=== PATIENT | male | born 1955 | race Caucasian/White ===

== ENCOUNTER 2022-03-07 17:36 | Outpatient (REF) | payer MEDICARE, MEDICAID, SELFPAY ==
[2022-03-08 09:43] LABS: Abs Immature Grans 0.02 10^3/uL (0.0-0.06); Absolute Basophil Count 0.06 10^3/uL (0.0-0.2); Absolute Eosinophil Count 0.16 10^3/uL (0.0-0.7); Absolute Lymphocyte Count 3.41 10^3/uL (1.2-3.4); Absolute Monocyte Count 0.62 10^3/uL (0.1-0.8); Absolute Neutrophil Count 3.21 10^3/uL (1.2-6.7); Basophils % 0.8; Eosinophils % 2.1; HCT 43.5 % (40.0-50.0); HGB 13.6 g/dL (13.5-17.5); Immature Grans % 0.3; Lymphocytes % 45.6; MCH 28.5 pg (27.0-33.0); MCHC 31.3 % (32.0-36.0); MCV 91 fL (80-95); MPV 10.1 fL (8.0-11.0); Monocytes % 8.3; Neutrophils % 42.9; Platelet Count 304 10^3/uL (130-400); RBC 4.77 10^6/uL (4.36-5.78); RDW-SD 47.5 fL; WBC 7.48 10^3/uL (4.4-10.8)
== END 2022-03-07 17:37 | disposition home or self-care (01) ==
LOC: NCHCN 17:36
PROVIDERS: Visit Provider Nurse Practitioner Family
DX: Z51.81 Encounter for therapeutic drug level monitoring (principal)
CPT/HCPCS: 85025

== ENCOUNTER 2022-04-05 18:15 | Outpatient (REF) | payer MEDICARE, MEDICAID, SELFPAY ==
[2022-04-05 11:48] LABS: Abs Immature Grans 0.03 10^3/uL (0.0-0.06); Absolute Basophil Count 0.05 10^3/uL (0.0-0.2); Absolute Eosinophil Count 0.15 10^3/uL (0.0-0.7); Absolute Lymphocyte Count 3.16 10^3/uL (1.2-3.4); Absolute Monocyte Count 0.83 10^3/uL (0.1-0.8); Absolute Neutrophil Count 4.41 10^3/uL (1.2-6.7); Basophils % 0.6; Eosinophils % 1.7; HCT 41.6 % (40.0-50.0); HGB 13.1 g/dL (13.5-17.5); Immature Grans % 0.3; Lymphocytes % 36.6; MCH 28.7 pg (27.0-33.0); MCHC 31.5 % (32.0-36.0); MCV 91 fL (80-95); MPV 9.8 fL (8.0-11.0); Monocytes % 9.6; Neutrophils % 51.2; Platelet Count 249 10^3/uL (130-400); RBC 4.56 10^6/uL (4.36-5.78); RDW-SD 47.4 fL; WBC 8.63 10^3/uL (4.4-10.8)
== END 2022-04-05 18:16 | disposition home or self-care (01) ==
LOC: NCHCN 18:15
PROVIDERS: PCP Nurse Practitioner Family; Visit Provider Nurse Practitioner Family
DX: Z51.81 Encounter for therapeutic drug level monitoring (principal)
CPT/HCPCS: 85025

== ENCOUNTER → 2022-04-14 14:05 | Outpatient (BNVA) | payer MEDICARE, MEDICAID, SELFPAY | PROVIDERS: PCP Nurse Practitioner Family; Referring Provider Nurse Practitioner Family; Visit Provider Nurse Practitioner Adult Health | DX: R41.89 Other symptoms and signs involving cognitive functions and awareness (principal) | CPT/HCPCS: 99204 ==

== ENCOUNTER 2022-04-28 15:29 | Outpatient (REF) | payer MEDICARE, MEDICAID, SELFPAY ==
[2022-04-28 15:53] LABS: Abs Immature Grans 0.02 10^3/uL (0.0-0.06); Absolute Basophil Count 0.05 10^3/uL (0.0-0.2); Absolute Eosinophil Count 0.23 10^3/uL (0.0-0.7); Absolute Lymphocyte Count 2.86 10^3/uL (1.2-3.4); Absolute Monocyte Count 0.71 10^3/uL (0.1-0.8); Absolute Neutrophil Count 3.87 10^3/uL (1.2-6.7); Basophils % 0.6; HCT 42.7 % (40.0-50.0); HGB 13.4 g/dL (13.5-17.5); Immature Grans % 0.3; MCH 28.5 pg (27.0-33.0); MCHC 31.4 % (32.0-36.0); MCV 91 fL (80-95); MPV 9.9 fL (8.0-11.0); Monocytes % 9.2; Neutrophils % 49.9; Platelet Count 293 10^3/uL (130-400); RBC 4.71 10^6/uL (4.36-5.78); RDW 14.4 % (11.8-14.1); RDW-SD 47.9 fL; WBC 7.74 10^3/uL (4.4-10.8)
[2022-04-28 17:58] LABS: Calculated LDL 127 mg/dL (<100); Cholesterol 235 mg/dL (<200); Ferritin 79 ng/mL (26-388); HDL Cholesterol 58 mg/dL (40-60); Triglyceride 253 mg/dL (<150)
[2022-04-28 18:09] LABS: Iron 66 ug/dL (65-175); Total Iron Binding Capacity 298 ug/dL (250-450); Transferrin Sat 22 % (20-55)
[2022-04-28 18:54] LABS: Hemoglobin A1C 5.7 % (<5.7)
[2022-04-29 08:27] LABS: Vitamin B12 410 pg/mL (193-986)
[2022-04-29 20:26] LABS: PSA, Diagnostic 1.5 ng/mL (<=4.5)
== END 2022-04-28 15:30 | disposition home or self-care (01) ==
LOC: NCHCN 15:29
PROVIDERS: PCP Nurse Practitioner Family; Visit Provider Nurse Practitioner Family
DX: D72.829 Elevated white blood cell count, unspecified (principal); E78.5 Hyperlipidemia, unspecified; R73.03 Prediabetes; D64.9 Anemia, unspecified; R41.82 Altered mental status, unspecified; R97.20 Elevated prostate specific antigen [PSA]; Z79.899 Other long term (current) drug therapy; R41.9 Unspecified symptoms and signs involving cognitive functions and awareness
CPT/HCPCS: 80061; 82607; 82728; 83036; 83540; 83550; 84153; 84443; 85025

== ENCOUNTER → 2022-05-23 09:39 | Outpatient (BNVA) | payer MEDICARE, MEDICAID, SELFPAY | PROVIDERS: PCP Nurse Practitioner Family; Referring Provider Nurse Practitioner Family; Visit Provider Nurse Practitioner Adult Health | DX: F17.210 Nicotine dependence, cigarettes, uncomplicated (principal); G30.9 Alzheimer's disease, unspecified; F02.80 Dementia in other diseases classified elsewhere, unspecified severity, without behavioral disturbance, psychotic disturbance, mood disturbance, and anxiety | CPT/HCPCS: 99213; 99214 ==

== ENCOUNTER 2022-05-25 13:47 | Outpatient (REF) | payer MEDICARE, MEDICAID, SELFPAY ==
[2022-05-25 10:38] LABS: Abs Immature Grans 0.02 10^3/uL (0.0-0.06); Absolute Basophil Count 0.06 10^3/uL (0.0-0.2); Absolute Eosinophil Count 0.15 10^3/uL (0.0-0.7); Absolute Lymphocyte Count 2.66 10^3/uL (1.2-3.4); Absolute Monocyte Count 0.63 10^3/uL (0.1-0.8); Absolute Neutrophil Count 3.75 10^3/uL (1.2-6.7); Basophils % 0.8; Eosinophils % 2.1; HCT 43.4 % (40.0-50.0); HGB 13.8 g/dL (13.5-17.5); Immature Grans % 0.3; Lymphocytes % 36.6; MCH 28.7 pg (27.0-33.0); MCHC 31.8 % (32.0-36.0); MCV 90 fL (80-95); MPV 9.8 fL (8.0-11.0); Monocytes % 8.7; Neutrophils % 51.5; Platelet Count 258 10^3/uL (130-400); RBC 4.81 10^6/uL (4.36-5.78); RDW 14.4 % (11.8-14.1); RDW-SD 47.8 fL; WBC 7.27 10^3/uL (4.4-10.8)
[2022-05-25 10:59] LABS: Iron 75 ug/dL (65-175); Total Iron Binding Capacity 293 ug/dL (250-450); Transferrin Sat 26 % (20-55)
[2022-05-25 11:05] LABS: Hemoglobin A1C 5.5 % (<5.7)
[2022-05-25 11:23] LABS: Calculated LDL 53 mg/dL (<100); Cholesterol 137 mg/dL (<200); Ferritin 98 ng/mL (26-388); HDL Cholesterol 62 mg/dL (40-60); TSH (W/Ref FT4) 0.62 uIU/mL (0.36-3.74); Triglyceride 112 mg/dL (<150); Vitamin B12 818 pg/mL (193-986)
[2022-05-25 17:44] LABS: PSA, Screening 1.3 ng/mL (<=4.5)
== END 2022-05-25 13:48 | disposition home or self-care (01) ==
LOC: NCHCN 13:47
PROVIDERS: PCP Nurse Practitioner Family; Visit Provider Nurse Practitioner Family
DX: Z79.899 Other long term (current) drug therapy (principal); D64.9 Anemia, unspecified; R97.20 Elevated prostate specific antigen [PSA]; Z51.81 Encounter for therapeutic drug level monitoring; E78.5 Hyperlipidemia, unspecified; R73.03 Prediabetes
CPT/HCPCS: 80061; 84153; 82607; 82728; 83036; 83540; 83550; 84443; 85025

== ENCOUNTER 2022-06-02 13:40 | Outpatient (REF) | payer MEDICARE, MEDICAID, SELFPAY ==
[2022-06-02 10:17] LABS: Abs Immature Grans 0.03 10^3/uL (0.0-0.06); Absolute Basophil Count 0.06 10^3/uL (0.0-0.2); Absolute Eosinophil Count 0.15 10^3/uL (0.0-0.7); Absolute Lymphocyte Count 1.93 10^3/uL (1.2-3.4); Absolute Monocyte Count 0.59 10^3/uL (0.1-0.8); Absolute Neutrophil Count 3.66 10^3/uL (1.2-6.7); Basophils % 0.9; Eosinophils % 2.3; HCT 44.3 % (40.0-50.0); Immature Grans % 0.5; Lymphocytes % 30.1; MCHC 31.6 % (32.0-36.0); MCV 92 fL (80-95); MPV 10.2 fL (8.0-11.0); Monocytes % 9.2; Platelet Count 258 10^3/uL (130-400); RBC 4.83 10^6/uL (4.36-5.78); RDW 14.6 % (11.8-14.1); RDW-SD 49.1 fL; WBC 6.42 10^3/uL (4.4-10.8)
[2022-06-02 10:44] LABS: Hemoglobin A1C 5.7 % (<5.7)
[2022-06-02 11:07] LABS: Vitamin D 25 Total 13.4 ng/mL (30-100)
[2022-06-02 11:09] LABS: ALT 68 U/L (16-63); AST 31 U/L (15-37); Albumin 4.1 g/dL (3.4-5.0); Alkaline Phosphatase 94 U/L (46-116); Anion Gap 7.9 mmol/L (3-11); BUN 15 mg/dL (7-18); Bilirubin, Total 0.3 mg/dL (0.2-1.0); CO2 28.1 mmol/L (21.0-32.0); CREATININE 0.9 mg/dL (0.70-1.30); Calcium 9.3 mg/dL (8.5-10.1); Calculated LDL 120 mg/dL (<100); Chloride 103 mmol/L (98-107); Cholesterol 200 mg/dL (<200); Estimated GFR 94.78 (mL/min/1.73m2); Folate 16.9 ng/mL (8.6-20.0); Glucose 98 mg/dL (74-106); HDL Cholesterol 62 mg/dL (40-60); Potassium 4.7 mmol/L (3.5-5.1); Sodium 139 mmol/L (136-145); TSH 0.58 uIU/mL (0.36-3.74); Total Protein 7.1 g/dL (6.4-8.2); Triglyceride 94 mg/dL (<150); Vitamin B12 660 pg/mL (193-986)
[2022-06-02 11:42] LABS: FREE T4 0.77 ng/dL (0.76-1.46)
[2022-06-06 09:43] LABS: Insulin 8.6 uIU/mL (<29.0)
== END 2022-06-02 13:41 | disposition home or self-care (01) ==
LOC: LBN 13:40
PROVIDERS: PCP Nurse Practitioner Family; Visit Provider Psychiatry & Neurology Psychiatry
DX: D64.9 Anemia, unspecified (principal); E78.5 Hyperlipidemia, unspecified; R73.03 Prediabetes; Z79.899 Other long term (current) drug therapy
CPT/HCPCS: 80053; 80061; 82306; 83090; 82607; 82746; 83036; 83525; 83735; 84439; 84443; 85025

== ENCOUNTER 2022-06-27 11:58 | Outpatient (REF) | payer MEDICARE, MEDICAID, SELFPAY ==
[2022-06-27 11:54] LABS: ALT 53 U/L (16-63); AST 31 U/L (15-37); Albumin 4.1 g/dL (3.4-5.0); Alkaline Phosphatase 94 U/L (46-116); Anion Gap 7.1 mmol/L (3-11); BUN 17 mg/dL (7-18); Bilirubin, Total 0.4 mg/dL (0.2-1.0); CO2 28.9 mmol/L (21.0-32.0); CREATININE 1.2 mg/dL (0.70-1.30); Calcium 8.9 mg/dL (8.5-10.1); Calculated LDL 53 mg/dL (<100); Chloride 103 mmol/L (98-107); Cholesterol 135 mg/dL (<200); Estimated GFR 67.11 (mL/min/1.73m2); Glucose 164 mg/dL (74-106); HDL Cholesterol 60 mg/dL (40-60); Potassium 4.5 mmol/L (3.5-5.1); Sodium 139 mmol/L (136-145); Triglyceride 111 mg/dL (<150)
[2022-06-27 11:56] LABS: Abs Immature Grans 0.04 10^3/uL (0.0-0.06); Absolute Basophil Count 0.03 10^3/uL (0.0-0.2); Absolute Eosinophil Count 0.03 10^3/uL (0.0-0.7); Absolute Lymphocyte Count 1.68 10^3/uL (1.2-3.4); Absolute Monocyte Count 0.52 10^3/uL (0.1-0.8); Absolute Neutrophil Count 6.07 10^3/uL (1.2-6.7); Basophils % 0.4; Eosinophils % 0.4; HCT 46.2 % (40.0-50.0); HGB 14.3 g/dL (13.5-17.5); Immature Grans % 0.5; Lymphocytes % 20.1; MCH 28.5 pg (27.0-33.0); MCV 92 fL (80-95); MPV 9.9 fL (8.0-11.0); Monocytes % 6.2; Neutrophils % 72.4; Platelet Count 269 10^3/uL (130-400); RBC 5.01 10^6/uL (4.36-5.78); RDW 14.3 % (11.8-14.1); RDW-SD 48.9 fL; WBC 8.37 10^3/uL (4.4-10.8)
== END 2022-06-27 11:59 | disposition home or self-care (01) ==
LOC: NCHCN 11:58
PROVIDERS: PCP Nurse Practitioner Family; Visit Provider Nurse Practitioner Family
DX: D64.9 Anemia, unspecified (principal); E78.5 Hyperlipidemia, unspecified
CPT/HCPCS: 80053; 80061; 85025

== ENCOUNTER 2022-07-01 18:59 | Outpatient (REF) | payer MEDICARE, MEDICAID, SELFPAY ==
[2022-07-01 17:23] LABS: Bacteria Negative HPF (Negative); C & S Indicated? No; Casts Negative LPF (Negative); Crystals Negative HPF (Negative); Epithelial Cells Few HPF (Negative); Mucus Negative (Negative); Other Cells Negative (Negative); RBC 0-2 HPF (0-2); WBC 0-2 HPF (0-5)
== END 2022-07-01 19:00 | disposition home or self-care (01) ==
LOC: LBN 18:59
PROVIDERS: PCP Nurse Practitioner Family; Visit Provider Physician Assistant Medical
DX: R82.998 Other abnormal findings in urine (principal); R39.89 Other symptoms and signs involving the genitourinary system
CPT/HCPCS: 81015; 87086

== ENCOUNTER 2022-08-03 16:31 | Outpatient (REF) | payer MEDICARE, MEDICAID, SELFPAY ==
[2022-08-03 17:05] LABS: Abs Immature Grans 0.04 10^3/uL (0.0-0.06); Absolute Basophil Count 0.07 10^3/uL (0.0-0.2); Absolute Eosinophil Count 0.22 10^3/uL (0.0-0.7); Absolute Lymphocyte Count 3.19 10^3/uL (1.2-3.4); Absolute Monocyte Count 0.53 10^3/uL (0.1-0.8); Absolute Neutrophil Count 4.18 10^3/uL (1.2-6.7); Basophils % 0.9; Eosinophils % 2.7; HCT 40.1 % (40.0-50.0); HGB 12.8 g/dL (13.5-17.5); Immature Grans % 0.5; Lymphocytes % 38.8; MCH 29.3 pg (27.0-33.0); MCHC 31.9 % (32.0-36.0); MCV 92 fL (80-95); MPV 10.3 fL (8.0-11.0); Monocytes % 6.4; Neutrophils % 50.7; Platelet Count 248 10^3/uL (130-400); RBC 4.37 10^6/uL (4.36-5.78); RDW 13.7 % (11.8-14.1); RDW-SD 46.3 fL; WBC 8.23 10^3/uL (4.4-10.8)
== END 2022-08-03 16:32 | disposition home or self-care (01) ==
LOC: NCHCN 16:31
PROVIDERS: PCP Nurse Practitioner Family; Visit Provider Nurse Practitioner Family
DX: D64.9 Anemia, unspecified (principal)
CPT/HCPCS: 85025

== ENCOUNTER 2022-09-06 19:01 | Outpatient (REF) | payer MEDICARE, MEDICAID, SELFPAY ==
[2022-09-06 14:29] LABS: Abs Immature Grans 0.04 10^3/uL (0.0-0.06); Absolute Basophil Count 0.06 10^3/uL (0.0-0.2); Absolute Lymphocyte Count 2.79 10^3/uL (1.2-3.4); Basophils % 0.7; Eosinophils % 3.6; HCT 40.3 % (40.0-50.0); HGB 12.8 g/dL (13.5-17.5); Immature Grans % 0.5; Lymphocytes % 33.7; MCH 29.8 pg (27.0-33.0); MCHC 31.8 % (32.0-36.0); MCV 94 fL (80-95); MPV 10.2 fL (8.0-11.0); Monocytes % 9.7; Neutrophils % 51.8; Platelet Count 238 10^3/uL (130-400); RDW 14.3 % (11.8-14.1); RDW-SD 48.8 fL; WBC 8.29 10^3/uL (4.4-10.8)
== END 2022-09-06 19:02 | disposition home or self-care (01) ==
LOC: NCHCN 19:01
PROVIDERS: PCP Nurse Practitioner Family; Visit Provider Nurse Practitioner Family
DX: D64.9 Anemia, unspecified (principal)
CPT/HCPCS: 85025

== ENCOUNTER 2022-09-25 13:28 | Outpatient (REF) | payer MEDICARE, MEDICAID, SELFPAY ==
[2022-09-25 15:00] LABS: Creatine Kinase 247 U/L (39-308)
== END 2022-09-25 13:29 | disposition home or self-care (01) ==
LOC: NCHCN 13:28
PROVIDERS: PCP Nurse Practitioner Family; Visit Provider Nurse Practitioner Family
DX: M79.604 Pain in right leg (principal); M79.605 Pain in left leg
CPT/HCPCS: 82550

== ENCOUNTER 2022-09-30 19:11 | Outpatient (REF) | payer MEDICARE, MEDICAID, SELFPAY ==
[2022-09-30 19:12] LABS: Abs Immature Grans 0.04 10^3/uL (0.0-0.06); Absolute Basophil Count 0.07 10^3/uL (0.0-0.2); Absolute Eosinophil Count 0.31 10^3/uL (0.0-0.7); Absolute Monocyte Count 0.64 10^3/uL (0.1-0.8); Absolute Neutrophil Count 3.59 10^3/uL (1.2-6.7); Basophils % 0.8; Eosinophils % 3.7; HCT 41.6 % (40.0-50.0); HGB 13.5 g/dL (13.5-17.5); Immature Grans % 0.5; Lymphocytes % 44.3; MCH 29.7 pg (27.0-33.0); MCHC 32.5 % (32.0-36.0); MCV 91 fL (80-95); Monocytes % 7.7; Platelet Count 255 10^3/uL (130-400); RBC 4.55 10^6/uL (4.36-5.78); RDW 13.8 % (11.8-14.1); RDW-SD 47.1 fL; WBC 8.35 10^3/uL (4.4-10.8)
== END 2022-09-30 19:12 | disposition home or self-care (01) ==
LOC: NCHCN 19:11
PROVIDERS: PCP Nurse Practitioner Family; Visit Provider Nurse Practitioner Family
DX: D64.9 Anemia, unspecified (principal)
CPT/HCPCS: 85025

== ENCOUNTER 2022-11-11 11:06 | Outpatient (REF) | payer MEDICARE, MEDICAID, SELFPAY ==
[2022-11-11 10:52] LABS: Abs Immature Grans 0.05 10^3/uL (0.0-0.06); Absolute Basophil Count 0.06 10^3/uL (0.0-0.2); Absolute Eosinophil Count 0.22 10^3/uL (0.0-0.7); Absolute Lymphocyte Count 2.48 10^3/uL (1.2-3.4); Absolute Monocyte Count 0.63 10^3/uL (0.1-0.8); Absolute Neutrophil Count 6.07 10^3/uL (1.2-6.7); Basophils % 0.6; Eosinophils % 2.3; HGB 13.7 g/dL (13.5-17.5); Immature Grans % 0.5; Lymphocytes % 26.1; MCH 29.7 pg (27.0-33.0); MCHC 31.9 % (32.0-36.0); MCV 93 fL (80-95); Monocytes % 6.6; Neutrophils % 63.9; Platelet Count 257 10^3/uL (130-400); RBC 4.62 10^6/uL (4.36-5.78); RDW 13.6 % (11.8-14.1); RDW-SD 46.2 fL; WBC 9.51 10^3/uL (4.4-10.8)
== END 2022-11-11 11:07 | disposition home or self-care (01) ==
LOC: NCHCN 11:06
PROVIDERS: PCP Nurse Practitioner Family; Visit Provider Nurse Practitioner Family
DX: D64.9 Anemia, unspecified (principal)
CPT/HCPCS: 85025

== ENCOUNTER → 2022-11-16 10:25 | Outpatient (BNVA) | payer MEDICARE, MEDICAID, SELFPAY | PROVIDERS: PCP Nurse Practitioner Family; Referring Provider Nurse Practitioner Family; Visit Provider Nurse Practitioner Adult Health | DX: G30.9 Alzheimer's disease, unspecified (principal); F02.80 Dementia in other diseases classified elsewhere, unspecified severity, without behavioral disturbance, psychotic disturbance, mood disturbance, and anxiety; R41.89 Other symptoms and signs involving cognitive functions and awareness | CPT/HCPCS: 99213 ==

== ENCOUNTER 2022-12-12 18:56 | Outpatient (REF) | payer MEDICARE, MEDICAID, SELFPAY ==
[2022-12-12 15:56] LABS: Abs Immature Grans 0.03 10^3/uL (0.0-0.06); Absolute Basophil Count 0.05 10^3/uL (0.0-0.2); Absolute Eosinophil Count 0.16 10^3/uL (0.0-0.7); Absolute Lymphocyte Count 2.29 10^3/uL (1.2-3.4); Absolute Monocyte Count 0.75 10^3/uL (0.1-0.8); Absolute Neutrophil Count 4.39 10^3/uL (1.2-6.7); Basophils % 0.7; Eosinophils % 2.1; HCT 42.3 % (40.0-50.0); HGB 13.3 g/dL (13.5-17.5); Immature Grans % 0.4; Lymphocytes % 29.9; MCH 29.4 pg (27.0-33.0); MCHC 31.4 % (32.0-36.0); MCV 93 fL (80-95); MPV 10.1 fL (8.0-11.0); Monocytes % 9.8; Neutrophils % 57.1; Platelet Count 272 10^3/uL (130-400); RBC 4.53 10^6/uL (4.36-5.78); RDW 13.4 % (11.8-14.1); RDW-SD 46.1 fL; WBC 7.67 10^3/uL (4.4-10.8)
[2022-12-12 19:47] LABS: Hemoglobin A1C 5.7 % (<5.7)
== END 2022-12-12 18:57 | disposition home or self-care (01) ==
LOC: NCHCN 18:56
PROVIDERS: PCP Nurse Practitioner Family; Visit Provider Nurse Practitioner Family
DX: D64.9 Anemia, unspecified (principal); R73.03 Prediabetes
CPT/HCPCS: 83036; 85025

== ENCOUNTER → 2022-12-16 01:10 | Outpatient (CLI) | payer MEDICARE, MEDICAID, SELFPAY ==
--- NOTE | 2022-12-16 | DI.CTLCSR_ITS ---
Exam(s) CT CHEST LUNG CANCER SCREEN EXAM: CT CHEST LUNG CANCER SCREEN CLINICAL HISTORY: CIGARETTE SMOKER, F17.210, PULMONARY NODULE, EMPHYSEMA, COPD TECHNIQUE: Imaging Protocol: Axial computed tomography images with coronal and sagittal reformatted images were created and reviewed. Low dose screening protocol. COMPARISON: CT CT CHEST SCREENING LUNG CANCER from 09/20/2021 FINDINGS: Tracheobronchial tree: No bronchiectasis or mucus plugging.. Mediastinum and Marilu: No dominant adenopathy or fluid collection. Pulmonary parenchyma: No mass or infiltrate. Mild emphysematous changes. Lung Nodules: Coarse calcification left lower lobe. Tiny nodule right upper lobe. Pleura: No effusion. No pneumothorax. Heart: The heart is mildly dilated. Moderate coronary artery calcifications are seen. Aorta: Thoracic aorta non-dilated. Upper abdomen: Unremarkable. Bones: Unremarkable for age. Soft Tissues: Tiny hiatal hernia. Fatty containing posteromedial left diaphragmatic hernia. IMPRESSION: No suspicious pulmonary nodules. Lung RADS Cat 2 - Benign Appearance / Behavior: Nodules with a very low likelihood of becoming a clin ically active cancer due to size or lack of growth Lung-RADS 1.0 CATEGORIES: Category 0 - Prior chest CT exam(s) being located for comparison. Category 1 - Annual screening in 12 months. No nodules or definitely benign nodules. Category 2 - Annual screening in 12 months. Benign appearance. Nodules with low likelihood of becomin g active cancer. Category 3 - 6-month follow-up. Probably benign. Short-term follow-up suggested. Nodules with low lik elihood of becoming active cancer. Category 4A - 3-month follow-up and CT/PET if >8 mm in size. Suspicious finding. Findings which requi re additional testing. Category 4B - Findings which require additional testing and tissue sampling. Category 4X - Category 3 or 4 nodules with additional features or imaging findings that increases the suspicion of malignancy. Modifier S- Potentially clinically significant findings (non lung cancer) RADIATION DOSE DELIVERED: 75.74mGy.cm Total DLP DATA REPOSITORY: All CT scans at this facility are submitted to the National Radiology Data Registry (NRDR) Dose Index Registry (DIR) with the [employer] (A[employer]). RADIATION OPTIMIZATION: All CT scans at this facility use at least one of these dose optimization te chniques: automated exposure control; mA and/or kV adjustment per patient size (includes targeted exa ms where dose is matched to clinical indication); or iterative reconstruction.
== END ==
PROVIDERS: PCP Nurse Practitioner Family; Visit Provider Nurse Practitioner Family
DX: F17.210 Nicotine dependence, cigarettes, uncomplicated (principal); Z12.2 Encounter for screening for malignant neoplasm of respiratory organs; J44.9 Chronic obstructive pulmonary disease, unspecified
CPT/HCPCS: 71271

== ENCOUNTER → 2022-12-28 00:56 | Outpatient (CLI) | payer MEDICARE, MEDICAID, SELFPAY ==
--- NOTE | 2022-12-28 | DI.US_ITS ---
Exam(s) US AAA SCREENING EXAM: US AAA SCREENING CLINICAL HISTORY: FORMER SMOKER, CARDIOVASCULAR SCREENING, Z13.6 COMPARISON: No exams were available for comparison FINDINGS: There is no evidence of abdominal aortic aneurysm. Maximum diameter of the abdominal aorta is 2 cm. SPECT of the common iliac arteries, the right common iliac artery exhibits normal luminal diameter. Left common iliac artery exhibits 1 measurement of 1.9 cm which is a high reading but may be related to the angle of insonation. IMPRESSION: No evidence of abdominal aortic aneurysm. One of the measurements of the left iliac artery is slightly prominent. There is a possibly that thi s is artifactual and related to the angle of ultrasound interrogation of this vessel. Recommend foll ow-up CT scan. This would not require IV contrast for just determining the diameter of the vessel. DATA REPOSITORY:
== END ==
PROVIDERS: PCP Nurse Practitioner Family; Visit Provider Nurse Practitioner Family
DX: Z13.6 Encounter for screening for cardiovascular disorders (principal)
CPT/HCPCS: 76706; 99213

== ENCOUNTER 2023-01-19 10:12 | Outpatient (CLI) | payer MEDICARE, MEDICAID, SELFPAY ==
--- NOTE | 2023-01-19 10:00 | DI.RAD_ITS ---
Exam(s) XR KNEE RT 4V AP,LAT,EDILMA,PAT EXAM: XR KNEE RT 4V AP,LAT,EDILMA,PAT CLINICAL HISTORY: knee pain. TECHNIQUE: 2D digital imaging was performed. COMPARISON: None FINDINGS: Four views. There is a small joint effusion. No joint space narrowing evident on these weight-bearing views, including no narrowing of the patello femoral compartment. On the medial aspect of the knee there is a 3 x 2 mm calcific density in the soft tissues immediately adjacent to the tibial epiphysis-metaphysis junction, probably related to the medial collateral liga ment. There does appear to be some swelling in the MCL higher up adjacent to the outer aspect of the medial femoral condyle. There is no typical Jorge Alberto-Stieda osseous fragment. This bony density also does not represent a Segond-type fracture fragment. There are no significant osseous lesions. IMPRESSION: Title finding as above. If clinically indicated follow-up MRI can be performed. There is also a sma ll joint effusion noted. DATA REPOSITORY: RADIATION DOSE DELIVERED:
--- NOTE | 2023-01-19 10:00 | DI.RAD_ITS ---
Exam(s) XR KNEE LT 4V AP,LAT,EDILMA,PAT EXAM: XR KNEE LT 4V AP,LAT,EDILMA,PAT CLINICAL HISTORY: knee pain. TECHNIQUE: 2D digital imaging was performed. COMPARISON: No exams were available for comparison FINDINGS: Four views No evidence of fracture. Small amount of increased joint fluid. Bone density normal. No osseous le sions. No degenerative changes. Mild vascular calcification is noted in the popliteal artery. IMPRESSION: No acute osseous findings in the knee. DATA REPOSITORY: RADIATION DOSE DELIVERED:
== END 2023-01-19 10:13 | disposition home or self-care (01) ==
LOC: DIORS 10:12
PROVIDERS: PCP Nurse Practitioner Family; Visit Provider Physician Assistant
DX: M25.561 Pain in right knee (principal); M25.562 Pain in left knee
CPT/HCPCS: 20610; 99213; 73564; J1040

== ENCOUNTER 2023-01-19 11:22 | Outpatient (CLI) | payer MEDICARE, MEDICAID, SELFPAY | END 2023-01-19 11:23 | disposition home or self-care (01) | LOC: LBO 11:22 | PROVIDERS: PCP Nurse Practitioner Family; Visit Provider Counselor Addiction (Substance Use Disorder) | DX: Z79.899 Other long term (current) drug therapy (principal) | CPT/HCPCS: 20610; 36415; 99213; 85025; J1040 ==

== ENCOUNTER 2023-01-29 14:57 | Outpatient (REF) | payer MEDICARE, MEDICAID, SELFPAY ==
[2023-01-29 15:33] LABS: Abs Immature Grans 0.08 10^3/uL (0.0-0.06); Absolute Basophil Count 0.05 10^3/uL (0.0-0.2); Absolute Eosinophil Count 0.17 10^3/uL (0.0-0.7); Absolute Monocyte Count 1.05 10^3/uL (0.1-0.8); Absolute Neutrophil Count 5.13 10^3/uL (1.2-6.7); Basophils % 0.5; Eosinophils % 1.8; HCT 41.5 % (40.0-50.0); HGB 13.1 g/dL (13.5-17.5); Immature Grans % 0.8; Lymphocytes % 31.6; MCH 29.2 pg (27.0-33.0); MCHC 31.6 % (32.0-36.0); MCV 92 fL (80-95); MPV 10.1 fL (8.0-11.0); Monocytes % 11.1; Neutrophils % 54.2; Platelet Count 251 10^3/uL (130-400); RBC 4.49 10^6/uL (4.36-5.78); RDW 13.9 % (11.8-14.1); RDW-SD 47.4 fL; WBC 9.48 10^3/uL (4.4-10.8)
== END 2023-01-29 14:58 | disposition home or self-care (01) ==
LOC: NCHCN 14:57
PROVIDERS: PCP Nurse Practitioner Family; Visit Provider Nurse Practitioner Family
DX: D64.9 Anemia, unspecified (principal); Z51.81 Encounter for therapeutic drug level monitoring
CPT/HCPCS: 85025

== ENCOUNTER 2023-02-20 10:27 | Outpatient (REF) | payer MEDICARE, MEDICAID, SELFPAY ==
[2023-02-26 15:34] LABS: Abs Immature Grans 0.04 10^3/uL (0.0-0.06); Absolute Basophil Count 0.04 10^3/uL (0.0-0.2); Absolute Eosinophil Count 0.12 10^3/uL (0.0-0.7); Absolute Lymphocyte Count 2.85 10^3/uL (1.2-3.4); Absolute Monocyte Count 0.81 10^3/uL (0.1-0.8); Absolute Neutrophil Count 4.26 10^3/uL (1.2-6.7); Basophils % 0.5; Eosinophils % 1.5; HGB 12.2 g/dL (13.5-17.5); Immature Grans % 0.5; Lymphocytes % 35.1; MCHC 31.3 % (32.0-36.0); MCV 93 fL (80-95); Neutrophils % 52.4; Platelet Count 285 10^3/uL (130-400); RDW 13.9 % (11.8-14.1); WBC 8.12 10^3/uL (4.4-10.8)
== END 2023-02-20 10:28 ==
LOC: NCHCN 10:27
PROVIDERS: PCP Nurse Practitioner Family; Visit Provider Nurse Practitioner Family
DX: D64.9 Anemia, unspecified (principal)
CPT/HCPCS: 85025

== ENCOUNTER 2023-03-25 15:32 | Outpatient (REF) | payer MEDICARE, MEDICAID, SELFPAY ==
[2023-03-25 15:58] LABS: Abs Immature Grans 0.03 10^3/uL (0.0-0.06); Absolute Basophil Count 0.05 10^3/uL (0.0-0.2); Absolute Eosinophil Count 0.18 10^3/uL (0.0-0.7); Absolute Lymphocyte Count 2.48 10^3/uL (1.2-3.4); Absolute Monocyte Count 0.74 10^3/uL (0.1-0.8); Absolute Neutrophil Count 3.83 10^3/uL (1.2-6.7); Basophils % 0.7; Eosinophils % 2.5; HCT 40.9 % (40.0-50.0); HGB 12.6 g/dL (13.5-17.5); Immature Grans % 0.4; Lymphocytes % 33.9; MCH 28.6 pg (27.0-33.0); MCHC 30.8 % (32.0-36.0); MCV 93 fL (80-95); MPV 9.9 fL (8.0-11.0); Monocytes % 10.1; Neutrophils % 52.4; Platelet Count 267 10^3/uL (130-400); RDW 13.5 % (11.8-14.1); RDW-SD 45.9 fL; WBC 7.31 10^3/uL (4.4-10.8)
== END 2023-03-25 15:33 | disposition home or self-care (01) ==
LOC: NCHCN 15:32
PROVIDERS: PCP Nurse Practitioner Family; Visit Provider Nurse Practitioner Family
DX: D64.9 Anemia, unspecified (principal)
CPT/HCPCS: 85025

== ENCOUNTER 2023-05-03 18:21 | Outpatient (REF) | payer MEDICARE, MEDICAID, SELFPAY ==
[2023-05-03 13:33] LABS: HCT 41.4 % (40.0-50.0); MCHC 31.4 % (32.0-36.0); MCV 92 fL (80-95); MPV 10.7 fL (8.0-11.0); Platelet Count 245 10^3/uL (130-400); RBC 4.48 10^6/uL (4.36-5.78); RDW 13.2 % (11.8-14.1); RDW-SD 45.2 fL; WBC 9.16 10^3/uL (4.4-10.8)
[2023-05-03 16:24] LABS: Abs Immature Grans 0.03 10^3/uL (0.0-0.06); Absolute Basophil Count 0.06 10^3/uL (0.0-0.2); Absolute Eosinophil Count 0.07 10^3/uL (0.0-0.7); Absolute Lymphocyte Count 3.02 10^3/uL (1.2-3.4); Absolute Monocyte Count 0.67 10^3/uL (0.1-0.8); Absolute Neutrophil Count 5.21 10^3/uL (1.2-6.7); Basophils % 0.7; Eosinophils % 0.8; Immature Grans % 0.3; Lymphocytes % 33.3; Monocytes % 7.4; Neutrophils % 57.5
== END 2023-05-03 18:22 | disposition home or self-care (01) ==
LOC: LBN 18:21
PROVIDERS: PCP Nurse Practitioner Family; Visit Provider Registered Nurse
DX: Z51.81 Encounter for therapeutic drug level monitoring (principal)
CPT/HCPCS: 85027; 85025

== ENCOUNTER 2023-05-21 15:59 | Outpatient (REF) | payer MEDICARE, MEDICAID, SELFPAY ==
[2023-05-22 09:31] LABS: Abs Immature Grans 0.03 10^3/uL (0.0-0.06); Absolute Basophil Count 0.05 10^3/uL (0.0-0.2); Absolute Eosinophil Count 0.05 10^3/uL (0.0-0.7); Absolute Lymphocyte Count 2.86 10^3/uL (1.2-3.4); Absolute Monocyte Count 0.57 10^3/uL (0.1-0.8); Absolute Neutrophil Count 3.85 10^3/uL (1.2-6.7); Basophils % 0.7; Eosinophils % 0.7; HCT 41.8 % (40.0-50.0); HGB 13.2 g/dL (13.5-17.5); Immature Grans % 0.4; Lymphocytes % 38.6; MCHC 31.6 % (32.0-36.0); MCV 92 fL (80-95); MPV 10.4 fL (8.0-11.0); Monocytes % 7.7; Neutrophils % 51.9; Platelet Count 253 10^3/uL (130-400); RBC 4.55 10^6/uL (4.36-5.78); RDW 13.6 % (11.8-14.1); RDW-SD 45.8 fL; WBC 7.41 10^3/uL (4.4-10.8)
== END 2023-05-21 16:00 | disposition home or self-care (01) ==
LOC: LBN 15:59
PROVIDERS: Counselor Addiction (Substance Use Disorder); PCP Nurse Practitioner Family; Visit Provider Registered Nurse
DX: F20.9 Schizophrenia, unspecified (principal); Z79.899 Other long term (current) drug therapy
CPT/HCPCS: 85025

== ENCOUNTER 2023-06-11 23:36 | Emergency (ER) | payer MEDICARE, MEDICAID, SELFPAY ==
--- NOTE | 2023-06-11 23:30 | RT.EKG_ITS ---
APPROVED REPORT Exam: Resting ECG Reason for Exam: falls Patient Location: E HR:95 bpm ECG Measurements Heart Rate 95 AXIS DC 156 P 31 QRSd 98 QRS -1 QT 357 T 52 QTc 449 Conclusion Sinus rhythm...normal P axis, V-rate 60- 99 Physician: no stemi
[2023-06-11 23:36] VITALS: BP 121/78; PULSE 95; RESP 18; TEMP 36.4
[2023-06-11 23:39] VITALS: O2SAT 91
[2023-06-11 23:43] VITALS: O2SAT 92
[2023-06-11 23:46] VITALS: BP 130/83; PULSE 94; O2SAT 90
--- NOTE | 2023-06-11 23:46 | W.ED.GENAD ---
Discharge Plan Disposition Patient Disposition: Home Condition: Good Discharge Details Chief Complaint: Fall/Non TraumaCriteria Clinical Impression: Falls Primary Care Provider: Milka Shelley ED Provider: Jeremie Doshi Home Meds and New Rx's Prescriptions: No Action albuterol sulfate [ProAir HFA] 90 mcg/actuation HFA aerosol inhaler 2 puff inhalation Q6H PRN donepezil 10 mg tablet 10 mg PO QHS Qty: 90 3RF omega 9-ssk-fid-fish oil [Fish Oil] 60-90-500 mg capsule 1 cap PO DAILY simvastatin 20 mg tablet 20 mg PO DAILY docusate sodium 100 mg capsule 100 mg PO BID clonazepam 0.5 mg tablet 0.5 mg PO TID clozapine 50 mg tablet 50 mg PO QHS Rx Instructions: Take with 400mg for total dose of 450mg QHS tamsulosin 0.4 mg capsule 0.8 mg PO QHS Incruse Ellipta 62.5 mcg/actuation blister with device 1 inh inhalation DAILY nicotine [Nicoderm CQ] 21 mg/24 hr patch 24 hour 1 patch transdermal Q24H acetaminophen [Tylenol] 325 mg tablet 650 mg PO Q6H PRN duloxetine 30 mg capsule,delayed release(DR/EC) 30 mg PO DAILY duloxetine 60 mg capsule,delayed release(DR/EC) 60 mg PO DAILY magnesium 250 mg tablet 250 mg PO DAILY tizanidine 2 mg tablet 2 mg PO BID PRN trazodone 50 mg tablet 50 mg PO QHS PRN mecobalamin (vitamin B12) 1,000 mcg tablet,chewable 1,000 mcg PO DAILY Qty: 90 3RF clozapine 200 mg tablet 400 mg PO QHS memantine 10 mg tablet 10 mg PO BID Qty: 180 3RF Discharge Instructions Additional Instructions: At this time your laboratory workup has returned reassuring. No evidence of urinary tract infection. No signs of electrolyte abnormality. Your heart markers and EKG are normal. Your thyroid function is normal. The CT scan of your head shows no evidence of bleed or stroke. There is evidence of a small incidental aneurysm that is 3 mm. However there is no current clinical evidence to suggest bleed and no imaging evidence to suggest rupture. If you notice any worsening of your symptoms, or any new symptoms such as vomiting, diarrhea, fever, chills, shortness of breath, chest pain, numbness, weakness, or fainting , please return immediately to the emergency department for reevaluation. Please follow up with your primary care provider as soon as possible for reassessment and reevaluation. As always, it was a pleasure participating in your medical care today. Referrals: Milka Shelley [Primary Care Provider] - [facility] General Date/Time Provider Initiated Documentation: 06/11/23 23:42. HPI Narrative: This is a 68-year-old male with a past medical history of schizophrenia, high cholesterol, COPD, LUTS symptoms, Alzheimer's, and a questionable history of seizures, but he is not on any antiepileptic medications, he resides at [facility]. He presents today for evaluation of multiple falls. Per EMS report and [place] and staff report, over the last 3 to 4 hours he has had 3 falls, most recent time that he fell he had some shaking motion, but the patient restates that he recalls the entire event. He does admit to having some pain in his left knee. He denies pain anywhere else. No head neck or chest pain. No pain in his right lower extremity. Pain is isolated to his left knee area. He does have some chronic lower extremity pain though. Patient denies any other complaints at this time. [place] staff state that the patient was noted to be drooling more than normal and did have some change in speech. Unknown when his last known well was. It is suspected that the symptoms have been going on for least greater than 4 hours. No other complaints at this time. No other modifying factors. Related Data Home Medications Medication Instructions Recorded Confirmed acetaminophen 325 mg tablet 650 mg PO Q6H PRN 03/23/22 01/19/23 (Tylenol) duloxetine 30 mg capsule,delayed 30 mg PO DAILY 03/23/22 01/19/23 release duloxetine 60 mg capsule,delayed 60 mg PO DAILY 03/23/22 01/19/23 release magnesium 250 mg tablet 250 mg PO DAILY 03/23/22 01/19/23 nicotine 21 mg/24 hr daily 1 patch transdermal Q24H 03/23/22 01/19/23 transdermal patch (Nicoderm CQ) tamsulosin 0.4 mg capsule 0.8 mg PO QHS 03/23/22 01/19/23 tizanidine 2 mg tablet 2 mg PO BID PRN 03/23/22 01/19/23 trazodone 50 mg tablet 50 mg PO QHS PRN 03/23/22 01/19/23 umeclidinium 62.5 mcg/actuation 1 inh inhalation DAILY 03/23/22 01/19/23 blister powder for inhalation (Incruse Ellipta) albuterol sulfate 90 mcg/actuation 2 puff inhalation Q6H PRN 04/14/22 01/19/23 aerosol inhaler (ProAir HFA) mecobalamin (vitamin B12) 1,000 1,000 mcg PO DAILY #90 tabs 09/29/22 01/19/23 mcg chewable tablet donepezil 10 mg tablet 10 mg PO QHS #90 tabs 11/16/22 01/19/23 clonazepam 0.5 mg tablet 0.5 mg PO TID 01/19/23 01/19/23 clozapine 200 mg tablet 400 mg PO QHS 01/19/23 01/19/23 clozapine 50 mg tablet 50 mg PO QHS 01/19/23 01/19/23 docusate sodium 100 mg capsule 100 mg PO BID 01/19/23 01/19/23 omega 6-mgs-iye-fish oil 60 mg-90 1 cap PO DAILY 01/19/23 01/19/23 mg-500 mg capsule (Fish Oil) simvastatin 20 mg tablet 20 mg PO DAILY 01/19/23 01/19/23 memantine 10 mg tablet 10 mg PO BID #180 tabs 04/12/23 Previous Rx's Medication Instructions Recorded mecobalamin (vitamin B12) 1,000 1,000 mcg PO DAILY #90 tabs 09/29/22 mcg chewable tablet donepezil 10 mg tablet 10 mg PO QHS #90 tabs 11/16/22 memantine 10 mg tablet 10 mg PO BID #180 tabs 04/12/23 Allergies Allergy/AdvReac Type Severity Reaction Status Date / Time No Known Allergies Allergy Verified 01/19/23 09:37 General Stated Complaint: Fall/Non TraumaCriteria WILLIAMS: 3 Review of Systems All systems reviewed & are unremarkable except as noted in HPI and below Exam Narrative Exam Narrative: 1.Const: Well-nourished, Well-developed, appearing stated age 2.Eyes: PERRL, no conjunctival injection, and symmetrical lids. 3.ENT: Atraumatic external nose and ears. Moist MM. Neck: Symmetric, trachea midline, No thyromegaly. Patient does have slight slurred speech. He is able to communicate well though. There is no evidence of raccoon eyes, feliz sign, CSF rhinorrhea, mastoid tenderness, cranial crepitus, hemotympanum, exophthalmos, or hyphema. Patient demonstrates intact dentition with no signs of tooth avulsion or fracture, no signs of jaw deformity, no evidence of a LeFort's fracture, with an intact palate, nose and orbital region. There is no evidence of a nasal septal hematoma. No proptosis. Jaw closes symmetrically. Airway is clear. 4.CVS: +S1/S2, No murmurs or gallops. Peripheral pulses 2+ and equal in all extremities. Brisk capillary refill in all extremities. 5.RESP: Unlabored respiratory effort. Clear to auscultation bilaterally. No wheezes rales or rhonchi 6.GI: Soft, Nontender/Nondistended, No hepatosplenomegaly. No guarding or rebound. 7.MSK: Normocephalic/Atraumatic, Extremities w/o deformity. No cyanosis or clubbing, Normal movement of all extremities. Minimal tenderness over the left knee. 8.Skin: Warm, Dry. No rashes or lesions. 9.Neuro: personnel associate II-XII grossly intact. Sensation grossly intact, all 6 cardinal planes of vision are fully intact. No evidence of rotatory or vertical nystagmus. The patient demonstrated a normal qpradk-evjg-chioks, good dexterity. There was slight atypical rapid alternating movements. He had a hard time flipping his hands at high rates of speed, but he was able to do it slowly without significant difficulty.. Sensation was intact bilaterally as well as muscle strength bilaterally for all extremities. Patient was able to verbalize butter cup with no slurring, or miss pronunciation. 10.Psych: (AAO) x3. Appropriate mood and affect Course Vital Signs Vital signs: Vital Signs Temperature 36.4 C L 06/11/23 23:36 Pulse 95 H 06/11/23 23:36 Respiratory Rate 18 06/11/23 23:36 Blood Pressure 121/78 06/11/23 23:36 Temperature 36.4 C L 06/11/23 23:36 Temperature Source Tympanic 06/11/23 23:36 Pulse 95 H 06/11/23 23:36 Respiratory Rate 18 06/11/23 23:36 Respiratory Effort Normal, Non-Labored 06/11/23 23:42 Blood Pressure 121/78 06/11/23 23:36 Blood Pressure Position Supine 06/11/23 23:36 Oxygen Delivery Method Room Air 06/11/23 23:36 Oxygen Flow Rate 0 06/11/23 23:36 Pain Level 8 06/11/23 23:42 Medical Decision Making This is a 68-year-old male with a past medical history of schizophrenia, high cholesterol, COPD, LUTS symptoms, Alzheimer's, and a questionable history of seizures, but he is not on any antiepileptic medications, he resides at [facility]. He presents today for evaluation of multiple falls. Per EMS report and [place] and staff report, over the last 3 to 4 hours he has had 3 falls, most recent time that he fell he had some shaking motion, but the patient restates that he recalls the entire event. He does admit to having some pain in his left knee. He denies pain anywhere else. No head neck or chest pain. No pain in his right lower extremity. Pain is isolated to his left knee area. He does have some chronic lower extremity pain though. Patient denies any other complaints at this time. [place] staff state that the patient was noted to be drooling more than normal and did have some change in speech. Unknown when his last known well was. It is suspected that the symptoms have been going on for least greater than 4 hours. But less than 6 hours. No other complaints at this time. No other modifying factors. Physical exam demonstrates slight slurring of his speech, no significant facial unilateral asymmetry though. No cervical thoracic or lumbar spine tenderness. Minimal tenderness over the left patella, no tenderness over the hip femur or tib-fib otherwise. Normal strength of the upper and lower extremities. NIH stroke scale was only 1 secondary to his mild dysarthria. He does have minimal discoordination of the upper extremities, but is able to perform tlrtyl-tfer-rbzmkc well, as well as alternating movements although he is not able to do rapid alternating movements well. Differential includes dehydration, stroke, electrolyte abnormality, bleed, or other acute etiology. Will evaluate for these, monitor closely and reassess. 3:29 AM Patient continues to feel well, he continues to deny any headache or nuchal rigidity. Laboratory workup demonstrates no electrolyte abnormalities. Hemoglobin stable. Renal function stable. VBG shows no hypercarbia. Troponin normal. Thyroid function normal. Urinalysis shows no infection. CT scan shows evidence of a 3 cm saccular aneurysm, but no evidence of bleed or hemorrhage. Symptoms appear clinically inconsistent with bleed or hemorrhage as he has no headache, no nuchal rigidity, or other abnormalities. Patient feels well. No evidence of stroke on CT scan. Discussed the case with Arvind in nurse transportation inspector [place], she states that the is currently sleeping. We reviewed the case. Patient stable for discharge. No indications for lumbar puncture as symptoms appear clinically inconsistent with acute hemorrhage, additionally CT imaging was within the 6-hour window from the initial onset. At this time patient otherwise looks clinically well. Patient will be discharged back to [facility]. Unclear as to what was causing the patient's initial falls, however there is no evidence of acute significant life-threatening etiology noted at this time. I have extensively reviewed the treatment plan and discharge instructions with the patient. I have addressed all patient concerns at this time. The patient was made aware of what symptoms to monitor for that would warrant a return to the emergency department. Discussed the plan with the patient, they demonstrate verbal understanding and agreement with our assessment and plan at this time. The documentation in this chart was dictated using [employer] dictation software. Please excuse any dictation errors. FINDINGS: Bones/joints: Normal. Soft tissues: Normal. IMPRESSION: No acute findings. Thank you for allowing us to participate in the care of your patient. Dictated and Authenticated by: Eric Quigley MD 06/12/2023 2:47 AM Eastern Time ([place] & [place]) FINDINGS: ANTERIOR CIRCULATION: Right internal carotid artery: Intracranial segment is patent with no significant stenosis. No aneurysm. Right middle cerebral artery: No occlusion or significant stenosis. No aneurysm. Right anterior cerebral artery: No occlusion or significant stenosis. No aneurysm. Left internal carotid artery: Intracranial segment is patent with no significant stenosis. No aneurysm. Left middle cerebral artery: No occlusion or significant stenosis. A 3 mm saccular aneurysm is seen at junction of the M1 and M2 segments of the left MCA, best seen on image 506, series 23. Left anterior cerebral artery: No occlusion or significant stenosis. No aneurysm. POSTERIOR CIRCULATION: Right vertebral artery: No occlusion or significant stenosis. No aneurysm. Left vertebral artery: No occlusion or significant stenosis. No aneurysm. Basilar artery: No occlusion or significant stenosis. No aneurysm. Right posterior cerebral artery: No occlusion or significant stenosis. No aneurysm. Left posterior cerebral artery: No occlusion or significant stenosis. No aneurysm. Brain: Images of the brain are motion degraded along the skull base, on the initial images. Repeat imaging of the skull base was performed, without motion degradation. Mild volume loss within the brain parenchyma. Scattered areas of low attenuation are seen within the subcortical and periventricular white matter. No loss of short-white differentiation to suggest an acute cortical infarct. No intracranial hemorrhage. No extra-axial fluid collection. No midline shift. Cerebral ventricles: No hydrocephalus. Orbital cavities: The intraorbital contents are normal appearance. Mastoid air cells: Probable mild fluid within the right mastoid air cells. The left mastoid air cells are well aerated. Paranasal sinuses: The paranasal sinuses are well aerated. Bones/joints: No evidence for acute skull fracture. Soft tissues: Unremarkable. IMPRESSION: 1. No large vessel stenosis or occlusion within intracranial arteries. 2. 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 3. No evidence for acute intracranial process. FINDINGS: Right common carotid artery: No stenosis. No dissection or occlusion. Right internal carotid artery: No stenosis of the extracranial segment. No dissection or occlusion. Right external carotid artery: No occlusion or stenosis of the origin. Left common carotid artery: No stenosis. No dissection or occlusion. Left internal carotid artery: No stenosis of the extracranial segment. No dissection or occlusion. Left external carotid artery: No occlusion or stenosis of the origin. Right vertebral artery: No stenosis. No dissection or occlusion. Left vertebral artery: No stenosis. No dissection or occlusion. Aorta: The great vessels of the level aortic arch opacify normally with contrast without stenosis or occlusion. Soft tissues: Normal. No significant soft tissue swelling. Bones/joints: No acute fracture. Lungs: The imaged lung apices are well aerated. Esophagus: The proximal imaged esophagus is slightly dilated and fluid-filled with an air-fluid level. This can be seen with esophageal dysmotility. IMPRESSION: No stenosis or occlusion within the extracranial arteries. REFERENCES: NASCET CRITERIA. The degree of stenosis in the cervical segment of the internal carotid artery is based on NASCET criteria. Normal is no stenosis. Mild is less than 50% stenosis. Moderate is 50- 69% stenosis. Severe is 70% to 99% stenosis. Total occlusion is no detectable patent lumen. Thank you for allowing us to participate in the care of your patient. Dictated and Authenticated by: Hafsa Villa MD 06/12/2023 1:19 AM Eastern Time ([place] & [place]) Quality:SDOH Health Related Social Needs: No Data to Display PFSH All Active Problems (Updated 06/12/23 @ 03:52 by Jeremie Doshi DO) Falls (Acute) Bilateral primary osteoarthritis of knee (Acute) Cognitive impairment (Acute) Alzheimer's dementia without behavioral disturbance (Acute) Left foot pain (Acute) Medical History Acute metabolic encephalopathy Alcohol abuse, in remission Altered mental status Anemia Atherosclerosis Auditory hallucinations Cognitive changes COPD (chronic obstructive pulmonary disease) Dermatophytosis of nail Elevated PSA Emphysema lung History of prediabetes History of suicidal ideation Hyperlipidemia Hyperplasia of prostate with lower urinary tract symptoms (LUTS) Low back pain Neutrophilia Pain, foot, left, chronic Paranoid schizophrenia Patellofemoral joint pain Pulmonary nodule Tobacco abuse Urinary incontinence Surgical History Hx of knee surgery Family History Mother Brain cancer Father Heart disease Hypertension Obesity Osteoarthritis Social History Smoking/Tobacco Use Status: Former Tobacco Use Smoking risk assessment performed?: Yes Housing: assisted living facility Do you feel safe at home: Yes Do you feel safe in your relationship?: Yes
[2023-06-11 23:50] VITALS: PULSE 95; RESP 16; O2SAT 90
[2023-06-12] VITALS (17 sets, daily range): BP systolic 131–177; BP diastolic 77–81; PULSE 87–101; RESP 13–22; O2SAT 88–95
--- NOTE | 2023-06-12 | DI.CT_ITS ---
Exam(s) CT BRAIN NECK CTA EXAM: CT BRAIN NECK CTA CLINICAL HISTORY: falls, hit head, seizure? Stroke?. TECHNIQUE: Imaging Protocol: Axial CT angiography was performed with multi-slice acquisition and mu lti-planar and/or 3D reconstructions. CONTRAST MATERIAL: Intravenous: Omnipaque 350 Contrast volume:85 mL COMPARISON: No exams were available for comparison FINDINGS: CTA Neck W: Aortic arch anatomy: The aortic arch anatomy is conventional and there is no significant stenosis at the origin of the great vessels off of the aortic arch. No intimal flap evident. Anterior circulation: Both common carotid arteries ascend with normal luminal diameters. At the level the carotid bulbs and proximal internal carotid arteries there is minimal plaque without hemodynamically significant stenosis evident. Both internal carotid arteries are patent and non tortuous in the upper neck and are also demonstrate d to be patent with in the skull base-carotid canals. Posterior circulation: Both vertebral arteries originate in conventional fashion off of the subclavian arteries and there is no obvious stenosis at the origin of the vertebral arteries. Both vertebral arteries exhibit normal luminal diameters within the foramen transversarium. No evidence of intraluminal thrombus and no evidence of vertebral artery dissection Both vertebral arteries contribute to the formation of the basilar artery at the skull base. CTA Brain W: Anterior circulation: Both internal carotid arteries are patent in the skull base-carotid canals as well as within the cave rnous sinuses. The supraclinoid aspects of the ICAs are patent. Both A1 segments are patent as are the anterior cer ebral arteries and there is no evidence of aneurysm at the level of the anterior communicating artery . Both middle cerebral arteries are patent with no significant stenosis nor intraluminal thrombus. How ever, on the left side there is a small saccular aneurysm at the junction of the M1 and M2 segments o f the left middle cerebral artery, projecting inferiorly at this level Posterior circulation: The basilar artery ascends normal luminal diameter.. Distally it gives off patent bilateral superior cerebellar arteries. Above this level the basilar artery terminates as patent bilateral posterior cerebral arteries. There is no evidence of aneurysm at the tip of the basilar artery. CT BRAIN: There is no evidence of intracranial hemorrhage, mass effect, or shift of midline structures. There are no extra-axial fluid collections. Ventricles are not enlarged or shifted. There are no ring enh ancing lesions in the brain and no abnormal meningeal enhancement. IMPRESSION: 1. Patent carotid arteries in the neck. No hemodynamically significant stenosis. 2. Patent vertebral arteries. 3. Patent intracranial arteries. For, there is a 3 mm saccular annular some projecting inferiorly of f the junction of the M1 and M2 segments of the left middle cerebral artery. No evidence of intracra nial hemorrhage. No other aneurysms evident. 4. No ring enhancing lesions in the brain. RADIATION DOSE DELIVERED: 2,658.83mGy.cm Total DLP DATA REPOSITORY: All CT scans at this facility are submitted to the National Radiology Data Registry (NRDR) Dose Index Registry (DIR) with the [employer] (ACR). RADIATION OPTIMIZATION: All CT scans at this facility use at least one of these dose optimization te chniques: automated exposure control; mA and/or kV adjustment per patient size (includes targeted exa ms where dose is matched to clinical indication); or iterative reconstruction.
[2023-06-12 00:03] LABS: BE (Venous) 5 mmol/L (-2-3); HCO3 (Venous) 30 mmol/L (23-28); O2 Sat (Venous) 58 %; TCO2 (Venous) 27 mmol/L (24-29); pCO2 (Venous) 47 mmHg (41-51); pH (Venous) 7.41 (7.31-7.41); pO2 (Venous) 30 mmHg
[2023-06-12 00:06] LABS: Abs Immature Grans 0.03 10^3/uL (0.0-0.06); Absolute Basophil Count 0.02 10^3/uL (0.0-0.2); Absolute Lymphocyte Count 0.75 10^3/uL (1.2-3.4); Absolute Monocyte Count 0.77 10^3/uL (0.1-0.8); Absolute Neutrophil Count 4.17 10^3/uL (1.2-6.7); Basophils % 0.3; HCT 38.2 % (40.0-50.0); HGB 12.2 g/dL (13.5-17.5); Immature Grans % 0.5; Lymphocytes % 13.1; MCH 28.8 pg (27.0-33.0); MCHC 31.9 % (32.0-36.0); MCV 90 fL (80-95); MPV 9.7 fL (8.0-11.0); Monocytes % 13.4; Neutrophils % 72.7; Platelet Count 198 10^3/uL (130-400); RBC 4.24 10^6/uL (4.36-5.78); RDW 13.9 % (11.8-14.1); RDW-SD 45.7 fL; WBC 5.74 10^3/uL (4.4-10.8)
[2023-06-12 00:17] LABS: PTT Activated 31.4 sec (23.6-32.8); Prothrombin Time 10.5 sec (9.1-11.1)
[2023-06-12 00:24] LABS: ALT 45 U/L (16-63); AST 30 U/L (15-37); Albumin 3.7 g/dL (3.4-5.0); Alkaline Phosphatase 95 U/L (46-116); Anion Gap 10.2 mmol/L (3-11); BUN 14 mg/dL (7-18); Bilirubin, Total 0.4 mg/dL (0.2-1.0); CO2 27.8 mmol/L (21.0-32.0); CREATININE 1.2 mg/dL (0.70-1.30); Calcium 9.1 mg/dL (8.5-10.1); Chloride 99 mmol/L (98-107); Glucose 119 mg/dL (74-106); Sodium 137 mmol/L (136-145); Total Protein 7.2 g/dL (6.4-8.2); Troponin I < 50 ng/L (< or =60)
[2023-06-12] MEDS: Normal Saline - Diluent 50 ML VIAL IJ (00:28)
[2023-06-12] MEDS: Omnipaque 350 MG/ML 100 ML BTL IJ (00:30)
--- NOTE | 2023-06-12 00:30 | DI.RAD_ITS ---
Exam(s) XR KNEE LT 3V AP,LAT,EDILMA EXAM: XR KNEE LT 3V AP,LAT,EDILMA CLINICAL HISTORY: fall, left knee pain. TECHNIQUE: 2D digital imaging was performed. COMPARISON: CR XR KNEE RT 4V AP,LAT,EDILMA,PAT from 01/19/2023 FINDINGS: 3 views No evidence of acute fracture nor joint space narrowing. No prominent joint effusion. Bone density normal. No osseous lesions. IMPRESSION: No acute osseous findings in the left knee. DATA REPOSITORY: RADIATION DOSE DELIVERED:
[2023-06-12] MEDS: Normal Saline Flush 10 ML SYR IVP (00:31)
[2023-06-12 00:32] LABS: TSH (W/Ref FT4) 1.63 uIU/mL (0.36-3.74)
--- NOTE | 2023-06-12 01:20 | DI.VRAD_ITS ---
PROCEDURE INFORMATION: Exam: CTA Head With Contrast, Arteriography Exam date and time: 06/12/2023 12:32 AM Age: 68 years old Clinical indication: Stroke-like symptoms; Other: Falls, hit head, seizure? Stroke? TECHNIQUE: Imaging protocol: Computed tomographic angiography of the head with contrast. Exam focused on the arteries. 3D rendering (Not supervised by radiologist): MIP and/or 3D reconstructed images were created by the technologist. Radiation optimization: All CT scans at this facility use at least one of these dose optimization techniques: automated exposure control; mA and/or kV adjustment per patient size (includes targeted exams where dose is matched to clinical indication); or iterative reconstruction. Contrast material: OMNIPAQUE 350; Contrast volume: 85 ml; Contrast route: INTRAVENOUS (IV); COMPARISON: No relevant prior studies available. FINDINGS: ANTERIOR CIRCULATION: Right internal carotid artery: Intracranial segment is patent with no significant stenosis. No aneurysm. Right middle cerebral artery: No occlusion or significant stenosis. No aneurysm. Right anterior cerebral artery: No occlusion or significant stenosis. No aneurysm. Left internal carotid artery: Intracranial segment is patent with no significant stenosis. No aneurysm. Left middle cerebral artery: No occlusion or significant stenosis. A 3 mm saccular aneurysm is seen at junction of the M1 and M2 segments of the left MCA, best seen on image 506, series 23. Left anterior cerebral artery: No occlusion or significant stenosis. No aneurysm. POSTERIOR CIRCULATION: Right vertebral artery: No occlusion or significant stenosis. No aneurysm. Left vertebral artery: No occlusion or significant stenosis. No aneurysm. Basilar artery: No occlusion or significant stenosis. No aneurysm. Right posterior cerebral artery: No occlusion or significant stenosis. No aneurysm. Left posterior cerebral artery: No occlusion or significant stenosis. No aneurysm. Brain: Images of the brain are motion degraded along the skull base, on the initial images. Repeat imaging of the skull base was performed, without motion degradation. Mild volume loss within the brain parenchyma. Scattered areas of low attenuation are seen within the subcortical and periventricular white matter. No loss of short-white differentiation to suggest an acute cortical infarct. No intracranial hemorrhage. No extra-axial fluid collection. No midline shift. Cerebral ventricles: No hydrocephalus. Orbital cavities: The intraorbital contents are normal appearance. Mastoid air cells: Probable mild fluid within the right mastoid air cells. The left mastoid air cells are well aerated. Paranasal sinuses: The paranasal sinuses are well aerated. Bones/joints: No evidence for acute skull fracture. Soft tissues: Unremarkable. IMPRESSION: 1. No large vessel stenosis or occlusion within intracranial arteries. 2. 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 3. No evidence for acute intracranial process. PROCEDURE INFORMATION: Exam: CTA Neck With Contrast Exam date and time: 06/12/2023 12:32 AM Age: 68 years old Clinical indication: Stroke-like symptoms; Other: Falls, hit head, seizure? Stroke? TECHNIQUE: Imaging protocol: Computed tomographic angiography of the neck with contrast. Exam focused on the cervical segments of the vasculature. 3D rendering (Not supervised by radiologist): MIP and/or 3D reconstructed images were created by the technologist. Radiation optimization: All CT scans at this facility use at least one of these dose optimization techniques: automated exposure control; mA and/or kV adjustment per patient size (includes targeted exams where dose is matched to clinical indication); or iterative reconstruction. Contrast material: OMNIPAQUE 350; Contrast volume: 85 ml; Contrast route: INTRAVENOUS (IV); COMPARISON: CT CHEST LUNG CANCER SCREEN 12/16/2022 1:45 PM FINDINGS: Right common carotid artery: No stenosis. No dissection or occlusion. Right internal carotid artery: No stenosis of the extracranial segment. No dissection or occlusion. Right external carotid artery: No occlusion or stenosis of the origin. Left common carotid artery: No stenosis. No dissection or occlusion. Left internal carotid artery: No stenosis of the extracranial segment. No dissection or occlusion. Left external carotid artery: No occlusion or stenosis of the origin. Right vertebral artery: No stenosis. No dissection or occlusion. Left vertebral artery: No stenosis. No dissection or occlusion. Aorta: The great vessels of the level aortic arch opacify normally with contrast without stenosis or occlusion. Soft tissues: Normal. No significant soft tissue swelling. Bones/joints: No acute fracture. Lungs: The imaged lung apices are well aerated. Esophagus: The proximal imaged esophagus is slightly dilated and fluid-filled with an air-fluid level. This can be seen with esophageal dysmotility. IMPRESSION: No stenosis or occlusion within the extracranial arteries. REFERENCES: NASCET CRITERIA. The degree of stenosis in the cervical segment of the internal carotid artery is based on NASCET criteria. Normal is no stenosis. Mild is less than 50% stenosis. Moderate is 50-69% stenosis. Severe is 70% to 99% stenosis. Total occlusion is no detectable patent lumen. Dictated and Authenticated by: Hafsa Villa MD. Ordering:NELL Chao MD
[2023-06-12 01:32] LABS: Bilirubin Negative (Negative); Blood Negative (Negative); Clarity Clear (Clear); Glucose Negative (Negative); Ketones Negative (Negative); Leukocyte Esterase Negative (Negative); Nitrite Negative (Negative); Urobilinogen 0.2 mg/dL (Up to 0.2); pH 6.5 (5-8)
--- NOTE | 2023-06-12 02:47 | DI.VRAD_ITS ---
PROCEDURE INFORMATION: Exam: XR Left Knee Exam date and time: 06/12/2023 1:51 AM Age: 68 years old Clinical indication: Pain; Left; Prior surgery; Surgery date: 6+ months; Surgery type: PT states had knee cap fixed; Additional info: Falls, knee pain TECHNIQUE: Imaging protocol: Radiologic exam of the left knee. Views: 3 views. COMPARISON: CR XR KNEE LT 4V AP,LAT,EDILMA,PAT 01/19/2023 10:20 AM FINDINGS: Bones/joints: Normal. Soft tissues: Normal. IMPRESSION: No acute findings. Dictated and Authenticated by: Eric Quigley MD. Ordering:NELL Chao MD
--- NOTE | 2023-06-12 03:55 | NUR.NOTE ---
provider called report to facility, ambulance here now to picking supervisor pt
== END 2023-06-12 04:07 | disposition home or self-care (01) ==
PROVIDERS: Emergency Provider Student in an Organized Health Care Education/Training Program; PCP Nurse Practitioner Family
DX: M25.562 Pain in left knee (principal); J44.9 Chronic obstructive pulmonary disease, unspecified; E78.5 Hyperlipidemia, unspecified; G30.9 Alzheimer's disease, unspecified; Z91.81 History of falling; Z79.899 Other long term (current) drug therapy
CPT/HCPCS: 70496; 70498; 73562; 80053; 82805; 93005; 99285; 81003; 84443; 84484; 85025; 85610; 85730; 93010; 99284; J3490

== ENCOUNTER 2023-06-28 14:57 | Outpatient (REF) | payer MEDICARE, MEDICAID, SELFPAY ==
[2023-06-28 16:30] LABS: Abs Immature Grans 0.04 10^3/uL (0.0-0.06); Absolute Basophil Count 0.05 10^3/uL (0.0-0.2); Absolute Eosinophil Count 0.01 10^3/uL (0.0-0.7); Absolute Lymphocyte Count 3.11 10^3/uL (1.2-3.4); Absolute Monocyte Count 0.91 10^3/uL (0.1-0.8); Absolute Neutrophil Count 5.84 10^3/uL (1.2-6.7); Basophils % 0.5; Eosinophils % 0.1; Immature Grans % 0.4; Lymphocytes % 31.2; MCHC 31.7 % (32.0-36.0); MCV 92 fL (80-95); MPV 10.7 fL (8.0-11.0); Monocytes % 9.1; Neutrophils % 58.7; Platelet Count 324 10^3/uL (130-400); RBC 4.48 10^6/uL (4.36-5.78); RDW 13.5 % (11.8-14.1); RDW-SD 45.7 fL; WBC 9.96 10^3/uL (4.4-10.8)
== END 2023-06-28 14:58 | disposition home or self-care (01) ==
LOC: LBN 14:57
PROVIDERS: PCP Nurse Practitioner Family; Visit Provider Registered Nurse
DX: F20.9 Schizophrenia, unspecified (principal); Z79.899 Other long term (current) drug therapy
CPT/HCPCS: 85025

== ENCOUNTER 2023-07-06 16:33 | Outpatient (REF) | payer MEDICARE, MEDICAID, SELFPAY ==
[2023-07-07 18:09] LABS: PSA, Diagnostic 1.6 ng/mL (<=4.5)
== END 2023-07-06 16:34 | disposition home or self-care (01) ==
LOC: NCHCN 16:33
PROVIDERS: PCP Nurse Practitioner Family; Visit Provider Nurse Practitioner Family
DX: R97.20 Elevated prostate specific antigen [PSA] (principal)
CPT/HCPCS: 84153

== ENCOUNTER → 2023-07-20 10:41 | Outpatient (BNVA) | payer MEDICARE, MEDICAID, SELFPAY | PROVIDERS: PCP Nurse Practitioner Family; Referring Provider Nurse Practitioner Family; Visit Provider Nurse Practitioner Adult Health | DX: G30.9 Alzheimer's disease, unspecified (principal); F02.80 Dementia in other diseases classified elsewhere, unspecified severity, without behavioral disturbance, psychotic disturbance, mood disturbance, and anxiety | CPT/HCPCS: 99213 ==

== ENCOUNTER 2023-07-20 16:10 | Outpatient (REF) | payer MEDICARE, MEDICAID, SELFPAY ==
[2023-07-20 15:43] LABS: HCT 41.1 % (40.0-50.0); MCH 29.2 pg (27.0-33.0); MCHC 31.6 % (32.0-36.0); MCV 92 fL (80-95); MPV 9.8 fL (8.0-11.0); Platelet Count 275 10^3/uL (130-400); RBC 4.45 10^6/uL (4.36-5.78); RDW 14.1 % (11.8-14.1); RDW-SD 48.1 fL; WBC 9.29 10^3/uL (4.4-10.8)
[2023-07-20 16:31] LABS: Abs Immature Grans 0.04 10^3/uL (0.0-0.06); Absolute Basophil Count 0.05 10^3/uL (0.0-0.2); Absolute Eosinophil Count 0.01 10^3/uL (0.0-0.7); Absolute Lymphocyte Count 3.44 10^3/uL (1.2-3.4); Absolute Monocyte Count 0.69 10^3/uL (0.1-0.8); Absolute Neutrophil Count 5.02 10^3/uL (1.2-6.7); Basophils % 0.5; Eosinophils % 0.1; Immature Grans % 0.4; Lymphocytes % 37.2; Monocytes % 7.5; Neutrophils % 54.3
== END 2023-07-20 16:11 | disposition home or self-care (01) ==
LOC: LBN 16:10
PROVIDERS: PCP Nurse Practitioner Family; Visit Provider Registered Nurse
DX: F20.9 Schizophrenia, unspecified (principal); Z79.899 Other long term (current) drug therapy
CPT/HCPCS: 85027; 85007

== ENCOUNTER 2023-08-25 13:31 | Outpatient (CLI) | payer MEDICARE, MEDICAID, SELFPAY ==
[2023-08-25 13:29] LABS: Abs Immature Grans 0.03 10^3/uL (0.0-0.06); Absolute Basophil Count 0.04 10^3/uL (0.0-0.2); Absolute Eosinophil Count 0.01 10^3/uL (0.0-0.7); Absolute Lymphocyte Count 3.34 10^3/uL (1.2-3.4); Absolute Monocyte Count 0.62 10^3/uL (0.1-0.8); Absolute Neutrophil Count 3.77 10^3/uL (1.2-6.7); Basophils % 0.5 %; Eosinophils % 0.1 %; HCT 43.3 % (40.0-50.0); HGB 13.6 g/dL (13.5-17.5); Immature Grans % 0.4 %; Lymphocytes % 42.8 %; MCH 28.9 pg (27.0-33.0); MCHC 31.4 % (32.0-36.0); MCV 92 fL (80-95); MPV 9.5 fL (8.0-11.0); Monocytes % 7.9 %; Neutrophils % 48.3 %; Platelet Count 260 10^3/uL (130-400); RBC 4.71 10^6/uL (4.36-5.78); RDW 13.9 % (11.8-14.1); RDW-SD 47.8 fL; WBC 7.81 10^3/uL (4.4-10.8)
== END 2023-08-25 13:32 | disposition home or self-care (01) ==
LOC: LBO 13:32
PROVIDERS: PCP Nurse Practitioner Family; Visit Provider Counselor Addiction (Substance Use Disorder)
DX: F20.9 Schizophrenia, unspecified (principal); Z79.899 Other long term (current) drug therapy
CPT/HCPCS: 36415; 85025

== ENCOUNTER 2023-09-06 09:01 | Outpatient (REF) | payer MEDICARE, MEDICAID, SELFPAY ==
[2023-09-06 10:17] LABS: Abs Immature Grans 0.03 10^3/uL (0.0-0.06); Absolute Basophil Count 0.05 10^3/uL (0.0-0.2); Absolute Monocyte Count 0.53 10^3/uL (0.1-0.8); Absolute Neutrophil Count 5.78 10^3/uL (1.2-6.7); Basophils % 0.6 %; HGB 13.2 g/dL (13.5-17.5); Immature Grans % 0.4 %; Lymphocytes % 23.8 %; MCH 29.1 pg (27.0-33.0); MCHC 31.4 % (32.0-36.0); MCV 93 fL (80-95); MPV 10.3 fL (8.0-11.0); Monocytes % 6.3 %; Neutrophils % 68.9 %; Platelet Count 233 10^3/uL (130-400); RBC 4.53 10^6/uL (4.36-5.78); RDW 14.1 % (11.8-14.1); RDW-SD 48.1 fL; WBC 8.39 10^3/uL (4.4-10.8)
== END 2023-09-06 09:02 | disposition home or self-care (01) ==
LOC: LBN 09:01
PROVIDERS: PCP Nurse Practitioner Family; Visit Provider Registered Nurse
DX: F20.9 Schizophrenia, unspecified (principal)
CPT/HCPCS: 80061; 80159; 85025

== ENCOUNTER 2023-09-24 10:45 | Outpatient (REF) | payer MEDICARE, MEDICAID, SELFPAY ==
[2023-09-24 12:01] LABS: Vitamin D 25 Total 18.3 ng/mL (30-100)
[2023-09-24 12:03] LABS: Vitamin B12 1110 pg/mL (193-986)
[2023-09-27 15:46] LABS: Clozapine 874 ng/mL (350-600); Clozapine+Norclozapine Total 1609 ng/mL; Norclozapine 735 ng/mL
== END 2023-09-24 10:46 | disposition home or self-care (01) ==
LOC: LBN 10:45
PROVIDERS: PCP Nurse Practitioner Family; Visit Provider Registered Nurse
DX: F33.1 Major depressive disorder, recurrent, moderate (principal); F20.3 Undifferentiated schizophrenia; Z79.899 Other long term (current) drug therapy; Z51.81 Encounter for therapeutic drug level monitoring
CPT/HCPCS: 82306; 80159; 82607; 84425

== ENCOUNTER → 2023-10-26 00:12 | Outpatient (CLI) | payer MEDICARE, MEDICAID, SELFPAY ==
--- NOTE | 2023-10-26 | DI.CT_ITS ---
Exam(s) CT BRAIN CTA EXAM: CT BRAIN CTA CLINICAL HISTORY: MIDDLE CEREBRAL ARTERY ANEURYSM, I67.1. TECHNIQUE: Imaging Protocol: Axial CT angiography was performed with multi-slice acquisition and mu lti-planar and/or 3D reconstructions. CONTRAST MATERIAL: Intravenous: Omnipaque 350 Contrast volume:structured data mL Intravenous: Omnipaque 350 Contrast volume:85 mL COMPARISON: CT CT BRAIN NECK CTA from 06/12/2023 FINDINGS: Noncontrast images are limited due to motion inferiorly. Ventricles and Extra axial spaces: Normal in size and morphology for the patient's age. Hemorrhage: None. Cerebral parenchyma: Mild white matter changes of small vessel disease. Midline shift: None. Brainstem/Cerebellum: Normal. Calvarium: Normal. Visualized Paranasal sinuses/Mastoids: Clear. Soft Tissues: Unremarkable. Enhancement: No abnormal enhancing lesions. CTA Brain W: Internal Carotid Arteries: Petrous: Normal. Cavernous: Normal. Cerebral: Normal. Middle Cerebral Arteries: Right: No aneurysm, occlusion or significant stenosis. Left: Stable 3 millimeter aneurysm at the branch point between the M2 and M3 segments. No occlusion or significant stenosis. Anterior Cerebral Arteries: Right: No aneurysm, occlusion or significant stenosis. Left: No aneurysm, occlusion or significant stenosis. Posterior cerebral Arteries: Right: No aneurysm, occlusion or significant stenosis. Left: No aneurysm, occlusion or significant stenosis. Vertebral Arteries: Right: No aneurysm, occlusion or significant stenosis. Left: No aneurysm, occlusion or significant stenosis. Basilar Artery: No aneurysm, occlusion or significant stenosis. IMPRESSION: 1. Stable 3 millimeter aneurysm projecting inferiorly at the branch point between the M2 and segments of the left middle cerebral artery. 2. Unremarkable CT Head. RADIATION DOSE DELIVERED: Total DLP Total DLP DATA REPOSITORY: All CT scans at this facility are submitted to the National Radiology Data Registry (NRDR) Dose Index Registry (DIR) with the [employer] (ACR). RADIATION OPTIMIZATION: All CT scans at this facility use at least one of these dose optimization te chniques: automated exposure control; mA and/or kV adjustment per patient size (includes targeted exa ms where dose is matched to clinical indication); or iterative reconstruction.
[2023-10-26 12:07] LABS: Estimated GFR 83.01 (mL/min/1.73m2)
[2023-10-26] MEDS: Normal Saline - Diluent 50 ML VIAL IJ (12:31)
[2023-10-26] MEDS: Omnipaque 350 MG/ML 100 ML BTL 85 ML IJ (12:32)
== END ==
PROVIDERS: PCP Nurse Practitioner Family; Visit Provider Neurological Surgery
DX: I67.1 Cerebral aneurysm, nonruptured (principal)
CPT/HCPCS: 36415; 70496; 82565; 84425; J3490

== ENCOUNTER 2023-10-26 13:39 | Outpatient (CLI) | payer MEDICARE, MEDICAID, SELFPAY ==
[2023-10-31 10:47] LABS: Thiamine (Vitamin B1), WB 158 nmol/L (70-180)
== END 2023-10-26 13:40 | disposition home or self-care (01) ==
LOC: LBO 13:46
PROVIDERS: PCP Nurse Practitioner Family; Visit Provider Registered Nurse
DX: Z51.81 Encounter for therapeutic drug level monitoring (principal)
CPT/HCPCS: 36415; 84425

== ENCOUNTER 2023-11-01 10:25 | Outpatient (CLI) | payer MEDICARE, MEDICAID, SELFPAY ==
[2023-11-01 10:57] LABS: Abs Immature Grans 0.05 10^3/uL (0.0-0.06); Absolute Basophil Count 0.03 10^3/uL (0.0-0.2); Absolute Eosinophil Count 0.01 10^3/uL (0.0-0.7); Absolute Lymphocyte Count 2.54 10^3/uL (1.2-3.4); Absolute Monocyte Count 0.71 10^3/uL (0.1-0.8); Absolute Neutrophil Count 5.71 10^3/uL (1.2-6.7); Basophils % 0.3 %; Eosinophils % 0.1 %; HCT 42.2 % (40.0-50.0); HGB 13.3 g/dL (13.5-17.5); Immature Grans % 0.6 %; Lymphocytes % 28.1 %; MCH 28.6 pg (27.0-33.0); MCHC 31.5 % (32.0-36.0); MCV 91 fL (80-95); MPV 10.2 fL (8.0-11.0); Monocytes % 7.8 %; Neutrophils % 63.1 %; Platelet Count 268 10^3/uL (130-400); RBC 4.65 10^6/uL (4.36-5.78); RDW 14.1 % (11.8-14.1); WBC 9.05 10^3/uL (4.4-10.8)
== END 2023-11-01 10:26 | disposition home or self-care (01) ==
LOC: LBO 10:25
PROVIDERS: PCP Nurse Practitioner Family; Visit Provider Registered Nurse
DX: Z51.81 Encounter for therapeutic drug level monitoring (principal); F20.3 Undifferentiated schizophrenia; F33.1 Major depressive disorder, recurrent, moderate
CPT/HCPCS: 36415; 85025

== ENCOUNTER 2023-11-09 13:04 | Outpatient (REF) | payer MEDICARE, MEDICAID, SELFPAY ==
[2023-11-09 13:52] LABS: Abs Immature Grans 0.06 10^3/uL (0.0-0.06); Absolute Basophil Count 0.05 10^3/uL (0.0-0.2); Absolute Eosinophil Count 0.02 10^3/uL (0.0-0.7); Absolute Lymphocyte Count 3.65 10^3/uL (1.2-3.4); Absolute Monocyte Count 0.91 10^3/uL (0.1-0.8); Absolute Neutrophil Count 5.87 10^3/uL (1.2-6.7); Basophils % 0.5 %; Eosinophils % 0.2 %; HGB 13.5 g/dL (13.5-17.5); Immature Grans % 0.6 %; Lymphocytes % 34.6 %; MCH 29.5 pg (27.0-33.0); MCHC 31.4 % (32.0-36.0); MCV 94 fL (80-95); MPV 10.3 fL (8.0-11.0); Monocytes % 8.6 %; Neutrophils % 55.5 %; Platelet Count 236 10^3/uL (130-400); RBC 4.58 10^6/uL (4.36-5.78); RDW 14.1 % (11.8-14.1); RDW-SD 48.5 fL; WBC 10.56 10^3/uL (4.4-10.8)
== END 2023-11-09 13:05 | disposition home or self-care (01) ==
LOC: LBN 13:04
PROVIDERS: PCP Nurse Practitioner Family; Visit Provider Registered Nurse
DX: F20.3 Undifferentiated schizophrenia (principal); F33.1 Major depressive disorder, recurrent, moderate; Z51.81 Encounter for therapeutic drug level monitoring; Z79.899 Other long term (current) drug therapy
CPT/HCPCS: 85025

== ENCOUNTER 2023-11-18 15:58 | Outpatient (REF) | payer MEDICARE, MEDICAID, SELFPAY ==
[2023-11-18 16:06] LABS: Abs Immature Grans 0.02 10^3/uL (0.0-0.06); Absolute Basophil Count 0.04 10^3/uL (0.0-0.2); Absolute Eosinophil Count 0.01 10^3/uL (0.0-0.7); Absolute Lymphocyte Count 2.59 10^3/uL (1.2-3.4); Absolute Monocyte Count 0.64 10^3/uL (0.1-0.8); Absolute Neutrophil Count 4.15 10^3/uL (1.2-6.7); Basophils % 0.5 %; Eosinophils % 0.1 %; HCT 41.2 % (40.0-50.0); HGB 13.4 g/dL (13.5-17.5); Immature Grans % 0.3 %; Lymphocytes % 34.8 %; MCH 29.6 pg (27.0-33.0); MCHC 32.5 % (32.0-36.0); MCV 91 fL (80-95); MPV 10.1 fL (8.0-11.0); Monocytes % 8.6 %; Neutrophils % 55.7 %; Platelet Count 234 10^3/uL (130-400); RBC 4.52 10^6/uL (4.36-5.78); RDW 14.1 % (11.8-14.1); RDW-SD 46.9 fL; WBC 7.45 10^3/uL (4.4-10.8)
[2023-11-27 18:45] LABS: Hemoglobin A1C 5.9 % (<5.7)
== END 2023-11-18 15:59 | disposition home or self-care (01) ==
LOC: LBN 15:58
PROVIDERS: PCP Nurse Practitioner Family; Visit Provider Registered Nurse
DX: F33.1 Major depressive disorder, recurrent, moderate (principal); F20.3 Undifferentiated schizophrenia; Z51.81 Encounter for therapeutic drug level monitoring; Z79.899 Other long term (current) drug therapy; R73.03 Prediabetes
CPT/HCPCS: 83036; 85025

== ENCOUNTER 2023-11-28 20:21 | Outpatient (REF) | payer MEDICARE, MEDICAID, SELFPAY ==
[2023-11-28 17:01] LABS: Abs Immature Grans 0.03 10^3/uL (0.0-0.06); Absolute Basophil Count 0.05 10^3/uL (0.0-0.2); Absolute Eosinophil Count 0.03 10^3/uL (0.0-0.7); Absolute Monocyte Count 0.66 10^3/uL (0.1-0.8); Absolute Neutrophil Count 3.81 10^3/uL (1.2-6.7); Basophils % 0.6 %; Eosinophils % 0.4 %; HCT 43.7 % (40.0-50.0); HGB 13.7 g/dL (13.5-17.5); Immature Grans % 0.4 %; Lymphocytes % 41.1 %; MCHC 31.4 % (32.0-36.0); MCV 92 fL (80-95); MPV 10.5 fL (8.0-11.0); Monocytes % 8.5 %; Platelet Count 266 10^3/uL (130-400); RBC 4.73 10^6/uL (4.36-5.78); RDW-SD 47.7 fL; WBC 7.78 10^3/uL (4.4-10.8)
== END 2023-11-28 20:22 | disposition home or self-care (01) ==
LOC: LBN 20:21
PROVIDERS: PCP Nurse Practitioner Family; Visit Provider Registered Nurse
DX: F20.3 Undifferentiated schizophrenia (principal); F33.1 Major depressive disorder, recurrent, moderate; Z79.899 Other long term (current) drug therapy; Z51.81 Encounter for therapeutic drug level monitoring
CPT/HCPCS: 85025

== ENCOUNTER 2023-12-13 15:56 | Outpatient (REF) | payer MEDICARE, MEDICAID, SELFPAY ==
[2023-12-13 16:13] LABS: Abs Immature Grans 0.03 10^3/uL (0.0-0.06); Absolute Basophil Count 0.03 10^3/uL (0.0-0.2); Absolute Eosinophil Count 0.01 10^3/uL (0.0-0.7); Absolute Lymphocyte Count 2.34 10^3/uL (1.2-3.4); Absolute Monocyte Count 0.65 10^3/uL (0.1-0.8); Absolute Neutrophil Count 7.16 10^3/uL (1.2-6.7); Basophils % 0.3 %; Eosinophils % 0.1 %; HCT 41.8 % (40.0-50.0); HGB 13.5 g/dL (13.5-17.5); Immature Grans % 0.3 %; Lymphocytes % 22.9 %; MCH 29.6 pg (27.0-33.0); MCHC 32.3 % (32.0-36.0); MCV 92 fL (80-95); MPV 10.7 fL (8.0-11.0); Monocytes % 6.4 %; Platelet Count 227 10^3/uL (130-400); RBC 4.56 10^6/uL (4.36-5.78); RDW 13.9 % (11.8-14.1); RDW-SD 47.1 fL; WBC 10.22 10^3/uL (4.4-10.8)
== END 2023-12-13 15:57 | disposition home or self-care (01) ==
LOC: LBN 15:56
PROVIDERS: PCP Nurse Practitioner Family; Visit Provider Registered Nurse
DX: Z51.81 Encounter for therapeutic drug level monitoring (principal)
CPT/HCPCS: 85025

== ENCOUNTER 2023-12-19 01:20 | Outpatient (CLI) | payer MEDICARE, MEDICAID, SELFPAY ==
--- NOTE | 2023-12-19 | DI.CTLCSR_ITS ---
Exam(s) CT CHEST LUNG CANCER SCREEN EXAM: CT CHEST LUNG CANCER SCREEN CLINICAL HISTORY: EX SMOKER, Z87.891 TECHNIQUE: Imaging Protocol: Axial computed tomography images with coronal and sagittal reformatted images were created and reviewed COMPARISON: CT CT CHEST LUNG CANCER SCREEN from 12/16/2022 FINDINGS: Tracheobronchial tree: Patent where visualized. No bronchiectasis. Pulmonary parenchyma: No consolidation or dominant measurable mass. There is again seen a calcified g ranuloma in the left lower lobe. Lung Nodules: No noncalcified pulmonary nodules are present. Mediastinum and Marilu: No dominant adenopathy or fluid collection. The esophagus is unremarkable. Thyroid gland: Unremarkable. Lymph nodes: Unremarkable. Pleura: No effusion or pneumothorax. Heart: The heart is not dilated. Coronary artery calcifications are present. No pericardial effusion . Aorta: Thoracic aorta non-dilated.Atherosclerotic calcification is present. Upper abdomen: Unremarkable. Soft Tissues: Unremarkable. Bones: Within normal limits. IMPRESSION: No noncalcified pulmonary nodules are present. Lung RADS Cat 1 - Negative: No nodules and definitely benign nodules Lung-RADS 1.0 CATEGORIES: Category 0 - Prior chest CT exam(s) being located for comparison. Category 1 - Annual screening in 12 months. No nodules or definitely benign nodules. Category 2 - Annual screening in 12 months. Benign appearance. Nodules with low likelihood of becomin g active cancer. Category 3 - 6-month follow-up. Probably benign. Short-term follow-up suggested. Nodules with low lik elihood of becoming active cancer. Category 4A - 3-month follow-up and CT/PET if >8 mm in size. Suspicious finding. Findings which requi re additional testing. Category 4B - Findings which require additional testing and tissue sampling. Suspicious finding. Category 4X - Category 3 or 4 nodules with additional features or imaging findings that increases the suspicion of malignancy. Modifier S- Potentially clinically significant finding. (Non lung cancer) RADIATION DOSE DELIVERED: 34.46mGy.cm Total DLP 34.46mGy.cmTotal DLP DATA REPOSITORY: All CT scans at this facility are submitted to the National Radiology Data Registry (NRDR) Dose Index Registry (DIR) with the [employer] (ACR). RADIATION OPTIMIZATION: All CT scans at this facility use at least one of these dose optimization te chniques: automated exposure control; mA and/or kV adjustment per patient size (includes targeted exa ms where dose is matched to clinical indication); or iterative reconstruction.
== END 2023-12-19 01:40 ==
LOC: DI 01:20
PROVIDERS: PCP Nurse Practitioner Family; Visit Provider Nurse Practitioner Family
DX: Z87.891 Personal history of nicotine dependence (principal); Z12.2 Encounter for screening for malignant neoplasm of respiratory organs
CPT/HCPCS: 71271

== ENCOUNTER 2023-12-20 15:35 | Outpatient (REF) | payer MEDICARE, MEDICAID, SELFPAY ==
[2023-12-20 16:13] LABS: Abs Immature Grans 0.03 10^3/uL (0.0-0.06); Absolute Basophil Count 0.06 10^3/uL (0.0-0.2); Absolute Eosinophil Count 0.03 10^3/uL (0.0-0.7); Absolute Lymphocyte Count 3.05 10^3/uL (1.2-3.4); Absolute Monocyte Count 0.76 10^3/uL (0.1-0.8); Absolute Neutrophil Count 4.85 10^3/uL (1.2-6.7); Basophils % 0.7 %; Eosinophils % 0.3 %; HCT 43.5 % (40.0-50.0); Immature Grans % 0.3 %; Lymphocytes % 34.7 %; MCH 29.2 pg (27.0-33.0); MCHC 32.2 % (32.0-36.0); MCV 91 fL (80-95); MPV 9.9 fL (8.0-11.0); Monocytes % 8.7 %; Neutrophils % 55.3 %; Platelet Count 248 10^3/uL (130-400); RDW 13.6 % (11.8-14.1); RDW-SD 46.4 fL; WBC 8.78 10^3/uL (4.4-10.8)
== END 2023-12-20 15:36 | disposition home or self-care (01) ==
LOC: LBN 15:35
PROVIDERS: PCP Nurse Practitioner Family; Visit Provider Registered Nurse
DX: Z51.81 Encounter for therapeutic drug level monitoring (principal)
CPT/HCPCS: 85025

== ENCOUNTER 2023-12-26 18:39 | Outpatient (REF) | payer MEDICARE, MEDICAID, SELFPAY ==
[2023-12-26 17:23] LABS: Abs Immature Grans 0.04 10^3/uL (0.0-0.06); Absolute Basophil Count 0.04 10^3/uL (0.0-0.2); Absolute Eosinophil Count 0.02 10^3/uL (0.0-0.7); Absolute Monocyte Count 0.66 10^3/uL (0.1-0.8); Absolute Neutrophil Count 5.62 10^3/uL (1.2-6.7); Basophils % 0.4 %; Eosinophils % 0.2 %; HCT 43.7 % (40.0-50.0); HGB 14.1 g/dL (13.5-17.5); Immature Grans % 0.4 %; Lymphocytes % 29.7 %; MCH 29.7 pg (27.0-33.0); MCHC 32.3 % (32.0-36.0); MCV 92 fL (80-95); MPV 10.5 fL (8.0-11.0); Monocytes % 7.3 %; Platelet Count 270 10^3/uL (130-400); RBC 4.75 10^6/uL (4.36-5.78); RDW 13.5 % (11.8-14.1); RDW-SD 46.2 fL; WBC 9.08 10^3/uL (4.4-10.8)
== END 2023-12-26 18:40 | disposition home or self-care (01) ==
LOC: LBN 18:39
PROVIDERS: PCP Nurse Practitioner Family; Visit Provider Registered Nurse
DX: Z51.81 Encounter for therapeutic drug level monitoring (principal); F20.3 Undifferentiated schizophrenia; F33.1 Major depressive disorder, recurrent, moderate
CPT/HCPCS: 85025

== ENCOUNTER 2024-01-03 18:08 | Outpatient (REF) | payer MEDICARE, MEDICAID, SELFPAY ==
[2024-01-03 19:32] LABS: Abs Immature Grans 0.06 10^3/uL (0.0-0.06); Absolute Basophil Count 0.05 10^3/uL (0.0-0.2); Absolute Eosinophil Count 0.01 10^3/uL (0.0-0.7); Absolute Lymphocyte Count 2.75 10^3/uL (1.2-3.4); Absolute Monocyte Count 0.87 10^3/uL (0.1-0.8); Absolute Neutrophil Count 7.92 10^3/uL (1.2-6.7); Basophils % 0.4 %; Eosinophils % 0.1 %; HCT 43.7 % (40.0-50.0); HGB 13.6 g/dL (13.5-17.5); Immature Grans % 0.5 %; Lymphocytes % 23.6 %; MCH 29.3 pg (27.0-33.0); MCHC 31.1 % (32.0-36.0); MCV 94 fL (80-95); MPV 10.5 fL (8.0-11.0); Monocytes % 7.5 %; Neutrophils % 67.9 %; Platelet Count 250 10^3/uL (130-400); RBC 4.64 10^6/uL (4.36-5.78); RDW 13.7 % (11.8-14.1); RDW-SD 47.8 fL; WBC 11.66 10^3/uL (4.4-10.8)
== END 2024-01-03 18:09 | disposition home or self-care (01) ==
LOC: LBN 18:08
PROVIDERS: PCP Nurse Practitioner Family; Visit Provider Registered Nurse
DX: Z51.81 Encounter for therapeutic drug level monitoring (principal); F20.3 Undifferentiated schizophrenia; F33.1 Major depressive disorder, recurrent, moderate
CPT/HCPCS: 85025

== ENCOUNTER 2024-01-07 09:00 | Outpatient (REF) | payer MEDICARE, MEDICAID, SELFPAY ==
[2024-01-08 10:33] LABS: Bilirubin Negative (Negative); Blood Negative (Negative); Clarity Clear (Clear); Glucose Negative (Negative); Ketones Negative (Negative); Leukocyte Esterase Negative (Negative); Nitrite Negative (Negative); Specific Gravity 1.015 (1.005-1.025); Urobilinogen 0.2 mg/dL (Up to 0.2)
== END 2024-01-07 09:01 | disposition home or self-care (01) ==
LOC: NCHCN 09:00
PROVIDERS: PCP Nurse Practitioner Family; Visit Provider Nurse Practitioner Family
DX: R32 Unspecified urinary incontinence (principal)
CPT/HCPCS: 81003

== ENCOUNTER 2024-01-10 11:30 | Outpatient (REF) | payer MEDICARE, MEDICAID, SELFPAY ==
[2024-01-10 11:50] LABS: Abs Immature Grans 0.05 10^3/uL (0.0-0.06); Absolute Basophil Count 0.04 10^3/uL (0.0-0.2); Absolute Eosinophil Count 0.01 10^3/uL (0.0-0.7); Absolute Lymphocyte Count 2.86 10^3/uL (1.2-3.4); Absolute Monocyte Count 0.91 10^3/uL (0.1-0.8); Absolute Neutrophil Count 6.35 10^3/uL (1.2-6.7); Basophils % 0.4 %; Eosinophils % 0.1 %; HCT 42.9 % (40.0-50.0); HGB 13.4 g/dL (13.5-17.5); Immature Grans % 0.5 %; MCH 29.1 pg (27.0-33.0); MCHC 31.2 % (32.0-36.0); MCV 93 fL (80-95); MPV 9.9 fL (8.0-11.0); Monocytes % 8.9 %; Neutrophils % 62.1 %; Platelet Count 251 10^3/uL (130-400); RDW 13.5 % (11.8-14.1); WBC 10.22 10^3/uL (4.4-10.8)
== END 2024-01-10 11:31 | disposition home or self-care (01) ==
LOC: LBN 11:30
PROVIDERS: PCP Nurse Practitioner Family; Visit Provider Registered Nurse
DX: F20.3 Undifferentiated schizophrenia (principal); F33.1 Major depressive disorder, recurrent, moderate; Z51.81 Encounter for therapeutic drug level monitoring
CPT/HCPCS: 85025

== ENCOUNTER 2024-01-17 17:24 | Outpatient (REF) | payer MEDICARE, MEDICAID, SELFPAY ==
[2024-01-17 13:52] LABS: Abs Immature Grans 0.03 10^3/uL (0.0-0.06); Absolute Basophil Count 0.04 10^3/uL (0.0-0.2); Absolute Eosinophil Count 0.15 10^3/uL (0.0-0.7); Absolute Lymphocyte Count 2.45 10^3/uL (1.2-3.4); Absolute Monocyte Count 0.69 10^3/uL (0.1-0.8); Absolute Neutrophil Count 5.17 10^3/uL (1.2-6.7); Basophils % 0.5 %; Eosinophils % 1.8 %; HCT 42.3 % (40.0-50.0); HGB 13.5 g/dL (13.5-17.5); Immature Grans % 0.4 %; Lymphocytes % 28.7 %; MCH 29.5 pg (27.0-33.0); MCHC 31.9 % (32.0-36.0); MCV 92 fL (80-95); MPV 10.5 fL (8.0-11.0); Monocytes % 8.1 %; Neutrophils % 60.5 %; Platelet Count 227 10^3/uL (130-400); RBC 4.58 10^6/uL (4.36-5.78); RDW 13.7 % (11.8-14.1); RDW-SD 46.7 fL; WBC 8.53 10^3/uL (4.4-10.8)
== END 2024-01-17 17:25 | disposition home or self-care (01) ==
LOC: LBN 17:24
PROVIDERS: PCP Nurse Practitioner Family; Visit Provider Registered Nurse
DX: Z51.81 Encounter for therapeutic drug level monitoring (principal)
CPT/HCPCS: 85025

== ENCOUNTER 2024-01-24 15:20 | Outpatient (REF) | payer MEDICARE, MEDICAID, SELFPAY ==
[2024-01-24 14:17] LABS: Abs Immature Grans 0.04 10^3/uL (0.0-0.06); Absolute Basophil Count 0.04 10^3/uL (0.0-0.2); Absolute Lymphocyte Count 2.16 10^3/uL (1.2-3.4); Absolute Monocyte Count 0.62 10^3/uL (0.1-0.8); Absolute Neutrophil Count 5.72 10^3/uL (1.2-6.7); Basophils % 0.5 %; HCT 43.4 % (40.0-50.0); HGB 13.4 g/dL (13.5-17.5); Immature Grans % 0.5 %; Lymphocytes % 25.2 %; MCH 29.2 pg (27.0-33.0); MCHC 30.9 % (32.0-36.0); MCV 95 fL (80-95); MPV 10.2 fL (8.0-11.0); Monocytes % 7.2 %; Neutrophils % 66.6 %; Platelet Count 230 10^3/uL (130-400); RBC 4.59 10^6/uL (4.36-5.78); RDW 13.4 % (11.8-14.1); RDW-SD 46.5 fL; WBC 8.58 10^3/uL (4.4-10.8)
== END 2024-01-24 15:21 | disposition home or self-care (01) ==
LOC: LBN 15:20
PROVIDERS: PCP Nurse Practitioner Family; Visit Provider Registered Nurse
DX: Z51.81 Encounter for therapeutic drug level monitoring (principal)
CPT/HCPCS: 85025

== ENCOUNTER 2024-01-30 17:34 | Emergency (ER) | payer MEDICARE, MEDICAID, SELFPAY ==
[2024-01-30 16:58] VITALS: BP 165/109; PULSE 89; RESP 20; TEMP 36.8; O2SAT 92
[2024-01-30 17:42] LABS: Abs Immature Grans 0.05 10^3/uL (0.0-0.06); Absolute Basophil Count 0.06 10^3/uL (0.0-0.2); Absolute Eosinophil Count 0.04 10^3/uL (0.0-0.7); Absolute Lymphocyte Count 3.11 10^3/uL (1.2-3.4); Absolute Monocyte Count 0.68 10^3/uL (0.1-0.8); Absolute Neutrophil Count 3.92 10^3/uL (1.2-6.7); Basophils % 0.8 %; Eosinophils % 0.5 %; HCT 43.5 % (40.0-50.0); HGB 13.7 g/dL (13.5-17.5); Immature Grans % 0.6 %; Lymphocytes % 39.6 %; MCH 29.4 pg (27.0-33.0); MCHC 31.5 % (32.0-36.0); MCV 93 fL (80-95); MPV 9.6 fL (8.0-11.0); Monocytes % 8.7 %; Neutrophils % 49.8 %; Platelet Count 219 10^3/uL (130-400); RBC 4.66 10^6/uL (4.36-5.78); RDW 13.5 % (11.8-14.1); WBC 7.86 10^3/uL (4.4-10.8)
[2024-01-30 17:54] LABS: Magnesium 2.4 mg/dL (1.8-2.4)
[2024-01-30 18:06] LABS: ALT 35 U/L (16-63); AST 24 U/L (15-37); Albumin 3.6 g/dL (3.4-5.0); Alkaline Phosphatase 97 U/L (46-116); Anion Gap 8.8 mmol/L (3-11); BUN 10 mg/dL (7-18); Bilirubin, Total 0.27 mg/dL (0.2-1.0); CO2 29.2 mmol/L (21.0-32.0); Calcium 9.5 mg/dL (8.5-10.1); Chloride 107 mmol/L (98-107); Estimated GFR 83.01 (mL/min/1.73m2); Glucose 109 mg/dL (74-106); Potassium 4.2 mmol/L (3.5-5.1); Sodium 145 mmol/L (136-145); TSH (W/Ref FT4) 0.94 uIU/mL (0.36-3.74); Total Protein 7.3 g/dL (6.4-8.2)
[2024-01-30 18:25] LABS: Bilirubin Negative (Negative); Blood Negative (Negative); Clarity Clear (Clear); Glucose Negative (Negative); Ketones Negative (Negative); Leukocyte Esterase Trace (Negative); Nitrite Negative (Negative); Urobilinogen 0.2 mg/dL (Up to 0.2)
[2024-01-30 18:31] LABS: Bacteria Negative HPF (Negative); C & S Indicated? No; Crystals Negative HPF (Negative); Epithelial Cells Negative HPF (Negative); Mucus Negative (Negative); RBC Negative HPF (0-2); WBC 0-2 HPF (0-5)
[2024-01-30 18:43] LABS: *AMPHETAMINES SCREEN URINE Negative (Negative); *BARBITURATES SCREEN URINE Negative (Negative); *BENZODIAZEPINES SCREEN URINE Positive (Negative); Cannabinoids THC Negative (Negative); Cocaine Screen,Urine Negative (Negative); METHADONE URINE SCREEN Negative (Negative); OPIATES URINE SCREEN Negative (Negative); Tricyclic Antidepressants Negative (Negative)
--- NOTE | 2024-01-30 18:55 | W.ED.GENAD ---
Discharge Plan Disposition Patient Disposition: Home Condition: Stable Discharge Details Clinical Impression: Schizophrenia, Auditory hallucination Primary Care Provider: Milka Shelley ED Provider: Ashly Squires Home Meds and New Rx's Prescriptions: Continued omega 5-rbj-cvo-fish oil [Fish Oil] 60-90-500 mg capsule 1 cap PO DAILY simvastatin 20 mg tablet 20 mg PO DAILY docusate sodium 100 mg capsule 100 mg PO BID clonazepam 0.5 mg tablet 0.5 mg PO TID clozapine 50 mg tablet 50 mg PO QHS Rx Instructions: Take with 400mg for total dose of 450mg QHS tamsulosin 0.4 mg capsule 0.8 mg PO QHS Incruse Ellipta 62.5 mcg/actuation blister with device 1 inh inhalation DAILY acetaminophen [Tylenol] 325 mg tablet 650 mg PO Q6H PRN magnesium 250 mg tablet 250 mg PO DAILY trazodone 50 mg tablet 50 mg PO QHS PRN clozapine 200 mg tablet 400 mg PO QHS memantine 10 mg tablet 10 mg PO BID Qty: 180 3RF duloxetine 60 mg capsule,delayed release(DR/EC) 120 mg PO DAILY cyanocobalamin (vitamin B-12) 1,000 mcg tablet, sublingual See Rx Instructions .ROUTE .COMPLEX Qty: 30 11RF Dose Instruction: 1 TAB (1000mcg) ORALLY DAILY Rx Instructions: 1 TAB (1000mcg) ORALLY DAILY donepezil 10 mg tablet 10 mg PO QHS Qty: 90 3RF diazepam 10 mg tablet 10 mg PO DAILY Patient Comments: Bedtime diazepam 5 mg tablet 5 mg PO DAILY Patient Comments: AM Discharge Instructions Additional Instructions: Start taking the Zyprexa 10 mg as prescribed by your psychiatrist Your test today are reassuring, please return earlier for worsening complaints Referrals: Milka Shelley [Primary Care Provider] - 1 day HPI General Date/Time Provider Initiated Documentation: 01/30/24 18:55. HPI Narrative: This 68-year-old male with history of schizophrenia presents with of auditory and visual hallucinations. History of this for years, however with medication adjustments his symptoms have worsened. He was sent to the emergency department for evaluation secondary to being unable to contact his psychiatric nurse practitioner for management of his medications. Patient does not endorse any significant complaints at this time. Specifically denies any suicidal ideation. He states that [place] is trying to kill him . Patient has not had any recent trauma/injuries. Denies any urinary complaints, headache, dizziness, or any additional symptoms at this time. Related Data Home Medications ?Medication ?Instructions ?Recorded ?Confirmed acetaminophen 325 mg tablet 650 mg PO Q6H PRN 03/23/22 01/30/24 (Tylenol) magnesium 250 mg tablet 250 mg PO DAILY 03/23/22 01/30/24 tamsulosin 0.4 mg capsule 0.8 mg PO QHS 03/23/22 01/30/24 trazodone 50 mg tablet 50 mg PO QHS PRN 03/23/22 01/30/24 umeclidinium 62.5 mcg/actuation 1 inh inhalation DAILY 03/23/22 01/30/24 blister powder for inhalation (Incruse Ellipta) clonazepam 0.5 mg tablet 0.5 mg PO TID 01/19/23 01/30/24 clozapine 200 mg tablet 400 mg PO QHS 01/19/23 01/30/24 clozapine 50 mg tablet 50 mg PO QHS 01/19/23 01/30/24 docusate sodium 100 mg capsule 100 mg PO BID 01/19/23 01/30/24 omega 6-etu-zvt-fish oil 60 mg-90 1 cap PO DAILY 01/19/23 01/30/24 mg-500 mg capsule (Fish Oil) simvastatin 20 mg tablet 20 mg PO DAILY 01/19/23 01/30/24 memantine 10 mg tablet 10 mg PO BID #180 tabs 04/12/23 01/30/24 duloxetine 60 mg capsule,delayed 120 mg PO DAILY 07/20/23 01/30/24 release cyanocobalamin (vitamin B-12) See Rx Instructions .Route 08/16/23 01/30/24 1,000 mcg sublingual tablet .COMPLEX #30 tabs donepezil 10 mg tablet 10 mg PO QHS #90 tabs 10/03/23 01/30/24 diazepam 10 mg tablet 10 mg PO DAILY 01/30/24 01/30/24 diazepam 5 mg tablet 5 mg PO DAILY 01/30/24 01/30/24 Previous Rx's ?Medication ?Instructions ?Recorded memantine 10 mg tablet 10 mg PO BID #180 tabs 04/12/23 cyanocobalamin (vitamin B-12) See Rx Instructions .Route 08/16/23 1,000 mcg sublingual tablet .COMPLEX #30 tabs donepezil 10 mg tablet 10 mg PO QHS #90 tabs 10/03/23 Allergies Allergy/AdvReac Type Severity Reaction Status Date / Time No Known Allergies Allergy Verified 01/30/24 17:10 General Stated Complaint: PsychEval WILLIAMS: 2 Exam Narrative Exam Narrative: Alert and oriented 68-year-old male in no acute distress, pupils equal round reactive to light and accommodation, lungs clear to auscultation, cardiac rate rhythm regular, no abdominal tenderness, no pallor, alert and oriented x 3, cranial nerves II through XII intact, able to follow basic commands, ambulatory steady gait, experiencing auditory hallucinations, pleasant, calm, cooperative Course Vital Signs Vital signs: Vital Signs Temperature 36.8 C 01/30/24 16:58 Pulse 89 01/30/24 16:58 Respiratory Rate 20 01/30/24 16:58 Blood Pressure 165/109 H 01/30/24 16:58 Pulse Oximetry 92 01/30/24 16:58 Temperature 36.8 C 01/30/24 16:58 Temperature Source Oral 01/30/24 16:58 Pulse 89 01/30/24 16:58 Respiratory Rate 20 01/30/24 16:58 Respiratory Effort Normal 01/30/24 17:07 Blood Pressure 165/109 H 01/30/24 16:58 Blood Pressure Position Sitting 01/30/24 16:58 Pulse Oximetry 92 01/30/24 16:58 Oxygen Delivery Method Room Air 01/30/24 16:58 Oxygen Flow Rate 0 01/30/24 16:58 Pain Level 0 01/30/24 17:07 Lab/Test Results Lab/Test Results: Laboratory Tests Range/Units 01/30/24 01/30/24 17:32 18:12 WBC (4.4-10.8) 10^3/uL 7.86 RBC (4.36-5.78) 10^6/uL 4.66 Hgb (13.5-17.5) g/dL 13.7 Hct (40.0-50.0) % 43.5 MCV (80-95) fL 93 MCH (27.0-33.0) pg 29.4 MCHC (32.0-36.0) % 31.5 L RDW (11.8-14.1) % 13.5 Plt Count (130-400) 10^3/uL 219 MPV (8.0-11.0) fL 9.6 Immature Gran % % 0.6 Neutrophils % % 49.8 Lymphocytes % % 39.6 Monocytes % % 8.7 Eosinophils % % 0.5 Basophils % % 0.8 Nucleated RBC % (0.0-0.3) % 0.0 Absolute Neutrophils (1.2-6.7) 10^3/uL 3.92 Absolute Lymphocytes (1.2-3.4) 10^3/uL 3.11 Absolute Monocytes (0.1-0.8) 10^3/uL 0.68 Absolute Eosinophils (0.0-0.7) 10^3/uL 0.04 Absolute Basophils (0.0-0.2) 10^3/uL 0.06 Sodium (136-145) mmol/L 145 Potassium (3.5-5.1) mmol/L 4.2 Chloride (98-107) mmol/L 107 Carbon Dioxide (21.0-32.0) mmol/L 29.2 Anion Gap (3-11) mmol/L 8.8 BUN (7-18) mg/dL 10 Creatinine (0.70-1.30) mg/dL 1.0 Est GFR (CKD-EPI 2020) (mL/min/1.73m2) 83.01 Glucose (74-106) mg/dL 109 H Calcium (8.5-10.1) mg/dL 9.5 Magnesium (1.8-2.4) mg/dL 2.4 Total Bilirubin (0.2-1.0) mg/dL 0.27 AST (15-37) U/L 24 ALT (16-63) U/L 35 Alkaline Phosphatase (46-116) U/L 97 Total Protein (6.4-8.2) g/dL 7.3 Albumin (3.4-5.0) g/dL 3.6 TSH (0.36-3.74) uIU/mL 0.94 Urine Color (Yellow) Yellow Urine Clarity (Clear) Clear Urine pH (5-8) 7.0 Ur Specific [place] (1.005-1.025) 1.010 Urine Protein (Neg-Trace) mg/dL Negative Urine Ketones (Negative) mg/dL Negative Urine Blood (Negative) Negative Urine Nitrite (Negative) Negative Urine Bilirubin (Negative) Negative Urine Urobilinogen (Up to 0.2) mg/dL 0.2 Ur Leukocyte Esterase (Negative) Trace H Urine RBC (0-2) HPF Negative Urine WBC (0-5) HPF 0-2 Ur Epithelial Cells (Negative) HPF Negative Urine Crystals (Negative) HPF Negative Urine Bacteria (Negative) HPF Negative Urine Mucus (Negative) Negative Ur Culture Indicated? No Urine Glucose (Negative) mg/dL Negative Urine Opiates Screen (Negative) Negative Urine Methadone Screen (Negative) Negative Ur Barbiturates Screen (Negative) Negative Ur Tricyclics Screen (Negative) Negative Ur Amphetamines Screen (Negative) Negative U Benzodiazepines Scrn (Negative) Positive A Urine Cocaine Screen (Negative) Negative Ur THC Screen (Negative) Negative Medical Decision Making 68-year-old male with known history of schizophrenia and auditory and visual hallucinations, with exacerbation of symptoms that he is had for years with medication adjustment. We spoke with [facility] and they are requesting NK chest assessment. I spoke with patient's psychiatric nurse practitioner, Kellie carrillo and she states that she does not feel patient needs to be in the emergency department she states that she has had medication adjustment and this patient has had auditory and visual hallucinations from for years and that this is not new. She recommends starting Zyprexa 10 mg. She states that the clozapine level on this patient was quite high and so she is lowered his dose at this point and does not feel comfortable in increasing it. She will follow-up with him closely in the outpatient setting. I did perform medical screening exam and CBC, CMP, and the remainder of diagnostic labs do not show evidence of acute abnormality, benzodiazepine positive which patient is taking Valium. Discharged home in stable condition with stable vitals to [facility] where he currently lives. At baseline mentation experiencing auditory hallucinations. Zyprexa 10 mg was administered and patient has a prescription for home. Return precautions reviewed and patient expressed understanding. Quality:SDOH Health Related Social Needs: No Data to Display PFSH All Active Problems (Updated 01/30/24 @ 18:56 by FLORIDALMA Lawler) Auditory hallucination (Acute) Schizophrenia (Chronic) Bilateral primary osteoarthritis of knee (Acute) Cognitive impairment (Acute) Alzheimer's dementia without behavioral disturbance (Acute) Left foot pain (Acute) Medical History Dermatophytosis of nail Alcohol abuse, in remission Auditory hallucinations History of suicidal ideation Paranoid schizophrenia Altered mental status Cognitive changes Anemia Elevated PSA Urinary incontinence Hyperplasia of prostate with lower urinary tract symptoms (LUTS) Emphysema lung Pulmonary nodule Tobacco abuse COPD (chronic obstructive pulmonary disease) History of prediabetes Hyperlipidemia Low back pain Acute metabolic encephalopathy Neutrophilia Pain, foot, left, chronic Patellofemoral joint pain Atherosclerosis Surgical History Hx of knee surgery Family History Mother Brain cancer Father Heart disease Hypertension Obesity Osteoarthritis Social History Smoking/Tobacco Use Status: Former Tobacco Use Tobacco: How many years used: 38 Smoking risk assessment performed?: Yes Alcohol Intake: never Substance use type: does not use Housing: assisted living facility Do you feel safe at home: Yes Do you feel safe in your relationship?: Yes
[2024-01-30] MEDS: OLANZapine 10 MG TAB PO (19:00)
[2024-02-03 01:51] LABS: Clozapine 543 ng/mL (350-600); Clozapine+Norclozapine Total 1180 ng/mL; Norclozapine 637 ng/mL
== END 2024-01-30 19:30 | disposition home or self-care (01) ==
PROVIDERS: Emergency Provider Physician Assistant; PCP Nurse Practitioner Family
DX: F20.9 Schizophrenia, unspecified (principal); Z79.899 Other long term (current) drug therapy; G30.9 Alzheimer's disease, unspecified; F02.80 Dementia in other diseases classified elsewhere, unspecified severity, without behavioral disturbance, psychotic disturbance, mood disturbance, and anxiety
CPT/HCPCS: 80053; 80307; 99284; 80159; 81003; 81015; 83735; 84443; 85025

== ENCOUNTER 2024-02-06 19:53 | Outpatient (REF) | payer MEDICARE, MEDICAID, SELFPAY ==
[2024-02-06 15:44] LABS: Abs Immature Grans 0.02 10^3/uL (0.0-0.06); Absolute Basophil Count 0.04 10^3/uL (0.0-0.2); Absolute Eosinophil Count 0.03 10^3/uL (0.0-0.7); Absolute Lymphocyte Count 2.65 10^3/uL (1.2-3.4); Absolute Monocyte Count 0.49 10^3/uL (0.1-0.8); Absolute Neutrophil Count 4.03 10^3/uL (1.2-6.7); Basophils % 0.6 %; Eosinophils % 0.4 %; HCT 41.2 % (40.0-50.0); HGB 12.9 g/dL (13.5-17.5); Immature Grans % 0.3 %; Lymphocytes % 36.5 %; MCH 29.5 pg (27.0-33.0); MCHC 31.3 % (32.0-36.0); MCV 94 fL (80-95); MPV 10.3 fL (8.0-11.0); Monocytes % 6.7 %; Neutrophils % 55.5 %; Platelet Count 230 10^3/uL (130-400); RBC 4.37 10^6/uL (4.36-5.78); RDW 13.2 % (11.8-14.1); RDW-SD 45.5 fL; WBC 7.26 10^3/uL (4.4-10.8)
== END 2024-02-06 19:54 ==
LOC: LBN 19:53
PROVIDERS: Registered Nurse; PCP Nurse Practitioner Family
DX: F20.3 Undifferentiated schizophrenia (principal)
CPT/HCPCS: 85025

== ENCOUNTER 2024-02-11 15:52 | Inpatient (IN) | payer MEDICARE, MEDICAID, SELFPAY ==
[2024-02-11] VITALS (37 sets, daily range): BP systolic 81–156; BP diastolic 47–97; PULSE 88–110; RESP 13–23; TEMP 36.6–38.7; O2SAT 88–100
--- NOTE | 2024-02-11 16:00 | DI.RAD_ITS ---
Exam(s) XR PORTABLE CHEST AP EXAM: XR PORTABLE CHEST AP CLINICAL HISTORY: cough, r/o pneumonia. TECHNIQUE: 2D digital imaging was performed. COMPARISON: CT CT CHEST LUNG CANCER SCREEN from 12/19/2023 FINDINGS: Single AP portable view. Heart size is upper normal. The mediastinum is not widened. Left-sided retrocardiac density corresponds to a prominence of benign-appearing fat tissue at this le archana on CT scan 12/19/2023. There is calcified granuloma in the left lower lobe noted, also seen on p rior CT scan. No new infiltrates nor pleural effusions. No pulmonary edema. IMPRESSION: No acute pulmonary findings on this single AP portable view of the chest. DATA REPOSITORY: RADIATION DOSE DELIVERED:
--- NOTE | 2024-02-11 16:15 | RT.EKG_ITS ---
APPROVED REPORT Exam: Resting ECG Reason for Exam: weakness Patient Location: E HR:104 bpm ECG Measurements Heart Rate 104 AXIS AR 154 P 53 QRSd 86 QRS 29 QT 331 T 63 QTc 436 Conclusion Age and gender not entered, assume 52 yo male for purpose of ECG interpretation Sinus tachycardia...rate> 99 I have reviewed and interpreted ECG and agree with software generated interpretation.
[2024-02-11 16:36] LABS: Abs Immature Grans 0.02 10^3/uL (0.0-0.06); Absolute Basophil Count 0.03 10^3/uL (0.0-0.2); Absolute Eosinophil Count 0.01 10^3/uL (0.0-0.7); Absolute Lymphocyte Count 1.02 10^3/uL (1.2-3.4); Absolute Monocyte Count 0.82 10^3/uL (0.1-0.8); Absolute Neutrophil Count 3.48 10^3/uL (1.2-6.7); Basophils % 0.6 %; Eosinophils % 0.2 %; HGB 13.8 g/dL (13.5-17.5); Immature Grans % 0.4 %; MCH 29.5 pg (27.0-33.0); MCHC 31.4 % (32.0-36.0); MCV 94 fL (80-95); MPV 9.7 fL (8.0-11.0); Monocytes % 15.2 %; Neutrophils % 64.6 %; Platelet Count 177 10^3/uL (130-400); RBC 4.68 10^6/uL (4.36-5.78); RDW 13.7 % (11.8-14.1); RDW-SD 47.4 fL; WBC 5.38 10^3/uL (4.4-10.8)
[2024-02-11 16:50] LABS: BE (Venous) 4 mmol/L (-2-3); HCO3 (Venous) 30 mmol/L (23-28); O2 Sat (Venous) 34 %; TCO2 (Venous) 31 mmol/L (24-29); pCO2 (Venous) 56 mmHg (41-51); pH (Venous) 7.33 (7.31-7.41); pO2 (Venous) 23 mmHg
[2024-02-11] MEDS: Acetaminophen 500 MG TAB 1000 MG PO (17:02)
[2024-02-11 17:12] LABS: ALT 55 U/L (16-63); AST 42 U/L (15-37); Albumin 3.8 g/dL (3.4-5.0); Alkaline Phosphatase 107 U/L (46-116); Anion Gap 8.5 mmol/L (3-11); BUN 12 mg/dL (7-18); Bilirubin, Total 0.38 mg/dL (0.2-1.0); CO2 31.5 mmol/L (21.0-32.0); CREATININE 1.2 mg/dL (0.70-1.30); Calcium 9.2 mg/dL (8.5-10.1); Chloride 102 mmol/L (98-107); Glucose 100 mg/dL (74-106); Potassium 4.4 mmol/L (3.5-5.1); Sodium 142 mmol/L (136-145); Troponin I 5 ng/L (<or=76)
[2024-02-11 17:25] LABS: Procalcitonin 0.1 ng/mL
--- NOTE | 2024-02-11 17:39 | DI.VRAD_ITS ---
PROCEDURE INFORMATION: Exam: XR Chest Exam date and time: 02/11/2024 4:27 PM Age: 68 years old Clinical indication: Other: Cough, R/O pneumonia TECHNIQUE: Imaging protocol: Radiologic exam of the chest. Views: 1 view. COMPARISON: CT CHEST LUNG CANCER SCREEN 12/19/2023 9:29 AM FINDINGS: Lungs: There are some coarse increased markings at the left lung base. Pleural spaces: Unremarkable. No pleural effusion. No pneumothorax. Heart/Mediastinum: Unremarkable. No cardiomegaly. Bones/joints: Unremarkable. Soft tissues: There is a soft tissue attenuation focus at the left lung base medially which on CT has been shown to represent fat attenuation, probable Bochdalek's hernia. Allowing for technical differences this appears unchanged. IMPRESSION: Left lower lobe atelectasis versus early consolidation. Dictated and Authenticated by: Flor Paul MD. Ordering:NELL Chao MD
[2024-02-11 18:07] LABS: Troponin I 6 ng/L (<or=76)
--- NOTE | 2024-02-11 18:25 | W.ED.GENAD ---
Discharge Plan Disposition Patient Disposition: Admit to [facility] Condition: Good Discharge Details Chief Complaint: GenMedical Clinical Impression: Sepsis, Pneumonia Primary Care Provider: Milka Shelley ED Provider: Jeremie Doshi Home Meds and New Rx's Prescriptions: No Action omega 1-qrf-dig-fish oil [Fish Oil] 60-90-500 mg capsule 1 cap PO DAILY simvastatin 20 mg tablet 20 mg PO DAILY docusate sodium 100 mg capsule 100 mg PO BID clozapine 50 mg tablet 50 mg PO QHS Rx Instructions: Take with 400mg for total dose of 450mg QHS tamsulosin 0.4 mg capsule 0.8 mg PO QHS Incruse Ellipta 62.5 mcg/actuation blister with device 1 inh inhalation DAILY acetaminophen [Tylenol] 325 mg tablet 650 mg PO Q6H PRN magnesium 250 mg tablet 250 mg PO DAILY trazodone 50 mg tablet 50 mg PO QHS clozapine 200 mg tablet 400 mg PO QHS memantine 10 mg tablet 10 mg PO BID Qty: 180 3RF duloxetine 60 mg capsule,delayed release(DR/EC) 120 mg PO DAILY cyanocobalamin (vitamin B-12) 1,000 mcg tablet, sublingual See Rx Instructions .ROUTE .COMPLEX Qty: 30 11RF Dose Instruction: 1 TAB (1000mcg) ORALLY DAILY Rx Instructions: 1 TAB (1000mcg) ORALLY DAILY donepezil 10 mg tablet 10 mg PO QHS Qty: 90 3RF diazepam 10 mg tablet 10 mg PO DAILY Patient Comments: Bedtime diazepam 5 mg tablet 5 mg PO DAILY Patient Comments: AM polyethylene glycol 3350 [Miralax] 17 gram/dose powder 17 g PO QDAY cholecalciferol (vitamin D3) [Vitamin D3] 25 mcg (1,000 unit) capsule 2,000 unit PO DAILY tizanidine 2 mg tablet 2 mg PO BID albuterol 90 mcg/actuation aerosol 90 mcg inhalation Q6H PRN olanzapine 10 mg tablet 10 mg PO TID trazodone 50 mg tablet 50 mg PO QHS PRN HPI General Date/Time Provider Initiated Documentation: 02/11/24 16:00. HPI Narrative: 68-year-old male with a past medical history of schizophrenia, Alzheimer's dementia, chronic lower urinary tract symptoms, COPD, who resides at [facility] and presents today for weakness and a cough that starts 1 hour ago. He states that weakness has been present for the last day or so, and the cough just began about an hour ago. He did have incontinence of stool prior to coming in via EMS. He denies any chest pain or shortness of breath. He denies any headache. He denies any falls. EMS does report fever on their initial assessment. No other complaints at this time. Related Data Home Medications ?Medication ?Instructions ?Recorded ?Confirmed acetaminophen 325 mg tablet 650 mg PO Q6H PRN 03/23/22 02/11/24 (Tylenol) magnesium 250 mg tablet 250 mg PO DAILY 03/23/22 02/11/24 tamsulosin 0.4 mg capsule 0.8 mg PO QHS 03/23/22 02/11/24 trazodone 50 mg tablet 50 mg PO QHS 03/23/22 02/11/24 umeclidinium 62.5 mcg/actuation 1 inh inhalation DAILY 03/23/22 02/11/24 blister powder for inhalation (Incruse Ellipta) clozapine 200 mg tablet 400 mg PO QHS 01/19/23 02/11/24 clozapine 50 mg tablet 50 mg PO QHS 01/19/23 02/11/24 docusate sodium 100 mg capsule 100 mg PO BID 01/19/23 02/11/24 omega 7-fbo-rym-fish oil 60 mg-90 1 cap PO DAILY 01/19/23 02/11/24 mg-500 mg capsule (Fish Oil) simvastatin 20 mg tablet 20 mg PO DAILY 01/19/23 02/11/24 memantine 10 mg tablet 10 mg PO BID #180 tabs 04/12/23 02/11/24 duloxetine 60 mg capsule,delayed 120 mg PO DAILY 07/20/23 02/11/24 release cyanocobalamin (vitamin B-12) See Rx Instructions .Route 08/16/23 02/11/24 1,000 mcg sublingual tablet .COMPLEX #30 tabs donepezil 10 mg tablet 10 mg PO QHS #90 tabs 10/03/23 02/11/24 diazepam 10 mg tablet 10 mg PO DAILY 01/30/24 02/11/24 diazepam 5 mg tablet 5 mg PO DAILY 01/30/24 02/11/24 albuterol 90 mcg/actuation aerosol 90 mcg inhalation Q6H PRN 02/11/24 02/11/24 inhaler cholecalciferol (vitamin D3) 25 2,000 unit PO DAILY 02/11/24 02/11/24 mcg (1,000 unit) capsule (Vitamin D3) olanzapine 10 mg tablet 10 mg PO TID 02/11/24 02/11/24 polyethylene glycol 3350 17 17 g PO QDAY 02/11/24 02/11/24 gram/dose oral powder (Miralax) tizanidine 2 mg tablet 2 mg PO BID 02/11/24 02/11/24 trazodone 50 mg tablet 50 mg PO QHS PRN 02/11/24 02/11/24 Previous Rx's ?Medication ?Instructions ?Recorded memantine 10 mg tablet 10 mg PO BID #180 tabs 04/12/23 cyanocobalamin (vitamin B-12) See Rx Instructions .Route 08/16/23 1,000 mcg sublingual tablet .COMPLEX #30 tabs donepezil 10 mg tablet 10 mg PO QHS #90 tabs 10/03/23 Allergies Allergy/AdvReac Type Severity Reaction Status Date / Time No Known Allergies Allergy Verified 02/11/24 16:01 General Stated Complaint: GenMedical WILLIAMS: 3 Review of Systems All systems reviewed & are unremarkable except as noted in HPI and below Exam Narrative Exam Narrative: 1.Const: Well-nourished, Well-developed, appearing stated age 2.Eyes: PERRL, no conjunctival injection, and symmetrical lids. 3.ENT: Atraumatic external nose and ears. Moist MM. Neck: Symmetric, trachea midline, No thyromegaly. 4.CVS: +S1/S2, Peripheral pulses 2+ and equal in all extremities. Brisk capillary refill in all extremities. 5.RESP: Unlabored respiratory effort. Minimal crackles in the lower lung pleitez. No wheezes or rhonchi. 6.GI: Soft, Nontender/Nondistended, No hepatosplenomegaly. No guarding or rebound. 7.MSK: Normocephalic/Atraumatic, Extremities w/o deformity or ttp No cyanosis or clubbing, Normal movement of all extremities 8.Skin: Warm, Dry. No rashes or lesions. 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 Sensation grossly intact, no focal neurologic deficits. 10.Psych: (AAO) x3. Appropriate mood and affect Course Vital Signs Vital signs: Vital Signs Temperature 38.7 C H 02/11/24 15:53 Pulse 107 H 02/11/24 15:53 Respiratory Rate 20 02/11/24 15:53 Blood Pressure 129/81 02/11/24 15:53 Pulse Oximetry 90 L 02/11/24 15:53 Temperature 38.7 C H 02/11/24 16:38 Temperature Source Oral 02/11/24 15:53 Pulse 108 H 02/11/24 16:46 Pulse 108 H 02/11/24 16:50 Respiratory Rate 21 02/11/24 16:50 Respiratory Effort Short of Breath 02/11/24 16:37 Blood Pressure 140/86 02/11/24 16:46 Blood Pressure Mean 103 02/11/24 16:46 Blood Pressure Position Supine 02/11/24 16:38 Pulse Oximetry 91 L 02/11/24 16:50 Oxygen Delivery Method Room Air 02/11/24 15:53 Oxygen Flow Rate 0 02/11/24 15:53 Pain Level 0 02/11/24 16:38 Lab/Test Results Lab/Test Results: 02/11/24 17:44 Blood Blood Culture - Pending 02/11/24 16:22 Blood Blood Culture - Pending Laboratory Tests Range/Units 02/11/24 02/11/24 02/11/24 16:04 16:22 17:44 WBC (4.4-10.8) 10^3/uL 5.38 RBC (4.36-5.78) 10^6/uL 4.68 Hgb (13.5-17.5) g/dL 13.8 Hct (40.0-50.0) % 44.0 MCV (80-95) fL 94 MCH (27.0-33.0) pg 29.5 MCHC (32.0-36.0) % 31.4 L RDW (11.8-14.1) % 13.7 Plt Count (130-400) 10^3/uL 177 MPV (8.0-11.0) fL 9.7 Immature Gran % % 0.4 Neutrophils % % 64.6 Lymphocytes % % 19.0 Monocytes % % 15.2 Eosinophils % % 0.2 Basophils % % 0.6 Nucleated RBC % (0.0-0.3) % 0.0 Absolute Neutrophils (1.2-6.7) 10^3/uL 3.48 Absolute Lymphocytes (1.2-3.4) 10^3/uL 1.02 L Absolute Monocytes (0.1-0.8) 10^3/uL 0.82 H Absolute Eosinophils (0.0-0.7) 10^3/uL 0.01 Absolute Basophils (0.0-0.2) 10^3/uL 0.03 VBG pH (7.31-7.41) 7.33 VBG pCO2 (41-51) mmHg 56 H VBG pO2 mmHg 23 VBG HCO3 (23-28) mmol/L 30 H VBG Total CO2 (24-29) mmol/L 31 H VBG O2 Saturation % 34 VBG Base Excess (-2-3) mmol/L 4 H VBG Lactate (0.9-1.7) mmol/L 1.50 Sodium (136-145) mmol/L 142 Potassium (3.5-5.1) mmol/L 4.4 Chloride (98-107) mmol/L 102 Carbon Dioxide (21.0-32.0) mmol/L 31.5 Anion Gap (3-11) mmol/L 8.5 BUN (7-18) mg/dL 12 Creatinine (0.70-1.30) mg/dL 1.2 Est GFR (CKD-EPI 2020) (mL/min/1.73m2) 66.70 Glucose (74-106) mg/dL 100 Calcium (8.5-10.1) mg/dL 9.2 Total Bilirubin (0.2-1.0) mg/dL 0.38 AST (15-37) U/L 42 H ALT (16-63) U/L 55 Alkaline Phosphatase (46-116) U/L 107 Troponin I (<or=76) ng/L 5 6 Total Protein (6.4-8.2) g/dL 8.0 Albumin (3.4-5.0) g/dL 3.8 Procalcitonin ng/mL 0.1 COVID-19 Source Cancelled SARS-CoV-2 (PCR) Cancelled Influenza Type A (PCR) Cancelled Influenza Type B (PCR) Cancelled RSV (PCR) Cancelled Medical Decision Making 68-year-old male with a past medical history of schizophrenia, Alzheimer's dementia, chronic lower urinary tract symptoms, COPD, who resides at [facility] and presents today for weakness and a cough that starts 1 hour ago. He states that weakness has been present for the last day or so, and the cough just began about an hour ago. He did have incontinence of stool prior to coming in via EMS. He denies any chest pain or shortness of breath. He denies any headache. He denies any falls. EMS does report fever on their initial assessment. No other complaints at this time. Exam demonstrates a well-appearing male who is febrile and tachycardic. Concern for sepsis. Patient is not hypotensive and does not meet criteria in for IV fluids at this time secondary to fluid lockdown. No nuchal rigidity to suggest meningitis. No hypotension to represent shock. We will evaluate for these etiologies, monitor closely and reassess. 6:34 PM No white count, minimal elevation in his procalcitonin. Oxygenation borderline at 90 to 91%. X-ray shows evidence of mild pneumonia. We will give 2 g of ceftriaxone and 500 mg of azithromycin. Will contact the hospitalist for admission. Discussed the case with Dr. No, he agrees with the assessment and plan. I have extensively reviewed the treatment plan with the patient. I have addressed all patient concerns at this time. I have also discussed the plan with the admitting physician and they agree with the current assessment and plan and have agreed to assume responsibility for the patient. All parties demonstrate verbal understanding and agreement with our assessment and plan at this time. The documentation in this chart was dictated using [employer] dictation software. Please excuse any dictation errors. FINDINGS: Lungs: There are some coarse increased markings at the left lung base. Pleural spaces: Unremarkable. No pleural effusion. No pneumothorax. Heart/Mediastinum: Unremarkable. No cardiomegaly. Bones/joints: Unremarkable. Soft tissues: There is a soft tissue attenuation focus at the left lung base medially which on CT has been shown to represent fat attenuation, probable Bochdalek's hernia. Allowing for technical differences this appears unchanged. IMPRESSION: Left lower lobe atelectasis versus early consolidation. Thank you for allowing us to participate in the care of your patient. Dictated and Authenticated by: Flor Paul MD 02/11/2024 5:39 PM Eastern Time ([place] & [place]) Quality:SDOH Health Related Social Needs: No Data to Display PFSH All Active Problems (Updated 02/11/24 @ 18:39 by Jeremie Doshi DO) Pneumonia (Acute) Sepsis (Acute) Auditory hallucination (Acute) Schizophrenia (Chronic) Bilateral primary osteoarthritis of knee (Acute) Cognitive impairment (Acute) Alzheimer's dementia without behavioral disturbance (Acute) Left foot pain (Acute) Medical History Dermatophytosis of nail Alcohol abuse, in remission Auditory hallucinations History of suicidal ideation Paranoid schizophrenia Altered mental status Cognitive changes Anemia Elevated PSA Urinary incontinence Hyperplasia of prostate with lower urinary tract symptoms (LUTS) Emphysema lung Pulmonary nodule Tobacco abuse COPD (chronic obstructive pulmonary disease) History of prediabetes Hyperlipidemia Low back pain Acute metabolic encephalopathy Neutrophilia Pain, foot, left, chronic Patellofemoral joint pain Atherosclerosis Surgical History Hx of knee surgery Family History Mother Brain cancer Father Heart disease Hypertension Obesity Osteoarthritis Social History Smoking/Tobacco Use Status: Former Tobacco Use Tobacco: How many years used: 38 Smoking risk assessment performed?: Yes Alcohol Intake: never Substance use type: does not use Housing: assisted living facility Do you feel safe at home: Yes Do you feel safe in your relationship?: Yes
[2024-02-11] MEDS: AZITHROMYCIN 500 MG in DEXTROSE 5%-WATER 250 ML 250 MG IVPB (18:35)
[2024-02-11] MEDS: cefTRIAXone 2 GM/50 ML BAG IVPB (18:35)
--- NOTE | 2024-02-11 18:47 | HPE_ITS ---
Date of service: 02/11/24 Time of Service: 18:47 Assessment and Plan Assessment and plan (1) COVID: Status: Acute Assessment and plan: COVID. With normal white count, with lymphopenia, and negative procal, I am inclined to consider the CXR findings as NOT representing a bacterial pneumonia (if any at all). As above he has had doses of both Rocephin and Zithro but I will not continue -- for now. We can obtain a sputum in meantime. But will focus on COVID treatment and given modest hypoxia and respiratory [id number] -- ? also element COPD -- will treat with both Remdesivir and Dexamethasone. Will also add scheduled inhalers. Per [place] patient Full Code. History of Present Illness History of Present Illness Chief Complaint: cough, weakness Narrative: 68 male with h/o schizophrenia, dementia, COPD. resident of [facility] -- here with several days of cough, productive of yellow sputum, and generalized weakness. Denies CP, SOB, fever, chills. Here in ER findings of note for temp 38.7, white count 5.3 with relative lymphopenia; pH 7.33 with pCO2 56, and ; procal 0.1; and CXR showing LLL atelectasis vs consolidation. Patient give Rocephin and Zithro, I was asked to evaluate for admission. Viral swab returns positive for COVID.. Review of Systems Narrative: per [facility] All Active Problems (Updated 02/11/24 @ 19:02 by Jeremie Doshi DO) COVID-19 (Acute) COVID (Acute) Pneumonia (Acute) Sepsis (Acute) Auditory hallucination (Acute) Schizophrenia (Chronic) Bilateral primary osteoarthritis of knee (Acute) Cognitive impairment (Acute) Alzheimer's dementia without behavioral disturbance (Acute) Left foot pain (Acute) Medical History Dermatophytosis of nail Alcohol abuse, in remission Auditory hallucinations History of suicidal ideation Paranoid schizophrenia Altered mental status Cognitive changes Anemia Elevated PSA Urinary incontinence Hyperplasia of prostate with lower urinary tract symptoms (LUTS) Emphysema lung Pulmonary nodule Tobacco abuse COPD (chronic obstructive pulmonary disease) History of prediabetes Hyperlipidemia Low back pain Acute metabolic encephalopathy Neutrophilia Pain, foot, left, chronic Patellofemoral joint pain Atherosclerosis Surgical History Hx of knee surgery Family History Mother Brain cancer Father Heart disease Hypertension Obesity Osteoarthritis Social History Smoking/Tobacco Use Status: Former Tobacco Use Tobacco: How many years used: 38 Smoking risk assessment performed?: Yes Alcohol Intake: never Substance use type: does not use Housing: assisted living facility Do you feel safe at home: Yes Do you feel safe in your relationship?: Yes Meds Allergies and Home Medications Allergies Allergy/AdvReac Type Severity Reaction Status Date / Time No Known Allergies Allergy Verified 02/11/24 16:01 Home Medications ?Medication ?Instructions ?Recorded ?Confirmed ?Type acetaminophen 325 mg tablet 650 mg PO Q6H PRN 03/23/22 02/11/24 History (Tylenol) magnesium 250 mg tablet 250 mg PO DAILY 03/23/22 02/11/24 History tamsulosin 0.4 mg capsule 0.8 mg PO QHS 03/23/22 02/11/24 History trazodone 50 mg tablet 50 mg PO QHS 03/23/22 02/11/24 History umeclidinium 62.5 mcg/actuation 1 inh inhalation DAILY 03/23/22 02/11/24 History blister powder for inhalation (Incruse Ellipta) clozapine 200 mg tablet 400 mg PO QHS 01/19/23 02/11/24 History clozapine 50 mg tablet 50 mg PO QHS 01/19/23 02/11/24 History docusate sodium 100 mg capsule 100 mg PO BID 01/19/23 02/11/24 History omega 1-amk-fij-fish oil 60 mg-90 1 cap PO DAILY 01/19/23 02/11/24 History mg-500 mg capsule (Fish Oil) simvastatin 20 mg tablet 20 mg PO DAILY 01/19/23 02/11/24 History memantine 10 mg tablet 10 mg PO BID #180 tabs 04/12/23 02/11/24 Rx duloxetine 60 mg capsule,delayed 120 mg PO DAILY 07/20/23 02/11/24 History release cyanocobalamin (vitamin B-12) See Rx Instructions .Route 08/16/23 02/11/24 Rx 1,000 mcg sublingual tablet .COMPLEX #30 tabs donepezil 10 mg tablet 10 mg PO QHS #90 tabs 10/03/23 02/11/24 Rx diazepam 10 mg tablet 10 mg PO DAILY 01/30/24 02/11/24 History diazepam 5 mg tablet 5 mg PO DAILY 01/30/24 02/11/24 History albuterol 90 mcg/actuation aerosol 90 mcg inhalation Q6H PRN 02/11/24 02/11/24 History inhaler cholecalciferol (vitamin D3) 25 2,000 unit PO DAILY 02/11/24 02/11/24 History mcg (1,000 unit) capsule (Vitamin D3) olanzapine 10 mg tablet 10 mg PO TID 02/11/24 02/11/24 History polyethylene glycol 3350 17 17 g PO QDAY 02/11/24 02/11/24 History gram/dose oral powder (Miralax) tizanidine 2 mg tablet 2 mg PO BID 02/11/24 02/11/24 History trazodone 50 mg tablet 50 mg PO QHS PRN 02/11/24 02/11/24 History Exam Narrative Exam Narrative: 140/86, 108, 38.7, 21, 91% RA. HEENT atraumatic; neck supple; lungs diminished; heart RRR; abdomen soft and NT; extremities trace pedal edema; neuro Ox3, moves all 4s Results Labs 02/11/24 16:22 02/11/24 16:22 Labs: Laboratory Results - last 24 hr 02/11/24 02/11/24 02/11/24 16:04 16:22 17:44 WBC 5.38 RBC 4.68 Hgb 13.8 Hct 44.0 MCV 94 MCH 29.5 MCHC 31.4 L RDW 13.7 Plt Count 177 MPV 9.7 Immature Gran % 0.4 Neutrophils % 64.6 Lymphocytes % 19.0 Monocytes % 15.2 Eosinophils % 0.2 Basophils % 0.6 Nucleated RBC % 0.0 Absolute Neutrophils 3.48 Absolute Lymphocytes 1.02 L Absolute Monocytes 0.82 H Absolute Eosinophils 0.01 Absolute Basophils 0.03 VBG pH 7.33 VBG pCO2 56 H VBG pO2 23 VBG HCO3 30 H VBG Total CO2 31 H VBG O2 Saturation 34 VBG Base Excess 4 H VBG Lactate 1.50 Sodium 142 Potassium 4.4 Chloride 102 Carbon Dioxide 31.5 Anion Gap 8.5 BUN 12 Creatinine 1.2 Est GFR (CKD-EPI 2020) 66.70 Glucose 100 Calcium 9.2 Total Bilirubin 0.38 AST 42 H ALT 55 Alkaline Phosphatase 107 Troponin I 5 6 Total Protein 8.0 Albumin 3.8 Procalcitonin 0.1 COVID-19 Source Cancelled SARS-CoV-2 (PCR) Cancelled Influenza Type A (PCR) Cancelled Influenza Type B (PCR) Cancelled RSV (PCR) Cancelled Last Vital Signs Temp 38.7 C H 02/11/24 16:38 Pulse 108 H 02/11/24 16:46 Resp 21 02/11/24 16:50 BP 140/86 02/11/24 16:46 Pulse Ox 91 L 02/11/24 16:50 Time Spent Time spent with Patient: 40-54 minutes Time was spent: preparing to see the patient(eg.review tests), obtaining and/or reviewing separately otained hiistory, ordering medications,tests, procedures, referring, communicating with other health transitional care liaison and indepentently interpreting results
[2024-02-11 18:50] LABS: Influenza A PCR Negative (Negative); Influenza B PCR Negative (Negative); RSV PCR Negative (Negative)
[2024-02-11 18:53] LABS: COVID-19 PCR Positive (Negative); Source Nasopharynx
[2024-02-11 19:10] LABS: Bilirubin Negative (Negative); Blood Negative (Negative); Clarity Clear (Clear); Glucose Negative (Negative); Ketones Negative (Negative); Leukocyte Esterase Negative (Negative); Nitrite Negative (Negative); Specific Gravity 1.015 (1.005-1.025); Urobilinogen 0.2 mg/dL (Up to 0.2); pH 6.5 (5-8)
--- NOTE | 2024-02-11 20:29 | W.PC.ACHO ---
Registration Status: Primary Language: Preferred Language: ED Information & Data Chief Complaint GenMedical 02/11/24 18:31 Triage Note generalized weakness, cough 02/11/24 15:53 started x1 hours ago, x3 falls within past week & incon BM not usual, feels like viding less than normal but denies urinary symptoms Medical / Surgical History (Last Reviewed 02/11/24 @ 18:56 by Eric No MD) Dermatophytosis of nail Alcohol abuse, in remission Auditory hallucinations History of suicidal ideation Paranoid schizophrenia Altered mental status Cognitive changes Anemia Elevated PSA Urinary incontinence Hyperplasia of prostate with lower urinary tract symptoms (LUTS) Emphysema lung Pulmonary nodule Tobacco abuse COPD (chronic obstructive pulmonary disease) History of prediabetes Hyperlipidemia Low back pain Acute metabolic encephalopathy Neutrophilia Pain, foot, left, chronic Patellofemoral joint pain Atherosclerosis (Last Reviewed 02/11/24 @ 18:56 by Eric No MD) Hx of knee surgery Most Recent Vital Signs Temperature 38.7 C H 02/11/24 16:38 Temperature Source Oral 02/11/24 15:53 Pulse 96 H 02/11/24 19:00 Pulse 97 H 02/11/24 19:01 Respiratory Rate 15 02/11/24 19:01 Respiratory Effort Short of Breath 02/11/24 16:37 Blood Pressure 116/85 02/11/24 19:00 Blood Pressure Mean 94 02/11/24 19:00 Blood Pressure Position Supine 02/11/24 16:38 Pulse Oximetry 91 L 02/11/24 16:50 Oxygen Delivery Method Room Air 02/11/24 15:53 Oxygen Flow Rate 0 02/11/24 15:53 Pain Level 0 02/11/24 16:38 Allergies No Known Allergies Allergy (Verified 02/11/24 16:01) Precautions Isolation PUI 02/11/24 16:37 IV IV Catheter Type [Right Peripheral IV Antecubital] IV Catheter Gauge [Right 18 Antecubital] Diet Orders Category Date Time Status Regular/Normal [DIET] Nutrition 02/12/24 Breakfast Ordered Diagnostics 02/11/24 02/11/24 02/11/24 Range/Units 19:01 18:54 18:05 WBC (4.4-10.8) 10^3/uL RBC (4.36-5.78) 10^6/uL Hgb (13.5-17.5) g/dL Hct (40.0-50.0) % MCV (80-95) fL MCH (27.0-33.0) pg MCHC (32.0-36.0) % RDW (11.8-14.1) % Plt Count (130-400) 10^3/uL MPV (8.0-11.0) fL Immature Gran % % Neutrophils % % Lymphocytes % % Monocytes % % Eosinophils % % Basophils % % Nucleated RBC % (0.0-0.3) % Absolute Neutrophils (1.2-6.7) 10^3/uL Absolute Lymphocytes (1.2-3.4) 10^3/uL Absolute Monocytes (0.1-0.8) 10^3/uL Absolute Eosinophils (0.0-0.7) 10^3/uL Absolute Basophils (0.0-0.2) 10^3/uL VBG pH (7.31-7.41) VBG pCO2 (41-51) mmHg VBG pO2 mmHg VBG HCO3 (23-28) mmol/L VBG Total CO2 (24-29) mmol/L VBG O2 Saturation % VBG Base Excess (-2-3) mmol/L VBG Lactate (0.9-1.7) mmol/L Sodium (136-145) mmol/L Potassium (3.5-5.1) mmol/L Chloride (98-107) mmol/L Carbon Dioxide (21.0-32.0) mmol/L Anion Gap (3-11) mmol/L BUN (7-18) mg/dL Creatinine (0.70-1.30) mg/dL Est GFR (CKD-EPI 2020) (mL/min/1.73m2) Glucose (74-106) mg/dL Calcium (8.5-10.1) mg/dL Total Bilirubin (0.2-1.0) mg/dL AST (15-37) U/L ALT (16-63) U/L Alkaline Phosphatase (46-116) U/L Troponin I Cancelled (<or=76) ng/L Total Protein (6.4-8.2) g/dL Albumin (3.4-5.0) g/dL Procalcitonin ng/mL Urine Color Yellow (Yellow) Urine Clarity Clear (Clear) Urine pH 6.5 (5-8) Ur Specific [place] 1.015 (1.005-1.025) Urine Protein Negative (Neg-Trace) mg/dL Urine Ketones Negative (Negative) mg/dL Urine Blood Negative (Negative) Urine Nitrite Negative (Negative) Urine Bilirubin Negative (Negative) Urine Urobilinogen 0.2 (Up to 0.2) mg/dL Ur Leukocyte Esterase Negative (Negative) Urine Glucose Negative (Negative) mg/dL COVID-19 Source Nasopharynx SARS-CoV-2 (PCR) Positive A Influenza Type A (PCR) Negative Influenza Type B (PCR) Negative RSV (PCR) Negative 02/11/24 02/11/24 02/11/24 Range/Units 17:44 16:22 16:04 WBC 5.38 (4.4-10.8) 10^3/uL RBC 4.68 (4.36-5.78) 10^6/uL Hgb 13.8 (13.5-17.5) g/dL Hct 44.0 (40.0-50.0) % MCV 94 (80-95) fL MCH 29.5 (27.0-33.0) pg MCHC 31.4 L (32.0-36.0) % RDW 13.7 (11.8-14.1) % Plt Count 177 (130-400) 10^3/uL MPV 9.7 (8.0-11.0) fL Immature Gran % 0.4 % Neutrophils % 64.6 % Lymphocytes % 19.0 % Monocytes % 15.2 % Eosinophils % 0.2 % Basophils % 0.6 % Nucleated RBC % 0.0 (0.0-0.3) % Absolute Neutrophils 3.48 (1.2-6.7) 10^3/uL Absolute Lymphocytes 1.02 L (1.2-3.4) 10^3/uL Absolute Monocytes 0.82 H (0.1-0.8) 10^3/uL Absolute Eosinophils 0.01 (0.0-0.7) 10^3/uL Absolute Basophils 0.03 (0.0-0.2) 10^3/uL VBG pH 7.33 (7.31-7.41) VBG pCO2 56 H (41-51) mmHg VBG pO2 23 mmHg VBG HCO3 30 H (23-28) mmol/L VBG Total CO2 31 H (24-29) mmol/L VBG O2 Saturation 34 % VBG Base Excess 4 H (-2-3) mmol/L VBG Lactate 1.50 (0.9-1.7) mmol/L Sodium 142 (136-145) mmol/L Potassium 4.4 (3.5-5.1) mmol/L Chloride 102 (98-107) mmol/L Carbon Dioxide 31.5 (21.0-32.0) mmol/L Anion Gap 8.5 (3-11) mmol/L BUN 12 (7-18) mg/dL Creatinine 1.2 (0.70-1.30) mg/dL Est GFR (CKD-EPI 2020) 66.70 (mL/min/1.73m2) Glucose 100 (74-106) mg/dL Calcium 9.2 (8.5-10.1) mg/dL Total Bilirubin 0.38 (0.2-1.0) mg/dL AST 42 H (15-37) U/L ALT 55 (16-63) U/L Alkaline Phosphatase 107 (46-116) U/L Troponin I 6 5 (<or=76) ng/L Total Protein 8.0 (6.4-8.2) g/dL Albumin 3.8 (3.4-5.0) g/dL Procalcitonin 0.1 ng/mL Urine Color (Yellow) Urine Clarity (Clear) Urine pH (5-8) Ur Specific [place] (1.005-1.025) Urine Protein (Neg-Trace) mg/dL Urine Ketones (Negative) mg/dL Urine Blood (Negative) Urine Nitrite (Negative) Urine Bilirubin (Negative) Urine Urobilinogen (Up to 0.2) mg/dL Ur Leukocyte Esterase (Negative) Urine Glucose (Negative) mg/dL COVID-19 Source Cancelled SARS-CoV-2 (PCR) Cancelled Influenza Type A (PCR) Cancelled Influenza Type B (PCR) Cancelled RSV (PCR) Cancelled 02/11/24 18:54 Urine Culture - Pending Urine - Cath Straight 02/11/24 17:44 Blood Culture - Pending Blood 02/11/24 16:22 Blood Culture - Pending Blood Intake and Output - 24 Hour Total 02/11/24 15:47 thru 02/11/24 19:52 Intake Total 300 Balance 300 Weight 98.838 kg Intake: IV 300 Falls Risk Assessment History of Falls Previous History 02/11/24 16:27 Contributing Factors Impairments,Incontinence, 02/11/24 16:27 Medications Ambulatory Aids Independent 02/11/24 16:27 Tubes/Lines With any additional score 02/11/24 16:27 Gait Evaluation W/any additional score 02/11/24 16:27 Cognition Cognitive impairment 02/11/24 16:27 Fall Total Score 79 02/11/24 16:27 Level of Risk Maximum Risk 02/11/24 16:27 Problems (Last Reviewed 02/11/24 @ 18:56 by Eric No MD) COVID (Acute) Pneumonia (Acute) Sepsis (Acute) v v v v v v v v v Sending and/or Receiving Nurses: Please use comment section below to note any information pertinent to the patient hand-off not included above. Information / Comments: Report received from: coughing and generalized weakness, difficultu breathing, SOB. Febrile in the ER, tylenol given. Juan Fountain
[2024-02-11] MEDS: Memantine 5 MG TAB 10 MG PO (23:03)
[2024-02-11] MEDS: Docusate Sodium 100 MG CAP PO (23:03)
[2024-02-11] MEDS: Dexamethasone 4 MG TAB 6 MG PO (23:03)
[2024-02-11] MEDS: traZODone 50 MG TAB PO (23:04)
[2024-02-11] MEDS: OLANZapine 10 MG TAB PO (23:04)
[2024-02-11] MEDS: Tamsulosin 0.4 MG CAPCR 0.8 MG PO (23:04)
[2024-02-11] MEDS: Albuterol HFA 8 GM 60 PUFF INH IH (23:05)
[2024-02-11] MEDS: Donepezil 5 MG TAB 10 MG PO (23:06)
[2024-02-11] MEDS: Cyanocobalamin 500 MCG TAB 1000 MCG PO (23:07)
[2024-02-12] VITALS (7 sets, daily range): BP systolic 107–112; BP diastolic 70–74; PULSE 90–94; RESP 20; TEMP 36.8–37.8; O2SAT 84–93
--- NOTE | 2024-02-12 | DI.RAD_ITS ---
Exam(s) XR PORTABLE CHEST AP EXAM: XR PORTABLE CHEST AP CLINICAL HISTORY: COVID, declining O2 sat TECHNIQUE: 2D digital imaging was performed. COMPARISON: CT CT CHEST LUNG CANCER SCREEN from 12/19/2023 CR,XR XR PORTABLE CHEST AP from 02/11/2024 FINDINGS: Exam somewhat limited by under penetration at the left lung base. LUNGS: No infiltrates visible.. No pleural abnormality seen. HEART: Normal size. AORTA: Normal diameter. BONES: Unremarkable for age. Soft tissues: Unremarkable. IMPRESSION: No acute findings. DATA REPOSITORY: RADIATION DOSE DELIVERED:
[2024-02-12] MEDS: Albuterol HFA 8 GM 60 PUFF INH IH ×4 (06:54→20:17)
[2024-02-12 07:25] LABS: pCO2 (Venous) 49 mmHg (41-51); pH (Venous) 7.38 (7.31-7.41); pO2 (Venous) 66 mmHg
[2024-02-12 07:26] LABS: BE (Venous) 3 mmol/L (-2-3); HCO3 (Venous) 29 mmol/L (23-28); O2 Sat (Venous) 92 %; TCO2 (Venous) 30 mmol/L (24-29)
[2024-02-12] MEDS: Docusate Sodium 100 MG CAP PO ×2 (08:32→21:49)
[2024-02-12] MEDS: Dexamethasone 4 MG TAB 6 MG PO (08:32)
[2024-02-12] MEDS: Cyanocobalamin 500 MCG TAB 1000 MCG PO (08:32)
[2024-02-12] MEDS: OLANZapine 10 MG TAB PO ×3 (08:33→21:49)
[2024-02-12] MEDS: Magnesium Oxide 400 MG TAB 200 MG PO (08:33)
[2024-02-12] MEDS: Memantine 5 MG TAB 10 MG PO ×2 (08:33→21:50)
[2024-02-12] MEDS: DULoxetine 30 MG CAP 120 MG PO (08:33)
[2024-02-12] MEDS: diazePAM 5 MG TAB PO (08:33)
[2024-02-12] MEDS: Polyethylene Glycol 3350 17 GM PACKET PO (08:51)
[2024-02-12] MEDS: VANCOMYCIN/WATER (PEG) 2 GM/400 ML BAG IVPB (08:52)
[2024-02-12] MEDS: Umeclidinium 7 CAP INHALER 1 CAP IH (08:56)
--- NOTE | 2024-02-12 09:43 | INITIAL_ITS ---
Date of service: 02/12/24 Time of Service: 09:43 Care Management Initial Assmt Initial Assessment Reason for Hospitalization: Covid Functional Status/Living Situation Patient Presentation: Gopal is currently on precautions for covid, therefore CM did not meet with him in person. Per RN, he is doing well, and feels better today. He has been in contact with his and is looking forward to returning to [facility], likely tomorrow. CM will continue to follow. Town of Residence: [facility] Resides with: Other (Lives at the [facility]- level 3 home) Caregiver/Guardian: Lives at , where he receives support with meals and medication management. Natural Supports: , Zaki Choi Employment Status: Unemployed Instrumental Activities of Daily Living (ADLs): Requires support (support from [facility] staff) Medications Medication Management: Issues/Barriers Advance Directives Advance Directives: Do you have an Advance Directive: Y 12/12/22 12:20 AD On File at [facility]: Y 12/12/22 12:20 Date Asked 02/06/24 02/06/24 15:02 AD Date Reviewed 02/11/24 02/11/24 15:56 COLST On File at [facility] COLST Date Scanned Code Status Resuscitation Status Full Code Insurance Coverage/Financial Issues Insurance: [facility]. [facility]. Care Team Visit Care Team Role Provider Type Milka Shelley Primary Care Provider ADV PRACTICE REGISTERED NURSE Jeremie Doshi DO Emergency Provider [facility] STAFF PHYSICIAN Eric No MD Admit Provider [facility] STAFF PHYSICIAN Attending Provider Discharge Potential Discharge Needs: Other (coordinated return to ) Anticipated Barriers to Discharge: None Identified Patient/Family Education Needs: Review discharge instructions, discuss Ask Me Three Transportation: Private vehicle Plan: Anticipate Gopal will return to the [facility], where he resides with his . He will transport via private vehicle by facility staff vs [facility]. He will follow up with his PCP and discharge plan of care. CM will continue to follow. PFSH All Active Problems (Updated 02/12/24 @ 11:24 by Jace Medina MD) Gram-positive bacteremia (Acute) COVID-19 (Acute) COVID (Acute) Pneumonia (Acute) Sepsis (Acute) Auditory hallucination (Acute) Schizophrenia (Chronic) Bilateral primary osteoarthritis of knee (Acute) Cognitive impairment (Acute) Alzheimer's dementia without behavioral disturbance (Acute) Left foot pain (Acute) Medical History Dermatophytosis of nail Alcohol abuse, in remission Auditory hallucinations History of suicidal ideation Paranoid schizophrenia Altered mental status Cognitive changes Anemia Elevated PSA Urinary incontinence Hyperplasia of prostate with lower urinary tract symptoms (LUTS) Emphysema lung Pulmonary nodule Tobacco abuse COPD (chronic obstructive pulmonary disease) History of prediabetes Hyperlipidemia Low back pain Acute metabolic encephalopathy Neutrophilia Pain, foot, left, chronic Patellofemoral joint pain Atherosclerosis Surgical History Hx of knee surgery Family History Mother Brain cancer Father Heart disease Hypertension Obesity Osteoarthritis Social History Smoking/Tobacco Use Status: Former Tobacco Use Tobacco: How many years used: 38 Smoking risk assessment performed?: Yes Alcohol Intake: never Substance use type: does not use Housing: assisted living facility Do you feel safe at home: Yes Do you feel safe in your relationship?: Yes SDOH(Care Management) Screening Will the Patient Participate in the Screening?: Yes Do you worry about having a steady place to live?: no In the past 12 months, have you had to go without electric, gas, oil or water in your home?: no Have you or anyone in your house had to go without enough food to eat?: no Has lack of transportation kept you from medical appointments or from doing things needed for daily living?: no Has anyone in your support network made you feel unsafe for any reason?: no
--- NOTE | 2024-02-12 11:20 | NUR.NOTE ---
Accessed Pt chart to locate Pt. He was admitted into Med/Surg. His was looking for him as she did not get a call.
--- NOTE | 2024-02-12 11:22 | PGE_ITS ---
Date of Service Date of service: 02/12/24 Time of Service: 11:22 Assessment and Plan Assessment and plan (1) COVID: Status: Acute Assessment and plan: -COVID-positive in emergency department -Only briefly required oxygen on the morning of 02/12/2024, though this may have been an incorrect read on pulse ox -Was started on dexamethasone and remdesivir, will continue at this time despite lack of oxygen requirement (2) Gram-positive bacteremia: Status: Acute Assessment and plan: - Only suspected at this time, it is 1 culture bottle was positive for gram- positive cocci in clusters -Repeat blood cultures were ordered immediately and prior to the initiation of vancomycin -If repeat blood cultures remain negative at 24 hours, will discontinue and confirmed suspicion that this was likely false positive (3) Schizophrenia: Status: Chronic Assessment and plan: - Continue home medication regimen of clozapine, diazepam, duloxetine, olanzapine, trazodone for schizophrenia, cognitive impairment and Alzheimer's as noted below (4) Cognitive impairment: Status: Acute (5) Alzheimer's dementia without behavioral disturbance: Status: Acute Subjective Subjective Interval history since last seen: Patient is somewhat pleasantly confused and states he has no complaints or concerns at this time. Exam Narrative Exam Narrative: Chronically ill-appearing gentleman lying in bed in no acute distress, awake, alert, oriented to person and weakly to place, heart regular rhythm, lungs clear to auscultation bilaterally, abdomen soft, nontender, nondistended. Objective Last Vital Signs Temp 100.0 F H 02/12/24 05:48 Pulse 94 H 02/12/24 05:48 Resp 20 02/12/24 05:48 BP 107/74 02/12/24 05:48 Pulse Ox 93 02/12/24 08:57 Laboratory Results - last 24 hr 02/11/24 02/11/24 02/11/24 16:04 16:22 17:44 WBC 5.38 RBC 4.68 Hgb 13.8 Hct 44.0 MCV 94 MCH 29.5 MCHC 31.4 L RDW 13.7 Plt Count 177 MPV 9.7 Immature Gran % 0.4 Neutrophils % 64.6 Lymphocytes % 19.0 Monocytes % 15.2 Eosinophils % 0.2 Basophils % 0.6 Nucleated RBC % 0.0 Absolute Neutrophils 3.48 Absolute Lymphocytes 1.02 L Absolute Monocytes 0.82 H Absolute Eosinophils 0.01 Absolute Basophils 0.03 VBG pH 7.33 VBG pCO2 56 H VBG pO2 23 VBG HCO3 30 H VBG Total CO2 31 H VBG O2 Saturation 34 VBG Base Excess 4 H VBG Lactate 1.50 Sodium 142 Potassium 4.4 Chloride 102 Carbon Dioxide 31.5 Anion Gap 8.5 BUN 12 Creatinine 1.2 Est GFR (CKD-EPI 2020) 66.70 Glucose 100 Calcium 9.2 Total Bilirubin 0.38 AST 42 H ALT 55 Alkaline Phosphatase 107 Troponin I 5 6 Total Protein 8.0 Albumin 3.8 Procalcitonin 0.1 Urine Color Urine Clarity Urine pH Ur Specific [place] Urine Protein Urine Ketones Urine Blood Urine Nitrite Urine Bilirubin Urine Urobilinogen Ur Leukocyte Esterase Urine Glucose COVID-19 Source Cancelled SARS-CoV-2 (PCR) Cancelled Influenza Type A (PCR) Cancelled Influenza Type B (PCR) Cancelled RSV (PCR) Cancelled 02/11/24 02/11/24 02/11/24 18:05 18:54 19:01 WBC RBC Hgb Hct MCV MCH MCHC RDW Plt Count MPV Immature Gran % Neutrophils % Lymphocytes % Monocytes % Eosinophils % Basophils % Nucleated RBC % Absolute Neutrophils Absolute Lymphocytes Absolute Monocytes Absolute Eosinophils Absolute Basophils VBG pH VBG pCO2 VBG pO2 VBG HCO3 VBG Total CO2 VBG O2 Saturation VBG Base Excess VBG Lactate Sodium Potassium Chloride Carbon Dioxide Anion Gap BUN Creatinine Est GFR (CKD-EPI 2020) Glucose Calcium Total Bilirubin AST ALT Alkaline Phosphatase Troponin I Cancelled Total Protein Albumin Procalcitonin Urine Color Yellow Urine Clarity Clear Urine pH 6.5 Ur Specific [place] 1.015 Urine Protein Negative Urine Ketones Negative Urine Blood Negative Urine Nitrite Negative Urine Bilirubin Negative Urine Urobilinogen 0.2 Ur Leukocyte Esterase Negative Urine Glucose Negative COVID-19 Source Nasopharynx SARS-CoV-2 (PCR) Positive A Influenza Type A (PCR) Negative Influenza Type B (PCR) Negative RSV (PCR) Negative 02/12/24 07:10 WBC RBC Hgb Hct MCV MCH MCHC RDW Plt Count MPV Immature Gran % Neutrophils % Lymphocytes % Monocytes % Eosinophils % Basophils % Nucleated RBC % Absolute Neutrophils Absolute Lymphocytes Absolute Monocytes Absolute Eosinophils Absolute Basophils VBG pH 7.38 VBG pCO2 49 VBG pO2 66 VBG HCO3 29 H VBG Total CO2 30 H VBG O2 Saturation 92 VBG Base Excess 3 VBG Lactate Sodium Potassium Chloride Carbon Dioxide Anion Gap BUN Creatinine Est GFR (CKD-EPI 2020) Glucose Calcium Total Bilirubin AST ALT Alkaline Phosphatase Troponin I Total Protein Albumin Procalcitonin Urine Color Urine Clarity Urine pH Ur Specific [place] Urine Protein Urine Ketones Urine Blood Urine Nitrite Urine Bilirubin Urine Urobilinogen Ur Leukocyte Esterase Urine Glucose COVID-19 Source SARS-CoV-2 (PCR) Influenza Type A (PCR) Influenza Type B (PCR) RSV (PCR) Time Spent with Patient Time Spent with Patient: >50 minutes Time was spent: preparing to see the patient(eg.review tests), obtaining and/or reviewing separately otained hiistory, ordering medications,tests, procedures, referring, communicating with other health care transitions nurse, indepentently interpreting results, counseling the patient and care coordination
--- NOTE | 2024-02-12 12:27 | TELEFU_ITS ---
Date of service: 02/12/24 Time of Service: 12:28 Nutrition Note NOTE: 68yo male who resides at the [facility] admitted with COVID, bacteremia. Hx of dementia. Odered for regular diet - nursing reports 100% of breakfast taken today. A1c 5.9% November 2023 - not on any diabetes meds at home. Juan wnl. magnesium was fine on january 29. No reported concerns with moving bowels, nausea/vomiting. Will monitor labs, weight, po intake, and any changes in general nutrition status. Pt assessed at lower nutrition risk at this time. Time Spent in Nutritional Counseling and Treatment: 0
[2024-02-12] MEDS: Normal Saline Flush 10 ML SYR (13:56)
[2024-02-12] MEDS: Enoxaparin 40 MG/0.4 ML SYR SC (18:06)
[2024-02-12 21:13] LABS: CREATININE 1.1 mg/dL (0.70-1.30); Estimated GFR 74.04 (mL/min/1.73m2); Vancomycin, Random 9.8 ug/mL
[2024-02-12] MEDS: Tamsulosin 0.4 MG CAPCR 0.8 MG PO (21:49)
[2024-02-12] MEDS: Donepezil 5 MG TAB 10 MG PO (21:49)
[2024-02-12] MEDS: diazePAM 5 MG TAB 10 MG PO (21:50)
[2024-02-12] MEDS: traZODone 50 MG TAB PO (21:50)
[2024-02-12] MEDS: Simvastatin 20 MG TAB PO (21:51)
[2024-02-12] MEDS: VANCOMYCIN/WATER (PEG) 750 MG/150 ML BAG 150 MG IVPB (23:50)
[2024-02-13] VITALS (9 sets, daily range): BP systolic 97–118; BP diastolic 68–86; PULSE 80–95; RESP 16–20; TEMP 36.6–37.2; O2SAT 89–97
--- NOTE | 2024-02-13 06:49 | RESPIRATORY ---
20:15 Patient on 1 l/m nc sat.87%. 20:50 Patient desated to 87%. Did not change O2. 21:00 sats dropped to 73% at this time nursing increased o2 to 4l/m. 23:55 decreased liter flow back to 1 l/m. Patient sats 90%>.
--- NOTE | 2024-02-13 07:26 | PHACLINREV_ITS ---
Pharmacy Admission Review Admission Clinical Review Admission Pharmacy Review: Gram-positive bacteremia (Acute) COVID (Acute) Pneumonia (Acute) Sepsis (Acute) Cognitive impairment (Acute) Alzheimer's dementia without behavioral disturbance (Acute) No Known Allergies Allergy (Verified 02/11/24 16:01) Resuscitation Status Full Code Height 5 ft 7 in Weight 98.838 kg Pharmacy Admission Review Renal Dosing Renal Dosing: BUN 12 mg/dL (7-18) 02/11/24 16:22 Creatinine 1.1 mg/dL (0.70-1.30) 02/12/24 20:27 Medications needing adjustments: Reviewed (CrCl 74 mL/min) List of meds needing interventions: Current medications are okay Anticoagulation Anticoagulation: Hgb 13.8 g/dL (13.5-17.5) 02/11/24 16:22 Hct 44.0 % (40.0-50.0) 02/11/24 16:22 Plt Count 177 10^3/uL (130-400) 02/11/24 16:22 Creatinine 1.1 mg/dL (0.70-1.30) 02/12/24 20:27 DVT Prophylaxis: Reviewed Medications: Enoxaparin (40mg daily) Relevant Labs Relevant Labs: Sodium 142 mmol/L (136-145) 02/11/24 16:22 Potassium 4.4 mmol/L (3.5-5.1) 02/11/24 16:22 Chloride 102 mmol/L (98-107) 02/11/24 16:22 Electrolytes, C-Reactive P, ESR: Reviewed (No new labs for today) Cardiac Review Cardiac Review: Troponin I Cancelled 02/11/24 19:01 BP, HR, EF%: Reviewed (BP and HR WNL) QTc Review QTc: Reviewed (436 from 02/11/24) IV to PO Switch IV Medications: Reviewed (remdesivir and vancomycin) Home Meds Home Med List reviewed: Reviewed Relevent Home Meds Not ordered & why?: Vitamin D3 and fish oil Current Meds Current Medication Order Review: Intervened Comments: Added IV admission order set Clozapine [employer] [id number] obtained 02/11 at 1156 Pharmacy Antibiotic Review Relevant Labs: WBC 5.38 10^3/uL (4.4-10.8) 02/11/24 16:22 Procalcitonin 0.1 ng/mL 02/11/24 16:22 Temperature 36.6 C Temperature 37.0 C Microbiology 02/12/24 09:15 Blood Culture - Preliminary Blood NO GROWTH 24 HOURS 02/12/24 09:05 Blood Culture - Preliminary Blood NO GROWTH 24 HOURS 02/11/24 16:22 Blood Culture - Preliminary Blood Gram Positive Cocci 02/11/24 18:54 Urine Culture - Final Urine - Cath Straight 02/11/24 17:44 Blood Culture - Preliminary Blood NO GROWTH 24 HOURS Pharmacy Antibiotic Activity: C/S review and Reviewed, no change Comments: Patient is on remdesivir (day 2) for COVID and vancomycin (day 2) for possible bacteremia. Vancomycin level 9.8 yesterday at 2026. Dose was changed to 1000mg q12h with predicted AUC of 522 and trough of 18.6. Level reordered for today at 1999. Most likely contaminate given repeat cultures have been negative per provider. Potential for discharge later today.
[2024-02-13] MEDS: Umeclidinium 7 CAP INHALER 1 CAP IH (08:32)
[2024-02-13] MEDS: Albuterol HFA 8 GM 60 PUFF INH IH ×4 (08:32→20:42)
[2024-02-13] MEDS: Normal Saline Flush 10 ML SYR IVP ×5 (09:19→21:22)
[2024-02-13] MEDS: DULoxetine 30 MG CAP 120 MG PO (09:20)
[2024-02-13] MEDS: Docusate Sodium 100 MG CAP PO ×2 (09:20→21:20)
[2024-02-13] MEDS: diazePAM 5 MG TAB PO (09:20)
[2024-02-13] MEDS: Magnesium Oxide 400 MG TAB 200 MG PO (09:21)
[2024-02-13] MEDS: Memantine 5 MG TAB 10 MG PO ×2 (09:21→21:20)
[2024-02-13] MEDS: Dexamethasone 4 MG TAB 6 MG PO (09:22)
[2024-02-13] MEDS: OLANZapine 10 MG TAB PO ×3 (09:22→21:21)
[2024-02-13] MEDS: Cyanocobalamin 500 MCG TAB 1000 MCG PO (09:23)
--- NOTE | 2024-02-13 09:44 | NUR.NOTE ---
Nursing Note: Update provided to Lidia -[phone]. expressed interest on when pt would be discharged. Informed her that we would probably not know for certain about a discharge until this afternoon.
[2024-02-13] MEDS: Polyethylene Glycol 3350 17 GM PACKET PO (10:14)
[2024-02-13] MEDS: VANCOMYCIN/WATER (PEG) 1 GM/200 ML BAG IVPB ×2 (10:16→23:11)
--- NOTE | 2024-02-13 12:21 | PGE_ITS ---
Date of Service Date of service: 02/13/24 Time of Service: 12:21 Assessment and Plan Assessment and plan (1) COVID-19: Start date: 02/11/24 Status: Acute Assessment and plan: Patient is having worsening hypoxemia with COVID-19 infection and will continue oxygen supplementation 24 hours [id number]. Continue dexamethasone and IV dosing 6 mg daily and remdesivir for complete course. Long-term patient will return to his [facility] facility. He is a full code. (2) Gram-positive bacteremia: Start date: 02/12/24 Status: Acute Assessment and plan: Repeat cultures were negative and most likely first blood culture was a contaminant. There is no indication for antibiotic therapy. (3) Schizophrenia: Status: Chronic Assessment and plan: Continue outpatient medical therapy and monitor for behavioral changes while hospitalized and ill. Qualifiers: Schizophrenia type: other Qualified Code(s): F20.89 - Other schizophrenia (4) Alzheimer's dementia without behavioral disturbance: Status: Chronic Assessment and plan: Continue outpatient medical therapy and management. Long-term patient will return to level 3 facility. Subjective Subjective Interval history since last seen: This is a 68-year-old male patient who resides at the [address] being hospitalized for acute COVID with hypoxemia. Today his hypoxemia was worsening with low oxygen levels during the night but also not during the day. He continues have some mild respiratory symptoms and does have chronic psychiatric disease and dementia with mentation improving with oxygen supplement during the day. He will continue on remdesivir for the full course with dexamethasone switched to IV and daily. He is not on antibiotic coverage at this time. He otherwise is medically stable. He is a full code. Exam Narrative Exam Narrative: General: Patient appears appropriate for age, moderately obese, alert and oriented at least to person and place. He speaks in a monotonous tone and slow voice. This conversation to wander with his history of schizophrenia. HEENT: Normocephalic, course and facial features, eyes with pupils equal and react to light symmetrically, extraocular movement intact and sclera anicteric. Oropharynx with dry mucosa. Neck: Supple without JVD. Heart: Regular rate and rhythm with no appreciable murmur or gallop. Lungs: Sparse inspiratory coarse crackles without focalizing, bronchovesicular breath sounds diffusely. Fair aeration. Abdomen: Obese contour, soft and nontender to palpation with no palpable hepatosplenomegaly. Bowel sounds positive all quadrants. Extremities: Without clubbing, cyanosis or grossly pitting edema with nonpitting edema both lower extremities and obesity. Fair capillary refill. Skin: Normal color, warm and dry. Neuro: Cranial nerves II through XII gross intact, no focalizing motor deficits or tremor. Psych: Flattened affect with depressed mood but no abnormal thought processes. Remote and recent memory not testable the patient have a minimal conversation. He does know that he lives at the [facility]. Objective Last Vital Signs Temp 36.6 C 02/13/24 08:03 Pulse 89 02/13/24 08:03 Resp 16 02/13/24 08:03 BP 118/86 02/13/24 08:03 Pulse Ox 90 L 02/13/24 12:04 Laboratory Results - last 24 hr 02/12/24 20:27 Creatinine 1.1 Est GFR (CKD-EPI 2020) 74.04 Random Vancomycin 9.8 Time Spent with Patient Time Spent with Patient: 25-34 minutes Time was spent: preparing to see the patient(eg.review tests), obtaining and/or reviewing separately otained hiistory, ordering medications,tests, procedures, indepentently interpreting results and care coordination
--- NOTE | 2024-02-13 16:23 | CMPROGNOTE_ITS ---
Date of service: 02/13/24 Time of Service: 16:24 Care Management Progress Note Progress Note Text Progress Note Text: Gopal is currently on Covid precautions therefore CM did not meet with him. CM spoke to his RN, who stated that he is doing well today, although he has a new O2 requirement today, currently on 1LO2. Per report, he has an order for a sleep study from 2022 that has not happened. CM will notify [facility] staff, as this with happen outpatient. Per report, he is being treated with remdesivir, and is not medically ready for discharge. CM will continue to follow. Discharge Potential Discharge Needs: PCP F/U Appt and Other (sleep study) Anticipated Barriers to Discharge: None Identified Patient/Family Education Needs: Review discharge instructions, discuss Ask Me Three Transportation: Private vehicle Plan: Anticipate Gopal will return to the [facility], where he resides with his . He will transport via private vehicle by facility staff vs [facility]. He will follow up with his PCP and discharge plan of care. CM will continue to follow. SDOH(Care Management) Screening Will the Patient Participate in the Screening?: Yes Do you worry about having a steady place to live?: no In the past 12 months, have you had to go without electric, gas, oil or water in your home?: no Have you or anyone in your house had to go without enough food to eat?: no Has lack of transportation kept you from medical appointments or from doing things needed for daily living?: no Has anyone in your support network made you feel unsafe for any reason?: no
[2024-02-13] MEDS: Enoxaparin 40 MG/0.4 ML SYR SC (18:23)
[2024-02-13] MEDS: Tamsulosin 0.4 MG CAPCR 0.8 MG PO (21:20)
[2024-02-13] MEDS: traZODone 50 MG TAB PO (21:20)
[2024-02-13] MEDS: Simvastatin 20 MG TAB PO (21:20)
[2024-02-13] MEDS: Donepezil 5 MG TAB 10 MG PO (21:20)
[2024-02-13] MEDS: diazePAM 5 MG TAB 10 MG PO (21:21)
[2024-02-13 21:55] LABS: Vancomycin, Random 9.8 ug/mL
[2024-02-14] VITALS (12 sets, daily range): BP systolic 98–142; BP diastolic 60–97; PULSE 80–103; RESP 18–20; TEMP 36.4–36.9; O2SAT 85–93
[2024-02-14] MEDS: diazePAM 5 MG TAB PO (08:14)
[2024-02-14] MEDS: OLANZapine 10 MG TAB PO ×3 (08:14→21:46)
[2024-02-14] MEDS: Docusate Sodium 100 MG CAP PO ×2 (08:15→21:47)
[2024-02-14] MEDS: Dexamethasone 4 MG TAB 10 MG PO (08:15)
[2024-02-14] MEDS: Magnesium Oxide 400 MG TAB 200 MG PO (08:15)
[2024-02-14] MEDS: Memantine 5 MG TAB 10 MG PO ×2 (08:15→21:47)
[2024-02-14] MEDS: DULoxetine 30 MG CAP 120 MG PO (08:16)
[2024-02-14] MEDS: Normal Saline Flush 10 ML SYR IVP ×4 (08:16→23:27)
[2024-02-14] MEDS: Polyethylene Glycol 3350 17 GM PACKET PO (08:16)
[2024-02-14] MEDS: Cyanocobalamin 500 MCG TAB 1000 MCG PO (08:16)
[2024-02-14] MEDS: Albuterol HFA 8 GM 60 PUFF INH IH ×4 (08:27→20:12)
[2024-02-14] MEDS: Umeclidinium 7 CAP INHALER 1 CAP IH (08:27)
--- NOTE | 2024-02-14 09:47 | NUR.NOTE ---
Nursing Note: O2 dropping to 86% on 2L NC, titrated o2 up to 3L NC to reach goal of 88%
--- NOTE | 2024-02-14 09:54 | PDOC.CMPRO ---
Care Management Progress Note Progress Note Text Progress Note Text: Gopal is currently on Covid precautions therefore CM did not meet with him. Per provider, he is being treated with remdesivir and further medical workup is required to rule out a secondary infection. Per report, he has an order for a sleep study from 2022 that has not happened. CM will notify [facility] staff, as this with happen outpatient. CM will continue to follow. Discharge Potential Discharge Needs: PCP F/U Appt and Other (Sleep study) Anticipated Barriers to Discharge: None Identified Patient/Family Education Needs: Review discharge instructions, discuss Ask Me Three Plan: Anticipate Gopal will return to the [facility], where he resides with his . He will transport via private vehicle by facility staff vs [facility]. He will follow up with his PCP and discharge plan of care. Out patient sleep study is recommended. CM will continue to follow. SDOH(Care Management) Screening Will the Patient Participate in the Screening?: Yes Do you worry about having a steady place to live?: no In the past 12 months, have you had to go without electric, gas, oil or water in your home?: no Have you or anyone in your house had to go without enough food to eat?: no Has lack of transportation kept you from medical appointments or from doing things needed for daily living?: no Has anyone in your support network made you feel unsafe for any reason?: no
[2024-02-14 10:13] LABS: HCT 38.6 % (40.0-50.0); HGB 12.1 g/dL (13.5-17.5); MCH 29.5 pg (27.0-33.0); MCHC 31.3 % (32.0-36.0); MCV 94 fL (80-95); MPV 9.9 fL (8.0-11.0); Platelet Count 205 10^3/uL (130-400); RDW-SD 48.9 fL
[2024-02-14 10:29] LABS: ALT 55 U/L (16-63); AST 45 U/L (15-37); Albumin 3.2 g/dL (3.4-5.0); Alkaline Phosphatase 82 U/L (46-116); Anion Gap 11.3 mmol/L (3-11); BUN 23 mg/dL (7-18); Bilirubin, Total 0.26 mg/dL (0.2-1.0); CO2 26.7 mmol/L (21.0-32.0); CREATININE 1.2 mg/dL (0.70-1.30); Calcium 8.9 mg/dL (8.5-10.1); Chloride 104 mmol/L (98-107); Glucose 220 mg/dL (74-106); Potassium 3.9 mmol/L (3.5-5.1); Sodium 142 mmol/L (136-145); Total Protein 7.2 g/dL (6.4-8.2)
[2024-02-14 11:11] LABS: MRSA PCR Negative (Negative)
--- NOTE | 2024-02-14 14:03 | PGE_ITS ---
Date of Service Date of service: 02/14/24 Time of Service: 14:03 Assessment and Plan Assessment and plan (1) COVID-19: Start date: 02/11/24 Status: Acute Assessment and plan: Patient is having worsening hypoxemia with COVID-19 infection and will continue oxygen supplementation 24 hours [id number]. Continue dexamethasone and IV dosing 10 mg daily and remdesivir for complete course. Long-term patient will return to his [facility] 3 facility on O2 supplement if needed especially at night. He is a full code. (2) Gram-positive bacteremia: Start date: 02/12/24 Status: Acute Assessment and plan: Repeat cultures were negative and most likely first blood culture was a contaminant. There is no indication for antibiotic therapy. (3) Schizophrenia: Status: Chronic Assessment and plan: Continue outpatient medical therapy and monitor for behavioral changes while hospitalized and ill. Qualifiers: Schizophrenia type: other Qualified Code(s): F20.89 - Other schizophrenia (4) Alzheimer's dementia without behavioral disturbance: Status: Chronic Assessment and plan: Continue outpatient medical therapy and management. Long-term patient will return to level 3 facility. Subjective Subjective Interval history since last seen: This is a 68-year-old male patient who resides at the [facility] 3 facility being hospitalized for acute COVID with hypoxemia. His hypoxemia was worsening with low oxygen levels during the night but also during the day but is stable. He continues have some mild respiratory symptoms and does have chronic psychiatric disease and dementia with mentation improving with oxygen supplement during the day. He will continue on remdesivir for the full course with dexamethasone to continue IV daily for up to 10 days or until discharge. He is not on antibiotic coverage at this time with follow-up chest x-ray still without acute infiltrates. He otherwise is medically stable. He is a full code. Exam Narrative Exam Narrative: General: Patient appears appropriate for age, moderately obese, alert and orient ed at least to person and place. He speaks in a monotonous tone and slow voice. He speaks in short sentences. HEENT: Normocephalic, course and facial features, eyes with pupils equal and reactive to light symmetrically, extraocular movement intact and sclera anicteric. Oropharynx with dry mucosa. Neck: Supple without JVD. Heart: Regular rate and rhythm with no appreciable murmur or gallop. Lungs: Sparse inspiratory coarse crackles without focalizing, bronchovesicular breath sounds diffusely. Fair aeration. Abdomen: Obese contour, soft and nontender to palpation with no palpable hepatosplenomegaly. Bowel sounds positive all quadrants. Extremities: Without clubbing, cyanosis or grossly pitting edema with nonpitting edema both lower extremities and obesity. Fair capillary refill. Skin: Normal color, warm and dry. Neuro: Cranial nerves II through XII gross intact, no focalizing motor deficits or tremor. Psych: Flattened affect with depressed mood but no abnormal thought processes. Remote and recent memory not testable the patient have a minimal conversation. He does know that he lives at the [facility]. Objective Last Vital Signs Temp 36.6 C 02/14/24 08:13 Pulse 90 02/14/24 08:13 Resp 20 02/14/24 08:13 BP 122/84 02/14/24 08:13 Pulse Ox 92 02/14/24 11:25 Laboratory Results - last 24 hr 02/13/24 02/14/24 02/14/24 20:24 09:44 10:00 WBC 11.70 H RBC 4.10 L Hgb 12.1 L Hct 38.6 L MCV 94 MCH 29.5 MCHC 31.3 L RDW 14.0 Plt Count 205 MPV 9.9 Sodium 142 Potassium 3.9 Chloride 104 Carbon Dioxide 26.7 Anion Gap 11.3 H BUN 23 H Creatinine 1.2 Est GFR (CKD-EPI 2020) 66.70 Glucose 220 H Calcium 8.9 Total Bilirubin 0.26 AST 45 H ALT 55 Alkaline Phosphatase 82 Total Protein 7.2 Albumin 3.2 L Random Vancomycin 9.8 MRSA (TEM-PCR) Negative 02/14/24 16:00 WBC RBC Hgb Hct MCV MCH MCHC RDW Plt Count MPV Sodium Potassium Chloride Carbon Dioxide Anion Gap BUN Creatinine Est GFR (CKD-EPI 2020) Glucose Calcium Total Bilirubin AST ALT Alkaline Phosphatase Total Protein Albumin Random Vancomycin Cancelled MRSA (TEM-PCR) Objective Narrative Objective Narrative: EXAM: XR PORTABLE CHEST AP Date of Exam: 02/14/24 CLINICAL HISTORY: Progressive hypoxemia TECHNIQUE: 2D digital imaging was performed. COMPARISON: CT CT CHEST LUNG CANCER SCREEN from 12/19/2023 CR,XR XR PORTABLE CHEST AP from 02/11/2024 CR XR PORTABLE CHEST AP from 02/12/2024 FINDINGS: Exam is limited by under penetration and poor pulmonary inflation. LUNGS: no gross infiltrates or pulmonary edema. No pleural abnormality seen. Hernia again noted at medial left lung base. HEART: Normal size. AORTA: Normal diameter. BONES: Unremarkable for age. Soft tissues: Unremarkable. IMPRESSION: Limited exam. No acute findings. Time Spent with Patient Time Spent with Patient: 25-34 minutes Time was spent: preparing to see the patient(eg.review tests), obtaining and/or reviewing separately otained hiistory, ordering medications,tests, procedures, indepentently interpreting results and care coordination
--- NOTE | 2024-02-14 14:29 | DI.RAD_ITS ---
Exam(s) XR PORTABLE CHEST AP EXAM: XR PORTABLE CHEST AP CLINICAL HISTORY: Progressive hypoxemia TECHNIQUE: 2D digital imaging was performed. COMPARISON: CT CT CHEST LUNG CANCER SCREEN from 12/19/2023 CR,XR XR PORTABLE CHEST AP from 02/11/2024 CR XR PORTABLE CHEST AP from 02/12/2024 FINDINGS: Exam is limited by under penetration and poor pulmonary inflation. LUNGS: no gross infiltrates or pulmonary edema. No pleural abnormality seen. Hernia again noted at medial left lung base. HEART: Normal size. AORTA: Normal diameter. BONES: Unremarkable for age. Soft tissues: Unremarkable. IMPRESSION: Limited exam. No acute findings. DATA REPOSITORY: RADIATION DOSE DELIVERED:
--- NOTE | 2024-02-14 14:30 | NUR.NOTE ---
Nursing Note: Spoke with Yissel from [facility] regarding update, she states the pt recently had sleep study done and pt runs low at night and refused any interventions for sleep apnea. JANETT RN
[2024-02-14] MEDS: Enoxaparin 40 MG/0.4 ML SYR SC (17:59)
[2024-02-14] MEDS: traZODone 50 MG TAB PO (21:46)
[2024-02-14] MEDS: Tamsulosin 0.4 MG CAPCR 0.8 MG PO (21:47)
[2024-02-14] MEDS: Donepezil 5 MG TAB 10 MG PO (21:47)
[2024-02-14] MEDS: Simvastatin 20 MG TAB PO (21:47)
[2024-02-14] MEDS: diazePAM 5 MG TAB 10 MG PO (21:47)
[2024-02-14] MEDS: Ondansetron 4 MG/2 ML VIAL IVP (22:35)
[2024-02-14] MEDS: Pantoprazole 40 MG VIAL IVP (23:27)
[2024-02-15] VITALS (8 sets, daily range): BP systolic 102–133; BP diastolic 69–88; PULSE 71–101; RESP 14–20; TEMP 36.5–36.8; O2SAT 86–93
[2024-02-15 07:15] LABS: ALT 56 U/L (16-63); AST 33 U/L (15-37); Alkaline Phosphatase 80 U/L (46-116); Anion Gap 10.1 mmol/L (3-11); BUN 23 mg/dL (7-18); Bilirubin, Total 0.31 mg/dL (0.2-1.0); CO2 28.9 mmol/L (21.0-32.0); CREATININE 0.9 mg/dL (0.70-1.30); Calcium 8.9 mg/dL (8.5-10.1); Chloride 105 mmol/L (98-107); Estimated GFR 94.19 (mL/min/1.73m2); Glucose 101 mg/dL (74-106); Potassium 3.9 mmol/L (3.5-5.1); Sodium 144 mmol/L (136-145); Total Protein 6.9 g/dL (6.4-8.2)
[2024-02-15] MEDS: Albuterol HFA 8 GM 60 PUFF INH IH ×4 (08:00→20:04)
[2024-02-15] MEDS: Umeclidinium 7 CAP INHALER 1 CAP IH (08:00)
[2024-02-15] MEDS: Normal Saline Flush 10 ML SYR IVP ×2 (09:12→21:53)
[2024-02-15] MEDS: Dexamethasone 4 MG TAB 10 MG PO (09:13)
[2024-02-15] MEDS: Polyethylene Glycol 3350 17 GM PACKET PO (09:13)
[2024-02-15] MEDS: diazePAM 5 MG TAB PO (09:13)
[2024-02-15] MEDS: Cyanocobalamin 500 MCG TAB 1000 MCG PO (09:14)
[2024-02-15] MEDS: Magnesium Oxide 400 MG TAB 200 MG PO (09:14)
[2024-02-15] MEDS: OLANZapine 10 MG TAB PO ×3 (09:16→21:52)
[2024-02-15] MEDS: Memantine 5 MG TAB 10 MG PO ×2 (09:16→21:53)
[2024-02-15] MEDS: Docusate Sodium 100 MG CAP PO ×2 (09:17→21:52)
[2024-02-15] MEDS: DULoxetine 30 MG CAP 120 MG PO (09:17)
--- NOTE | 2024-02-15 13:34 | CMPROGNOTE_ITS ---
Date of service: 02/15/24 Time of Service: 13:34 Care Management Progress Note Progress Note Text Progress Note Text: Gopal remains on precautions for Covid, therefore CM did not meet with him in person. He was evaluated by PT today, who only had to provide minimal assistance. He continues to require supplemental O2; he may require new orders for O2 upon discharge. CM will continue to follow. Discharge Potential Discharge Needs: PCP F/U Appt Anticipated Barriers to Discharge: None Identified Patient/Family Education Needs: Review discharge instructions, discuss Ask Me Three Transportation: Private vehicle Plan: Anticipate Gopal will return to the [facility], where he resides with his . He will transport via private vehicle by facility staff vs [facility]. He will follow up with his PCP and discharge plan of care. Out patient sleep study is recommended. CM will continue to follow. SDOH(Care Management) Screening Will the Patient Participate in the Screening?: Yes Do you worry about having a steady place to live?: no In the past 12 months, have you had to go without electric, gas, oil or water in your home?: no Have you or anyone in your house had to go without enough food to eat?: no Has lack of transportation kept you from medical appointments or from doing things needed for daily living?: no Has anyone in your support network made you feel unsafe for any reason?: no
--- NOTE | 2024-02-15 14:19 | IN_ITS ---
PT Notes Visit Reasons: COVID Vaccine Physical Therapy Inpatient Initial Evaluation Date: 02/15/2024 Referring Doctor: Eric Pedro MD PT Orders: PT CONSULT: D/C Non-PT Dependent Precautions: Fall. Standard. Activity as tolerated. Patient Profile/Admitting Diagnosis: Venu is a 68-year-old male who presented to the ED on 02/11/2024 due to geenralized weakness and cough. He transitioned to acute level of care for management of COVID-19 infection, gram-positive bacteremia, schizophrenia, Alzheimer's dementia without behavioral disturbance. PMHX: All Active Problems (Updated 02/11/24 @ 19:02 by Jeremie Doshi DO) COVID-19 (Acute) Pneumonia (Acute) Sepsis (Acute) Auditory hallucination (Acute) Schizophrenia (Chronic) Bilateral primary osteoarthritis of knee (Acute) Cognitive impairment (Acute) Alzheimer's dementia without behavioral disturbance (Acute) Left foot pain (Acute) Medical History Dermatophytosis of nail Alcohol abuse, in remission Auditory hallucinations History of suicidal ideation Paranoid schizophrenia Altered mental status Cognitive changes Anemia Elevated PSA Urinary incontinence Hyperplasia of prostate with lower urinary tract symptoms (LUTS) Emphysema lung Pulmonary nodule Tobacco abuse COPD (chronic obstructive pulmonary disease) History of prediabetes Hyperlipidemia Low back pain Acute metabolic encephalopathy Neutrophilia Pain, foot, left, chronic Patellofemoral joint pain Atherosclerosis Surgical History Hx of knee surgery Social History/Home Situation: Lives at [facility]. Patient verbalized that his Lidia lives with him at the [facility]. Said that he did not use anything to walk prior to hospital admission. Equipment Owned/DME: None Subjective: I walk better, patient retorts after ambulation activity for this session this afternoon. Denied headache, chest pain, and lightheadedness throughout session. Objective: General Observation: Oxygen supplementation via NC at 1 L/min. Mental Status: Alert and oriented as to person and purpose. Able to pay attention, focus, and respond appropriately. Pain: None reported Vital Signs: Oxygen saturation stayed within 86% through 92% on 1L/min via NC ROM: Right Upper Extremity: Shoulder Flexion lacks the last 50% of AROM. Shoulder abduction lacks the last 50% of AROM. Elbow flexion WFL. Wrist flexion WFL. Fu nctional opening and closing of hand WFL. Left Upper Extremity: Shoulder Flexion lacks the last 50% of AROM. Shoulder abduction lacks the last 50% of AROM. Elbow flexion WFL. Wrist flexion WFL. Functional opening and closing of hand WFL. Right Lower Extremity: Hip flexion lacks the last 50% of AROM. Hip abduction WFL. Knee flexion 10 degrees to 100 degrees. Ankle dorsiflexion to neutral only. Ankle plantarflexion WFL. Left Lower Extremity: Hip flexion lacks WFL. Hip abduction WFL. Knee flexion 10 degrees to 100 degrees. Ankle dorsiflexion to neutral only. Ankle plantarflexion WFL. Strength: Right Upper Extremity: Shoulder flexors 3-/5. Shoulder abductors 3-/5. Elbow flexors 4-/5. Elbow extensors 4-/5. Crochet Beader strong. Left Upper Extremity: Shoulder flexors 3-/5. Shoulder abductors 3-/5. Elbow flexors 4-/5. Elbow extensors 4-/5. Crochet Beader strong. Right Lower Extremity: Hip flexors 3-/5. Hip abductors 4-/5. Knee flexors 3-/5. Knee extensors 3-/5. Ankle dorsiflexors 3-/5. Ankle plantarflexors 4-/5. Left Lower Extremity: Hip flexors 4-/5. Hip abductors 4-/5. Knee flexors 3-/5. Knee extensors 3-/5. Ankle dorsiflexors 3-/5. Ankle plantarflexors 4-/5. Bed Mobility/Transfers: Minimal cueing provided for use of B hands as needed for support, movement sequence, AD management, and posture to reduce fall risk and minimize pain report Supine to sit stand by assist with HOB at 30 degrees Sit to stand minimal assist with trunk lean to R and posteriorly noted Stand to sit contact-guard assist, definite use of hands needed for support Bed to reclining chair minimal assist using FWW Reclining chair to bed minimal assist using FWW Gait: Facilitated safe and correct performance of in-room ambulation using front- wheeled walker with minimal assist provided to minimize risk for falls as patient tends to lose balance to the right and posteriorly exacerbated during directional changes. Steps asymmetrical. Leanne decreased. Step length and height decreased. Moderate verbal cueing provided for slowed directional change, weight distribution onto walker, and posture. Balance: Static Sitting: Normal Dynamic Sitting: Fair Static Standing: Fair Dynamic Standing: Poor Special Tests: Mobility Limitations Standardized Measure [facility] AM-PAC 6 clicks Basic Mobility Inpatient Short Form: Raw Score: 18 CMS Score: 47% deficit Informed Consent/Education: Patient was instructed in purpose of PT consult and plan of care. Agreeable to proceed with established PT POC to achieve personal goals. ASSESSMENT: Activity tolerance imprving with oxygen saturation ranging from 86% to 92% on 1 L/minute via NC while performance of ambulation tassk with PT. Gait instability limiting safety of mobility ADl performance at this time. Patient will benefit from PT services to regain prior level of function without an assistive device. Patient presents with clinical signs and symptoms consistent with current/admitting diagnoses that have resulted to mobility limitations, gait instability, generalized weakness, and overall ADL decline as demonstrated by the following impairment level findings: 1. Decreased strength to trunk and B UE/LE major muscle groups 2. Impaired sitting/standing balance 3. Impaired activity tolerance 4. Limitation of joint range of motion in B shoulders, R hip, and B ankles 5. Shortness of breath Impairments are contributing to the following functional limitations: 1. Decline in bed mobility skills 2. Decline in transfer skills 3. Difficulty with ambulation without assistive device and physical assistance 4. Increased completion time for mobility ADL performance 5. Increased risk for falls 6. Difficulty with managing steps alone safely Patient is assessed as a 70847 moderate complexity complexity based on the following: History: 68-year-old male with past medical history as indicated above Examination: Demonstrable impairment in strength, balance, and mobility level with underlying impairments and functional limitations as exhibited above as well as deficit score of 47% utilizing the [facility] Mobility Inpatient Short Form Presentation: Evolving Decision Makin moderate complexity Goals: Goals X1 week 1. Supine-Sit independent 2. Sit-Supine independent 3. Sit-Stand independent 4. Stand-Sit independent with FWW 5. Bed-Chair independent with FWW 6. Chair-Bed independent with FWW 7. Independent gait on level surface with use of FWW for at least 150 feet without report of pain nor dyspnea 8. Independent stair negotiation while holding onto B rails for at least 5 steps without report of pain nor dyspnea 9. Independent with home exercise program 10. Good static and dynamic standing balance/tolerance Plan of Care/Treatment Plan: 1-2x/day, 7 days/week x 1 week. Plan of care has been reviewed with the DIRECT SERVICE WORKER providing the service under Physical Therapy direction. Initiate Physical Therapy intervention for pain management as needed, strengthening, bed mobility, transfers, gait, stairs, balance training, and use of assistive device. DISCHARGE RECOMMENDATIONS: Home with no services [] [X] patient will benefit from home health PT services in order to progress mobility level using least restrictive assistive ambulatory device, assess home safety, identify additional equipment needs, and establish a functional maintenance program that will increase ability of patient to remain at home. Home with services. [] Home with outpatient PT [] [] SNF for continued rehabilitation [] [] Hearing And Speech Assistant Care [] [] SNF versus LTC based on ability to participate and progress [] TREATMENT CODE/TIME: 69746 x 20 minutes for 1 unit, 39083 x 26 minutes for 2 units (14: 19?15: 05). Thank you for the opportunity to participate in the care of this patient. Delia Gil PT, DPT, CLT [facility] [place], [place]
[2024-02-15 15:45] LABS: HCT 39.2 % (40.0-50.0); HGB 12.3 g/dL (13.5-17.5); MCH 29.4 pg (27.0-33.0); MCHC 31.4 % (32.0-36.0); MCV 94 fL (80-95); MPV 10.5 fL (8.0-11.0); Platelet Count 226 10^3/uL (130-400); RBC 4.18 10^6/uL (4.36-5.78); RDW 13.9 % (11.8-14.1); RDW-SD 47.8 fL; WBC 13.23 10^3/uL (4.4-10.8)
[2024-02-15 15:50] LABS: Absolute Neutrophil Count 8.73 10^3/uL (1.2-6.7); Bands % 2 %
[2024-02-15 15:51] LABS: Absolute Lymphocyte Count 3.57 10^3/uL (1.2-3.4); Absolute Monocyte Count 0.93 10^3/uL (0.1-0.8); Atypical Lymphocytes % 1 %
[2024-02-15 15:52] LABS: Diff Comment Manual Differential; RBC Morphology Normal
[2024-02-15] MEDS: Enoxaparin 40 MG/0.4 ML SYR SC (18:28)
[2024-02-15] MEDS: Pantoprazole 40 MG VIAL IVP (21:49)
[2024-02-15] MEDS: traZODone 50 MG TAB PO (21:52)
[2024-02-15] MEDS: diazePAM 5 MG TAB 10 MG PO (21:52)
[2024-02-15] MEDS: Donepezil 5 MG TAB 10 MG PO (21:52)
[2024-02-15] MEDS: Simvastatin 20 MG TAB PO (21:52)
[2024-02-15] MEDS: Tamsulosin 0.4 MG CAPCR 0.8 MG PO (21:53)
--- NOTE | 2024-02-15 23:55 | W.PM.PROGNOT ---
Date of Service Date of service: 02/15/24 Time of Service: 23:55 Assessment and Plan Assessment and plan (1) COVID-19: Start date: 02/11/24 Status: Acute Assessment and plan: Patient is having continued hypoxemia with COVID-19 infection and will continue oxygen supplementation 24 hours [id number]. Respiratory therapy is attempting to obtain overnight pulse oximeter testing to qualify for home O2. Calcium should not be adjusted at night for this test. Continue dexamethasone and IV dosing 10 mg daily and remdesivir for complete course. Long-term patient will return to his Level 3 facility on O2 supplement if needed especially at night. He is a full code. (2) Gram-positive bacteremia: Start date: 02/12/24 Status: Resolved Assessment and plan: Repeat cultures were negative and most likely first blood culture was a contaminant. There is no indication for antibiotic therapy. This problem has resolved. (3) Schizophrenia: Status: Chronic Assessment and plan: Continue outpatient medical therapy and monitor for behavioral changes while hospitalized and ill. Qualifiers: Schizophrenia type: other Qualified Code(s): F20.89 - Other schizophrenia (4) Alzheimer's dementia without behavioral disturbance: Status: Chronic Assessment and plan: Continue outpatient medical therapy and management. Long-term patient will return to level 3 facility. Subjective Subjective Interval history since last seen: This is a 68-year-old male patient who resides at the [facility] 3 facility being hospitalized for acute COVID with hypoxemia. He continues to require oxygen therapy 24 hours. He also continues have some mild respiratory symptoms and does have chronic psychiatric disease and dementia with mentation improving with oxygen supplement. He will continue on remdesivir for the full course with dexamethasone to continue IV daily for up to 10 days. He is not on antibiotic coverage at this time with follow-up chest x-ray stable. He otherwise is medically stable. He is a full code. Exam Narrative Exam Narrative: General: Patient appears appropriate for age, moderately obese, alert and oriented at least to person and place. He speaks in a monotonous tone and slow voice. He speaks in short sentences secondary to his psychiatric disease and because of respiratory distress. HEENT: Normocephalic, course and facial features, eyes with pupils equal and reactive to light symmetrically, extraocular movement intact and sclera anicteric. Oropharynx with moist mucosa. Neck: Supple without JVD. Heart: Regular rate and rhythm with no appreciable murmur or gallop. Lungs: Sparse inspiratory coarse crackles without focalizing, bronchovesicular breath sounds diffusely. Fair aeration. Abdomen: Obese contour, soft and nontender to palpation with no palpable hepatosplenomegaly. Bowel sounds positive all quadrants. Extremities: Without clubbing, cyanosis or grossly pitting edema with nonpitting edema both lower extremities and obesity. Fair capillary refill. Skin: Normal color, warm and dry. Neuro: Cranial nerves II through XII gross intact, no focalizing motor deficits or tremor. Psych: Flattened affect with depressed mood but no abnormal thought processes. Remote and recent memory not testable the patient have a minimal conversation. He does know that he lives at the [facility] and that he is in the hospital in [place], [place]. Objective Last Vital Signs Temp 36.7 C 02/15/24 20:36 Pulse 71 02/15/24 20:36 Resp 14 02/15/24 20:36 BP 133/69 02/15/24 20:36 Pulse Ox 86 L 02/15/24 20:36 Laboratory Results - last 24 hr 02/15/24 02/15/24 02/15/24 06:14 06:14 06:14 WBC Cancelled 13.23 H RBC Cancelled 4.18 L Hgb Cancelled Hct MCV MCH MCHC RDW Plt Count MPV Immature Gran % Neutrophils % Band Neutrophils % Lymphocytes % Atypical Lymphs % Monocytes % Eosinophils % Basophils % Nucleated RBC % Absolute Neutrophils Absolute Lymphocytes Absolute Monocytes Absolute Eosinophils Absolute Basophils RBC Morphology Sodium Potassium Chloride Carbon Dioxide Anion Gap BUN Creatinine Est GFR (CKD-EPI 2020) Glucose Calcium Total Bilirubin AST ALT Alkaline Phosphatase Total Protein Albumin 02/15/24 02/15/24 02/15/24 06:14 06:14 06:14 WBC RBC Hgb 12.3 L Hct Cancelled 39.2 L MCV Cancelled 94 MCH Cancelled MCHC RDW Plt Count MPV Immature Gran % Neutrophils % Band Neutrophils % Lymphocytes % Atypical Lymphs % Monocytes % Eosinophils % Basophils % Nucleated RBC % Absolute Neutrophils Absolute Lymphocytes Absolute Monocytes Absolute Eosinophils Absolute Basophils RBC Morphology Sodium Potassium Chloride Carbon Dioxide Anion Gap BUN Creatinine Est GFR (CKD-EPI 2020) Glucose Calcium Total Bilirubin AST ALT Alkaline Phosphatase Total Protein Albumin 02/15/24 02/15/24 02/15/24 06:14 06:14 06:14 WBC RBC Hgb Hct MCV MCH 29.4 MCHC Cancelled 31.4 L RDW Cancelled 13.9 Plt Count Cancelled MPV Immature Gran % Neutrophils % Band Neutrophils % Lymphocytes % Atypical Lymphs % Monocytes % Eosinophils % Basophils % Nucleated RBC % Absolute Neutrophils Absolute Lymphocytes Absolute Monocytes Absolute Eosinophils Absolute Basophils RBC Morphology Sodium Potassium Chloride Carbon Dioxide Anion Gap BUN Creatinine Est GFR (CKD-EPI 2020) Glucose Calcium Total Bilirubin AST ALT Alkaline Phosphatase Total Protein Albumin 02/15/24 02/15/24 06:14 06:14 WBC RBC Hgb Hct MCV MCH MCHC RDW Plt Count 226 MPV Cancelled 10.5 Immature Gran % See Differential Neutrophils % 64.0 Band Neutrophils % 2 Lymphocytes % 26.0 Atypical Lymphs % 1 Monocytes % 7.0 Eosinophils % 0.0 Basophils % 0.0 Nucleated RBC % 0.0 Absolute Neutrophils 8.73 H Absolute Lymphocytes 3.57 H Absolute Monocytes 0.93 H Absolute Eosinophils 0.00 Absolute Basophils 0.00 RBC Morphology Normal Sodium 144 Potassium 3.9 Chloride 105 Carbon Dioxide 28.9 Anion Gap 10.1 BUN 23 H Creatinine 0.9 Est GFR (CKD-EPI 2020) 94.19 Glucose 101 Calcium 8.9 Total Bilirubin 0.31 AST 33 ALT 56 Alkaline Phosphatase 80 Total Protein 6.9 Albumin 3.0 L Time Spent with Patient Time Spent with Patient: <25 minutes Time was spent: preparing to see the patient(eg.review tests), ordering medications,tests, procedures, indepentently interpreting results and care coordination
[2024-02-16] VITALS (9 sets, daily range): BP systolic 99–130; BP diastolic 53–86; PULSE 77–86; RESP 15–19; TEMP 35.6–36.9; O2SAT 88–98
[2024-02-16 07:31] LABS: HCT 37.4 % (40.0-50.0); MCH 29.5 pg (27.0-33.0); MCHC 32.1 % (32.0-36.0); MCV 92 fL (80-95); MPV 10.3 fL (8.0-11.0); Platelet Count 222 10^3/uL (130-400); RBC 4.07 10^6/uL (4.36-5.78); RDW 13.5 % (11.8-14.1); RDW-SD 45.9 fL; WBC 12.28 10^3/uL (4.4-10.8)
[2024-02-16 07:53] LABS: ALT 47 U/L (16-63); AST 25 U/L (15-37); Albumin 2.9 g/dL (3.4-5.0); Alkaline Phosphatase 79 U/L (46-116); Anion Gap 8.3 mmol/L (3-11); BUN 22 mg/dL (7-18); Bilirubin, Total 0.24 mg/dL (0.2-1.0); CO2 29.7 mmol/L (21.0-32.0); CREATININE 0.9 mg/dL (0.70-1.30); Calcium 9.1 mg/dL (8.5-10.1); Chloride 104 mmol/L (98-107); Estimated GFR 94.19 (mL/min/1.73m2); Glucose 116 mg/dL (74-106); Potassium 4.1 mmol/L (3.5-5.1); Sodium 142 mmol/L (136-145); Total Protein 6.6 g/dL (6.4-8.2)
[2024-02-16] MEDS: Umeclidinium 7 CAP INHALER 1 CAP IH (08:10)
[2024-02-16] MEDS: Albuterol HFA 8 GM 60 PUFF INH IH ×4 (08:10→20:26)
[2024-02-16] MEDS: DULoxetine 30 MG CAP 120 MG PO (08:52)
[2024-02-16] MEDS: OLANZapine 10 MG TAB PO ×3 (08:52→20:31)
[2024-02-16] MEDS: Cyanocobalamin 500 MCG TAB 1000 MCG PO (08:53)
[2024-02-16] MEDS: Docusate Sodium 100 MG CAP PO ×2 (08:53→20:27)
[2024-02-16] MEDS: diazePAM 5 MG TAB PO (08:53)
[2024-02-16] MEDS: Memantine 5 MG TAB 10 MG PO ×2 (08:54→20:31)
[2024-02-16] MEDS: Polyethylene Glycol 3350 17 GM PACKET PO (08:55)
[2024-02-16] MEDS: Dexamethasone 4 MG TAB 10 MG PO (08:56)
[2024-02-16] MEDS: Magnesium Oxide 400 MG TAB 200 MG PO (09:16)
[2024-02-16] MEDS: Normal Saline Flush 10 ML SYR IVP ×2 (09:16→13:41)
--- NOTE | 2024-02-16 15:25 | PT.INTREAT ---
PT Notes Visit Reasons: COVID Vaccine Physical Therapy Inpatient Treatment Note Date: 02/16/2024 Precautions: Fall. Standard. Activity as tolerated. Subjective: Feels much better today. milsd SOB after ambulation performance but no desaturation episode Objective: General Observation: Oxygen supplementation via NC at 1 L/min. Mental Status: Alert and oriented as to person and purpose. Able to pay attention, focus, and respond appropriately. Pain: None reported Vital Signs: Oxygen saturation stayed within 86% through 92% on 1L/min via NC Bed Mobility/Transfers: Minimal cueing provided for use of B hands as needed for support, movement sequence, AD management, and posture to reduce fall risk and minimize pain report Supine to sit stand by assist with HOB at 30 degrees Sit to stand contact guard assist with trunk lean to R and posteriorly noted Stand to sit contact-guard assist, definite use of hands needed for support Bed to reclining chair contact-guard assist using FWW Reclining chair to bed contact-guard assist using FWW Gait: Facilitated safe and correct performance of in-room ambulation covering about 100 feet (5 loops inside room) using front-wheeled walker with minimal assist provided to minimize risk for falls as patient tends to lose balance to the right and posteriorly exacerbated during directional changes. Steps asymmetrical. Leanne decreased. Step length and height decreased. Moderate verbal cueing provided for slowed directional change, weight distribution onto walker, and posture. Balance: Static Sitting: Normal Dynamic Sitting: Fair Static Standing: Fair Dynamic Standing: Poor THERA EX; Chair push ups x 10 with contact guard assist Bilateral heel raises x 10 ASSESSMENT: Activity tolerance improving with oxygen saturation ranging from 89% to 92% on 1 L/minute via NC while performance of ambulation task with PT. if given cueing to slow down during a directional change, patient is able to minimize posterolateral sway to the R. Patient will benefit from PT services to regain prior level of function without an assistive device. Plan of Care/Treatment Plan: 1-2x/day, 7 days/week x 1 week. Plan of care has been reviewed with the OFFICE TECHNOLOGIST providing the service under Physical Therapy direction. Initiate Physical Therapy intervention for pain management as needed, strengthening, bed mobility, transfers, gait, stairs, balance training, and use of assistive device. DISCHARGE RECOMMENDATIONS: [] Home with no services [] [X] patient will benefit from home health PT services in order to progress mobility level using least restrictive assistive ambulatory device, assess home safety, identify additional equipment needs, and establish a functional maintenance program that will increase ability of patient to remain at home. Home with services. [] Home with outpatient PT [] [] SNF for continued rehabilitation [] [] Instructional Assistant Care [] [] SNF versus LTC based on ability to participate and progress [] TREATMENT CODE/TIME: 01998 x 25 minutes for 2 units, 26665 x 13 minutes for 1 unit (15:25?14:19).
--- NOTE | 2024-02-16 17:37 | CMPROGNOTE_ITS ---
Date of service: 02/16/24 Time of Service: 17:37 Care Management Progress Note Progress Note Text Progress Note Text: Gopal remains on covid precautions, therefore CM did not meet with him in person. Per RN, he appears weak. PT's report states that he is contact guard assist during their treatment today. Per report, he will have an overnight oximetry evaluation tonight to help determine if he will require O2 at night upon discharge. CM will continue to follow. Discharge Potential Discharge Needs: PCP F/U Appt Anticipated Barriers to Discharge: None Identified Patient/Family Education Needs: Review discharge instructions, discuss Ask Me Three Transportation: Private vehicle Plan: Anticipate Gopal will return to the [facility], where he resides with his . He will transport via private vehicle by facility staff vs RCT. He will follow up with his PCP and discharge plan of care. Out patient sleep study is recommended. CM will continue to follow. SDOH(Care Management) Screening Will the Patient Participate in the Screening?: Yes Do you worry about having a steady place to live?: no In the past 12 months, have you had to go without electric, gas, oil or water in your home?: no Have you or anyone in your house had to go without enough food to eat?: no Has lack of transportation kept you from medical appointments or from doing things needed for daily living?: no Has anyone in your support network made you feel unsafe for any reason?: no
[2024-02-16] MEDS: Enoxaparin 40 MG/0.4 ML SYR SC (18:03)
--- NOTE | 2024-02-16 19:03 | W.PM.PROGNOT ---
Date of Service Date of service: 02/16/24 Time of Service: 19:03 Assessment and Plan Assessment and plan (1) COVID-19: Status: Acute Assessment and plan: COVID 19 acquired at a community home. He appears well compensated at this point. He still has an O2 requirement. Will check overnight oximetry on 2 L. He has an underlying component of obstructive sleep apnea from a prior sleep study but refuses CPAP. I suspect he does desaturate at night which is a function of his GRACIE. He will need to be off oxygen to return to the [facility]. He continues on dexamethasone. He is completed his remdesivir. (2) Gram-positive bacteremia: Status: Resolved Assessment and plan: This appears to have been a contaminant. He is off antibiotics. (3) Schizophrenia: Status: Chronic Assessment and plan: Long standing schizophrenia. He stable on present meds. Qualifiers: Schizophrenia type: other Qualified Code(s): F20.89 - Other schizophrenia (4) Alzheimer's dementia without behavioral disturbance: Status: Chronic Assessment and plan: He appears to have had chronic cognitive issues but without behavioral disturbance. Subjective Subjective Interval history since last seen: Patient admitted from the [facility] and with COVID. He feels he is getting better. He is unsure where he got exposed to COVID as he does not go out much. He had positive blood cultures that appear to be a contaminant. He is off vancomycin. He is eating and drinking fine. His overnight oximetry the other night was corrupted because of adjustments to his oxygen flow rate. Working to try that again tonight. He still appears to have an oxygen requirement. Exam Narrative Exam Narrative: On exam he is somewhat disheveled appearing but alert and interactive. He did not appear to have labored breathing. He had paroxysms of a mild cough with clear sputum production. His lung exam generally sounded clear and fairly dry on the right and left. Heart sounds were regular abdomen obese nontender in all 4 quadrants. Lower extremities no significant edema. Objective Last Vital Signs Temp 36.9 C 02/16/24 18:42 Pulse 85 02/16/24 18:42 Resp 15 02/16/24 15:56 BP 108/53 L 02/16/24 18:42 Pulse Ox 98 02/16/24 18:42 Laboratory Results - last 24 hr 02/16/24 06:25 WBC 12.28 H RBC 4.07 L Hgb 12.0 L Hct 37.4 L MCV 92 MCH 29.5 MCHC 32.1 RDW 13.5 Plt Count 222 MPV 10.3 Sodium 142 Potassium 4.1 Chloride 104 Carbon Dioxide 29.7 Anion Gap 8.3 BUN 22 H Creatinine 0.9 Est GFR (CKD-EPI 2020) 94.19 Glucose 116 H Calcium 9.1 Total Bilirubin 0.24 AST 25 ALT 47 Alkaline Phosphatase 79 Total Protein 6.6 Albumin 2.9 L Time Spent with Patient Time Spent with Patient: 35-49 minutes Time was spent: preparing to see the patient(eg.review tests), obtaining and/or reviewing separately otained hiistory, ordering medications,tests, procedures, referring, communicating with other health insurance healthcare representative, indepentently interpreting results, counseling the patient and care coordination
[2024-02-16] MEDS: Pantoprazole 40 MG VIAL IVP (20:26)
[2024-02-16] MEDS: traZODone 50 MG TAB PO (20:27)
[2024-02-16] MEDS: Simvastatin 20 MG TAB PO (20:27)
[2024-02-16] MEDS: Tamsulosin 0.4 MG CAPCR 0.8 MG PO (20:29)
[2024-02-16] MEDS: diazePAM 5 MG TAB 10 MG PO (20:32)
[2024-02-16] MEDS: Donepezil 5 MG TAB 10 MG PO (20:33)
--- NOTE | 2024-02-17 03:10 | NUR.NOTE ---
Nursing Note: Overnight oximetry placed on pt around 2039. Pt instructed to wear all night. Oximetry was found to be off when pt was preparing to ambulate to toilet around 0100, placed back on finger at that time.
[2024-02-17 07:17] LABS: HCT 39.3 % (40.0-50.0); HGB 12.7 g/dL (13.5-17.5); MCH 29.5 pg (27.0-33.0); MCHC 32.3 % (32.0-36.0); MCV 91 fL (80-95); MPV 9.7 fL (8.0-11.0); Platelet Count 251 10^3/uL (130-400); RDW 13.4 % (11.8-14.1); RDW-SD 44.5 fL; WBC 14.54 10^3/uL (4.4-10.8)
[2024-02-17 07:32] LABS: ALT 48 U/L (16-63); AST 22 U/L (15-37); Albumin 3.1 g/dL (3.4-5.0); Alkaline Phosphatase 84 U/L (46-116); Anion Gap 7.2 mmol/L (3-11); BUN 22 mg/dL (7-18); Bilirubin, Total 0.31 mg/dL (0.2-1.0); CO2 29.8 mmol/L (21.0-32.0); Chloride 105 mmol/L (98-107); Estimated GFR 83.01 (mL/min/1.73m2); Glucose 98 mg/dL (74-106); Potassium 4.3 mmol/L (3.5-5.1); Sodium 142 mmol/L (136-145); Total Protein 6.9 g/dL (6.4-8.2)
[2024-02-17 07:44] VITALS: BP 105/75; PULSE 84; RESP 18; TEMP 36.4; O2SAT 90
[2024-02-17] MEDS: Polyethylene Glycol 3350 17 GM PACKET PO (07:44)
[2024-02-17] MEDS: DULoxetine 30 MG CAP 120 MG PO (07:44)
[2024-02-17] MEDS: Docusate Sodium 100 MG CAP PO ×2 (07:45→20:24)
[2024-02-17] MEDS: diazePAM 5 MG TAB PO (07:45)
[2024-02-17] MEDS: Dexamethasone 4 MG TAB 10 MG PO (07:45)
[2024-02-17] MEDS: OLANZapine 10 MG TAB PO ×3 (07:45→20:23)
[2024-02-17] MEDS: Memantine 5 MG TAB 10 MG PO ×2 (07:45→20:23)
[2024-02-17] MEDS: Cyanocobalamin 500 MCG TAB 1000 MCG PO (07:45)
[2024-02-17] MEDS: Magnesium Oxide 400 MG TAB 200 MG PO (07:46)
[2024-02-17] MEDS: Normal Saline Flush 10 ML SYR IVP (07:46)
[2024-02-17] MEDS: Umeclidinium 7 CAP INHALER 1 CAP IH (11:00)
[2024-02-17] MEDS: Albuterol HFA 8 GM 60 PUFF INH IH ×4 (11:00→21:18)
--- NOTE | 2024-02-17 11:50 | PT.INTREAT ---
Date of service: 02/17/24 Time of Service: 10:10 PT Notes Visit Reasons: COVID Vaccine Inpatient Physical Therapy Treatment Note [facility] Date: 02/17/2024 Precautions: Fall. Standard. Activity as tolerated. Subjective: Stated his knees hurt today. Indicated this is a typical issue for him. Usually takes an over the counter med for pain. Knee pain was reported to be less post ambulation. Objective: General Observation: Oxygen supplementation via NC at 1 L/min. Mental Status: Alert and oriented as to person and purpose. Able to pay attention, focus, and respond appropriately. Pain: Bilateral knee pain which is not unusual for patient, per subjective report. Vital Signs: Oxygen saturation stayed within 89% through 92% on 1L/min via NC Bed Mobility/Transfers: Minimal cueing provided for use of B hands as needed for support, movement sequence, AD management, and posture to reduce fall risk and minimize pain report. Supine to sit: SBA with HOB at 20 degrees Sit to stand: CGA with trunk lean to R and posteriorly Stand to sit: CGA with cueing for hand placement Gait: Able to ambulation approximately 60 feet x2 using front-wheeled walker, with CGA provided to minimize risk for falls, as patient continues to lose balance to the right and posteriorly when making turns. Steps asymmetrical. Leanne decreased. Step length and height decreased. Did receive verbal cueing to proceed slowly with directional change, weight distribution onto walker, and posture. Patient did require clean up from myself and nurse due to bowel movement. He was required to stand for approximately 10 minutes while receiving assistance with this, which did require CGA due to balance with leaning forward several times. ASSESSMENT: Did well with bed mobility and ambulation. Did require CGA when having to manager clinical one spot for several minutes to be cleaned up from messy bowel movement. But, with assist of FWW was able to tolerated this well also.? PLAN: Continue to focus on functional mobility and strengthening for return to home. TREATMENT CODE/TIME: 43091 x2, 10:10 to 10:45 (35')
[2024-02-17 15:15] VITALS: BP 111/80; PULSE 84; RESP 16; TEMP 36.6; O2SAT 92
[2024-02-17 16:09] VITALS: O2SAT 90
[2024-02-17 16:32] VITALS: O2SAT 90
[2024-02-17 16:42] VITALS: PULSE 105; PULSE 107; PULSE 95; O2SAT 91; O2SAT 93
--- NOTE | 2024-02-17 17:13 | W.PM.PROGNOT ---
Date of Service Date of service: 02/17/24 Time of Service: 16:12 Assessment and Plan Assessment and plan (1) COVID-19: Status: Acute Assessment and plan: He still has an oxygen requirement at 2 L/min to maintain his sats. Respiratory therapy is going to walk him on room air in the room to see if he qualifies for home O2. The [place] and is willing to take in with an oxygen concentrator which were hoping to arrange for by tomorrow. He is day 6 of COVID treatment and is considerably less likely to be contagious. His exam is quite reassuring that he is going to recover. (2) Schizophrenia: Status: Chronic Assessment and plan: He is very subdued on present meds. He is not having hallucinations. He is not been agitated or causing any behavioral problems here. Qualifiers: Schizophrenia type: other Qualified Code(s): F20.89 - Other schizophrenia (3) Alzheimer's dementia without behavioral disturbance: Status: Chronic Assessment and plan: This has been stable. Subjective Subjective Interval history since last seen: He states he feels better. He still has a productive cough. He is using the Acapella and incentive spirometer. He would like to go home. The overnight oximetry showed that he is able to maintain his sats on 2 L with only 1 small episode of desat into the 88% range. Exam Narrative Exam Narrative: On exam he is very subdued. He responds to questions with one-word answers. His breathing is not labored. He did not cough during my evaluation. His posterior lung exam sounds completely clear on the right and left. Heart sounds are regular abdomen nontender. Objective Last Vital Signs Temp 36.6 C 02/17/24 15:15 Pulse 84 02/17/24 15:15 Resp 16 02/17/24 15:15 BP 111/80 02/17/24 15:15 Pulse Ox 90 L 02/17/24 16:32 Laboratory Results - last 24 hr 02/17/24 07:00 WBC 14.54 H RBC 4.30 L Hgb 12.7 L Hct 39.3 L MCV 91 MCH 29.5 MCHC 32.3 RDW 13.4 Plt Count 251 MPV 9.7 Sodium 142 Potassium 4.3 Chloride 105 Carbon Dioxide 29.8 Anion Gap 7.2 BUN 22 H Creatinine 1.0 Est GFR (CKD-EPI 2020) 83.01 Glucose 98 Calcium 9.0 Total Bilirubin 0.31 AST 22 ALT 48 Alkaline Phosphatase 84 Total Protein 6.9 Albumin 3.1 L Time Spent with Patient Time Spent with Patient: 25-34 minutes (Donning and doffing) Time was spent: preparing to see the patient(eg.review tests), obtaining and/or reviewing separately otained hiistory, ordering medications,tests, procedures, referring, communicating with other health manager managed care, indepentently interpreting results, counseling the patient and care coordination
[2024-02-17] MEDS: Enoxaparin 40 MG/0.4 ML SYR SC (17:16)
[2024-02-17] MEDS: diazePAM 5 MG TAB 10 MG PO (20:23)
[2024-02-17] MEDS: Tamsulosin 0.4 MG CAPCR 0.8 MG PO (20:23)
[2024-02-17] MEDS: traZODone 50 MG TAB PO (20:23)
[2024-02-17] MEDS: Simvastatin 20 MG TAB PO (20:24)
[2024-02-17] MEDS: Donepezil 5 MG TAB 10 MG PO (20:24)
[2024-02-18 03:38] VITALS: BP 115/79; PULSE 92; RESP 16; TEMP 36.8; O2SAT 95
[2024-02-18 06:41] LABS: Abs Immature Grans 0.62 10^3/uL (0.0-0.06); HCT 38.9 % (40.0-50.0); HGB 12.8 g/dL (13.5-17.5); MCH 29.6 pg (27.0-33.0); MCHC 32.9 % (32.0-36.0); MCV 90 fL (80-95); MPV 10.1 fL (8.0-11.0); Platelet Count 237 10^3/uL (130-400); RBC 4.32 10^6/uL (4.36-5.78); RDW 13.5 % (11.8-14.1); RDW-SD 44.3 fL; WBC 16.63 10^3/uL (4.4-10.8)
[2024-02-18 06:54] LABS: Anion Gap 9.5 mmol/L (3-11); BUN 26 mg/dL (7-18); CO2 28.5 mmol/L (21.0-32.0); Calcium 9.1 mg/dL (8.5-10.1); Chloride 104 mmol/L (98-107); Estimated GFR 83.01 (mL/min/1.73m2); Glucose 98 mg/dL (74-106); Potassium 4.1 mmol/L (3.5-5.1); Sodium 142 mmol/L (136-145)
[2024-02-18 06:58] LABS: Absolute Lymphocyte Count 6.98 10^3/uL (1.2-3.4); Absolute Neutrophil Count 8.48 10^3/uL (1.2-6.7); Atypical Lymphocytes % 2 %; Metamyelocytes % 1
[2024-02-18 06:59] LABS: Diff Comment Manual Differential; RBC Morphology Normal
[2024-02-18 07:33] VITALS: BP 113/73; PULSE 68; RESP 17; TEMP 36.5; O2SAT 93
[2024-02-18] MEDS: DULoxetine 30 MG CAP 120 MG PO (07:45)
[2024-02-18] MEDS: Polyethylene Glycol 3350 17 GM PACKET PO (07:45)
[2024-02-18] MEDS: Magnesium Oxide 400 MG TAB 200 MG PO (07:46)
[2024-02-18] MEDS: Docusate Sodium 100 MG CAP PO (07:46)
[2024-02-18] MEDS: OLANZapine 10 MG TAB PO (07:46)
[2024-02-18] MEDS: Memantine 5 MG TAB 10 MG PO (07:46)
[2024-02-18] MEDS: Cyanocobalamin 500 MCG TAB 1000 MCG PO (07:46)
[2024-02-18] MEDS: Dexamethasone 4 MG TAB 10 MG PO (07:46)
[2024-02-18] MEDS: diazePAM 5 MG TAB PO (07:46)
[2024-02-18] MEDS: Umeclidinium 7 CAP INHALER 1 CAP IH (08:48)
[2024-02-18] MEDS: Albuterol HFA 8 GM 60 PUFF INH IH ×2 (08:48→11:55)
[2024-02-18 08:50] VITALS: O2SAT 93
--- NOTE | 2024-02-18 09:59 | CMDISCH_ITS ---
Date of service: 02/18/24 Time of Service: 09:59 LACE Index Scoring Tool Questions: Length of Stay (in days): 7 - 13 Was the patient admitted via the E.D.?: Yes Comorbidities: Chronic Pulmonary Disease and Dementia E.D. Visits: 2 Answers: Total Score: 15 Risk of Readmission: High Risk Care Management Discharge Plan Reason for Hospitalization: Covid Discharge Plan: Venu will be discharged back to the [facility] today, with new orders for O2 while sleeping and while lying down. He will transport via [facility] private vehicle, as coordinated by CAROLYNN. [facility] was notified by CAROLYNN of his discharge and his O2 needs. He will f/u with the facility provider and continue per his plan of care. Patient/Family Education Needs: Review of discharge instructions, activity, limitations and f/u plan. Discuss Ask me 3. SDOH Health Related Social Needs: No Data to Display
--- NOTE | 2024-02-18 11:16 | PT.INTREAT ---
Date of service: 02/18/24 Time of Service: 09:10 PT Notes Visit Reasons: COVID Vaccine Inpatient Physical Therapy Treatment Note [facility] Date: 02/18/2024 Precautions: Fall. Standard. Activity as tolerated. Subjective: Willing to get out of bed and walk. No complaints of SOB or noticed caughing. Objective: General Observation: Oxygen supplementation via NC at 1 L/minute and on RA Mental Status: Alert and oriented as to person and purpose. Able to pay attention, focus, and respond appropriately. Pain: No complaints of pain offered today. Vital Signs: Oxygen saturation stayed within 89% through 92% on RA and 92% through 96% on 1L with ambulation Bed Mobility/Transfers: Minimal cueing provided for use of B hands as needed for support, movement sequence, AD management, and posture to reduce fall risk and minimize pain report. Supine to sit: SBA Sit to supine: SBA Sit to stand: CGA with trunk lean to R and posteriorly Stand to sit: CGA with cueing for hand placement Gait: Able to ambulation approximately 40 feet on RA and 80 feet on 1L O2 supplement and 40 feet on RA using front-wheeled walker and with CGA. Much better balance with cornering today. Did say he needed to sit post 6 small laps in room. Steps asymmetrical. Leanne decreased. Step length and height decreased. Worked on sit to stand x 4 between laps of ambulation. Performed 10 reps x 2 sets of chair push ups Performed 10 reps x 2 sets of standing heel raises with CGA ASSESSMENT: Did well with bed mobility and ambulation. ? PLAN: Continue to focus on functional mobility and strengthening for return to home. TREATMENT CODE/TIME: 86862 x2, 9:10 to 9:35 (25') ?
[2024-02-18 11:56] VITALS: O2SAT 90
[2024-02-18 12:05] VITALS: BP 100/75; PULSE 73; RESP 16; TEMP 36.5; O2SAT 94
--- NOTE | 2024-02-18 12:21 | DSE_ITS ---
Date of service: 02/18/24 Time of Service: 12:21 DS: Diagnosis Discharge Diagnosis (1) COVID-19: Status: Acute Asessment and Plan: COVID swab positive. He mainly had upper respiratory symptoms including nasal discharge and cough. His lungs never really seemed like a pneumonia. He does desaturate when he sleeps which may be an obstructive sleep apnea profile. He had an attempt at overnight oximetry twice. There were technical difficulties with keeping the sat probe on but it does appear he maintains adequate oxygenation. He actually oxygenates better when he is up moving around and does desat when he sleeps. Consider sleep study if needed. (2) Schizophrenia: Status: Chronic Asessment and Plan: He is very psychomotor depressed but when pushed he can perform ADLs such as feeding himself. The feeling was he would do better in a familiar environment. (3) Alzheimer's dementia without behavioral disturbance: Status: Chronic Asessment and Plan: Some evidence of cognitive delay but he did not present any behavioral problems during his stay. Discharge Plan Disposition Patient Disposition: Home Condition: Improving Discharge Details Reason For Visit: COVID Admit Date/Time: 02/11/24 19:06 Admit Provider: Eric No Attending Provider: Eric No Primary Care Provider: Milka Shelley Hospital Course Hospital Course: 68 male with h/o schizophrenia, dementia, COPD. resident of [facility] -- here with several days of cough, productive of yellow sputum, and generalized weakness. Denies CP, SOB, fever, chills. Here in ER findings of note for temp 38.7, white count 5.3 with relative lymphopenia; pH 7.33 with pCO2 56, and ; procal 0.1; and CXR showing LLL atelectasis vs consolidation. Patient give Rocephin and Zithro, COVID swab positive. He was somewhat slow to mobilize and clear secretions but by the time of discharge he is moving around independently. Deemed appropriate for return to the [facility]. Home Meds and New Rx's Prescriptions: Continued omega 9-vih-kem-fish oil [Fish Oil] 60-90-500 mg capsule 1 cap PO DAILY simvastatin 20 mg tablet 20 mg PO DAILY docusate sodium 100 mg capsule 100 mg PO BID clozapine 50 mg tablet 50 mg PO QHS Rx Instructions: Take with 400mg for total dose of 450mg QHS tamsulosin 0.4 mg capsule 0.8 mg PO QHS Incruse Ellipta 62.5 mcg/actuation blister with device 1 inh inhalation DAILY acetaminophen [Tylenol] 325 mg tablet 650 mg PO Q6H PRN magnesium 250 mg tablet 250 mg PO DAILY trazodone 50 mg tablet 50 mg PO QHS clozapine 200 mg tablet 400 mg PO QHS memantine 10 mg tablet 10 mg PO BID Qty: 180 3RF duloxetine 60 mg capsule,delayed release(DR/EC) 120 mg PO DAILY cyanocobalamin (vitamin B-12) 1,000 mcg tablet, sublingual See Rx Instructions .ROUTE .COMPLEX Qty: 30 11RF Dose Instruction: 1 TAB (1000mcg) ORALLY DAILY Rx Instructions: 1 TAB (1000mcg) ORALLY DAILY donepezil 10 mg tablet 10 mg PO QHS Qty: 90 3RF diazepam 10 mg tablet 10 mg PO HS Patient Comments: Bedtime diazepam 5 mg tablet 5 mg PO DAILY Patient Comments: AM polyethylene glycol 3350 [Miralax] 17 gram/dose powder 17 g PO QDAY cholecalciferol (vitamin D3) [Vitamin D3] 25 mcg (1,000 unit) capsule 2,000 unit PO DAILY tizanidine 2 mg tablet 2 mg PO BID albuterol 90 mcg/actuation aerosol 90 mcg inhalation Q6H PRN olanzapine 10 mg tablet 10 mg PO TID trazodone 50 mg tablet 50 mg PO QHS PRN Discharge Instructions Instructions: COVID-19 in adults - Discharge instructions Referrals: Milka Shelley [Primary Care Provider] - Activity:: Activity as Tolerated Equipment/Supplies:: No Equipment Needed Diet:: As Tolerated Discharge Orders Discharge Orders: Discharge Order (Routine); Ordered 02/18/24 Ordered By: Joe Soliz DS: Summary Time Spent with Patient providing and/or coordinating discharge services: Greater than 30 minutes Status at Discharge Functional status at discharge: independent ambulation Overall status at discharge: patient is back to baseline Mental Status: other (Cognitively delayed and psychomotor slowing) Speech and Movement: speech and movement normal Mood: other (Cognitively delayed and psychomotor slowing) Affect: indifferent Quality:SDOH Health Related Social Needs: No Data to Display Exam Narrative Exam Narrative: On exam he is unshaven and somewhat unkempt. He is very quiet and only answers one-word answers. He was able to independently swing his legs over the side of the bed and feed himself his tray. His lungs do show a few scattered rhonchi but otherwise good air movement. Heart is regular. Abdomen nontender. Lower extremities no edema. Neurologically there are no focal motor deficits. He does have the cognitive delay partially attributed to his schizophrenia meds. Psych Mental Status: other (Cognitively delayed and psychomotor slowing) Speech and Movement: speech and movement normal Mood: other (Cognitively delayed and psychomotor slowing) Affect: indifferent DS: Data Vitals/I&O Vitals and I&O: Vital Signs Temperature 36.5 C 02/18/24 12:05 Temperature Source Skin 02/18/24 12:05 Pulse 73 02/18/24 12:05 Pulse Rhythm Regular 02/11/24 23:16 Pulse 97 H 02/11/24 19:01 Respiratory Rate 16 02/18/24 12:05 Respiratory Effort Normal, Non-Labored 02/11/24 23:16 Respiratory Depth Normal 02/11/24 23:16 Respiratory Pattern Normal 02/11/24 23:16 Blood Pressure 100/75 02/18/24 12:05 Blood Pressure Mean 94 02/11/24 19:00 Blood Pressure Position Supine 02/11/24 16:38 Pulse Oximetry 94 02/18/24 12:05 Oxygen Delivery Method Room Air 02/18/24 12:05 Oxygen Flow Rate 0 02/18/24 12:05 Pain Level 0 02/18/24 12:05 Comment MAP = 71 02/16/24 05:28 Intake & Output 02/17/24 02/18/24 02/18/24 23:59 10:59 23:59 Intake Total 500 / 500 400 / 400 Output Total 1400 / 2300 1550 / 1550 Balance -900 / -1800 -1150 / -1150 Intake: Oral 500 / 500 400 / 400 Output: Urine 1400 / 2300 1550 / 1550 Other: Urine Color Yellow Yellow Urine Appearance Cloudy Clear Urine Odor Normal Normal Stool Size Large Moderate Stool Characteristics Formed Soft Brown Brown Data Completed and Pending Labs on day of discharge: Labs from last 24 hours 02/18/24 06:05 WBC 16.63 H RBC 4.32 L Hgb 12.8 L Hct 38.9 L MCV 90 MCH 29.6 MCHC 32.9 RDW 13.5 Plt Count 237 MPV 10.1 Immature Gran % See Differential Neutrophils % 51.0 Lymphocytes % 40.0 Atypical Lymphs % 2 Monocytes % 6.0 Eosinophils % 0.0 Basophils % 0.0 Metamyelocytes % 1 Nucleated RBC % 0.0 Absolute Neutrophils 8.48 H Absolute Lymphocytes 6.98 H Absolute Monocytes 1.00 H Absolute Eosinophils 0.00 Absolute Basophils 0.00 RBC Morphology Normal Sodium 142 Potassium 4.1 Chloride 104 Carbon Dioxide 28.5 Anion Gap 9.5 BUN 26 H Creatinine 1.0 Est GFR (CKD-EPI 2020) 83.01 Glucose 98 Calcium 9.1 PFSH All Active Problems (Updated 02/16/24 @ 19:05 by Joe Soliz MD) COVID-19 (Acute) Schizophrenia (Chronic) Alzheimer's dementia without behavioral disturbance (Chronic) Medical History (Updated 02/16/24 @ 19:05 by Joe Soliz MD) Left foot pain Cognitive impairment Bilateral primary osteoarthritis of knee Auditory hallucination Sepsis Pneumonia COVID Dermatophytosis of nail Alcohol abuse, in remission Auditory hallucinations History of suicidal ideation Paranoid schizophrenia Altered mental status Cognitive changes Anemia Elevated PSA Urinary incontinence Hyperplasia of prostate with lower urinary tract symptoms (LUTS) Emphysema lung Pulmonary nodule Tobacco abuse COPD (chronic obstructive pulmonary disease) History of prediabetes Hyperlipidemia Low back pain Acute metabolic encephalopathy Neutrophilia Pain, foot, left, chronic Patellofemoral joint pain Atherosclerosis Surgical History Hx of knee surgery Family History Mother Brain cancer Father Heart disease Hypertension Obesity Osteoarthritis Social History Smoking/Tobacco Use Status: Former Tobacco Use Tobacco: How many years used: 38 Smoking risk assessment performed?: Yes Alcohol Intake: never Substance use type: does not use Housing: assisted living facility Do you feel safe at home: Yes Do you feel safe in your relationship?: Yes Time Spent with Patient Time Spent with Patient: 45-69 minutes Time was spent: preparing to see the patient(eg.review tests), obtaining and/or reviewing separately otained hiistory, ordering medications,tests, procedures, referring, communicating with other health aged or disabled care worker, indepentently interpreting results and counseling the patient
== END 2024-02-18 13:42 | disposition home or self-care (01) | DRG 178 ==
LOC: ER 18:39 → MS 21:03
PROVIDERS: Family Medicine; Registered Nurse; Admitting Provider General Practice; Emergency Provider Student in an Organized Health Care Education/Training Program; PCP Nurse Practitioner Family; Visit Provider General Practice
DX: U07.1 COVID-19 (principal); E87.29 Other acidosis; F20.0 Paranoid schizophrenia; F02.80 Dementia in other diseases classified elsewhere, unspecified severity, without behavioral disturbance, psychotic disturbance, mood disturbance, and anxiety; G30.9 Alzheimer's disease, unspecified; G47.33 Obstructive sleep apnea (adult) (pediatric); R41.89 Other symptoms and signs involving cognitive functions and awareness; D72.810 Lymphocytopenia; R09.02 Hypoxemia; J44.9 Chronic obstructive pulmonary disease, unspecified; R53.1 Weakness; D64.9 Anemia, unspecified; F10.11 Alcohol abuse, in remission; R32 Unspecified urinary incontinence; N40.1 Benign prostatic hyperplasia with lower urinary tract symptoms; R91.1 Solitary pulmonary nodule; R73.03 Prediabetes; E78.5 Hyperlipidemia, unspecified; M54.50 Low back pain, unspecified; I70.90 Unspecified atherosclerosis; Z79.899 Other long term (current) drug therapy; Z87.891 Personal history of nicotine dependence
CPT/HCPCS: 00123; 36410; 36415; 80048; 80053; 82805; 84145; 85027; 87040; 87077; 87637; 87641; 93005; 94618; 94640; 96365; 96366; 96367; 97110; 97162; 97530; 99285; J1650; 71045; 80202; 81003; 82565; 83605; 84484; 85025; 87070; 87086; 87205; 93010; 94664; 94667; 94668; 94760; 94762; 99222; 99231; 99232; 99233; 99239; J0248; J0456; J0696; J2405; J2470; J3372; J3490; J8540

== ENCOUNTER 2024-02-28 16:50 | Outpatient (REF) | payer MEDICARE, MEDICAID, SELFPAY ==
[2024-02-28 16:32] LABS: Abs Immature Grans 0.06 10^3/uL (0.0-0.06); Absolute Basophil Count 0.04 10^3/uL (0.0-0.2); Absolute Eosinophil Count 0.03 10^3/uL (0.0-0.7); Absolute Lymphocyte Count 3.01 10^3/uL (1.2-3.4); Absolute Monocyte Count 0.78 10^3/uL (0.1-0.8); Absolute Neutrophil Count 5.54 10^3/uL (1.2-6.7); Basophils % 0.4 %; Eosinophils % 0.3 %; HCT 38.4 % (40.0-50.0); Immature Grans % 0.6 %; Lymphocytes % 31.8 %; MCH 29.7 pg (27.0-33.0); MCHC 31.3 % (32.0-36.0); MCV 95 fL (80-95); MPV 10.6 fL (8.0-11.0); Monocytes % 8.2 %; Neutrophils % 58.7 %; Platelet Count 258 10^3/uL (130-400); RBC 4.04 10^6/uL (4.36-5.78); RDW 13.6 % (11.8-14.1); WBC 9.46 10^3/uL (4.4-10.8)
== END 2024-02-28 16:51 | disposition home or self-care (01) ==
LOC: LBN 16:50
PROVIDERS: PCP Nurse Practitioner Family; Visit Provider Registered Nurse
DX: F20.3 Undifferentiated schizophrenia (principal); Z79.899 Other long term (current) drug therapy; Z51.81 Encounter for therapeutic drug level monitoring
CPT/HCPCS: 85025

== ENCOUNTER 2024-03-06 01:28 | Outpatient (CLI) | payer MEDICARE, MEDICAID, SELFPAY ==
--- NOTE | 2024-03-06 09:30 | DI.US_ITS ---
Exam(s) US AAA SCREENING EXAM: US AAA SCREENING CLINICAL HISTORY: former smoker, Z87.891; Screening for cardiovascular system disease, Z13.6 COMPARISON: US US AAA SCREENING from 12/28/2022 FINDINGS: There is no evidence of abdominal aortic aneurysm. Maximum diameter of the abdominal aorta is 2.6 cm , proximally. The aorta tapers distally in normal fashion. There is also no significant aneurysmal dilatation of the visualized common iliac arteries IMPRESSION: No evidence of abdominal aortic aneurysm. DATA REPOSITORY:
== END 2024-03-06 01:48 ==
LOC: DI 01:28
PROVIDERS: PCP Nurse Practitioner Family; Visit Provider Nurse Practitioner Family
DX: Z13.6 Encounter for screening for cardiovascular disorders (principal); Z87.891 Personal history of nicotine dependence
CPT/HCPCS: 76706

== ENCOUNTER 2024-03-06 10:07 | Outpatient (REF) | payer MEDICARE, MEDICAID, SELFPAY ==
[2024-03-06 10:18] LABS: Abs Immature Grans 0.03 10^3/uL (0.0-0.06); Absolute Basophil Count 0.04 10^3/uL (0.0-0.2); Absolute Eosinophil Count 0.01 10^3/uL (0.0-0.7); Absolute Lymphocyte Count 1.75 10^3/uL (1.2-3.4); Absolute Monocyte Count 0.66 10^3/uL (0.1-0.8); Absolute Neutrophil Count 7.16 10^3/uL (1.2-6.7); Basophils % 0.4 %; Eosinophils % 0.1 %; HCT 38.9 % (40.0-50.0); HGB 12.1 g/dL (13.5-17.5); Immature Grans % 0.3 %; Lymphocytes % 18.1 %; MCH 29.7 pg (27.0-33.0); MCHC 31.1 % (32.0-36.0); MCV 96 fL (80-95); MPV 9.9 fL (8.0-11.0); Monocytes % 6.8 %; Neutrophils % 74.3 %; Platelet Count 226 10^3/uL (130-400); RBC 4.07 10^6/uL (4.36-5.78); RDW 13.6 % (11.8-14.1); RDW-SD 48.2 fL; WBC 9.65 10^3/uL (4.4-10.8)
== END 2024-03-06 10:08 | disposition home or self-care (01) ==
LOC: LBN 10:07
PROVIDERS: PCP Nurse Practitioner Family; Visit Provider Registered Nurse
DX: Z51.81 Encounter for therapeutic drug level monitoring (principal)
CPT/HCPCS: 85025

== ENCOUNTER 2024-03-13 15:28 | Outpatient (REF) | payer MEDICARE, MEDICAID, SELFPAY ==
[2024-03-13 15:11] LABS: Abs Immature Grans 0.06 10^3/uL (0.0-0.06); Absolute Basophil Count 0.04 10^3/uL (0.0-0.2); Absolute Eosinophil Count 0.02 10^3/uL (0.0-0.7); Absolute Lymphocyte Count 2.17 10^3/uL (1.2-3.4); Absolute Monocyte Count 0.73 10^3/uL (0.1-0.8); Absolute Neutrophil Count 5.64 10^3/uL (1.2-6.7); Basophils % 0.5 %; Eosinophils % 0.2 %; HCT 40.3 % (40.0-50.0); HGB 12.6 g/dL (13.5-17.5); Immature Grans % 0.7 %; Lymphocytes % 25.1 %; MCH 29.5 pg (27.0-33.0); MCHC 31.3 % (32.0-36.0); MCV 94 fL (80-95); MPV 10.3 fL (8.0-11.0); Monocytes % 8.4 %; Neutrophils % 65.1 %; Platelet Count 310 10^3/uL (130-400); RBC 4.27 10^6/uL (4.36-5.78); RDW 13.5 % (11.8-14.1); RDW-SD 46.8 fL; WBC 8.66 10^3/uL (4.4-10.8)
== END 2024-03-13 15:29 | disposition home or self-care (01) ==
LOC: LBN 15:28
PROVIDERS: PCP Nurse Practitioner Family; Visit Provider Registered Nurse
DX: Z51.81 Encounter for therapeutic drug level monitoring (principal)
CPT/HCPCS: 85025

== ENCOUNTER 2024-03-20 10:28 | Outpatient (REF) | payer MEDICARE, MEDICAID, SELFPAY ==
[2024-03-20 12:07] LABS: Abs Immature Grans 0.05 10^3/uL (0.0-0.06); Absolute Basophil Count 0.03 10^3/uL (0.0-0.2); Absolute Monocyte Count 0.63 10^3/uL (0.1-0.8); Absolute Neutrophil Count 8.52 10^3/uL (1.2-6.7); Basophils % 0.3 %; HCT 40.1 % (40.0-50.0); HGB 12.4 g/dL (13.5-17.5); Immature Grans % 0.4 %; Lymphocytes % 17.1 %; MCH 29.3 pg (27.0-33.0); MCHC 30.9 % (32.0-36.0); MCV 95 fL (80-95); MPV 10.4 fL (8.0-11.0); Monocytes % 5.7 %; Neutrophils % 76.5 %; Platelet Count 251 10^3/uL (130-400); RBC 4.23 10^6/uL (4.36-5.78); RDW 13.5 % (11.8-14.1); RDW-SD 47.2 fL; WBC 11.14 10^3/uL (4.4-10.8)
== END 2024-03-20 10:29 | disposition home or self-care (01) ==
LOC: LBN 10:28
PROVIDERS: PCP Nurse Practitioner Family; Visit Provider Registered Nurse
DX: F20.3 Undifferentiated schizophrenia (principal); F33.1 Major depressive disorder, recurrent, moderate; Z51.81 Encounter for therapeutic drug level monitoring
CPT/HCPCS: 85025

== ENCOUNTER 2024-03-22 15:28 | Outpatient (REF) | payer MEDICARE, MEDICAID, SELFPAY ==
[2024-03-22 12:54] LABS: Bilirubin Negative (Negative); Blood Trace-intact (Negative); Clarity Clear (Clear); Glucose Negative (Negative); Ketones Negative (Negative); Leukocyte Esterase Negative (Negative); Nitrite Negative (Negative); Urobilinogen 0.2 mg/dL (Up to 0.2)
[2024-03-22 13:14] LABS: Bacteria Negative HPF (Negative); C & S Indicated? No; Casts Negative LPF (Negative); Crystals Negative HPF (Negative); Epithelial Cells Negative HPF (Negative); Mucus Negative (Negative); Other Cells Negative (Negative); RBC 0-2 HPF (0-2); WBC Negative HPF (0-5)
== END 2024-03-22 15:29 | disposition home or self-care (01) ==
LOC: LBN 15:28
PROVIDERS: PCP Nurse Practitioner Family
DX: F20.3 Undifferentiated schizophrenia (principal); F33.1 Major depressive disorder, recurrent, moderate
CPT/HCPCS: 87077; 81003; 81015; 87086; 87186

== ENCOUNTER 2024-03-27 19:42 | Outpatient (REF) | payer MEDICARE, MEDICAID, SELFPAY ==
[2024-03-27 18:15] LABS: Abs Immature Grans 0.04 10^3/uL (0.0-0.06); Absolute Basophil Count 0.05 10^3/uL (0.0-0.2); Absolute Lymphocyte Count 2.22 10^3/uL (1.2-3.4); Absolute Neutrophil Count 9.36 10^3/uL (1.2-6.7); Basophils % 0.4 %; Eosinophils % 0.6 %; HCT 41.9 % (40.0-50.0); HGB 12.9 g/dL (13.5-17.5); Immature Grans % 0.3 %; Lymphocytes % 17.6 %; MCH 29.4 pg (27.0-33.0); MCHC 30.8 % (32.0-36.0); MCV 95 fL (80-95); MPV 10.8 fL (8.0-11.0); Neutrophils % 74.1 %; Platelet Count 241 10^3/uL (130-400); RBC 4.39 10^6/uL (4.36-5.78); RDW 13.4 % (11.8-14.1); RDW-SD 47.3 fL; WBC 12.63 10^3/uL (4.4-10.8)
[2024-03-27 18:18] LABS: Absolute Eosinophil Count 0.08 10^3/uL (0.0-0.7); Absolute Monocyte Count 0.88 10^3/uL (0.1-0.8)
== END 2024-03-27 19:43 | disposition home or self-care (01) ==
LOC: LBN 19:42
PROVIDERS: PCP Nurse Practitioner Family; Visit Provider Registered Nurse
DX: Z51.81 Encounter for therapeutic drug level monitoring (principal); F20.3 Undifferentiated schizophrenia; F33.1 Major depressive disorder, recurrent, moderate
CPT/HCPCS: 85025

== ENCOUNTER 2024-03-28 10:15 | Outpatient (REF) | payer MEDICARE, MEDICAID, SELFPAY ==
[2024-03-28 11:18] LABS: Bilirubin Negative (Negative); Blood Negative (Negative); Clarity Clear (Clear); Glucose Negative (Negative); Ketones Negative (Negative); Leukocyte Esterase Negative (Negative); Nitrite Negative (Negative); Specific Gravity 1.015 (1.005-1.025); Urobilinogen 0.2 mg/dL (Up to 0.2)
== END 2024-03-28 10:16 | disposition home or self-care (01) ==
LOC: NCHCN 10:15
PROVIDERS: PCP Nurse Practitioner Family; Visit Provider Nurse Practitioner Family
DX: D72.829 Elevated white blood cell count, unspecified (principal)
CPT/HCPCS: 81003

== ENCOUNTER 2024-03-28 11:32 | Outpatient (CLI) | payer MEDICARE, MEDICAID, SELFPAY ==
--- NOTE | 2024-03-28 10:58 | DI.RAD_ITS ---
Exam(s) XR CHEST 2V PA LATERAL EXAM: XR CHEST 2V PA LATERAL CLINICAL HISTORY: LEULOCYTOSIS D72.829 TECHNIQUE: 2D digital imaging was performed. Two views. COMPARISON: CT CT CHEST LUNG CANCER SCREEN from 12/19/2023 CR,XR XR PORTABLE CHEST AP from 02/11/2024 CR XR PORTABLE CHEST AP from 02/12/2024 CR XR PORTABLE CHEST AP from 02/14/2024 FINDINGS: HEART: Normal size. Aorta: Not dilated. PULMONARY VASCULATURE: Normal. MEDIASTINUM: Prominent epicardial fat. LUNGS: Clear. PLEURAL SPACE: No pleural effusion or pneumothorax. Eventration of the left hemidiaphragm again not ed. BONE:Unremarkable for age. SOFT TISSUES: Unremarkable. IMPRESSION: No acute abnormality. DATA REPOSITORY: RADIATION DOSE DELIVERED:
== END 2024-03-28 11:52 ==
LOC: DI 11:34
PROVIDERS: PCP Nurse Practitioner Family; Visit Provider Nurse Practitioner Family
DX: D72.829 Elevated white blood cell count, unspecified (principal)
CPT/HCPCS: 71046

== ENCOUNTER 2024-04-03 10:42 | Outpatient (REF) | payer MEDICARE, MEDICAID, SELFPAY ==
[2024-04-03 11:44] LABS: Abs Immature Grans 0.04 10^3/uL (0.0-0.06); Absolute Basophil Count 0.04 10^3/uL (0.0-0.2); Absolute Eosinophil Count 0.12 10^3/uL (0.0-0.7); Absolute Lymphocyte Count 1.61 10^3/uL (1.2-3.4); Basophils % 0.4 %; Eosinophils % 1.1 %; HCT 42.2 % (40.0-50.0); Immature Grans % 0.4 %; Lymphocytes % 14.7 %; MCHC 30.8 % (32.0-36.0); MCV 94 fL (80-95); MPV 10.6 fL (8.0-11.0); Monocytes % 7.9 %; Neutrophils % 75.5 %; Platelet Count 215 10^3/uL (130-400); RBC 4.49 10^6/uL (4.36-5.78); RDW 13.3 % (11.8-14.1); RDW-SD 45.9 fL; WBC 10.95 10^3/uL (4.4-10.8)
[2024-04-03 11:54] LABS: Absolute Monocyte Count 0.87 10^3/uL (0.1-0.8); Absolute Neutrophil Count 8.27 10^3/uL (1.2-6.7)
[2024-04-03 11:55] LABS: Diff Comment Manual Differential
== END 2024-04-03 10:43 | disposition home or self-care (01) ==
LOC: LBN 10:42
PROVIDERS: PCP Nurse Practitioner Family; Visit Provider Registered Nurse
DX: Z51.81 Encounter for therapeutic drug level monitoring (principal); F20.3 Undifferentiated schizophrenia; F33.1 Major depressive disorder, recurrent, moderate
CPT/HCPCS: 85025

== ENCOUNTER 2024-04-11 17:51 | Outpatient (REF) | payer MEDICARE, MEDICAID, SELFPAY ==
[2024-04-11 17:09] LABS: Abs Immature Grans 0.04 10^3/uL (0.0-0.06); Absolute Basophil Count 0.04 10^3/uL (0.0-0.2); Absolute Eosinophil Count 0.02 10^3/uL (0.0-0.7); Absolute Monocyte Count 0.58 10^3/uL (0.1-0.8); Absolute Neutrophil Count 5.28 10^3/uL (1.2-6.7); Basophils % 0.5 %; Eosinophils % 0.2 %; HCT 40.6 % (40.0-50.0); HGB 12.8 g/dL (13.5-17.5); Immature Grans % 0.5 %; Lymphocytes % 31.2 %; MCH 29.2 pg (27.0-33.0); MCHC 31.5 % (32.0-36.0); MCV 93 fL (80-95); MPV 10.5 fL (8.0-11.0); Monocytes % 6.7 %; Neutrophils % 60.9 %; Platelet Count 261 10^3/uL (130-400); RBC 4.38 10^6/uL (4.36-5.78); RDW 13.3 % (11.8-14.1); RDW-SD 45.4 fL; WBC 8.66 10^3/uL (4.4-10.8)
[2024-04-15 13:33] LABS: Clozapine 590 ng/mL (350-600); Clozapine+Norclozapine Total 1164 ng/mL; Norclozapine 574 ng/mL
== END 2024-04-11 17:52 | disposition home or self-care (01) ==
LOC: LBN 17:51
PROVIDERS: PCP Nurse Practitioner Family; Visit Provider Registered Nurse
DX: Z51.81 Encounter for therapeutic drug level monitoring (principal)
CPT/HCPCS: 80159; 85025

== ENCOUNTER 2024-04-15 15:05 | Outpatient (REF) | payer MEDICARE, MEDICAID, SELFPAY ==
[2024-04-15 13:46] LABS: Abs Immature Grans 0.04 10^3/uL (0.0-0.06); Absolute Basophil Count 0.05 10^3/uL (0.0-0.2); Absolute Eosinophil Count 0.01 10^3/uL (0.0-0.7); Absolute Lymphocyte Count 2.34 10^3/uL (1.2-3.4); Absolute Monocyte Count 0.79 10^3/uL (0.1-0.8); Absolute Neutrophil Count 5.73 10^3/uL (1.2-6.7); Basophils % 0.6 %; Eosinophils % 0.1 %; HCT 41.7 % (40.0-50.0); HGB 12.7 g/dL (13.5-17.5); Immature Grans % 0.4 %; Lymphocytes % 26.1 %; MCH 28.9 pg (27.0-33.0); MCHC 30.5 % (32.0-36.0); MCV 95 fL (80-95); MPV 10.4 fL (8.0-11.0); Monocytes % 8.8 %; Platelet Count 248 10^3/uL (130-400); RDW 13.3 % (11.8-14.1); RDW-SD 46.5 fL; WBC 8.96 10^3/uL (4.4-10.8)
== END 2024-04-15 15:06 | disposition home or self-care (01) ==
LOC: LBN 15:05
PROVIDERS: PCP Nurse Practitioner Family; Visit Provider Registered Nurse
DX: Z51.81 Encounter for therapeutic drug level monitoring (principal); F20.3 Undifferentiated schizophrenia; F33.1 Major depressive disorder, recurrent, moderate
CPT/HCPCS: 85025

== ENCOUNTER 2024-04-24 18:20 | Outpatient (REF) | payer MEDICARE, MEDICAID, SELFPAY ==
[2024-04-24 15:50] LABS: Abs Immature Grans 0.04 10^3/uL (0.0-0.06); Absolute Basophil Count 0.05 10^3/uL (0.0-0.2); Absolute Eosinophil Count 0.01 10^3/uL (0.0-0.7); Absolute Lymphocyte Count 2.74 10^3/uL (1.2-3.4); Absolute Monocyte Count 0.67 10^3/uL (0.1-0.8); Absolute Neutrophil Count 4.96 10^3/uL (1.2-6.7); Basophils % 0.6 %; Eosinophils % 0.1 %; HCT 40.5 % (40.0-50.0); HGB 12.6 g/dL (13.5-17.5); Immature Grans % 0.5 %; Lymphocytes % 32.3 %; MCH 29.2 pg (27.0-33.0); MCHC 31.1 % (32.0-36.0); MCV 94 fL (80-95); MPV 10.3 fL (8.0-11.0); Monocytes % 7.9 %; Neutrophils % 58.6 %; Platelet Count 259 10^3/uL (130-400); RBC 4.32 10^6/uL (4.36-5.78); RDW 13.2 % (11.8-14.1); RDW-SD 45.3 fL; WBC 8.47 10^3/uL (4.4-10.8)
== END 2024-04-24 18:21 | disposition home or self-care (01) ==
LOC: LBN 18:20
PROVIDERS: PCP Nurse Practitioner Family; Visit Provider Registered Nurse
DX: F20.3 Undifferentiated schizophrenia (principal)
CPT/HCPCS: 85025

== ENCOUNTER 2024-05-01 11:07 | Outpatient (REF) | payer MEDICARE, MEDICAID, SELFPAY ==
[2024-05-01 12:08] LABS: Abs Immature Grans 0.05 10^3/uL (0.0-0.06); Absolute Basophil Count 0.03 10^3/uL (0.0-0.2); Absolute Lymphocyte Count 1.75 10^3/uL (1.2-3.4); Absolute Monocyte Count 0.67 10^3/uL (0.1-0.8); Absolute Neutrophil Count 5.21 10^3/uL (1.2-6.7); Basophils % 0.4 %; HCT 40.1 % (40.0-50.0); HGB 12.4 g/dL (13.5-17.5); Immature Grans % 0.6 %; Lymphocytes % 22.7 %; MCH 29.3 pg (27.0-33.0); MCHC 30.9 % (32.0-36.0); MCV 95 fL (80-95); MPV 10.2 fL (8.0-11.0); Monocytes % 8.7 %; Neutrophils % 67.6 %; Platelet Count 256 10^3/uL (130-400); RBC 4.23 10^6/uL (4.36-5.78); RDW 13.2 % (11.8-14.1); RDW-SD 45.6 fL; WBC 7.71 10^3/uL (4.4-10.8)
== END 2024-05-01 11:08 | disposition home or self-care (01) ==
LOC: LBN 11:07
PROVIDERS: PCP Nurse Practitioner Family; Visit Provider Registered Nurse
DX: Z51.81 Encounter for therapeutic drug level monitoring (principal); F20.3 Undifferentiated schizophrenia; F33.1 Major depressive disorder, recurrent, moderate
CPT/HCPCS: 85025

== ENCOUNTER 2024-05-08 13:09 | Outpatient (REF) | payer MEDICARE, MEDICAID, SELFPAY ==
[2024-05-08 11:59] LABS: Abs Immature Grans 0.05 10^3/uL (0.0-0.06); Absolute Basophil Count 0.04 10^3/uL (0.0-0.2); Absolute Eosinophil Count 0.01 10^3/uL (0.0-0.7); Absolute Lymphocyte Count 1.74 10^3/uL (1.2-3.4); Absolute Monocyte Count 0.67 10^3/uL (0.1-0.8); Absolute Neutrophil Count 5.48 10^3/uL (1.2-6.7); Basophils % 0.5 %; Eosinophils % 0.1 %; HCT 40.9 % (40.0-50.0); HGB 12.4 g/dL (13.5-17.5); Immature Grans % 0.6 %; Lymphocytes % 21.8 %; MCH 28.8 pg (27.0-33.0); MCHC 30.3 % (32.0-36.0); MCV 95 fL (80-95); MPV 10.1 fL (8.0-11.0); Monocytes % 8.4 %; Neutrophils % 68.6 %; Platelet Count 280 10^3/uL (130-400); RBC 4.31 10^6/uL (4.36-5.78); RDW 13.2 % (11.8-14.1); RDW-SD 46.5 fL; WBC 7.99 10^3/uL (4.4-10.8)
== END 2024-05-08 13:10 | disposition home or self-care (01) ==
LOC: LBN 13:09
PROVIDERS: PCP Nurse Practitioner Family; Visit Provider Registered Nurse
DX: Z51.81 Encounter for therapeutic drug level monitoring (principal); F20.3 Undifferentiated schizophrenia; F33.1 Major depressive disorder, recurrent, moderate
CPT/HCPCS: 85025

== ENCOUNTER 2024-05-31 15:54 | Outpatient (REF) | payer MEDICARE, MEDICAID, SELFPAY ==
[2024-05-31 16:17] LABS: Abs Immature Grans 0.02 10^3/uL (0.0-0.06); Absolute Basophil Count 0.02 10^3/uL (0.0-0.2); Absolute Eosinophil Count 0.01 10^3/uL (0.0-0.7); Absolute Lymphocyte Count 1.97 10^3/uL (1.2-3.4); Absolute Monocyte Count 0.99 10^3/uL (0.1-0.8); Basophils % 0.2 %; Eosinophils % 0.1 %; HCT 44.5 % (40.0-50.0); HGB 14.1 g/dL (13.5-17.5); Immature Grans % 0.2 %; Lymphocytes % 21.2 %; MCH 28.8 pg (27.0-33.0); MCHC 31.7 % (32.0-36.0); MCV 91 fL (80-95); MPV 10.3 fL (8.0-11.0); Monocytes % 10.6 %; Neutrophils % 67.7 %; Platelet Count 256 10^3/uL (130-400); RDW 13.1 % (11.8-14.1); RDW-SD 44.2 fL; WBC 9.31 10^3/uL (4.4-10.8)
== END 2024-05-31 15:55 | disposition home or self-care (01) ==
LOC: LBN 15:54
PROVIDERS: PCP Nurse Practitioner Family; Visit Provider Family Medicine Geriatric Medicine
DX: F20.0 Paranoid schizophrenia (principal)
CPT/HCPCS: 85025

== ENCOUNTER 2024-06-04 04:32 | Inpatient (IN) | payer MEDICARE, MEDICAID, SELFPAY ==
[2024-06-04] VITALS (57 sets, daily range): BP systolic 85–241; BP diastolic 47–195; PULSE 87–182; RESP 2–30; TEMP 36.7–37.6; O2SAT 85–97
--- NOTE | 2024-06-04 04:30 | RT.EKG_ITS ---
APPROVED REPORT Exam: Resting ECG Reason for Exam: short of breath Patient Location: E HR:130 bpm ECG Measurements Heart Rate 130 AXIS TN 145 P 22 QRSd 92 QRS -35 QT 309 T 51 QTc 456 Conclusion Sinus tachycardia...rate> 99 Left axis deviation...QRS axis (-30,-90) no ST segment or T wave abnormalities to suggest occlusive NM
--- NOTE | 2024-06-04 04:45 | DI.RAD_ITS ---
Exam(s) XR CHEST 2V PA LATERAL EXAM: XR CHEST 2V PA LATERAL CLINICAL HISTORY: SOB TECHNIQUE: 2D digital imaging was performed of the chest. Two images were obtained. PA and lateral views were obtained. COMPARISON: CR XR CHEST 2V PA LATERAL from 03/28/2024 FINDINGS: Lateral view is limited due to patient positioning. MEDIASTINUM: Normal. HEART: Normal. PULMONARY VASCULATURE: Normal. LUNGS: There is an infiltrate seen in the right perihilar region suspicious for pneumonia. The left lung appears clear. PLEURAL SPACE: No pleural effusion or pneumothorax. BONE:Within normal limits for the patient's age. OTHER FINDINGS:Normal. IMPRESSION: Right perihilar pneumonia. DATA REPOSITORY: RADIATION DOSE DELIVERED:
--- NOTE | 2024-06-04 04:48 | ED.GENADUL_ITS ---
Discharge Plan Disposition Patient Disposition: Admit to [facility] Condition: Serious Discharge Details Clinical Impression: Aspiration pneumonia, Alzheimer's dementia without behavioral disturbance, Schizophrenia, COPD exacerbation Primary Care Provider: Milka Shelley ED Provider: Hafsa Chan Home Meds and New Rx's Prescriptions: No Action omega 4-itv-nxf-fish oil [Fish Oil] 60-90-500 mg capsule 1 cap PO DAILY simvastatin 20 mg tablet 20 mg PO DAILY docusate sodium 100 mg capsule 100 mg PO BID clozapine 50 mg tablet 50 mg PO QHS Rx Instructions: Take with 400mg for total dose of 450mg QHS tamsulosin 0.4 mg capsule 0.8 mg PO QHS Incruse Ellipta 62.5 mcg/actuation blister with device 1 inh inhalation DAILY acetaminophen [Tylenol] 325 mg tablet 650 mg PO Q6H PRN magnesium 250 mg tablet 250 mg PO DAILY trazodone 50 mg tablet 50 mg PO QHS clozapine 200 mg tablet 400 mg PO QHS duloxetine 60 mg capsule,delayed release(DR/EC) 120 mg PO DAILY cyanocobalamin (vitamin B-12) 1,000 mcg tablet, sublingual See Rx Instructions .ROUTE .COMPLEX Qty: 30 11RF Dose Instruction: 1 TAB (1000mcg) ORALLY DAILY Rx Instructions: 1 TAB (1000mcg) ORALLY DAILY donepezil 10 mg tablet 10 mg PO QHS Qty: 90 3RF memantine 10 mg tablet 10 mg PO BID Qty: 180 11RF diazepam 10 mg tablet 10 mg PO HS Patient Comments: Bedtime diazepam 5 mg tablet 5 mg PO DAILY Patient Comments: AM polyethylene glycol 3350 [Miralax] 17 gram/dose powder 17 g PO QDAY cholecalciferol (vitamin D3) [Vitamin D3] 25 mcg (1,000 unit) capsule 2,000 unit PO DAILY tizanidine 2 mg tablet 2 mg PO BID albuterol 90 mcg/actuation aerosol 90 mcg inhalation Q6H PRN olanzapine 10 mg tablet 10 mg PO TID trazodone 50 mg tablet 50 mg PO QHS PRN HPI General Mode of arrival: EMS . Date/Time Provider Initiated Documentation: 06/04/24 04:48 . Limitations to Documentation: other (dementia) . Information obtained by: patient and EMS . HPI Narrative: 69yo M with hx alzheimer's, schizophrenia, COPD, presenting via EMS from nursing facility for various concerns. Per EMS, pt with nausea, vomiting, and diarhea for three days and coughing up pink sputum for an unknown period of time. For EMS pt on 2L NC at baseline, requiring 6L to from EMS to maintain sat > 90% (reportedly 86% on their arrival on 2L). Patient states he is here for sore legs. Denies shortness of breath or chest pain. Denies nausea, vomiting, abdominal pain. Unable to provide medical history. Related Data Home Medications ?Medication ?Instructions ?Recorded ?Confirmed acetaminophen 325 mg tablet 650 mg PO Q6H PRN 03/23/22 06/04/24 (Tylenol) magnesium 250 mg tablet 250 mg PO DAILY 03/23/22 06/04/24 tamsulosin 0.4 mg capsule 0.8 mg PO QHS 03/23/22 06/04/24 trazodone 50 mg tablet 50 mg PO QHS 03/23/22 06/04/24 umeclidinium 62.5 mcg/actuation 1 inh inhalation DAILY 03/23/22 06/04/24 blister powder for inhalation (Incruse Ellipta) clozapine 200 mg tablet 400 mg PO QHS 01/19/23 06/04/24 clozapine 50 mg tablet 50 mg PO QHS 01/19/23 06/04/24 docusate sodium 100 mg capsule 100 mg PO BID 01/19/23 06/04/24 omega 1-cac-ncg-fish oil 60 mg-90 1 cap PO DAILY 01/19/23 06/04/24 mg-500 mg capsule (Fish Oil) simvastatin 20 mg tablet 20 mg PO DAILY 01/19/23 06/04/24 duloxetine 60 mg capsule,delayed 120 mg PO DAILY 07/20/23 06/04/24 release cyanocobalamin (vitamin B-12) See Rx Instructions .Route 08/16/23 06/04/24 1,000 mcg sublingual tablet .COMPLEX #30 tabs donepezil 10 mg tablet 10 mg PO QHS #90 tabs 10/03/23 06/04/24 diazepam 10 mg tablet 10 mg PO HS 01/30/24 06/04/24 diazepam 5 mg tablet 5 mg PO DAILY 01/30/24 06/04/24 albuterol 90 mcg/actuation aerosol 90 mcg inhalation Q6H PRN 02/11/24 06/04/24 inhaler cholecalciferol (vitamin D3) 25 2,000 unit PO DAILY 02/11/24 06/04/24 mcg (1,000 unit) capsule (Vitamin D3) olanzapine 10 mg tablet 10 mg PO TID 02/11/24 06/04/24 polyethylene glycol 3350 17 17 g PO QDAY 02/11/24 06/04/24 gram/dose oral powder (Miralax) tizanidine 2 mg tablet 2 mg PO BID 02/11/24 06/04/24 trazodone 50 mg tablet 50 mg PO QHS PRN 02/11/24 06/04/24 memantine 10 mg tablet 10 mg PO BID #180 tabs 02/27/24 06/04/24 Previous Rx's ?Medication ?Instructions ?Recorded cyanocobalamin (vitamin B-12) See Rx Instructions .Route 08/16/23 1,000 mcg sublingual tablet .COMPLEX #30 tabs donepezil 10 mg tablet 10 mg PO QHS #90 tabs 10/03/23 memantine 10 mg tablet 10 mg PO BID #180 tabs 02/27/24 Allergies Allergy/AdvReac Type Severity Reaction Status Date / Time No Known Allergies Allergy Verified 06/04/24 04:48 General Stated Complaint: RespSymp WILLIAMS: 3 Review of Systems Narrative: see HPI Exam Narrative Exam Narrative: General: Alert, chronically ill appearing Head: Normocephalic, atraumatic Neck: Trachea midline, ?Neck supple. ENT: ?MMM.? Cardiac: ?Tachycardiac, regular Resp: Tachypneic. Diffuse rhonchi bilaterally. Abd: ?Soft, non-distended, nontender : ?No suprapubic tenderness. Extremities: ?No deformities.? No peripheral edema. Neurologic: Alert. ? Moves all extremities freely against gravity Course Vital Signs Vital signs: Vital Signs Temperature 37.6 C H 06/04/24 04:30 Pulse 133 H 06/04/24 04:30 Respiratory Rate 30 H 06/04/24 04:30 Blood Pressure 128/58 L 06/04/24 04:30 Pulse Oximetry 88 L 06/04/24 04:30 Temperature 37.6 C H 06/04/24 04:39 Temperature Source Temporal Artery Scan 06/04/24 04:39 Pulse 129 H 06/04/24 04:39 Respiratory Rate 30 H 06/04/24 04:30 Respiratory Effort Short of Breath 06/04/24 04:39 Respiratory Depth Shallow 06/04/24 04:39 Blood Pressure 128/58 L 06/04/24 04:30 Blood Pressure Position Supine 06/04/24 04:30 Pulse Oximetry 88 L 06/04/24 04:39 Oxygen Delivery Method Nasal Cannula 06/04/24 04:39 Oxygen Flow Rate 6 06/04/24 04:39 Pain Level 8 06/04/24 04:30 Medical Decision Making 69yo M with hx alzheimer's, schizophrenia, COPD, presenting via EMS from nursing facility for various concerns. Per EMS, pt with nausea, vomiting, and diarrhea for three days and coughing up pink sputum for an unknown period of time; EMS pt on 2L NC at baseline at satting 86% on their arrival, requiring 6L during transport to maintain sat > 90% . Pt unable to provide history; medical history from chart review. Tachycardiac on arrival to 130's and sat 88-90% on 6L NC. Diffuse rhonchi on exam; no retractions or stridor, tachypnea to mid to high 20's. No abdominal tenderness; would not get abdominal imaging. Will treat for possible COPD exacerbation wtih stacked duonebs and IV steroid while awaiting results of workup. IV ceftriaxone and azithromycin. Not overtly septic and HF/PE also on differential; will hold off on IVF for now. -EKG sinus tachycardia, appropriate intervals, no ST segment or T wave ab normalities to suggest occlusive [place]. -CXR independently reviewed; agree with radiology read below with concern for pneumonia. -Labs reviewed as below, CBC with no leukocytosis or anemia, CMP with mild hypoK (oral replacement ordered), Mg slightly low (oral replacement ordered), BNP not suggestive of heart failure, initial troponin 18 with repeat unchanged, VBG reassuring with no hypercapnea or acidosis, lactate borderline at 2.2. -Respiratory viral swab negative -CTA independently reviewed; no large saddle embolus on my view, radiology read with likely aspiration pneumonia. On reassessment pt appears less dyspneic, RR in 20's, rhonchi persist. O2 sat 92-93% on 5L NC. HR r~110's. Will give 1L IVFB. Discussed with [facility] hospitalist Dr. Carcamo; pt accepted to medicine service. Requested bridging orders be placed which was done. Medical Records Medical records reviewed: Yes I reviewed the patient's medical records. Imaging Data Radiologic Study: Imaging: X-Ray Radiologist's impression: IMPRESSION: 1. Bibasilar opacities suspicious for pneumonia. Follow-up as clinically warranted. 2. Increased interstitial markings, could be due in part to low lung volumes. Cannot exclude edema, infection Radiologic Study #2: Imaging: CT Scan Radiologist's impression: IMPRESSION: 1. No pulmonary embolus is appreciated. 2. Interstitial and airspace opacities in the right lung most consistent with pneumonia. Consider aspiration. Follow-up to resolution advised. 3. Additional findings as above. Lab Data Lab results reviewed: Yes I reviewed the patient's lab results. Labs: Laboratory Tests Range/Units 06/04/24 06/04/24 04:39 04:50 WBC (4.4-10.8) 10^3/uL 3.29 L RBC (4.36-5.78) 10^6/uL 4.69 Hgb (13.5-17.5) g/dL 13.5 Hct (40.0-50.0) % 42.5 MCV (80-95) fL 91 MCH (27.0-33.0) pg 28.8 MCHC (32.0-36.0) % 31.8 L RDW (11.8-14.1) % 12.8 Plt Count (130-400) 10^3/uL 222 MPV (8.0-11.0) fL 9.9 Immature Gran % % 0.6 Neutrophils % % 78.7 Lymphocytes % % 13.1 Monocytes % % 7.3 Eosinophils % % 0.0 Basophils % % 0.3 Nucleated RBC % (0.0-0.3) % 0.0 Absolute Neutrophils (1.2-6.7) 10^3/uL 2.59 Absolute Lymphocytes (1.2-3.4) 10^3/uL 0.43 L Absolute Monocytes (0.1-0.8) 10^3/uL 0.24 Absolute Eosinophils (0.0-0.7) 10^3/uL 0.00 Absolute Basophils (0.0-0.2) 10^3/uL 0.01 Sodium (136-145) mmol/L 142 Potassium (3.5-5.1) mmol/L 3.2 L Chloride (98-107) mmol/L 103 Carbon Dioxide (21.0-32.0) mmol/L 32.6 H Anion Gap (3-11) mmol/L 6.4 BUN (7-18) mg/dL 10 Creatinine (0.70-1.30) mg/dL 1.0 Est GFR (CKD-EPI 2020) (mL/min/1.73m2) 82.49 Glucose (74-106) mg/dL 118 H Calcium (8.5-10.1) mg/dL 9.3 Magnesium (1.8-2.4) mg/dL 1.5 L Total Bilirubin (0.2-1.0) mg/dL 0.36 AST (15-37) U/L 26 ALT (16-63) U/L 46 Alkaline Phosphatase (46-116) U/L 79 Troponin I (<or=76) ng/L 18 NT-Pro-B Natriuret Pep (<300) pg/mL 350 H Total Protein (6.4-8.2) g/dL 7.0 Albumin (3.4-5.0) g/dL 3.1 L COVID-19 Source Nasopharynx SARS-CoV-2 (PCR) (Negative) Negative Influenza Type A (PCR) (Negative) Negative Influenza Type B (PCR) (Negative) Negative RSV (PCR) (Negative) Negative Quality:SDOH Health Related Social Needs: No Data to Display PFSH All Active Problems (Updated 06/04/24 @ 07:37 by Hafsa Chan MD) COPD exacerbation (Acute) Aspiration pneumonia (Acute) Schizophrenia (Chronic) Alzheimer's dementia without behavioral disturbance (Chronic) Medical History (Updated 06/04/24 @ 07:37 by Hafsa Chan MD) Left foot pain Cognitive impairment Bilateral primary osteoarthritis of knee Sepsis Pneumonia COVID Dermatophytosis of nail Alcohol abuse, in remission Auditory hallucinations History of suicidal ideation Paranoid schizophrenia Altered mental status Cognitive changes Anemia Elevated PSA Urinary incontinence Hyperplasia of prostate with lower urinary tract symptoms (LUTS) Emphysema lung Pulmonary nodule Tobacco abuse COPD (chronic obstructive pulmonary disease) History of prediabetes Hyperlipidemia Low back pain Acute metabolic encephalopathy Neutrophilia Pain, foot, left, chronic Patellofemoral joint pain Atherosclerosis Surgical History Hx of knee surgery Family History Mother Brain cancer Father Heart disease Hypertension Obesity Osteoarthritis Social History Smoking/Tobacco Use Status: Former Tobacco Use Tobacco: How many years used: 38 Smoking risk assessment performed?: Yes Alcohol Intake: never Substance use type: does not use Housing: assisted living facility Do you feel safe at home: Yes Do you feel safe in your relationship?: Yes
[2024-06-04 05:00] LABS: Abs Immature Grans 0.02 10^3/uL (0.0-0.06); Absolute Basophil Count 0.01 10^3/uL (0.0-0.2); Absolute Lymphocyte Count 0.43 10^3/uL (1.2-3.4); Absolute Monocyte Count 0.24 10^3/uL (0.1-0.8); Absolute Neutrophil Count 2.59 10^3/uL (1.2-6.7); Basophils % 0.3 %; HCT 42.5 % (40.0-50.0); HGB 13.5 g/dL (13.5-17.5); Immature Grans % 0.6 %; Lymphocytes % 13.1 %; MCH 28.8 pg (27.0-33.0); MCHC 31.8 % (32.0-36.0); MCV 91 fL (80-95); MPV 9.9 fL (8.0-11.0); Monocytes % 7.3 %; Neutrophils % 78.7 %; Platelet Count 222 10^3/uL (130-400); RBC 4.69 10^6/uL (4.36-5.78); RDW 12.8 % (11.8-14.1); RDW-SD 42.3 fL; WBC 3.29 10^3/uL (4.4-10.8)
[2024-06-04] MEDS: Albuterol/Ipratropium 3 ML UPD VIAL UPD ×6 (05:16→16:42)
[2024-06-04] MEDS: methylPREDNISolone SUCC 125 MG VIAL IVP (05:16)
[2024-06-04 05:22] LABS: COVID-19 PCR Negative (Negative); Influenza A PCR Negative (Negative); Influenza B PCR Negative (Negative); RSV PCR Negative (Negative)
[2024-06-04 05:24] LABS: ALT 46 U/L (16-63); AST 26 U/L (15-37); Albumin 3.1 g/dL (3.4-5.0); Alkaline Phosphatase 79 U/L (46-116); Anion Gap 6.4 mmol/L (3-11); BUN 10 mg/dL (7-18); Bilirubin, Total 0.36 mg/dL (0.2-1.0); CO2 32.6 mmol/L (21.0-32.0); Calcium 9.3 mg/dL (8.5-10.1); Chloride 103 mmol/L (98-107); Estimated GFR 82.49 (mL/min/1.73m2); Glucose 118 mg/dL (74-106); Magnesium 1.5 mg/dL (1.8-2.4); NT-proBNP 350 pg/mL (<300); Potassium 3.2 mmol/L (3.5-5.1); Sodium 142 mmol/L (136-145); Troponin I 18 ng/L (<or=76)
[2024-06-04 05:25] LABS: Source Nasopharynx
[2024-06-04] MEDS: cefTRIAXone 1 GM/50 ML BAG IVPB (05:35)
[2024-06-04] MEDS: Potassium Chloride Liquid 20 MEQ PKT 40 MEQ PO (05:35)
[2024-06-04] MEDS: Magnesium Oxide 400 MG TAB 800 MG PO (05:35)
--- NOTE | 2024-06-04 06:20 | DI.VRAD_ITS ---
PROCEDURE INFORMATION: Exam: XR Chest Exam date and time: 06/04/2024 5:55 AM Age: 69 years old Clinical indication: Shortness of breath; SOB TECHNIQUE: Imaging protocol: Radiologic exam of the chest. Views: 2 views. COMPARISON: CR XR CHEST 2V PA LATERAL 03/28/2024 10:47 AM FINDINGS: Lungs: Low lung volumes. Increased interstitial markings in both lungs. Bibasilar pulmonary opacities. Pleural spaces: No large pleural effusion seen. Heart/Mediastinum: No cardiomegaly. Diaphragm: Elevated right hemidiaphragm. Bones/joints: No acute abnormality. IMPRESSION: 1. Bibasilar opacities suspicious for pneumonia. Follow-up as clinically warranted. 2. Increased interstitial markings, could be due in part to low lung volumes. Cannot exclude edema, infection. Dictated and Authenticated by: Joellen Ro MD. Orderin Dustin Pereyra MD
[2024-06-04] MEDS: AZITHROMYCIN 500 MG in Normal Saline 250 ML 250 MG IVPB (06:32)
[2024-06-04 06:44] LABS: Troponin I 18 ng/L (<or=76)
[2024-06-04] MEDS: Omnipaque 350 MG/ML 100 ML BTL 80 ML IJ (06:45)
[2024-06-04 06:46] LABS: BE (Venous) 5 mmol/L (-2-3); HCO3 (Venous) 30 mmol/L (23-28); O2 Sat (Venous) 70 %; TCO2 (Venous) 28 mmol/L (24-29); pCO2 (Venous) 51 mmHg (41-51); pH (Venous) 7.38 (7.31-7.41); pO2 (Venous) 36 mmHg
[2024-06-04] MEDS: Normal Saline - Diluent 50 ML VIAL IJ ×2 (06:46→07:01)
[2024-06-04 06:50] LABS: Lactate 2.2 mmol/L (<or=2.0)
--- NOTE | 2024-06-04 07:02 | DI.CT_ITS ---
Exam(s) CT CHEST PE CTA EXAM: CT CHEST PE CTA CLINICAL HISTORY: hypoxia tachycardia pink sputum. TECHNIQUE: Imaging Protocol: Axial CT angiography was performed with multi-slice acquisition and mu lti-planar and/or 3D reconstructions. Lung Computer Aided Detection (CAD) was utilized. CONTRAST MATERIAL: Intravenous: Omnipaque 350 contrast volume:80 mL COMPARISON: CT CT CHEST LUNG CANCER SCREEN from 12/19/2023 CR,XR XR CHEST 2V PA LATERAL from 06/04/2024 FINDINGS: The examination is limited due to patient motion artifact. Tracheobronchial tree: There is a small amount of fluid seen in the right and left mainstem bronchi. There is mild bronchial wall thickening in the right lower lobe. No bronchiectasis. Pulmonary parenchyma: There areas of infiltrate in the right upper, middle and lower lobes. Consolid ation is seen in the dependent portion of the right lung base. There is a calcified granuloma in the left lower lobe. Atelectatic changes are seen in the left lung base. Pulmonary Arteries: No large central pulmonary embolism is present. Mediastinum and Marilu: No significant adenopathy or fluid collection. There is a small hiatal hernia. Visualized thyroid gland: Unremarkable. Pleura: No effusion or pneumothorax. Heart: The heart is not dilated. Coronary artery calcification is present. No pericardial effusion. Aorta: Thoracic aorta non-dilated. No evidence of dissection. Atherosclerotic calcification is presen t. Upper abdomen: Unremarkable. Soft tissues: Unremarkable. Bones: Within normal limits for the patient's age. IMPRESSION: 1. No evidence of pulmonary embolism, thoracic aortic dissection or aneurysm. 2. Pneumonia involving the right upper, middle and lower lobes. 3. Fluid seen in the right and left mainstem bronchi with fluid seen in the esophagus raising the con cern for aspiration. RADIATION DOSE DELIVERED: 87.96mGy.cm Total DLP DATA REPOSITORY: All CT scans at this facility are submitted to the National Radiology Data Registry (NRDR) Dose Index Registry (DIR) with the [employer] (ACR). RADIATION OPTIMIZATION: All CT scans at this facility use at least one of these dose optimization te chniques: automated exposure control; mA and/or kV adjustment per patient size (includes targeted exa ms where dose is matched to clinical indication); or iterative reconstruction.
--- NOTE | 2024-06-04 07:17 | DI.VRAD_ITS ---
PROCEDURE INFORMATION: Exam: CTA Chest With Contrast Exam date and time: 06/04/2024 6:54 AM Age: 69 years old Clinical indication: Other: Hypoxia/tachy/pink sputum TECHNIQUE: Imaging protocol: Computed tomographic angiography of the chest with contrast. Exam focused on the arteries. 3D rendering (Not supervised by radiologist): MIP and/or 3D reconstructed images were created by the technologist. Radiation optimization: All CT scans at this facility use at least one of these dose optimization techniques: automated exposure control; mA and/or kV adjustment per patient size (includes targeted exams where dose is matched to clinical indication); or iterative reconstruction. Contrast material: OMNI 350; Contrast volume: 80 ml; Contrast route: INTRAVENOUS (IV); COMPARISON: CT CHEST LUNG CANCER SCREEN 12/19/2023 9:29 AM FINDINGS: Limitations: Mild motion artifact. Pulmonary arteries: No pulmonary embolus is appreciated. Aorta: Atherosclerotic changes in the aorta and its branches. Lungs: Extensive interstitial and airspace opacities in all lobes of the right lung. Secretions in the trachea and bilateral mainstem bronchi extending into the right lower lobe, suggesting aspiration. Left lower lobe granuloma. Pleural spaces: Trace right pleural effusion. Heart: No pericardial effusion. Coronary arteries: Coronary calcifications. Esophagus: Fluid in the esophagus. Correlate clinically for reflux. Patient may be at risk for aspiration. Lymph nodes: Nonspecific mediastinal lymph nodes. Diaphragm: Hiatal hernia. Fat containing left Bochdalek hernia. Liver: Hepatomegaly. Hepatic steatosis. Adrenal glands: Adrenal thickening. Left adrenal calcification. Bones/joints: No acute pertinent abnormality seen. Soft tissues: No acute pertinent abnormality seen. IMPRESSION: 1. No pulmonary embolus is appreciated. 2. Interstitial and airspace opacities in the right lung most consistent with pneumonia. Consider aspiration. Follow-up to resolution advised. 3. Additional findings as above. Dictated and Authenticated by: Joellen Ro MD. Orderin Dustin Pereyra MD
[2024-06-04] MEDS: Normal Saline 1,000 ML 1000 ML IV (08:13)
[2024-06-04 08:36] LABS: Troponin I 16 ng/L (<or=76)
--- NOTE | 2024-06-04 09:15 | PDOC.CMIN ---
Date of service: 06/04/24 Time of Service: 09:15 Care Management Initial Assmt Initial Assessment Reason for Hospitalization: pneumonia Functional Status/Living Situation Town of Residence: [facility] Resides with: Other (assisted living) Employment Status: Retired Medications Medication Management: No Issues/Barriers identified Physical Functioning/Mobility Assistive Device: walker Advance Directives Advance Directives: Do you have an Advance Directive: Y 12/12/22 12:20 AD On File at [facility]: Y 12/12/22 12:20 Date Asked 12/15/23 06/04/24 07:22 AD Date Reviewed 06/04/24 06/04/24 07:22 COLST On File at [facility] COLST Date Scanned Code Status Resuscitation Status Full Code Portal Pt does not currently have a portal and education provided: No Portal Education: Other (has dementia) Insurance Coverage/Financial Issues Insurance: Medicare Medicaid Care Team Visit Care Team Role Provider Type Milka Shelley Primary Care Provider ADV PRACTICE REGISTERED NURSE Maru Casper Other Providers WARP HANGER Adriana Vásquez Other Providers WARP HANGER Milka Mckenzie Other Providers WARP HANGER Lucila Weems RN Other Providers WARP HANGER Hafsa Chan MD Emergency Provider [facility] STAFF PHYSICIAN Richard Carcamo MD Admit Provider [facility] STAFF PHYSICIAN Attending Provider Discharge Potential Discharge Needs: PCP F/U Appt Anticipated Barriers to Discharge: None Identified Patient/Family Education Needs: Review discharge instructions, discuss Ask Me Three Transportation: Private vehicle Plan: Anticipate Venu will be transferred back to the [facility] when medically cleared. He will follow up with his community providers and plan of care and transport with family vs [facility]. CM will follow and continue to support discharge planning efforts. Social Determinants of Health Screening Will the Patient Participate in the Screening?: Unable to obtain PFSH All Active Problems (Updated 06/04/24 @ 07:37 by Hafsa Chan MD) COPD exacerbation (Acute) Aspiration pneumonia (Acute) Schizophrenia (Chronic) Alzheimer's dementia without behavioral disturbance (Chronic) Medical History (Updated 06/04/24 @ 07:37 by Hafsa Chan MD) Left foot pain Cognitive impairment Bilateral primary osteoarthritis of knee Sepsis Pneumonia COVID Dermatophytosis of nail Alcohol abuse, in remission Auditory hallucinations History of suicidal ideation Paranoid schizophrenia Altered mental status Cognitive changes Anemia Elevated PSA Urinary incontinence Hyperplasia of prostate with lower urinary tract symptoms (LUTS) Emphysema lung Pulmonary nodule Tobacco abuse COPD (chronic obstructive pulmonary disease) History of prediabetes Hyperlipidemia Low back pain Acute metabolic encephalopathy Neutrophilia Pain, foot, left, chronic Patellofemoral joint pain Atherosclerosis Surgical History Hx of knee surgery Family History Mother Brain cancer Father Heart disease Hypertension Obesity Osteoarthritis Social History Smoking/Tobacco Use Status: Former Tobacco Use Tobacco: How many years used: 38 Smoking risk assessment performed?: Yes Alcohol Intake: never Substance use type: does not use Housing: assisted living facility Do you feel safe at home: Yes Do you feel safe in your relationship?: Yes
[2024-06-04] MEDS: Enoxaparin 40 MG/0.4 ML SYR SC (10:04)
--- NOTE | 2024-06-04 12:32 | W.PC.ACHO ---
Registration Status: Primary Language: Preferred Language: ED Information & Data Chief Complaint RespSymp 06/04/24 04:48 Triage Note BIBA from [facility], pt c/o 06/04/24 04:30 SOB. Facility states n/v/d x3 days, pt states has been going on 2 weeks - coughing up pink phlegm, afebrile. Pt was 86% on 2L, with EMS bumped to 6L now at 91%. At [facility] standby assist, now very weak. Pt A&Ox4. Pt denies chest pain, states legs hurt . afebrile per EMS. Medical / Surgical History (Last Updated 02/16/24 @ 19:05 by Joe Soliz MD) Left foot pain Cognitive impairment Bilateral primary osteoarthritis of knee Sepsis Pneumonia COVID Dermatophytosis of nail Alcohol abuse, in remission Auditory hallucinations History of suicidal ideation Paranoid schizophrenia Altered mental status Cognitive changes Anemia Elevated PSA Urinary incontinence Hyperplasia of prostate with lower urinary tract symptoms (LUTS) Emphysema lung Pulmonary nodule Tobacco abuse COPD (chronic obstructive pulmonary disease) History of prediabetes Hyperlipidemia Low back pain Acute metabolic encephalopathy Neutrophilia Pain, foot, left, chronic Patellofemoral joint pain Atherosclerosis (Last Reviewed 02/11/24 @ 18:56 by Eric No MD) Hx of knee surgery Most Recent Vital Signs Temperature 37.6 C H 06/04/24 04:39 Temperature Source Temporal Artery Scan 06/04/24 04:39 Pulse 101 H 06/04/24 11:21 Pulse 100 H 06/04/24 11:21 Respiratory Rate 16 06/04/24 11:21 Respiratory Effort Short of Breath 06/04/24 04:39 Respiratory Depth Shallow 06/04/24 04:39 Blood Pressure 96/58 L 06/04/24 11:21 Blood Pressure Mean 71 06/04/24 11:21 Blood Pressure Position Supine 06/04/24 04:30 Pulse Oximetry 91 L 06/04/24 12:08 Oxygen Delivery Method OxyMask 06/04/24 12:08 Oxygen Flow Rate 3 06/04/24 12:08 Pain Level 8 06/04/24 04:30 Allergies No Known Allergies Allergy (Verified 06/04/24 04:48) Precautions Isolation PUI 06/04/24 04:39 Active Medications Generic Name Dose Route Start Last Admin Trade Name Freq PRN Reason Stop Dose Admin Albuterol/Ipratropium 3 ml 06/04/24 08:35 06/04/24 10:08 Albuterol/Ipratropium 3 Ml Upd Vial UPD 3 ml Q6H PRN PRN Administration Enoxaparin Sodium 40 mg 06/04/24 10:00 06/04/24 10:04 Enoxaparin 40 Mg/0.4 Ml Syr SC 40 mg Q24H MARIA ALEJANDRA Administration Iohexol 80 ml 06/04/24 06:45 06/04/24 06:45 Omnipaque 350 Mg/Ml 100 Ml Btl IJ 07/04/24 23:59 80 ml DIRECTED MARIA ALEJANDRA Administration Sodium Chloride 50 ml 06/04/24 07:00 06/04/24 07:01 Normal Saline - Diluent 50 Ml Vial IJ 50 ml .FOR DI USE MARIA ALEJANDRA Administration IV IV Catheter Type [Right Peripheral IV Antecubital] IV Catheter Type [Left Saline Lock Antecubital] IV Catheter Gauge [Right 18 Antecubital] IV Catheter Gauge [Left 18 Antecubital] Diet Orders Category Date Time Status Nothing Per Oral [DIET] Nutrition 06/04/24 Lunch Active Diagnostics 06/04/24 06/04/24 06/04/24 Range/Units 12:13 08:10 06:40 WBC (4.4-10.8) 10^3/uL RBC (4.36-5.78) 10^6/uL Hgb (13.5-17.5) g/dL Hct (40.0-50.0) % MCV (80-95) fL MCH (27.0-33.0) pg MCHC (32.0-36.0) % RDW (11.8-14.1) % Plt Count (130-400) 10^3/uL MPV (8.0-11.0) fL Immature Gran % % Neutrophils % % Lymphocytes % % Monocytes % % Eosinophils % % Basophils % % Nucleated RBC % (0.0-0.3) % Absolute Neutrophils (1.2-6.7) 10^3/uL Absolute Lymphocytes (1.2-3.4) 10^3/uL Absolute Monocytes (0.1-0.8) 10^3/uL Absolute Eosinophils (0.0-0.7) 10^3/uL Absolute Basophils (0.0-0.2) 10^3/uL VBG pH 7.38 (7.31-7.41) VBG pCO2 51 (41-51) mmHg VBG pO2 36 mmHg VBG HCO3 30 H (23-28) mmol/L VBG Total CO2 28 (24-29) mmol/L VBG O2 Saturation 70 % VBG Base Excess 5 H (-2-3) mmol/L VBG Lactate Pending 2.2 H* (<or=2.0) mmol/L Sodium (136-145) mmol/L Potassium (3.5-5.1) mmol/L Chloride (98-107) mmol/L Carbon Dioxide (21.0-32.0) mmol/L Anion Gap (3-11) mmol/L BUN (7-18) mg/dL Creatinine (0.70-1.30) mg/dL Est GFR (CKD-EPI 2020) (mL/min/1.73m2) Glucose (74-106) mg/dL Calcium (8.5-10.1) mg/dL Magnesium (1.8-2.4) mg/dL Total Bilirubin (0.2-1.0) mg/dL AST (15-37) U/L ALT (16-63) U/L Alkaline Phosphatase (46-116) U/L Troponin I 16 (<or=76) ng/L NT-Pro-B Natriuret Pep (<300) pg/mL Total Protein (6.4-8.2) g/dL Albumin (3.4-5.0) g/dL COVID-19 Source SARS-CoV-2 (PCR) (Negative) Influenza Type A (PCR) (Negative) Influenza Type B (PCR) (Negative) RSV (PCR) (Negative) 06/04/24 06/04/24 06/04/24 Range/Units 06:15 04:50 04:39 WBC 3.29 L (4.4-10.8) 10^3/uL RBC 4.69 (4.36-5.78) 10^6/uL Hgb 13.5 (13.5-17.5) g/dL Hct 42.5 (40.0-50.0) % MCV 91 (80-95) fL MCH 28.8 (27.0-33.0) pg MCHC 31.8 L (32.0-36.0) % RDW 12.8 (11.8-14.1) % Plt Count 222 (130-400) 10^3/uL MPV 9.9 (8.0-11.0) fL Immature Gran % 0.6 % Neutrophils % 78.7 % Lymphocytes % 13.1 % Monocytes % 7.3 % Eosinophils % 0.0 % Basophils % 0.3 % Nucleated RBC % 0.0 (0.0-0.3) % Absolute Neutrophils 2.59 (1.2-6.7) 10^3/uL Absolute Lymphocytes 0.43 L (1.2-3.4) 10^3/uL Absolute Monocytes 0.24 (0.1-0.8) 10^3/uL Absolute Eosinophils 0.00 (0.0-0.7) 10^3/uL Absolute Basophils 0.01 (0.0-0.2) 10^3/uL VBG pH (7.31-7.41) VBG pCO2 (41-51) mmHg VBG pO2 mmHg VBG HCO3 (23-28) mmol/L VBG Total CO2 (24-29) mmol/L VBG O2 Saturation % VBG Base Excess (-2-3) mmol/L VBG Lactate (<or=2.0) mmol/L Sodium 142 (136-145) mmol/L Potassium 3.2 L (3.5-5.1) mmol/L Chloride 103 (98-107) mmol/L Carbon Dioxide 32.6 H (21.0-32.0) mmol/L Anion Gap 6.4 (3-11) mmol/L BUN 10 (7-18) mg/dL Creatinine 1.0 (0.70-1.30) mg/dL Est GFR (CKD-EPI 2020) 82.49 (mL/min/1.73m2) Glucose 118 H (74-106) mg/dL Calcium 9.3 (8.5-10.1) mg/dL Magnesium 1.5 L (1.8-2.4) mg/dL Total Bilirubin 0.36 (0.2-1.0) mg/dL AST 26 (15-37) U/L ALT 46 (16-63) U/L Alkaline Phosphatase 79 (46-116) U/L Troponin I 18 18 (<or=76) ng/L NT-Pro-B Natriuret Pep 350 H (<300) pg/mL Total Protein 7.0 (6.4-8.2) g/dL Albumin 3.1 L (3.4-5.0) g/dL COVID-19 Source Nasopharynx SARS-CoV-2 (PCR) Negative (Negative) Influenza Type A (PCR) Negative (Negative) Influenza Type B (PCR) Negative (Negative) RSV (PCR) Negative (Negative) 06/04/24 05:10 Blood Culture - Pending Blood 06/04/24 04:50 Blood Culture - Pending Blood Intake and Output - 24 Hour Total 06/04/24 04:29 thru 06/04/24 10:05 Intake Total 1300 Balance 1300 Weight 99.9 kg Intake: IV 1300 Falls Risk Assessment History of Falls Previous History 06/04/24 04:39 Contributing Factors Confusion,Unstable, 06/04/24 04:39 Impairments,Incontinence, Medications Ambulatory Aids Uses ambulatory device 06/04/24 04:39 Tubes/Lines With any additional score 06/04/24 04:39 Gait Evaluation W/any additional score 06/04/24 04:39 Cognition No cognitive impairment 06/04/24 04:39 Fall Total Score 85 06/04/24 04:39 Level of Risk Maximum Risk 06/04/24 04:39 v v v v v v v v v Sending and/or Receiving Nurses: Please use comment section below to note any information pertinent to the patient hand-off not included above. Information / Comments: Comes from [facility] facility, Alert and oriented rings correctly, cough with pink sputum unknown length of time, SOB, arrived VIA ems requiring increased O2 via NC. Elev ated Lactate, PO K replaced in ER, bolus given in ER due to tachycardia and hypotention, 18G bilateral AC, fatigued, tired, loss of appeptite, febrile, lovenox was given, N/V/D x3 days. Report received from: Demi Lopez RN ER at [id number]
[2024-06-04 12:33] LABS: Lactate 2.3 mmol/L (<or=2.0)
[2024-06-04] MEDS: Normal Saline 500 ML IV (13:15)
--- NOTE | 2024-06-04 13:16 | HPE_ITS ---
Date of service: 06/04/24 Time of Service: 13:16 Assessment and Plan Assessment and plan (1) Sepsis without septic shock: Status: Acute Assessment and plan: meets criteria with elevated pulse and heart rate, source respiratory continue IV resuscitation and follow lactate, next level at 1800 continue ceftriaxone/azithromycin day 1 schedule duonebs, albuterol prn wean oxygen as able (2) Aspiration pneumonia: Status: Acute Assessment and plan: as above (3) COPD exacerbation: Status: Acute Assessment and plan: as above (4) Schizophrenia: Status: Chronic Assessment and plan: - Continue home medication regimen of clozapine, diazepam, duloxetine, olanzapine, trazodone for schizophrenia, cognitive impairment and Alzheimer's as noted below (5) Cognitive impairment: (6) Alzheimer's dementia without behavioral disturbance: Status: Chronic History of Present Illness Narrative: This is a 69-year-old male patient past medical history significant for schizophrenia, COPD, Alzheimer's who [facility] a [facility] who presented here to the emergency department with complaints of productive cough, hypoxia, nausea vomiting and diarrhea that has been going on for 3 days. He has oxygen dependent typically at 2 L nasal cannula now requiring 6 L to maintain sats at 90%. His workup in the emergency department is concerning for pneumonia thought to be aspiration. He was started on antibiotics accordingly. Lactate elevated at 2.2 did receive 1 L of normal saline with no improvement in his lactate so given additional bolus and maintenance fluid. He did have a CTA completed that showed no evidence of embolism. He is being admitted to hospitalist services for acute hypoxic respiratory failure, sepsis with source pneumonia no septic shock. Review of Systems All systems reviewed & are unremarkable except as noted in HPI and below PFSH All Active Problems (Updated 06/04/24 @ 13:18 by Lizbeth Randle NP) Sepsis without septic shock (Acute) COPD exacerbation (Acute) Aspiration pneumonia (Acute) Schizophrenia (Chronic) Alzheimer's dementia without behavioral disturbance (Chronic) Medical History (Updated 06/04/24 @ 13:18 by Lizbeth Randle NP) Left foot pain Cognitive impairment Bilateral primary osteoarthritis of knee Sepsis Pneumonia COVID Dermatophytosis of nail Alcohol abuse, in remission Auditory hallucinations History of suicidal ideation Paranoid schizophrenia Altered mental status Cognitive changes Anemia Elevated PSA Urinary incontinence Hyperplasia of prostate with lower urinary tract symptoms (LUTS) Emphysema lung Pulmonary nodule Tobacco abuse COPD (chronic obstructive pulmonary disease) History of prediabetes Hyperlipidemia Low back pain Acute metabolic encephalopathy Neutrophilia Pain, foot, left, chronic Patellofemoral joint pain Atherosclerosis Surgical History Hx of knee surgery Family History Mother Brain cancer Father Heart disease Hypertension Obesity Osteoarthritis Social History Smoking/Tobacco Use Status: Former Tobacco Use Tobacco: How many years used: 38 Smoking risk assessment performed?: Yes Alcohol Intake: never Substance use type: does not use Housing: assisted living facility Do you feel safe at home: Yes Do you feel safe in your relationship?: Yes Meds Allergies and Home Medications Allergies Allergy/AdvReac Type Severity Reaction Status Date / Time No Known Allergies Allergy Verified 06/04/24 04:48 Home Medications ?Medication ?Instructions ?Recorded ?Confirmed ?Type acetaminophen 325 mg tablet 650 mg PO Q6H PRN 03/23/22 06/04/24 History (Tylenol) magnesium 250 mg tablet 250 mg PO DAILY 03/23/22 06/04/24 History tamsulosin 0.4 mg capsule 0.8 mg PO QHS 03/23/22 06/04/24 History trazodone 50 mg tablet 50 mg PO QHS 03/23/22 06/04/24 History umeclidinium 62.5 mcg/actuation 1 inh inhalation DAILY 03/23/22 06/04/24 History blister powder for inhalation (Incruse Ellipta) clozapine 200 mg tablet 400 mg PO QHS 01/19/23 06/04/24 History clozapine 50 mg tablet 50 mg PO QHS 01/19/23 06/04/24 History docusate sodium 100 mg capsule 100 mg PO BID 01/19/23 06/04/24 History omega 5-cas-yju-fish oil 60 mg-90 1 cap PO DAILY 01/19/23 06/04/24 History mg-500 mg capsule (Fish Oil) simvastatin 20 mg tablet 20 mg PO DAILY 01/19/23 06/04/24 History duloxetine 60 mg capsule,delayed 120 mg PO DAILY 07/20/23 06/04/24 History release cyanocobalamin (vitamin B-12) See Rx Instructions .Route 08/16/23 06/04/24 Rx 1,000 mcg sublingual tablet .COMPLEX #30 tabs donepezil 10 mg tablet 10 mg PO QHS #90 tabs 10/03/23 06/04/24 Rx diazepam 10 mg tablet 10 mg PO HS 01/30/24 06/04/24 History diazepam 5 mg tablet 5 mg PO DAILY 01/30/24 06/04/24 History cholecalciferol (vitamin D3) 25 2,000 unit PO DAILY 02/11/24 06/04/24 History mcg (1,000 unit) capsule (Vitamin D3) olanzapine 10 mg tablet 10 mg PO TID 02/11/24 06/04/24 History polyethylene glycol 3350 17 17 g PO QDAY 02/11/24 06/04/24 History gram/dose oral powder (Miralax) tizanidine 2 mg tablet 2 mg PO BID 02/11/24 06/04/24 History trazodone 50 mg tablet 50 mg PO QHS PRN 02/11/24 06/04/24 History memantine 10 mg tablet 10 mg PO BID #180 tabs 02/27/24 06/04/24 Rx albuterol sulfate 90 mcg/actuation 1 inh inhalation Q6H PRN 06/04/24 06/04/24 History aerosol inhaler Exam Const General: cooperative, comfortable and no acute distress Orientation: alert, awake and oriented to person [facility] Head: normal to inspection, normocephalic and atraumatic Resp Effort & Inspection: normal respiratory effort Auscultation: diminished lung sounds and no wheezes Cardio Rate: regular rate Rhythm: regular rhythm GI Palpation: soft (round) and nontender Results Labs 06/04/24 04:50 06/04/24 04:50 Labs: Laboratory Results - last 24 hr 06/04/24 06/04/24 06/04/24 04:39 04:50 06:15 WBC 3.29 L RBC 4.69 Hgb 13.5 Hct 42.5 MCV 91 MCH 28.8 MCHC 31.8 L RDW 12.8 Plt Count 222 MPV 9.9 Immature Gran % 0.6 Neutrophils % 78.7 Lymphocytes % 13.1 Monocytes % 7.3 Eosinophils % 0.0 Basophils % 0.3 Nucleated RBC % 0.0 Absolute Neutrophils 2.59 Absolute Lymphocytes 0.43 L Absolute Monocytes 0.24 Absolute Eosinophils 0.00 Absolute Basophils 0.01 VBG pH VBG pCO2 VBG pO2 VBG HCO3 VBG Total CO2 VBG O2 Saturation VBG Base Excess VBG Lactate Sodium 142 Potassium 3.2 L Chloride 103 Carbon Dioxide 32.6 H Anion Gap 6.4 BUN 10 Creatinine 1.0 Est GFR (CKD-EPI 2020) 82.49 Glucose 118 H Calcium 9.3 Magnesium 1.5 L Total Bilirubin 0.36 AST 26 ALT 46 Alkaline Phosphatase 79 Troponin I 18 18 NT-Pro-B Natriuret Pep 350 H Total Protein 7.0 Albumin 3.1 L COVID-19 Source Nasopharynx SARS-CoV-2 (PCR) Negative Influenza Type A (PCR) Negative Influenza Type B (PCR) Negative RSV (PCR) Negative 06/04/24 06/04/24 06/04/24 06:40 08:10 12:13 WBC RBC Hgb Hct MCV MCH MCHC RDW Plt Count MPV Immature Gran % Neutrophils % Lymphocytes % Monocytes % Eosinophils % Basophils % Nucleated RBC % Absolute Neutrophils Absolute Lymphocytes Absolute Monocytes Absolute Eosinophils Absolute Basophils VBG pH 7.38 VBG pCO2 51 VBG pO2 36 VBG HCO3 30 H VBG Total CO2 28 VBG O2 Saturation 70 VBG Base Excess 5 H VBG Lactate 2.2 H* 2.3 H* Sodium Potassium Chloride Carbon Dioxide Anion Gap BUN Creatinine Est GFR (CKD-EPI 2020) Glucose Calcium Magnesium Total Bilirubin AST ALT Alkaline Phosphatase Troponin I 16 NT-Pro-B Natriuret Pep Total Protein Albumin COVID-19 Source SARS-CoV-2 (PCR) Influenza Type A (PCR) Influenza Type B (PCR) RSV (PCR) Last Vital Signs Temp 36.9 C 06/04/24 13:05 Pulse 95 H 06/04/24 13:05 Resp 20 06/04/24 13:05 BP 94/74 L 06/04/24 13:05 Pulse Ox 93 06/04/24 13:05 Time Spent Time spent with Patient: 55-74 minutes Time was spent: preparing to see the patient(eg.review tests), obtaining and/or reviewing separately otained hiistory, ordering medications,tests, procedures and indepentently interpreting results
[2024-06-04] MEDS: OLANZapine 10 MG TAB PO ×2 (14:57→21:03)
[2024-06-04] MEDS: Normal Saline 1,000 ML 125 ML IV (16:03)
--- NOTE | 2024-06-04 16:48 | RESPIRATORY ---
Pt uses 2L O2 at baseline, DME: [facility]
[2024-06-04 18:54] LABS: Lactate 2.5 mmol/L (<or=2.0)
[2024-06-04] MEDS: Tamsulosin 0.4 MG CAPCR 0.8 MG PO (21:02)
[2024-06-04] MEDS: Donepezil 5 MG TAB 10 MG PO (21:02)
[2024-06-04] MEDS: traZODone 50 MG TAB PO (21:02)
[2024-06-04] MEDS: diazePAM 5 MG TAB 10 MG PO (21:02)
[2024-06-04] MEDS: Memantine 5 MG TAB 10 MG PO (21:03)
[2024-06-04] MEDS: Docusate Sodium 100 MG CAP PO (21:03)
[2024-06-05] VITALS (14 sets, daily range): BP systolic 92–116; BP diastolic 50–66; PULSE 85–108; RESP 6–22; TEMP 36.6–37.1; O2SAT 89–98
[2024-06-05] MEDS: Normal Saline 1,000 ML 125 ML IV (00:08)
[2024-06-05] MEDS: Lactated Ringers 1,000 ML 1000 ML IV (01:37)
[2024-06-05 06:33] LABS: Lactate 0.7 mmol/L (<or=2.0)
[2024-06-05 06:35] LABS: Abs Immature Grans 0.22 10^3/uL (0.0-0.06); Absolute Basophil Count 0.08 10^3/uL (0.0-0.2); Absolute Eosinophil Count 0.47 10^3/uL (0.0-0.7); Absolute Monocyte Count 1.35 10^3/uL (0.1-0.8); Absolute Neutrophil Count 11.47 10^3/uL (1.2-6.7); Basophils % 0.5 %; Eosinophils % 3.1 %; HCT 31.9 % (40.0-50.0); HGB 10.3 g/dL (13.5-17.5); Immature Grans % 1.4 %; Lymphocytes % 10.7 %; MCHC 32.3 % (32.0-36.0); MCV 90 fL (80-95); Monocytes % 8.9 %; Neutrophils % 75.4 %; Platelet Count 236 10^3/uL (130-400); RBC 3.55 10^6/uL (4.36-5.78); RDW 13.2 % (11.8-14.1); RDW-SD 43.4 fL; WBC 15.21 10^3/uL (4.4-10.8)
[2024-06-05 06:43] LABS: Absolute Lymphocyte Count 1.63 10^3/uL (1.2-3.4)
[2024-06-05 07:16] LABS: ALT 33 U/L (16-63); AST 16 U/L (15-37); Albumin 2.3 g/dL (3.4-5.0); Alkaline Phosphatase 59 U/L (46-116); Anion Gap 5.5 mmol/L (3-11); BUN 13 mg/dL (7-18); Bilirubin, Total 0.23 mg/dL (0.2-1.0); CO2 31.5 mmol/L (21.0-32.0); CREATININE 0.7 mg/dL (0.70-1.30); Calcium 8.7 mg/dL (8.5-10.1); Chloride 107 mmol/L (98-107); Estimated GFR 100.99 (mL/min/1.73m2); Glucose 126 mg/dL (74-106); Potassium 3.7 mmol/L (3.5-5.1); Sodium 144 mmol/L (136-145); Total Protein 5.8 g/dL (6.4-8.2)
[2024-06-05 07:17] LABS: Magnesium 1.6 mg/dL (1.8-2.4)
[2024-06-05] MEDS: Umeclidinium 7 CAP INHALER 1 CAP IH (08:19)
[2024-06-05] MEDS: Albuterol/Ipratropium 3 ML UPD VIAL UPD ×4 (08:20→20:56)
[2024-06-05] MEDS: diazePAM 5 MG TAB PO (09:25)
[2024-06-05] MEDS: Docusate Sodium 100 MG CAP PO ×3 (09:25→21:25)
[2024-06-05] MEDS: Cholecalciferol (Vitamin D3) 1,000 UNIT TAB 2000 UNITS PO (09:25)
[2024-06-05] MEDS: DULoxetine 30 MG CAP 120 MG PO (09:26)
[2024-06-05] MEDS: Memantine 5 MG TAB 10 MG PO ×2 (09:26→21:26)
[2024-06-05] MEDS: OLANZapine 10 MG TAB PO ×3 (09:26→21:25)
[2024-06-05] MEDS: Simvastatin 20 MG TAB PO (09:26)
[2024-06-05] MEDS: Cyanocobalamin 500 MCG TAB 1000 MCG PO (09:26)
[2024-06-05] MEDS: predniSONE 20 MG TAB 40 MG PO (09:26)
[2024-06-05] MEDS: Magnesium Oxide 400 MG TAB 200 MG PO (09:26)
[2024-06-05] MEDS: cefTRIAXone 1 GM/50 ML BAG IVPB (09:29)
[2024-06-05] MEDS: Mylanta Suspension 30 ML CUP PO (09:30)
[2024-06-05] MEDS: Enoxaparin 40 MG/0.4 ML SYR SC (09:30)
[2024-06-05] MEDS: Polyethylene Glycol 3350 17 GM PACKET PO ×2 (09:30)
--- NOTE | 2024-06-05 09:36 | PDOC.CMIN ---
Date of service: 06/05/24 Time of Service: 09:37 Care Management Initial Assmt Initial Assessment Reason for Hospitalization: Pneumonia Functional Status/Living Situation Patient Presentation: Gopal was awake and lying in bed when CM met with him. He engages in conversation minimally and identified that he lives at the other one, when CM asked if he's still at the [facility] with his ? CM reached out to nursing at at it was confirmed that the couple moved to [facility] about 1 month ago. Town of Residence: [facility] Resides with: Spouse (Resides at [facility] with his ) Caregiver/Guardian: LTC at [facility] (formerly [facility]) Natural Supports: , Lidia Employment Status: Retired Instrumental Activities of Daily Living (ADLs): Requires support Medications Medication Management: No Issues/Barriers identified Physical Functioning/Mobility Assistive Device: Walker Advance Directives Advance Directives: Do you have an Advance Directive: Y 12/12/22 12:20 AD On File at [facility]: Y 12/12/22 12:20 Date Asked 12/15/23 06/04/24 07:22 AD Date Reviewed 06/04/24 06/04/24 07:22 COLST On File at [facility] COLST Date Scanned Code Status Resuscitation Status Full Code Portal Pt does not currently have a portal and education provided: No Insurance Coverage/Financial Issues Insurance: Medicaid [facility] Medicare Part A & B Financial Issues: None identified Care Team Visit Care Team Role Provider Type Radha Alva APRN MD [facility] STAFF PHYSICIAN Milka Shelley Primary Care Provider ADV PRACTICE REGISTERED NURSE Maru Casper Other Providers TAX ASSOCIATE Adriana Vásquez Other Providers TAX ASSOCIATE Milka Mckenzie Other Providers TAX ASSOCIATE Lucila Weems RN Other Providers TAX ASSOCIATE Hafsa Chan MD Emergency Provider [facility] STAFF PHYSICIAN Richard Carcamo MD Admit Provider [facility] STAFF PHYSICIAN Attending Provider Discharge Potential Discharge Needs: PCP F/U Appt and Other (Return to [facility]) Anticipated Barriers to Discharge: None Identified Patient/Family Education Needs: Review discharge instructions, discuss Ask Me Three Transportation: Facility Transport (Facility vs. [facility] W/C van) Plan: Gopal is a resident of [facility], and plans to return when he is medically ready for discharge. Transportation will be provided by the Facility vs. [facility] W/C van. He will follow up with his facility/community providers and discharge plan of care as directed. CM will continue to follow. Social Determinants of Health Screening Social Determinants of Health last assessed: 06/05/24 Will the Patient Participate in the Screening?: Yes Do you worry about having a steady place to live?: no Problems where you live: no known problems In the past 12 months, have you had to go without electric, gas, oil or water in your home?: no Have you or anyone in your house had to go without enough food to eat?: no Has lack of transportation kept you from medical appointments or from doing things needed for daily living?: no Has anyone in your life made you feel unsafe or unsupported?: no How hard is it for you to pay for the very basics like food, housing, medical care, and heating? Would you say it is:: Not hard at all Do you want help finding or keeping work or a job?: I do not need or want help If for any reason you need help with day-to-day activities such as bathing, preparing meals, shopping, managing finances, etc., do you get the help you need?: I need a lot more help How often do you feel lonely or isolated from those around you?: Never Do you speak a language other than Kiswahili at home?: No Does the patient want assistance with any of the above?: No Social Determinants of Health Comments(SDOH Details): Lives in LTC nursing facility at [facility]. Health Related Social Needs Health related social needs: problems with daily activities (Z73.9) PFSH All Active Problems (Updated 06/04/24 @ 13:18 by Lizbeth Randle NP) Sepsis without septic shock (Acute) COPD exacerbation (Acute) Aspiration pneumonia (Acute) Schizophrenia (Chronic) Alzheimer's dementia without behavioral disturbance (Chronic) Medical History (Updated 06/04/24 @ 13:18 by Lizbeth Randle NP) Left foot pain Cognitive impairment Bilateral primary osteoarthritis of knee Sepsis Pneumonia COVID Dermatophytosis of nail Alcohol abuse, in remission Auditory hallucinations History of suicidal ideation Paranoid schizophrenia Altered mental status Cognitive changes Anemia Elevated PSA Urinary incontinence Hyperplasia of prostate with lower urinary tract symptoms (LUTS) Emphysema lung Pulmonary nodule Tobacco abuse COPD (chronic obstructive pulmonary disease) History of prediabetes Hyperlipidemia Low back pain Acute metabolic encephalopathy Neutrophilia Pain, foot, left, chronic Patellofemoral joint pain Atherosclerosis Surgical History Hx of knee surgery Family History Mother Brain cancer Father Heart disease Hypertension Obesity Osteoarthritis Social History Smoking/Tobacco Use Status: Former Tobacco Use Tobacco: How many years used: 38 Smoking risk assessment performed?: Yes Alcohol Intake: never Substance use type: does not use Housing: assisted living facility Do you feel safe at home: Yes Do you feel safe in your relationship?: Yes
[2024-06-05] MEDS: AZITHROMYCIN 500 MG in Normal Saline 250 ML 250 MG IVPB (09:46)
--- NOTE | 2024-06-05 14:26 | IN_ITS ---
PT Notes Visit Reasons: Pneumonia Physical Therapy Inpatient Initial Evaluation Date: 06/05/2024 Referring Doctor: Radha Alva NP PT Orders: PT CONSULT: Eval for Assistive Device Precautions: Fall. Standard. Activity as tolerated. Patient Profile/Admitting Diagnosis: Venu is a 69-year-old male who presented to the ED on 06/04/2024 due to generalized weakness, nausea, vomitting, diarrhea and cough. He transitioned to acute level of care for management of septic shock, aspiration PNA, COPD exacerbation, schizophrenia, and Alzheimer's dementia without behavioral disturbance. PMHX: All Active Problems (Updated 06/04/24 @ 13:18 by Lizbeth Randle NP) Sepsis without septic shock (Acute) COPD exacerbation (Acute) Aspiration pneumonia (Acute) Schizophrenia (Chronic) Alzheimer's dementia without behavioral disturbance (Chronic) Medical History (Updated 06/04/24 @ 13:18 by Lizbeth Randle NP) Left foot pain Cognitive impairment Bilateral primary osteoarthritis of knee Sepsis Pneumonia COVID Dermatophytosis of nail Alcohol abuse, in remission Auditory hallucinations History of suicidal ideation Paranoid schizophrenia Altered mental status Cognitive changes Anemia Elevated PSA Urinary incontinence Hyperplasia of prostate with lower urinary tract symptoms (LUTS) Emphysema lung Pulmonary nodule Tobacco abuse COPD (chronic obstructive pulmonary disease) History of prediabetes Hyperlipidemia Low back pain Acute metabolic encephalopathy Neutrophilia Pain, foot, left, chronic Patellofemoral joint pain Atherosclerosis Surgical History Hx of knee surgery Social History/Home Situation: SNF resident for over a month now. Stays in same room with at SNF. Uses FWW for all mobility AD performance. Equipment Owned/DME: FWW Subjective: My legs are sore, patient complained when asked to stand up and walk for this session. Objective: General Observation: Oxygen supplementation via NC at 2 L/min. Mental Status: Alert and oriented as to person and purpose. Able to pay attention, focus, and respond appropriately. Pain: above Vital Signs: Closely monitored by nursing staff ROM: Right Upper Extremity: Shoulder Flexion lacks the last 50% of AROM. Shoulder a bduction lacks the last 50% of AROM. Elbow flexion WFL. Wrist flexion WFL. Functional opening and closing of hand WFL. Left Upper Extremity: Shoulder Flexion lacks the last 50% of AROM. Shoulder abduction lacks the last 50% of AROM. Elbow flexion WFL. Wrist flexion WFL. Functional opening and closing of hand WFL. Right Lower Extremity: Hip flexion lacks the last 50% of AROM. Hip abduction WFL. Knee flexion 10 degrees to 100 degrees. Ankle dorsiflexion to neutral only. Ankle plantarflexion WFL. Left Lower Extremity: Hip flexion lacks WFL. Hip abduction WFL. Knee flexion 10 degrees to 100 degrees. Ankle dorsiflexion to neutral only. Ankle plantarflexion WFL. Strength: Right Upper Extremity: Shoulder flexors 3-/5. Shoulder abductors 3-/5. Elbow flexors 4-/5. Elbow extensors 4-/5. Department Clerk strong. Left Upper Extremity: Shoulder flexors 3-/5. Shoulder abductors 3-/5. Elbow flexors 4-/5. Elbow extensors 4-/5. Department Clerk strong. Right Lower Extremity: Hip flexors 3-/5. Hip abductors 4-/5. Knee flexors 3-/5. Knee extensors 3-/5. Ankle dorsiflexors 3-/5. Ankle plantarflexors 4-/5. Left Lower Extremity: Hip flexors 4-/5. Hip abductors 4-/5. Knee flexors 3-/5. Knee extensors 3-/5. Ankle dorsiflexors 3-/5. Ankle plantarflexors 4-/5. Bed Mobility/Transfers: Minimal cueing provided for use of B hands as needed for support, movement sequence, AD management, and posture to reduce fall risk and minimize pain report Supine to sit stand by assist with HOB at 30 degrees Sit to stand stand by assist with trunk lean to R and posteriorly noted Stand to sit contact-guard assist, definite use of hands needed for support Bed to reclining chair minimal assist using FWW Reclining chair to bed minimal assist using FWW Gait: Facilitated safe and correct performance of level surface ambulation covering a distance of 30 feet + 30 feet + 60 feet using front-wheeled walker with minimal assist provided to minimize risk for falls as patient tends to lose balance to the right and posteriorly exacerbated during directional changes. Steps asymmetrical. Leanne decreased. Step length and height decreased. Moderate verbal cueing provided for slowed directional change, weight distribution onto w alker, and posture. Balance: Static Sitting: Normal Dynamic Sitting: Fair Static Standing: Fair Dynamic Standing: Fair Special Tests: Mobility Limitations Standardized Measure [employer] AM-PAC 6 clicks Basic Mobility Inpatient Short Form: Raw Score: 18 CMS Score: 47% deficit Informed Consent/Education: Patient was instructed in purpose of PT consult and plan of care. Agreeable to proceed with established PT POC to achieve personal goals. ASSESSMENT: Shortness of breath and soreness in B legs limited activity tolerance decreased with performance of ambulation task. Gait instability limiting safety of mobility ADL performance. Patient presents with clinical signs and symptoms consistent with current/admitting diagnoses that have resulted to mobility limitations, gait instability, generalized weakness, and overall ADL decline as demonstrated by the following impairment level findings: 1. Decreased strength to trunk and B UE/LE major muscle groups 2. Impaired sitting/standing balance 3. Impaired activity tolerance 4. Limitation of joint range of motion in B shoulders, R hip, and B ankles 5. Shortness of breath Impairments are contributing to the following functional limitations: 1. Decline in bed mobility skills 2. Decline in transfer skills 3. Difficulty with ambulation without assistive device and physical assistance 4. Increased completion time for mobility ADL performance 5. Increased risk for falls 6. Difficulty with managing steps alone safely Patient is assessed as a 72748 moderate complexity complexity based on the following: History: 68-year-old male with past medical history as indicated above Examination: Demonstrable impairment in strength, balance, and mobility level with underlying impairments and functional limitations as exhibited above as well as deficit score of 47% utilizing the [facility] Mobility Inpatient Short Form Presentation: Evolving Decision Makin moderate complexity Goals: Goals X1 week 1. Supine-Sit independent 2. Sit-Supine independent 3. Sit-Stand independent 4. Stand-Sit independent with FWW 5. Bed-Chair independent with FWW 6. Chair-Bed independent with FWW 7. Independent gait on level surface with use of FWW for at least 300 feet without report of pain nor dyspnea 8. Good static and dynamic standing balance/tolerance Plan of Care/Treatment Plan: 1-2x/day, 7 days/week x 1 week. Plan of care has been reviewed with the CONCRETE BATCH PLANT OPERATOR providing the service under Physical Therapy direction. Initiate Physical Therapy intervention for pain management as needed, strengthening, bed mobility, transfers, gait, stairs, balance training, and use of assistive device. DISCHARGE RECOMMENDATIONS: [] Home with no services [] [] HOme with services [] Home with outpatient PT [] [] SNF for continued rehabilitation [] [] [facility] [] [] SNF versus LTC based on ability to participate and progress [] [X] Return to SNF when medically cleared. Continue with rehab servies to progress mobility level as tolerated. TREATMENT CODE/TIME: 00103 x 20 minutes for 1 unit, 58182 x 12 minutes for 1 unit (14:26?14:58). Thank you for the opportunity to participate in the care of this patient. Delia Gil PT, DPT, CLT [facility] [place], [place]
--- NOTE | 2024-06-05 17:27 | PGE_ITS ---
Date of Service Date of service: 06/05/24 Time of Service: 17:27 Assessment and Plan Assessment and plan (1) Sepsis without septic shock: Status: Acute Assessment and plan: Sepsis criteria met on admission with tachycardia with heart rate above 90 and tachypnea with respiratory rate above 20 and probable: respiratory IV resuscitation completed and normal lactate this a.m. continue IV ceftriaxone/and now oral azithromycin day 1/5 Continue schedule duonebs, albuterol prn wean oxygen as as tolerated Continue incentive symmetry and Vibra Pep (2) Aspiration pneumonia: Status: Acute Assessment and plan: as above CT report:Fluid seen in the right and left mainstem bronchi with fluid seen in the esophagus raising the concern for aspiration. Speech consult (3) COPD exacerbation: Status: Acute Assessment and plan: as above Echocardiogram completed with LVEF at 57% with normal size and function of the LV on 06/05/2024 (4) Schizophrenia: Status: Chronic Assessment and plan: - On home medicine regimen with clozapine, diazepam, duloxetine, olanzapine, trazodone for schizophrenia, cognitive impairment and Alzheimer's as noted below (5) Cognitive impairment: Assessment and plan: As above (6) Alzheimer's dementia without behavioral disturbance: Status: Chronic Assessment and plan: Outpatient follow-up with PCP (7) Discharge planning issues: Status: Acute Assessment and plan: PT consult completed with recommendation to return to SNF when medically clear with continues rehabilitation services to progress mobility level as tolerated. Discussed with Dr. Medina Subjective Subjective Patient reports: no new complaints, feels better, tolerating liquids well, tole rating a regular diet, flatus, no bowel movement, shortness of breath and afebrile; denies diarrhea, nausea or vomiting Exam Narrative Exam Narrative: Older gentleman looking older than age, without acute distress, alert and intact x 2, moves all 4 extremities, non-focal, clear breath sounds bilaterally ronchi clearing somewhat with cough, heart sounds distant abdomen soft nontender nondistended Const General: cooperative, comfortable and no acute distress Orientation: alert, awake and oriented to person [facility] Head: normal to inspection, normocephalic and atraumatic Resp Effort & Inspection: normal respiratory effort Auscultation: diminished lung sounds and no wheezes Cardio Rate: regular rate Rhythm: regular rhythm GI Palpation: soft (round) and nontender Objective Last Vital Signs Temp 36.6 C 06/05/24 14:46 Pulse 94 H 06/05/24 15:20 Resp 18 06/05/24 15:20 BP 116/66 06/05/24 14:46 Pulse Ox 92 06/05/24 15:20 Laboratory Results - last 24 hr 06/04/24 06/05/24 18:38 06:20 WBC 15.21 H RBC 3.55 L Hgb 10.3 L D Hct 31.9 L MCV 90 MCH 29.0 MCHC 32.3 RDW 13.2 Plt Count 236 MPV 10.0 Immature Gran % 1.4 Neutrophils % 75.4 Lymphocytes % 10.7 Monocytes % 8.9 Eosinophils % 3.1 Basophils % 0.5 Nucleated RBC % 0.0 Absolute Neutrophils 11.47 H Absolute Lymphocytes 1.63 Absolute Monocytes 1.35 H Absolute Eosinophils 0.47 Absolute Basophils 0.08 VBG Lactate 2.5 H* 0.7 Sodium 144 Potassium 3.7 Chloride 107 Carbon Dioxide 31.5 Anion Gap 5.5 BUN 13 Creatinine 0.7 Est GFR (CKD-EPI 2020) 100.99 Glucose 126 H Calcium 8.7 Magnesium 1.6 L Total Bilirubin 0.23 AST 16 ALT 33 Alkaline Phosphatase 59 Total Protein 5.8 L Albumin 2.3 L Time Spent with Patient Time Spent with Patient: >50 minutes Time was spent: preparing to see the patient(eg.review tests), obtaining and/or reviewing separately otained hiistory, ordering medications,tests, procedures, referring, communicating with other health manager home healthcare, indepentently interpreting results, counseling the patient and care coordination
[2024-06-05] MEDS: Tamsulosin 0.4 MG CAPCR 0.8 MG PO (21:25)
[2024-06-05] MEDS: diazePAM 5 MG TAB 10 MG PO (21:26)
[2024-06-05] MEDS: Donepezil 5 MG TAB 10 MG PO (21:26)
[2024-06-05] MEDS: traZODone 50 MG TAB PO (21:26)
[2024-06-06] MEDS: Normal Saline 1,000 ML 125 ML IV (01:03)
[2024-06-06 05:21] VITALS: BP 125/81; PULSE 91; RESP 15; TEMP 36.9; O2SAT 92
[2024-06-06 07:24] VITALS: BP 113/58; PULSE 85; RESP 20; TEMP 36.8; O2SAT 91
[2024-06-06 07:59] VITALS: BP 121/81; PULSE 81; RESP 21; TEMP 36.1; O2SAT 92
[2024-06-06 08:41] VITALS: PULSE 83; RESP 9
[2024-06-06] MEDS: Albuterol/Ipratropium 3 ML UPD VIAL UPD (08:41)
[2024-06-06] MEDS: Umeclidinium 7 CAP INHALER 1 CAP IH (08:41)
--- NOTE | 2024-06-06 09:14 | CHAPLAIN ---
Gopal was sitting up in the chair when I visited. He gave one-word answers to questions, but asked for some vanilla ice cream that I was able to get for him. Gopal lives at [facility] with his , after moving there from [facility].
[2024-06-06] MEDS: Enoxaparin 40 MG/0.4 ML SYR SC (09:44)
[2024-06-06] MEDS: Polyethylene Glycol 3350 17 GM PACKET PO (09:44)
[2024-06-06] MEDS: Cyanocobalamin 500 MCG TAB 1000 MCG PO (09:45)
[2024-06-06] MEDS: Memantine 5 MG TAB 10 MG PO (09:45)
[2024-06-06] MEDS: Acetaminophen 325 MG TAB PO ×2 (09:46→14:03)
[2024-06-06] MEDS: Magnesium Oxide 400 MG TAB 200 MG PO (09:47)
[2024-06-06] MEDS: predniSONE 20 MG TAB 40 MG PO (09:48)
[2024-06-06] MEDS: DULoxetine 30 MG CAP 120 MG PO (09:48)
[2024-06-06] MEDS: Simvastatin 20 MG TAB PO (09:49)
[2024-06-06] MEDS: OLANZapine 10 MG TAB PO ×2 (09:49→14:04)
[2024-06-06] MEDS: Cholecalciferol (Vitamin D3) 1,000 UNIT TAB 2000 UNITS PO (09:49)
[2024-06-06] MEDS: Azithromycin 250 MG TAB 500 MG PO (09:49)
[2024-06-06] MEDS: Docusate Sodium 100 MG CAP PO (09:49)
[2024-06-06] MEDS: diazePAM 5 MG TAB PO (09:49)
[2024-06-06] MEDS: cefTRIAXone 1 GM/50 ML BAG IVPB (09:59)
--- NOTE | 2024-06-06 10:44 | PDOC.CMDIS ---
Date of service: 06/06/24 Time of Service: 10:44 LACE Index Scoring Tool Questions: Length of Stay (in days): 2 Was the patient admitted via the E.D.?: Yes Comorbidities: Chronic Pulmonary Disease and Dementia E.D. Visits: 3 Answers: Total Score: 13 Risk of Readmission: High Risk Care Management Discharge Plan Reason for Hospitalization: Pneumonia Discharge Plan: Discharge back to [facility] where he resides for LTC. Gopal will follow up with facility/community providers. Transportation is being provided by [facility] private vehicle. Patient/Family Education Needs: Review discharge instructions, limitations, medications and plan to follow up. Discuss ask me three. RN to RN is being done prior to discharge. Services Needed at Discharge: Intermediate Facility ([facility] (LTC resident), coordinated by ) and Transportation ([facility] private vehicle, coordinated by ) SDOH Health Related Social Needs: Health related social needs problems with daily activities (Z73.9)
[2024-06-06] MEDS: Magnesium Oxide 400 MG TAB PO (11:02)
[2024-06-06] MEDS: MAGNESIUM SULFATE 2 GM/50 ML BAG IV_INF (11:02)
[2024-06-06 11:48] LABS: Abs Immature Grans 0.28 10^3/uL (0.0-0.06); Absolute Lymphocyte Count 2.64 10^3/uL (1.2-3.4); Basophils % 0.3 %; Eosinophils % 0.1 %; HCT 32.9 % (40.0-50.0); HGB 10.2 g/dL (13.5-17.5); Immature Grans % 1.8 %; Lymphocytes % 16.7 %; MCH 28.8 pg (27.0-33.0); MCV 93 fL (80-95); MPV 9.8 fL (8.0-11.0); Monocytes % 6.8 %; Neutrophils % 74.3 %; Platelet Count 246 10^3/uL (130-400); RBC 3.54 10^6/uL (4.36-5.78); RDW 13.3 % (11.8-14.1); RDW-SD 45.7 fL; WBC 15.79 10^3/uL (4.4-10.8)
[2024-06-06 11:54] VITALS: BP 115/70; PULSE 83; RESP 18; TEMP 36.4; O2SAT 94
[2024-06-06 11:54] LABS: Absolute Basophil Count 0.05 10^3/uL (0.0-0.2); Absolute Eosinophil Count 0.02 10^3/uL (0.0-0.7); Absolute Monocyte Count 1.07 10^3/uL (0.1-0.8); Absolute Neutrophil Count 11.73 10^3/uL (1.2-6.7)
--- NOTE | 2024-06-06 12:19 | DSE_ITS ---
Date of service: 06/06/24 Time of Service: 12:19 DS: Diagnosis Discharge Diagnosis (1) Sepsis without septic shock: Status: Acute (2) Aspiration pneumonia: Status: Acute (3) COPD exacerbation: Status: Acute (4) Schizophrenia: Status: Chronic (5) Cognitive impairment: (6) Alzheimer's dementia without behavioral disturbance: Status: Chronic (7) Discharge planning issues: Status: Acute Discharge Plan Disposition [facility] Disposition[facility](SNF) Condition: Improving Discharge Details Reason For Visit: Pneumonia Admit Date/Time: 06/04/24 07:33 Admit Provider: Richard Carcamo Attending Provider: Richard Carcamo Primary Care Provider: Milka Shelley Hospital Course Hospital Course: This 69 years old male patient residing at the assisted facility with a past medical history significant for schizo, oxygen dependent COPD at 2 L nasal cannula, Alzheimer's presented to the ED on 06/04/2024 for evaluation of productive cough, hypoxia, nausea, vomiting, diarrhea starting 3 days prior to presentation. On arrival the patient required 6 L to maintain saturation at 90%. Workup in the ED was significant for the absence of leukocytosis, hypokalemia and hypomagnesemia chest CT showing right sided pneumonia without pulmonary emboli. The patient received IV methylprednisolone, azithromycin and ceftriaxone. Electrolyte replacement was also initiated in the ED. The patient was admitted to the medical surgical floor by the hospitalist team for evaluation and management of sepsis in the setting of right-sided pneumonia with hypoxic respiratory failure, hypokalemia and hypomagnesemia. During the stay the patient continued to receive antibiotic treatments and electrolyte replacement. IV steroids was transitioned to a burst of oral prednisone. Oxygen supplementation was no longer necessary above baseline. Physical therapy consult recommended discharge to SNF to continue with rehab services to progress mobility level as tolerated. A speech pathology consult was consult completed due to reported fluid in the esophagus and bronchi on CT under suspicion of aspiration pneumonia. Speech recommendations are for no further speech services outpatient and it seems that the patient might have aspirated on emesis occurring prior to presentation but as no chronic dysfunction. Chronic medical condition were treated as per home medicine regimen. Slight drop in H&H might be attributed to IV dilution recheck recommendations for follow-up CBC and electrolytes by primary care practitioner. The patient will be discharge back to the assisted facility. Discussed with Dr. Medina. Home Meds and New Rx's Prescriptions: New azithromycin 250 mg Tablet 500 mg PO DAILY Qty: 6 0RF cefpodoxime 200 mg tablet 200 mg PO BID Qty: 6 0RF Rx Instructions: must administer with a meal/food prednisone 20 mg tablet 40 mg PO DAILY Qty: 6 0RF Continued omega 5-[id number]-fish oil [Fish Oil] 60-90-500 mg capsule 1 cap PO DAILY simvastatin 20 mg tablet 20 mg PO DAILY docusate sodium 100 mg capsule 100 mg PO BID clozapine 50 mg tablet 50 mg PO QHS Rx Instructions: Take with 400mg for total dose of 450mg QHS tamsulosin 0.4 mg capsule 0.8 mg PO QHS Incruse Ellipta 62.5 mcg/actuation blister with device 1 inh inhalation DAILY acetaminophen [Tylenol] 325 mg tablet 650 mg PO Q6H PRN magnesium 250 mg tablet 250 mg PO DAILY trazodone 50 mg tablet 50 mg PO QHS clozapine 200 mg tablet 200 mg PO QHS duloxetine 60 mg capsule,delayed release(DR/EC) 120 mg PO DAILY cyanocobalamin (vitamin B-12) 1,000 mcg tablet, sublingual See Rx Instructions .ROUTE .COMPLEX Qty: 30 11RF Dose Instruction: 1 TAB (1000mcg) ORALLY DAILY Rx Instructions: 1 TAB (1000mcg) ORALLY DAILY donepezil 10 mg tablet 10 mg PO QHS Qty: 90 3RF memantine 10 mg tablet 10 mg PO BID Qty: 180 11RF diazepam 10 mg tablet 10 mg PO HS Patient Comments: Bedtime diazepam 5 mg tablet 5 mg PO DAILY Patient Comments: AM polyethylene glycol 3350 [Miralax] 17 gram/dose powder 17 g PO QDAY cholecalciferol (vitamin D3) [Vitamin D3] 25 mcg (1,000 unit) capsule 2,000 unit PO DAILY tizanidine 2 mg tablet 2 mg PO BID olanzapine 10 mg tablet 10 mg PO TID trazodone 50 mg tablet 50 mg PO QHS PRN albuterol sulfate 90 mcg/actuation HFA aerosol inhaler 1 inh INHALATION Q6H PRN Discharge Instructions Activity:: Activity as Tolerated Equipment/Supplies:: Walker Diet:: As Tolerated Discharge Orders Discharge Orders: Discharge Order (Routine); Ordered 06/06/24 Ordered By: Radha Alva DS: Summary Time Spent with Patient providing and/or coordinating discharge services: Greater than 30 minutes Status at Discharge Functional status at discharge: uses cane/walker Overall status at discharge: patient is progressing back to baseline Mental Status: mental status grossly normal Speech and Movement: speech and movement normal Mood: congruent mood Affect: normal affect Quality:SDOH Health Related Social Needs: Health related social needs problems with daily activi ties (Z73.9) Exam Narrative Exam Narrative: 69 years old gentleman looking older than stated age, without acute distress, alert and intact x 2, moves all 4 extremities, non-focal, scattered rhonchi clearing somewhat with weak cough, heart sounds are distant, abdomen soft nontender nondistended Psych Mental Status: mental status grossly normal Speech and Movement: speech and movement normal Mood: congruent mood Affect: normal affect DS: Data Vitals/I&O Vitals and I&O: Vital Signs Temperature 36.4 C L 06/06/24 11:54 Temperature Source Temporal Artery Scan 06/06/24 11:54 Pulse 83 06/06/24 11:54 Pulse Rhythm Regular 06/04/24 13:05 Pulse 100 H 06/04/24 11:21 Respiratory Rate 18 06/06/24 11:54 Respiratory Effort Normal 06/04/24 13:05 Respiratory Depth Normal 06/04/24 13:05 Respiratory Pattern Normal 06/04/24 13:05 Blood Pressure 115/70 06/06/24 11:54 Blood Pressure Mean 71 06/04/24 11:21 Blood Pressure Position Supine 06/04/24 04:30 Pulse Oximetry 94 06/06/24 11:54 Oxygen Delivery Method Nasal Cannula 06/06/24 11:54 Oxygen Flow Rate 2 06/06/24 11:54 Pain Level 7 06/06/24 11:54 Comment Pt on baseline 02. Pt resting comfortably in chair. 06/06/24 11:54 Intake & Output 06/05/24 06/06/24 06/06/24 23:59 11:59 23:59 Intake Total 300 / 3900.000 300 / 300 Output Total 475 / 1300 700 / 700 Balance -175 / 2600.000 -400 / -400 Weight 95.4 kg Intake: IV 300 / 300 Oral 300 / 900 0 / 0 Output: Urine 475 / 1300 700 / 700 Other: Urine Color Yellow Yellow Urine Appearance Clear Clear Comment Pt urinated on the toilet, unmeasured, at 2130 Stool Size Moderate Stool Characteristics Formed Data Completed and Pending Labs on day of discharge: Labs from last 24 hours 06/06/24 11:41 WBC 15.79 H RBC 3.54 L Hgb 10.2 L Hct 32.9 L MCV 93 MCH 28.8 MCHC 31.0 L RDW 13.3 Plt Count 246 MPV 9.8 Immature Gran % 1.8 Neutrophils % 74.3 Lymphocytes % 16.7 Monocytes % 6.8 Eosinophils % 0.1 Basophils % 0.3 Nucleated RBC % 0.0 Absolute Neutrophils 11.73 H Absolute Lymphocytes 2.64 Absolute Monocytes 1.07 H Absolute Eosinophils 0.02 Absolute Basophils 0.05 Preliminary micro results at discharge 06/04/24 05:10 Blood Culture - Preliminary Blood NO GROWTH 48 HOURS 06/04/24 04:50 Blood Culture - Preliminary Blood NO GROWTH 48 HOURS PFSH All Active Problems (Updated 06/05/24 @ 17:28 by Radha Alva APRN) Discharge planning issues (Acute) Sepsis without septic shock (Acute) COPD exacerbation (Acute) Aspiration pneumonia (Acute) Schizophrenia (Chronic) Alzheimer's dementia without behavioral disturbance (Chronic) Medical History (Updated 06/05/24 @ 17:28 by Radha Alva APRN) Left foot pain Cognitive impairment Bilateral primary osteoarthritis of knee Sepsis Pneumonia COVID Dermatophytosis of nail Alcohol abuse, in remission Auditory hallucinations History of suicidal ideation Paranoid schizophrenia Altered mental status Cognitive changes Anemia Elevated PSA Urinary incontinence Hyperplasia of prostate with lower urinary tract symptoms (LUTS) Emphysema lung Pulmonary nodule Tobacco abuse COPD (chronic obstructive pulmonary disease) History of prediabetes Hyperlipidemia Low back pain Acute metabolic encephalopathy Neutrophilia Pain, foot, left, chronic Patellofemoral joint pain Atherosclerosis Surgical History Hx of knee surgery Family History Mother Brain cancer Father Heart disease Hypertension Obesity Osteoarthritis Social History Smoking/Tobacco Use Status: Former Tobacco Use Tobacco: How many years used: 38 Smoking risk assessment performed?: Yes Alcohol Intake: never Substance use type: does not use Housing: assisted living facility Do you feel safe at home: Yes Do you feel safe in your relationship?: Yes Time Spent with Patient Time Spent with Patient: 70-84 minutes4 Time was spent: preparing to see the patient(eg.review tests), obtaining and/or reviewing separately otained hiistory, ordering medications,tests, procedures, referring, communicating with other health respiratory care practitioner, indepentently interpreting results, counseling the patient and care coordination
--- NOTE | 2024-06-06 12:32 | SP_ITS ---
Date of service: 06/06/24 Time of Service: 12:10 Subjective Clinical (Bedside) Swallow Evaluation Speech Language Pathology Referred by: Radha Alva Referral Type: Clinical Swallow Evaluation Reason for Referral/HPI: Gopal Stafford is a 69 yo male with PMH significant for schizophrenia, COPD on 2 LPM at baseline, and Alzheimer's who lives at LT at baseline, who was admitted on 06/04/24 with 3 days of nausea/vomiting, cough, and hypoxia. CXR revealed pneumonia in right upper/middle/lower lobe, as well as fluid in R&L mainstream bronchi with fluid in esophagus, suspicious for aspiration pneumonia. Per patient/review of chart, no prior pna history. INVESTIGATOR INTERNAL AFFAIRS IMPRESSIONS & RECOMMENDATIONS: Patient seen for non-instrumental swallow evaluation at end of noon meal. He was alert, oriented to self/general situation, sitting up in a chair tolerating 2LPM nasal cannula. No overt s/s prandial aspiration were appreciated with PO trials. In light of recent vomiting episodes (patient reports 2-3) suspect aspiration is likely due to aspiration of vomitus. FURTHER INVESTIGATOR INTERNAL AFFAIRS SERVICES: No further INVESTIGATOR INTERNAL AFFAIRS services indicated SUBJECTIVE: Patient received alert/awake, agreeable to evaluation Pain Reported? None Baseline Swallow Function: Patient denies swallowing difficulty prior to admission and eats a regular diet at baseline. No hx pneumonia. PO Trials Assessed: IDDSI 0 Thin Liquids - coffee via cup, water via straw IDDSI 7EC Easy to Chew Solid - Fig gates cookies Oral Mechanism Examination: Patient is edentulous Cranial Nerve Assessment: CN V ? Trigeminal Facial Sensation WNL Jaw Strength/ROM WNL ?WNL CN VII- Facial WNL labial ROM, strength, coordination. WNL lingual sensation WNL CN IX ? Glossopharyngeal WNL palatal elevation with phonation. No evidence of nasal emissions WNL CN X ? Vagus WNL Vocal quality and volume. Strong/sharp volitional cough WNL CX XII ? Hypoglossal WNL lingual ROM, strength, coordination WNL Oral Phase Findings: Prolonged/munching chew pattern (edentulous) - WFL Fast rate of intake noted Pharyngeal Phase Findings: WFL ? [place] Swallow Protocol Results: PASS ASSESSMENT: Further INVESTIGATOR INTERNAL AFFAIRS Services not indicated. Recommendation at Discharge: No INVESTIGATOR INTERNAL AFFAIRS services indicated Suggested Referrals: N/A Recommended Procedures: N/A Recommendations: ? SOLIDS: 7-Regular Solids LIQUIDS: 0-Thin Liquids MEDICATIONS: As tolerated Education Provided to: Nursing, Patient, Case Management Topics Addressed: INVESTIGATOR INTERNAL AFFAIRS findings/no further INVESTIGATOR INTERNAL AFFAIRS needs PLAN: Eval only INVESTIGATOR INTERNAL AFFAIRS CPT Code: 88213 Clinical Swallowing Evaluation TOTAL TIME: 15 Minutes [id number]
--- NOTE | 2024-06-06 12:36 | PTTR_ITS ---
PT Notes Visit Reasons: Pneumonia Physical Therapy Inpatient Treatment Note Date: 06/06/2024 Precautions: Fall. Standard. Activity as tolerated. Subjective: No report of legs being sore. Feels proud that he was able to walk more, covering the whole nurses' station loop. Objective: General Observation: Oxygen supplementation via NC at 2 L/min. IV through R UE. Mental Status: Alert and oriented as to person and purpose. Able to pay attention, focus, and respond appropriately. Pain: None reported Vital Signs: Closely monitored by nursing staff Bed Mobility/Transfers: Minimal cueing provided for use of B hands as needed for support, movement sequence, AD management, and posture to reduce fall risk and minimize pain report Supine to sit stand by assist with HOB at 30 degrees Sit to stand stand by assist with trunk lean to R and posteriorly noted Stand to sit contact-guard assist, definite use of hands needed for support Bed to reclining chair minimal assist using FWW Reclining chair to bed minimal assist using FWW Gait: Facilitated safe and correct performance of level surface ambulation covering a distance of 250 feet using front-wheeled walker with contact guard assist provided. 3 seated rests needed. Steps asymmetrical. Leanne increased. Step length and height decreased. Moderate verbal cueing provided for slowed directional change, weight distribution onto walker, and posture. Balance: Static Sitting: Normal Dynamic Sitting: Fair Static Standing: Fair Dynamic Standing: Fair ASSESSMENT: Much improved activity tolerance with quicker recovery from minimal shortness of breath compared to yesterday. No pain reported in B legs throughout session. DISCHARGE RECOMMENDATIONS: [] Home with no services [] [] HOme with services [] Home with outpatient PT [] [] SNF for continued rehabilitation [] [] Group Home Care [] [] SNF versus LTC based on ability to participate and progress [] [X] Return to SNF when medically cleared. Continue with rehab services to progress mobility level as tolerated. TREATMENT CODE/TIME: 77817 x 23 minutes for 2 unit (12:36?12:59).
== END 2024-06-06 14:06 | disposition skilled nursing facility (03) | DRG 871 ==
LOC: ER 07:23 → EDHOLD 08:26 → MS 12:51
PROVIDERS: Family Medicine; Nurse Practitioner Acute Care; Admitting Provider Hospitalist; Emergency Provider Student in an Organized Health Care Education/Training Program; PCP Nurse Practitioner Family; Responsible Provider Nurse Practitioner Acute Care; Visit Provider Hospitalist
DX: A41.9 Sepsis, unspecified organism (principal); J69.0 Pneumonitis due to inhalation of food and vomit; J44.1 Chronic obstructive pulmonary disease with (acute) exacerbation; F20.89 Other schizophrenia; G30.9 Alzheimer's disease, unspecified; F02.80 Dementia in other diseases classified elsewhere, unspecified severity, without behavioral disturbance, psychotic disturbance, mood disturbance, and anxiety; R11.2 Nausea with vomiting, unspecified; F10.11 Alcohol abuse, in remission; D64.9 Anemia, unspecified; N40.1 Benign prostatic hyperplasia with lower urinary tract symptoms; R32 Unspecified urinary incontinence; R73.03 Prediabetes; E78.5 Hyperlipidemia, unspecified; Z99.81 Dependence on supplemental oxygen; R41.89 Other symptoms and signs involving cognitive functions and awareness; E87.6 Hypokalemia; E83.42 Hypomagnesemia
CPT/HCPCS: 00123; 36415; 71275; 80053; 82805; 87040; 87637; 92610; 93005; 94640; 94761; 96361; 96365; 96372; 96375; 97162; 97530; 99285; J1650; 71046; 83605; 83735; 83880; 84484; 85025; 93010; 93306; 94664; 94667; 94668; 94760; 99223; 99233; 99239; J0456; J0696; J2919; J3475; J3490; J7512; J7620

== ENCOUNTER 2024-06-21 15:50 | Inpatient (IN) | payer MEDICARE, MEDICAID, SELFPAY ==
--- NOTE | 2024-06-21 15:45 | DI.CT_ITS ---
Exam(s) CT HEAD WO EXAM: CT HEAD WO CLINICAL HISTORY: Fall x 2 yesterday. TECHNIQUE: Imaging Protocol: Axial computed tomography images with coronal and sagittal reformatted images were created and reviewed COMPARISON: CT CT BRAIN CTA from 10/26/2023 FINDINGS: Ventricles and Extra axial spaces: Normal in size and morphology for the patient's age. Hemorrhage: None. Cerebral parenchyma: No evidence of acute infarct or mass. Minimal white matter changes likely refl ecting microvascular disease. Midline shift: None. Brainstem/Cerebellum: Normal. Calvarium: Normal. Visualized Paranasal sinuses:Clear. Mastoids: Clear. Soft Tissues: Unremarkable. ORBITS: Unremarkable. PITUITARY: Not enlarged. IMPRESSION: No acute intracranial process. RADIATION DOSE DELIVERED: Total DLP DATA REPOSITORY: All CT scans at this facility are submitted to the National Radiology Data Registry (NRDR) Dose Index Registry (DIR) with the [employer] (A[employer]). RADIATION OPTIMIZATION: All CT scans at this facility use at least one of these dose optimization te chniques: automated exposure control; mA and/or kV adjustment per patient size (includes targeted exa ms where dose is matched to clinical indication); or iterative reconstruction.
--- NOTE | 2024-06-21 15:45 | RT.EKG_ITS ---
APPROVED REPORT Exam: Resting ECG Reason for Exam: Multiple falls, dizziness Patient Location: E HR:112 bpm ECG Measurements Heart Rate 112 AXIS OK 154 P 18 QRSd 81 QRS -1 QT 319 T 41 QTc 436 Conclusion Sinus tachycardia...rate> 99 I have reviewed and interpreted ECG and agree with software generated interpretation.
--- NOTE | 2024-06-21 15:45 | DI.RAD_ITS ---
Exam(s) XR PELVIS AP XR FEMUR RT EXAM: XR PELVIS AP CLINICAL HISTORY: Fall, Right hip pain. TECHNIQUE: 2D digital imaging was performed. Single AP view. COMPARISON: CR XR KNEE RT 4V AP,LAT,EDILMA,PAT from 01/19/2023 CR XR FEMUR RT from 06/21/2024 FINDINGS: BONES: Subcapital fracture of the right femur. There is displacement superiorly of the femoral shaft . No additional fractures are seen in the pelvis or distal portions of the femur. No bony destructi ve lesion is seen. There is a spur from the anterior proximal tibia. JOINTS: No dislocation present. There are mild degenerative changes at the patellofemoral joint. SOFT TISSUE: Normal. IMPRESSION: Subcapital fracture of the right femur. DATA REPOSITORY: RADIATION DOSE DELIVERED:
[2024-06-21 15:55] VITALS: BP 122/80; PULSE 114; RESP 16; TEMP 35.8; O2SAT 90
--- NOTE | 2024-06-21 15:57 | ED.GENADUL_ITS ---
Discharge Plan Disposition Patient Disposition: Admit to [facility] Condition: Stable Discharge Details Clinical Impression: Closed fracture of right hip Admit Date/Time: 06/21/24 17:52 Admit Provider: Richard Carcamo Attending Provider: Richard Carcamo Primary Care Provider: Milka Shelley ED Provider: Darcy Benitez General Mode of arrival: EMS . Date/Time Provider Initiated Documentation: 06/21/24 15:55 . Limitations to Documentation: no limitations . Information obtained by: patient, EMS, RN notes reviewed and old records reviewed . HPI Narrative: 69-year-old male presents to the ER via EMS after 2 falls which were unwitnessed yesterday. His who lives with him and states that he may have hit his head. He denies any headache at this time he is complaining of right leg pain. He was able to stand and pivot with EMS. He is at baseline mentation. No obvious focal neurodeficits. He denies any nausea vomiting diarrhea or abdominal pain. He does have a past medical history of cognitive impairment, osteoarthritis of knees, pneumonia, history of alcohol abuse in remission, anemia here, metabolic encephalopathy. Schizophrenia and Alzheimer's dementia Related Data Home Medications ?Medication ?Instructions ?Recorded ?Confirmed acetaminophen 325 mg tablet 650 mg PO Q6H PRN 03/23/22 06/21/24 (Tylenol) magnesium 250 mg tablet 400 mg PO DAILY 03/23/22 06/21/24 tamsulosin 0.4 mg capsule 0.8 mg PO QHS 03/23/22 06/21/24 trazodone 50 mg tablet 50 mg PO QHS 03/23/22 06/21/24 umeclidinium 62.5 mcg/actuation 1 inh inhalation DAILY 03/23/22 06/21/24 blister powder for inhalation (Incruse Ellipta) clozapine 200 mg tablet 200 mg PO QHS 01/19/23 06/21/24 clozapine 50 mg tablet 50 mg PO QHS 01/19/23 06/21/24 docusate sodium 100 mg capsule 100 mg PO BID 01/19/23 06/21/24 omega 9-ieo-czh-fish oil 60 mg-90 1 cap PO DAILY 01/19/23 06/21/24 mg-500 mg capsule (Fish Oil) simvastatin 20 mg tablet 20 mg PO DAILY 01/19/23 06/21/24 duloxetine 60 mg capsule,delayed 120 mg PO DAILY 07/20/23 06/21/24 release cyanocobalamin (vitamin B-12) See Rx Instructions .Route 08/16/23 06/21/24 1,000 mcg sublingual tablet .COMPLEX #30 tabs donepezil 10 mg tablet 10 mg PO QHS #90 tabs 10/03/23 06/21/24 diazepam 10 mg tablet 10 mg PO HS 01/30/24 06/21/24 diazepam 5 mg tablet 5 mg PO DAILY 01/30/24 06/21/24 cholecalciferol (vitamin D3) 25 2,000 unit PO DAILY 02/11/24 06/21/24 mcg (1,000 unit) capsule (Vitamin D3) olanzapine 10 mg tablet 10 mg PO TID 02/11/24 06/21/24 polyethylene glycol 3350 17 17 g PO QDAY 02/11/24 06/21/24 gram/dose oral powder (Miralax) tizanidine 2 mg tablet 2 mg PO BID 02/11/24 06/21/24 trazodone 50 mg tablet 50 mg PO QHS PRN 02/11/24 06/21/24 memantine 10 mg tablet 10 mg PO BID #180 tabs 02/27/24 06/21/24 albuterol sulfate 90 mcg/actuation 1 inh inhalation Q6H PRN 06/04/24 06/04/24 aerosol inhaler azithromycin 250 mg tablet 500 mg (2 x 250 mg) PO DAILY #6 06/06/24 tabs cefpodoxime 200 mg tablet 200 mg PO BID #6 tabs 06/06/24 prednisone 20 mg tablet 40 mg (2 x 20 mg) PO DAILY #6 tabs 06/06/24 albuterol sulfate 90 mcg/actuation 2 inh inhalation Q6H PRN 06/21/24 06/21/24 aerosol inhaler (Ventolin HFA) meloxicam 7.5 mg tablet 7.5 mg PO DAILY 06/21/24 06/21/24 ondansetron 4 mg disintegrating 4 mg PO Q6H 06/21/24 06/21/24 tablet Previous Rx's ?Medication ?Instructions ?Recorded cyanocobalamin (vitamin B-12) See Rx Instructions .Route 08/16/23 1,000 mcg sublingual tablet .COMPLEX #30 tabs donepezil 10 mg tablet 10 mg PO QHS #90 tabs 10/03/23 memantine 10 mg tablet 10 mg PO BID #180 tabs 02/27/24 azithromycin 250 mg tablet 500 mg (2 x 250 mg) PO DAILY #6 06/06/24 tabs cefpodoxime 200 mg tablet 200 mg PO BID #6 tabs 06/06/24 prednisone 20 mg tablet 40 mg (2 x 20 mg) PO DAILY #6 tabs 06/06/24 Allergies Allergy/AdvReac Type Severity Reaction Status Date / Time No Known Allergies Allergy Verified 06/21/24 15:59 General Stated Complaint: Orthopedic WILLIAMS: 3 Review of Systems All systems reviewed & are unremarkable except as noted in HPI and below Constitutional Constitutional: Reports as per HPI and Reports frequent falls Musculoskeletal Musculoskeletal: Reports as per HPI and Reports arthralgias (Right hip) Neurologic Neurologic: Reports as per HPI (Hx Alzheimers dementia, schizophrenia) and Reports frequent falls Exam Narrative Exam Narrative: General: Well Developed, Awake and Alert, conversant. Skin: Warm and Dry HEENT: Head: No palpable deformities, Normocephalic Eyes: Pupils PERRLA, EOM's intact. No periorbital eccymosis or step off Ears: Canal patent. Tympanic membranes are clear . No feliz's sign, no hemptympanum. Nose/Face: Atraumatic. Facial bones nontender to palpation and stable with manipulation. Mouth/Throat: No intraoral trauma. Teeth and mandible are intact. Neck: No midline tenderness, no step off, no deformity to palpation of C-spine. Trachea midline. Chest: No surface trauma. Nontender without crepitus or deformity. Lungs clear to ausculatation bilaterally. Heart: RRR, no rubs, murmurs or gallop. Abdomen: No abrasions, ecchymosis, or surface trauma. Nondistended. Nontender to palpation no guarding, rebound, or rigidity. Pelvis: Nontender to palpation and stable to compression. Femoral pulses strong and equal Extremities: no surface trauma. Sensation intact. Peripheral pulses intact and equal. Neuro: Awake alert and at baseline, GCS 15, cranial nerves II through XII intact. Motor and sensory exam nonfocal. Reflexes are symmetric. Course Vital Signs Vital signs: Vital Signs Temperature 35.8 C L 06/21/24 15:55 Pulse 114 H 06/21/24 15:55 Respiratory Rate 16 06/21/24 15:55 Blood Pressure 122/80 06/21/24 15:55 Pulse Oximetry 90 L 06/21/24 15:55 Temperature 35.8 C L 06/21/24 15:55 Temperature Source Tympanic 06/21/24 15:55 Pulse 114 H 06/21/24 15:55 Respiratory Rate 16 06/21/24 15:55 Blood Pressure 122/80 06/21/24 15:55 Pulse Oximetry 90 L 06/21/24 15:55 Oxygen Delivery Method Room Air 06/21/24 15:55 Oxygen Flow Rate 0 06/21/24 15:55 Medical Decision Making 69-year-old male presents to the ER via EMS after 2 falls which were unwitnessed yesterday. His who lives with him and states that he may have hit his head. He denies any headache at this time he is complaining of right leg pain. He was able to stand and pivot with EMS. He is at baseline mentation. No obvious focal neurodeficits. He denies any nausea vomiting diarrhea or abdominal pain. He does have a past medical history of cognitive impairment, osteoarthritis of knees, pneumonia, history of alcohol abuse in remission, anemia here, metabolic encephalopathy. Schizophrenia and Alzheimer's dementia Workup ordered including labs, serial troponins, EKG, head CT and hip femur series. Distal CMS intact. Head CT shows no acute intracranial process no evidence for acute mass or infarct. Labs show white blood cell count of 10.85, hemoglobin 13 hematocrit 41 glucose 130 initial troponin within normal limits. Informed orthopedic surgeon on-call Dr. Caraballo regarding right hip fracture he is currently in the OR at this time. He does request me to contact hospitalist [id number]: Spoke with hospitalist Dr. Carcamo regarding patient case in details he agrees to evaluate patient for admission. Dr. Carcamo here at [facility] for eval. Patient to be admitted awaiting bed placement at this time. Patient transported up to the floor via stretcher by ED staff. This text was generated using P2P-Next dictation system, please disregard any oddities of phrase or misspellings. Medical Records Medical records reviewed: Yes I reviewed the patient's medical records. Imaging Data Radiologic Study: Imaging: X-Ray Radiologist's impression: EXAM: XR PELVIS AP CLINICAL HISTORY: Fall, Right hip pain. TECHNIQUE: 2D digital imaging was performed. Single AP view. COMPARISON: CR XR KNEE RT 4V AP,LAT,EDILMA,PAT from 01/19/2023 CR XR FEMUR RT from 06/21/2024 FINDINGS: BONES: Subcapital fracture of the right femur. There is displacement superiorly of the femoral shaft. No additional fractures are seen in the pelvis or distal portions of the femur. No bony destructive lesion is seen. There is a spur from the anterior proximal tibia. JOINTS: No dislocation present. There are mild degenerative changes at the patellofemoral joint. SOFT TISSUE: Normal. IMPRESSION: Subcapital fracture of the right femur. Lab Data Lab results reviewed: Yes I reviewed the patient's lab results. Labs: Laboratory Tests Range/Units 06/21/24 06/21/24 06/21/24 16:08 17:32 18:55 WBC (4.4-10.8) 10^3/uL 10.85 H RBC (4.36-5.78) 10^6/uL 4.65 Hgb (13.5-17.5) g/dL 13.1 L Hct (40.0-50.0) % 41.7 MCV (80-95) fL 90 MCH (27.0-33.0) pg 28.2 MCHC (32.0-36.0) % 31.4 L RDW (11.8-14.1) % 14.0 Plt Count (130-400) 10^3/uL 374 MPV (8.0-11.0) fL 9.9 Immature Gran % % 0.3 Neutrophils % % 71.0 Lymphocytes % % 17.5 Monocytes % % 10.9 Eosinophils % % 0.0 Basophils % % 0.3 Nucleated RBC % (0.0-0.3) % 0.0 Absolute Neutrophils (1.2-6.7) 10^3/uL 7.70 H Absolute Lymphocytes (1.2-3.4) 10^3/uL 1.90 Absolute Monocytes (0.1-0.8) 10^3/uL 1.18 H Absolute Eosinophils (0.0-0.7) 10^3/uL 0.00 Absolute Basophils (0.0-0.2) 10^3/uL 0.03 Sodium (136-145) mmol/L 141 Potassium (3.5-5.1) mmol/L 4.3 Chloride (98-107) mmol/L 104 Carbon Dioxide (21.0-32.0) mmol/L 27.6 Anion Gap (3-11) mmol/L 9.4 BUN (7-18) mg/dL 15 Creatinine (0.70-1.30) mg/dL 1.1 Est GFR (CKD-EPI 2020) (mL/min/1.73m2) 73.58 Glucose (74-106) mg/dL 130 H Calcium (8.5-10.1) mg/dL 9.7 Magnesium mg/dL 2.3 Total Bilirubin (0.2-1.0) mg/dL 0.4 AST (15-37) U/L 27 ALT (16-63) U/L 46 Alkaline Phosphatase (46-116) U/L 98 Troponin I (<or=76) ng/L 5 7 Cancelled Total Protein (6.4-8.2) g/dL 7.7 Albumin (3.4-5.0) g/dL 3.5 Quality:SDOH Health Related Social Needs: Health related social needs problems with daily activi ties (Z73.9) PFSH All Active Problems (Updated 06/21/24 @ 17:47 by Darcy Benitez NP) Closed fracture of right hip (Acute) Aspiration pneumonia (Acute) Schizophrenia (Chronic) Alzheimer's dementia without behavioral disturbance (Chronic) Medical History Left foot pain Cognitive impairment Bilateral primary osteoarthritis of knee Sepsis Pneumonia COVID Dermatophytosis of nail Alcohol abuse, in remission Auditory hallucinations History of suicidal ideation Paranoid schizophrenia Altered mental status Cognitive changes Anemia Elevated PSA Urinary incontinence Hyperplasia of prostate with lower urinary tract symptoms (LUTS) Emphysema lung Pulmonary nodule Tobacco abuse COPD (chronic obstructive pulmonary disease) History of prediabetes Hyperlipidemia Low back pain Acute metabolic encephalopathy Neutrophilia Pain, foot, left, chronic Patellofemoral joint pain Atherosclerosis Surgical History Hx of knee surgery Family History Mother Brain cancer Father Heart disease Hypertension Obesity Osteoarthritis Social History Smoking/Tobacco Use Status: Former Tobacco Use Tobacco: How many years used: 38 Smoking risk assessment performed?: Yes Alcohol Intake: never Substance use type: does not use Housing: assisted living facility Do you feel safe at home: Yes Do you feel safe in your relationship?: Yes
[2024-06-21 16:18] LABS: Abs Immature Grans 0.03 10^3/uL (0.0-0.06); Absolute Basophil Count 0.03 10^3/uL (0.0-0.2); Absolute Monocyte Count 1.18 10^3/uL (0.1-0.8); Basophils % 0.3 %; HCT 41.7 % (40.0-50.0); HGB 13.1 g/dL (13.5-17.5); Immature Grans % 0.3 %; Lymphocytes % 17.5 %; MCH 28.2 pg (27.0-33.0); MCHC 31.4 % (32.0-36.0); MCV 90 fL (80-95); MPV 9.9 fL (8.0-11.0); Monocytes % 10.9 %; Platelet Count 374 10^3/uL (130-400); RBC 4.65 10^6/uL (4.36-5.78); RDW-SD 44.9 fL; WBC 10.85 10^3/uL (4.4-10.8)
[2024-06-21 16:34] LABS: ALT 46 U/L (16-63); AST 27 U/L (15-37); Albumin 3.5 g/dL (3.4-5.0); Alkaline Phosphatase 98 U/L (46-116); Anion Gap 9.4 mmol/L (3-11); BUN 15 mg/dL (7-18); Bilirubin, Total 0.4 mg/dL (0.2-1.0); CO2 27.6 mmol/L (21.0-32.0); CREATININE 1.1 mg/dL (0.70-1.30); Calcium 9.7 mg/dL (8.5-10.1); Chloride 104 mmol/L (98-107); Estimated GFR 73.58 (mL/min/1.73m2); Glucose 130 mg/dL (74-106); Magnesium 2.3 mg/dL; Potassium 4.3 mmol/L (3.5-5.1); Sodium 141 mmol/L (136-145); Total Protein 7.7 g/dL (6.4-8.2); Troponin I 5 ng/L (<or=76)
--- NOTE | 2024-06-21 17:30 | DI.RAD_ITS ---
Exam(s) XR PORTABLE CHEST AP EXAM: XR PORTABLE CHEST AP CLINICAL HISTORY: Fall TECHNIQUE: 2D digital imaging was performed. COMPARISON: CR,XR XR CHEST 2V PA LATERAL from 06/04/2024 FINDINGS: LUNGS: Clear. No pleural abnormality seen. HEART: Normal size. AORTA: Normal diameter. BONES: Unremarkable for age. No visible displaced rib fractures. Soft tissues: Unremarkable. IMPRESSION: No acute findings. DATA REPOSITORY: RADIATION DOSE DELIVERED:
[2024-06-21 17:40] VITALS: BP 110/66; PULSE 105; RESP 16; O2SAT 90
--- NOTE | 2024-06-21 17:56 | HPE_ITS ---
Date of service: 06/21/24 Time of Service: 17:56 Assessment and Plan Assessment and plan (1) Schizophrenia: Status: Chronic Assessment and plan: cw medical management (2) Closed fracture of right hip: Status: Acute Assessment and plan: Pt would not benefit from further risk stratification based on his history/labs/ekg findings (3) Alzheimer's dementia without behavioral disturbance: Status: Chronic History of Present Illness History of Present Illness Chief Complaint: fall Narrative: 69 y/o gentleman with a known history of schizophrenia presented to the ED after two falls. Will he was in the ED he was diagnosed with a right hip fracture and was subsequently admitted to the hospitalist service. Pt is seen in consultation with Ortho. Pt denies any chest pain/cardiac history/caths/stress tests. Pt states prior to his fall he was able to walk up a flight of steps without difficulty Review of Systems Narrative: 14 point ROS is negative unless mentioned above PFSH All Active Problems (Updated 06/21/24 @ 17:47 by Darcy Benitez NP) Closed fracture of right hip (Acute) Aspiration pneumonia (Acute) Schizophrenia (Chronic) Alzheimer's dementia without behavioral disturbance (Chronic) Medical History Left foot pain Cognitive impairment Bilateral primary osteoarthritis of knee Sepsis Pneumonia COVID Dermatophytosis of nail Alcohol abuse, in remission Auditory hallucinations History of suicidal ideation Paranoid schizophrenia Altered mental status Cognitive changes Anemia Elevated PSA Urinary incontinence Hyperplasia of prostate with lower urinary tract symptoms (LUTS) Emphysema lung Pulmonary nodule Tobacco abuse COPD (chronic obstructive pulmonary disease) History of prediabetes Hyperlipidemia Low back pain Acute metabolic encephalopathy Neutrophilia Pain, foot, left, chronic Patellofemoral joint pain Atherosclerosis Surgical History Hx of knee surgery Family History Mother Brain cancer Father Heart disease Hypertension Obesity Osteoarthritis Social History Smoking/Tobacco Use Status: Former Tobacco Use Tobacco: How many years used: 38 Smoking risk assessment performed?: Yes Alcohol Intake: never Substance use type: does not use Housing: assisted living facility Do you feel safe at home: Yes Do you feel safe in your relationship?: Yes Meds Allergies and Home Medications Allergies Allergy/AdvReac Type Severity Reaction Status Date / Time No Known Allergies Allergy Verified 06/21/24 15:59 Home Medications ?Medication ?Instructions ?Recorded ?Confirmed ?Type acetaminophen 325 mg tablet 650 mg PO Q6H PRN 03/23/22 06/21/24 History (Tylenol) magnesium 250 mg tablet 400 mg PO DAILY 03/23/22 06/21/24 History tamsulosin 0.4 mg capsule 0.8 mg PO QHS 03/23/22 06/21/24 History trazodone 50 mg tablet 50 mg PO QHS 03/23/22 06/21/24 History umeclidinium 62.5 mcg/actuation 1 inh inhalation DAILY 03/23/22 06/21/24 History blister powder for inhalation (Incruse Ellipta) clozapine 200 mg tablet 200 mg PO QHS 01/19/23 06/21/24 History clozapine 50 mg tablet 50 mg PO QHS 01/19/23 06/21/24 History docusate sodium 100 mg capsule 100 mg PO BID 01/19/23 06/21/24 History omega 8-zgu-xrp-fish oil 60 mg-90 1 cap PO DAILY 01/19/23 06/21/24 History mg-500 mg capsule (Fish Oil) simvastatin 20 mg tablet 20 mg PO DAILY 01/19/23 06/21/24 History duloxetine 60 mg capsule,delayed 120 mg PO DAILY 07/20/23 06/21/24 History release cyanocobalamin (vitamin B-12) See Rx Instructions .Route 08/16/23 06/21/24 Rx 1,000 mcg sublingual tablet .COMPLEX #30 tabs donepezil 10 mg tablet 10 mg PO QHS #90 tabs 10/03/23 06/21/24 Rx diazepam 10 mg tablet 10 mg PO HS 01/30/24 06/21/24 History diazepam 5 mg tablet 5 mg PO DAILY 01/30/24 06/21/24 History cholecalciferol (vitamin D3) 25 2,000 unit PO DAILY 02/11/24 06/21/24 History mcg (1,000 unit) capsule (Vitamin D3) olanzapine 10 mg tablet 10 mg PO TID 02/11/24 06/21/24 History polyethylene glycol 3350 17 17 g PO QDAY 02/11/24 06/21/24 History gram/dose oral powder (Miralax) tizanidine 2 mg tablet 2 mg PO BID 02/11/24 06/21/24 History trazodone 50 mg tablet 50 mg PO QHS PRN 02/11/24 06/21/24 History memantine 10 mg tablet 10 mg PO BID #180 tabs 02/27/24 06/21/24 Rx albuterol sulfate 90 mcg/actuation 1 inh inhalation Q6H PRN 06/04/24 06/04/24 History aerosol inhaler azithromycin 250 mg tablet 500 mg (2 x 250 mg) PO DAILY #6 06/06/24 Rx tabs cefpodoxime 200 mg tablet 200 mg PO BID #6 tabs 06/06/24 Rx prednisone 20 mg tablet 40 mg (2 x 20 mg) PO DAILY #6 tabs 06/06/24 Rx albuterol sulfate 90 mcg/actuation 2 inh inhalation Q6H PRN 06/21/24 06/21/24 History aerosol inhaler (Ventolin HFA) meloxicam 7.5 mg tablet 7.5 mg PO DAILY 06/21/24 06/21/24 History ondansetron 4 mg disintegrating 4 mg PO Q6H 06/21/24 06/21/24 History tablet Exam Narrative Exam Narrative: heent-ncat mmm eomi perrla neck-no lad/jvd/thyroidmegaly cv-rrr no mrg lungs-ctab no amu abd-sntndbsa gen-69 y/o who appears his stated age Results Labs 06/21/24 16:08 06/21/24 16:08 Labs: Laboratory Results - last 24 hr 06/21/24 16:08 WBC 10.85 H RBC 4.65 Hgb 13.1 L Hct 41.7 MCV 90 MCH 28.2 MCHC 31.4 L RDW 14.0 Plt Count 374 MPV 9.9 Immature Gran % 0.3 Neutrophils % 71.0 Lymphocytes % 17.5 Monocytes % 10.9 Eosinophils % 0.0 Basophils % 0.3 Nucleated RBC % 0.0 Absolute Neutrophils 7.70 H Absolute Lymphocytes 1.90 Absolute Monocytes 1.18 H Absolute Eosinophils 0.00 Absolute Basophils 0.03 Sodium 141 Potassium 4.3 Chloride 104 Carbon Dioxide 27.6 Anion Gap 9.4 BUN 15 Creatinine 1.1 Est GFR (CKD-EPI 2020) 73.58 Glucose 130 H Calcium 9.7 Magnesium 2.3 Total Bilirubin 0.4 AST 27 ALT 46 Alkaline Phosphatase 98 Troponin I 5 Total Protein 7.7 Albumin 3.5 Last Vital Signs Temp 35.8 C L 06/21/24 15:55 Pulse 105 H 06/21/24 17:40 Resp 16 06/21/24 17:40 BP 110/66 06/21/24 17:40 Pulse Ox 90 L 06/21/24 17:40 Time Spent Time spent with Patient: <40 minutes Time was spent: preparing to see the patient(eg.review tests), obtaining and/or reviewing separately otained hiistory, ordering medications,tests, procedures, referring, communicating with other health childcare attendant, indepentently interpreting results, counseling the patient and care coordination
[2024-06-21 17:58] LABS: Troponin I 7 ng/L (<or=76)
--- NOTE | 2024-06-21 18:33 | W.PC.ACHO ---
Registration Status: Primary Language: Preferred Language: ED Information & Data Chief Complaint Orthopedic 06/21/24 17:38 Chief Complaint Orthopedic 06/21/24 15:58 Triage Note x2 unwitnessed falls 06/21/24 15:55 yesterday with possible head strike, C/O right hip pain Medical / Surgical History (Last Reviewed 06/21/24 @ 16:00 by Darcy Benitez NP) Left foot pain Cognitive impairment Bilateral primary osteoarthritis of knee Sepsis Pneumonia COVID Dermatophytosis of nail Alcohol abuse, in remission Auditory hallucinations History of suicidal ideation Paranoid schizophrenia Altered mental status Cognitive changes Anemia Elevated PSA Urinary incontinence Hyperplasia of prostate with lower urinary tract symptoms (LUTS) Emphysema lung Pulmonary nodule Tobacco abuse COPD (chronic obstructive pulmonary disease) History of prediabetes Hyperlipidemia Low back pain Acute metabolic encephalopathy Neutrophilia Pain, foot, left, chronic Patellofemoral joint pain Atherosclerosis (Last Reviewed 06/21/24 @ 16:00 by Darcy Benitez NP) Hx of knee surgery Most Recent Vital Signs Temperature 35.8 C L 06/21/24 15:55 Temperature Source Tympanic 06/21/24 15:55 Pulse 105 H 06/21/24 17:40 Respiratory Rate 16 06/21/24 17:40 Blood Pressure 110/66 06/21/24 17:40 Pulse Oximetry 90 L 06/21/24 17:40 Oxygen Delivery Method Room Air 06/21/24 17:40 Oxygen Flow Rate 0 06/21/24 17:40 Allergies No Known Allergies Allergy (Verified 06/21/24 15:59) Precautions Isolation Standard precaution 06/21/24 17:38 IV IV Catheter Type [Right Saline Lock Antecubital] IV Catheter Gauge [Right 20 Antecubital] Diet Orders Category Date Time Status Nothing Per Oral [DIET] Nutrition 06/22/24 Breakfast Ordered Diagnostics 06/21/24 06/21/24 06/21/24 Range/Units 18:55 17:32 16:08 WBC 10.85 H (4.4-10.8) 10^3/uL RBC 4.65 (4.36-5.78) 10^6/uL Hgb 13.1 L (13.5-17.5) g/dL Hct 41.7 (40.0-50.0) % MCV 90 (80-95) fL MCH 28.2 (27.0-33.0) pg MCHC 31.4 L (32.0-36.0) % RDW 14.0 (11.8-14.1) % Plt Count 374 (130-400) 10^3/uL MPV 9.9 (8.0-11.0) fL Immature Gran % 0.3 % Neutrophils % 71.0 % Lymphocytes % 17.5 % Monocytes % 10.9 % Eosinophils % 0.0 % Basophils % 0.3 % Nucleated RBC % 0.0 (0.0-0.3) % Absolute Neutrophils 7.70 H (1.2-6.7) 10^3/uL Absolute Lymphocytes 1.90 (1.2-3.4) 10^3/uL Absolute Monocytes 1.18 H (0.1-0.8) 10^3/uL Absolute Eosinophils 0.00 (0.0-0.7) 10^3/uL Absolute Basophils 0.03 (0.0-0.2) 10^3/uL Sodium 141 (136-145) mmol/L Potassium 4.3 (3.5-5.1) mmol/L Chloride 104 (98-107) mmol/L Carbon Dioxide 27.6 (21.0-32.0) mmol/L Anion Gap 9.4 (3-11) mmol/L BUN 15 (7-18) mg/dL Creatinine 1.1 (0.70-1.30) mg/dL Est GFR (CKD-EPI 2020) 73.58 (mL/min/1.73m2) Glucose 130 H (74-106) mg/dL Calcium 9.7 (8.5-10.1) mg/dL Magnesium 2.3 mg/dL Total Bilirubin 0.4 (0.2-1.0) mg/dL AST 27 (15-37) U/L ALT 46 (16-63) U/L Alkaline Phosphatase 98 (46-116) U/L Troponin I Cancelled 7 5 (<or=76) ng/L Total Protein 7.7 (6.4-8.2) g/dL Albumin 3.5 (3.4-5.0) g/dL Intake and Output - 24 Hour Total 06/21/24 15:37 thru 06/21/24 18:30 Intake Total 10 Balance 10 Weight 95.708 kg Intake: IV 10 Falls Risk Assessment History of Falls Admit Due to Fall 06/21/24 17:38 Contributing Factors Unstable,Impairments 06/21/24 17:38 Ambulatory Aids Uses ambulatory device + 06/21/24 17:38 Tubes/Lines With any additional score 06/21/24 17:38 Gait Evaluation W/any additional score 06/21/24 17:38 Cognition Cognitive impairment 06/21/24 17:38 Fall Total Score 116 06/21/24 17:38 Level of Risk Maximum Risk 06/21/24 17:38 Problems (Last Reviewed 06/21/24 @ 16:00 by Darcy Benitez NP) Closed fracture of right hip (Acute) Schizophrenia (Chronic) Alzheimer's dementia without behavioral disturbance (Chronic) v v v v v v v v v Sending and/or Receiving Nurses: Please use comment section below to note any information pertinent to the patient hand-off not included above. Information / Comments: Report received from: Jyothi Chinchilla @ [id number] (Emergency Dept.)
[2024-06-21 18:46] VITALS: BP 113/75; PULSE 99; RESP 16; TEMP 36.8; O2SAT 93
[2024-06-21] MEDS: Enoxaparin 40 MG/0.4 ML SYR SC (18:57)
[2024-06-21] MEDS: Ondansetron O.D.T. 4 MG TABEF PO (18:57)
[2024-06-21] MEDS: Acetaminophen 325 MG TAB PO (18:57)
--- NOTE | 2024-06-21 19:47 | W.ORTHOCONSU ---
Date of service: 06/21/24 Time of Service: 19:40 History of Present Illness History of Present Illness Chief Complaint: Right Hip Pain Narrative: Gopal is a 69 year old male with multiple medical comorbidities, most significantly COPD and schizophrenia. He lives in an assisted living facility with his , Lidia. He reports falling twice yesterday. He doesn't remember many details but denies having any lightheadedness or chest pain or syncope associated with these falls. He has had right hip pain so was brought into the ED and diagnosed with a displaced femoral neck fracture on the right side. Consults Consult date: 06/21/24 Requesting physician: Darcy Benitez Consult Reason Right Femoral Neck Fracture Assessment and Plan Assessment and plan (1) Displaced fracture of right femoral neck: Status: Acute Assessment and plan: Gopal is a 69-year-old who suffered 2 falls yesterday which resulted in displaced femoral neck fracture on the right side. Given the fracture pattern and characteristics I recommend proceeding with fixation. Given the displaced neck fracture and the risk of osteonecrosis I recommend arthroplasty. He does report walking although he lives in assisted living has other medical comorbidities. My inclination is to proceed with a hemiarthroplasty. I do not see any significant wear on the x-ray of the acetabulum and he had no premorbid pain and is a minimal ambulator. If during the surgery there appears to be some more aggressive chondromalacia about the acetabulum we could proceed with total hip arthroplasty. However, my plan would be for the hemiarthroplasty through an anterior approach. I reviewed this with theater. I discussed the risk such as bleeding, infection, pain, stiffness, need for repeat procedures. Despite this, he elects to proceed. He will be n.p.o. after midnight. Plan for surgery in the morning. Review of Systems All systems reviewed & are unremarkable except as noted in HPI and below PFSH All Active Problems (Updated 06/21/24 @ 21:46 by Antony Caraballo MD) Displaced fracture of right femoral neck (Acute) Closed fracture of right hip (Acute) Aspiration pneumonia (Acute) Schizophrenia (Chronic) Alzheimer's dementia without behavioral disturbance (Chronic) Medical History Left foot pain Cognitive impairment Bilateral primary osteoarthritis of knee Sepsis Pneumonia COVID Dermatophytosis of nail Alcohol abuse, in remission Auditory hallucinations History of suicidal ideation Paranoid schizophrenia Altered mental status Cognitive changes Anemia Elevated PSA Urinary incontinence Hyperplasia of prostate with lower urinary tract symptoms (LUTS) Emphysema lung Pulmonary nodule Tobacco abuse COPD (chronic obstructive pulmonary disease) History of prediabetes Hyperlipidemia Low back pain Acute metabolic encephalopathy Neutrophilia Pain, foot, left, chronic Patellofemoral joint pain Atherosclerosis Surgical History Hx of knee surgery Family History Mother Brain cancer Father Heart disease Hypertension Obesity Osteoarthritis Social History Smoking/Tobacco Use Status: Former Tobacco Use Tobacco: How many years used: 38 Smoking risk assessment performed?: Yes Alcohol Intake: never Substance use type: does not use Housing: assisted living facility Do you feel safe at home: Yes Do you feel safe in your relationship?: Yes Exam Narrative Exam Narrative: Resting in the hospital bed. No acute distress. Right lower extremity is shortened and externally rotated. Skin is intact without signs of abrasion, laceration. No notable ecchymosis. No significant swelling. He has intact ankle dorsiflexion and plantarflexion as well as great toe extension. Endorses full sensation about the leg. Results Last Vital Signs Temp 36.8 C 06/21/24 18:46 Pulse 99 H 06/21/24 18:46 Resp 16 06/21/24 18:46 BP 113/75 06/21/24 18:46 Pulse Ox 93 06/21/24 18:46 Labs 06/21/24 16:08 06/21/24 16:08 Labs: Laboratory Results - last 24 hr 06/21/24 06/21/24 06/21/24 16:08 17:32 18:55 WBC 10.85 H RBC 4.65 Hgb 13.1 L Hct 41.7 MCV 90 MCH 28.2 MCHC 31.4 L RDW 14.0 Plt Count 374 MPV 9.9 Immature Gran % 0.3 Neutrophils % 71.0 Lymphocytes % 17.5 Monocytes % 10.9 Eosinophils % 0.0 Basophils % 0.3 Nucleated RBC % 0.0 Absolute Neutrophils 7.70 H Absolute Lymphocytes 1.90 Absolute Monocytes 1.18 H Absolute Eosinophils 0.00 Absolute Basophils 0.03 Sodium 141 Potassium 4.3 Chloride 104 Carbon Dioxide 27.6 Anion Gap 9.4 BUN 15 Creatinine 1.1 Est GFR (CKD-EPI 2020) 73.58 Glucose 130 H Calcium 9.7 Magnesium 2.3 Total Bilirubin 0.4 AST 27 ALT 46 Alkaline Phosphatase 98 Troponin I 5 7 Cancelled Total Protein 7.7 Albumin 3.5 Imaging Imaging Studies: X-ray of the right hip demonstrates a completely displaced subcapital femoral neck fracture. No significant signs of underlying arthritis. No signs of other concomitant fracture.
[2024-06-21] MEDS: Docusate Sodium 100 MG CAP PO (20:03)
[2024-06-21] MEDS: Donepezil 5 MG TAB 10 MG PO (20:03)
[2024-06-21] MEDS: diazePAM 5 MG TAB 10 MG PO (20:03)
[2024-06-21] MEDS: Tamsulosin 0.4 MG CAPCR 0.8 MG PO (20:04)
[2024-06-21] MEDS: Normal Saline Flush 10 ML SYR IVP (20:04)
[2024-06-21] MEDS: Memantine 5 MG TAB 10 MG PO (20:04)
[2024-06-21] MEDS: traZODone 50 MG TAB PO (20:04)
[2024-06-21] MEDS: OLANZapine 10 MG TAB PO (20:04)
[2024-06-21] MEDS: Ketorolac 15 MG/ML VIAL IVP (20:05)
[2024-06-21 20:18] LABS: Bilirubin Negative (Negative); Blood Negative (Negative); Clarity Clear (Clear); Glucose Negative (Negative); Ketones Trace mg/dL (Negative); Leukocyte Esterase Negative (Negative); Nitrite Negative (Negative); Specific Gravity >= 1.030 (1.005-1.025); Urobilinogen 0.2 mg/dL (Up to 0.2)
[2024-06-21 20:19] LABS: Bacteria Negative HPF (Negative); C & S Indicated? No; Casts Negative LPF (Negative); Crystals Negative HPF (Negative); Epithelial Cells Negative HPF (Negative); Mucus Negative (Negative); Other Cells Negative (Negative); RBC Negative HPF (0-2); WBC Negative HPF (0-5)
[2024-06-21 20:22] VITALS: BP 100/74; PULSE 106; RESP 20; TEMP 36.8; O2SAT 90
[2024-06-21 23:27] VITALS: BP 93/76; PULSE 89; RESP 20; TEMP 36.1; O2SAT 89
[2024-06-22] VITALS (65 sets, daily range): BP systolic 87–129; BP diastolic 58–98; PULSE 83–119; RESP 10–23; TEMP 36.1–36.8; O2SAT 83–99; BMI 33.0
[2024-06-22] MEDS: Lactated Ringers 1,000 ML 75 ML IV (00:25)
--- NOTE | 2024-06-22 05:02 | PGE_ITS ---
Date of Service Date of service: 06/22/24 Time of Service: 07:00 Assessment and Plan Assessment and plan (1) Displaced fracture of right femoral neck: Status: Acute Assessment and plan: Given the displaced nature of the fracture I do recommend proceeding with arthroplasty. He is only 69 years old although with multiple medical comorbidities. Literature would suggest that for anyone with a life expectancy more than for 5 years, hip replacement is a better option then hemiarthroplasty. I had a long discussion with Venu yesterday. He reports that he does walk distances for enjoyment. He reports also going up and down stairs. For this reason, although he is medically more complex than most 69-year-old, I think total replacement is his best option for long-term treatment of his femoral neck fracture with less need for any secondary procedures. I discussed the hip replacement with him. I reviewed risk to include bleeding, infection, pain, stiffness, dislocation, fracture. He would like to proceed and wants to be fixed as he says. To the OR this morning for right hip replacement. He has been NPO. (2) Oliguria: Status: Acute Assessment and plan: Low urine output with decreased oral intake. Creatinine is stable at 1.1. Small fluid bolus this morning. He refused a Ys catheter but we should BladderScan to make sure he is not retaining. Subjective Subjective Interval history since last seen: No significant issues. Pain in right hip. No new complaints. Exam Narrative Exam Narrative: Resting in the bed. No acute distress. Awakes and converses but is sleepy. Objective Last Vital Signs Temp 36.7 C 06/22/24 03:50 Pulse 90 06/22/24 03:50 Resp 20 06/22/24 03:50 BP 104/70 06/22/24 03:50 Pulse Ox 91 L 06/22/24 03:50 Laboratory Results - last 24 hr 06/21/24 06/21/24 06/21/24 16:08 17:32 18:55 WBC 10.85 H RBC 4.65 Hgb 13.1 L Hct 41.7 MCV 90 MCH 28.2 MCHC 31.4 L RDW 14.0 Plt Count 374 MPV 9.9 Immature Gran % 0.3 Neutrophils % 71.0 Lymphocytes % 17.5 Monocytes % 10.9 Eosinophils % 0.0 Basophils % 0.3 Nucleated RBC % 0.0 Absolute Neutrophils 7.70 H Absolute Lymphocytes 1.90 Absolute Monocytes 1.18 H Absolute Eosinophils 0.00 Absolute Basophils 0.03 Sodium 141 Potassium 4.3 Chloride 104 Carbon Dioxide 27.6 Anion Gap 9.4 BUN 15 Creatinine 1.1 Est GFR (CKD-EPI 2020) 73.58 Glucose 130 H Calcium 9.7 Magnesium 2.3 Total Bilirubin 0.4 AST 27 ALT 46 Alkaline Phosphatase 98 Troponin I 5 7 Cancelled Total Protein 7.7 Albumin 3.5 Urine Color Urine Clarity Urine pH Ur Specific [place] Urine Protein Urine Ketones Urine Blood Urine Nitrite Urine Bilirubin Urine Urobilinogen Ur Leukocyte Esterase Urine RBC Urine WBC Ur Epithelial Cells Urine Crystals Urine Bacteria Urine Casts Urine Mucus Urine Other Ur Culture Indicated? Urine Glucose 06/21/24 20:00 WBC RBC Hgb Hct MCV MCH MCHC RDW Plt Count MPV Immature Gran % Neutrophils % Lymphocytes % Monocytes % Eosinophils % Basophils % Nucleated RBC % Absolute Neutrophils Absolute Lymphocytes Absolute Monocytes Absolute Eosinophils Absolute Basophils Sodium Potassium Chloride Carbon Dioxide Anion Gap BUN Creatinine Est GFR (CKD-EPI 2020) Glucose Calcium Magnesium Total Bilirubin AST ALT Alkaline Phosphatase Troponin I Total Protein Albumin Urine Color Yellow Urine Clarity Clear Urine pH 6.0 Ur Specific [place] >= 1.030 H Urine Protein 30 H Urine Ketones Trace H Urine Blood Negative Urine Nitrite Negative Urine Bilirubin Negative Urine Urobilinogen 0.2 Ur Leukocyte Esterase Negative Urine RBC Negative Urine WBC Negative Ur Epithelial Cells Negative Urine Crystals Negative Urine Bacteria Negative Urine Casts Negative Urine Mucus Negative Urine Other Negative Ur Culture Indicated? No Urine Glucose Negative Time Spent with Patient Time Spent with Patient: <25 minutes Time was spent: preparing to see the patient(eg.review tests), obtaining and/or reviewing separately otained hiistory, indepentently interpreting results and counseling the patient
[2024-06-22 06:48] LABS: HCT 39.1 % (40.0-50.0); HGB 12.2 g/dL (13.5-17.5); MCH 28.2 pg (27.0-33.0); MCHC 31.2 % (32.0-36.0); MCV 91 fL (80-95); Platelet Count 303 10^3/uL (130-400); RBC 4.32 10^6/uL (4.36-5.78); RDW-SD 46.9 fL; WBC 10.12 10^3/uL (4.4-10.8)
[2024-06-22 07:06] LABS: ALT 31 U/L (16-63); AST 18 U/L (15-37); Albumin 3.1 g/dL (3.4-5.0); Alkaline Phosphatase 89 U/L (46-116); Anion Gap 10.3 mmol/L (3-11); BUN 18 mg/dL (7-18); Bilirubin, Total 0.5 mg/dL (0.2-1.0); CO2 27.7 mmol/L (21.0-32.0); CREATININE 1.1 mg/dL (0.70-1.30); Chloride 104 mmol/L (98-107); Estimated GFR 73.58 (mL/min/1.73m2); Glucose 117 mg/dL (74-106); Potassium 4.1 mmol/L (3.5-5.1); Sodium 142 mmol/L (136-145)
--- NOTE | 2024-06-22 07:51 | ANES.PREOP_ITS ---
General Info Date of Service Date Performed: 06/22/24 Height: 5 ft 7 in Weight: 95.708 kg Body Mass Index (BMI): 33.0 Surgical Procedure: Operation Date: 06/22/24 08:00 Proposed Procedure Side Surgeon p Hip Total Hip Anterior Right Antony Caraballo MD Actual Procedure Side Surgeon p Hip Total Hip Anterior Right Antony Caraballo MD Pre-Op Diagnosis Post-Op Diagnosis RIGHT HIP FRACTURE RIGHT HIP FRACTURE Meds Allergies and Home Medications Allergies Allergy/AdvReac Type Severity Reaction Status Date / Time No Known Allergies Allergy Verified 06/21/24 15:59 Home Medication ?Medication ?Instructions ?Recorded acetaminophen 325 mg tablet 650 mg PO Q6H PRN 03/23/22 (Tylenol) magnesium 250 mg tablet 400 mg PO DAILY 03/23/22 tamsulosin 0.4 mg capsule 0.8 mg PO QHS 03/23/22 trazodone 50 mg tablet 50 mg PO QHS 03/23/22 umeclidinium 62.5 mcg/actuation 1 inh inhalation DAILY 03/23/22 blister powder for inhalation (Incruse Ellipta) clozapine 200 mg tablet 200 mg PO QHS 01/19/23 clozapine 50 mg tablet 50 mg PO QHS 01/19/23 docusate sodium 100 mg capsule 100 mg PO BID 01/19/23 omega 0-lqm-rph-fish oil 60 mg-90 1 cap PO DAILY 01/19/23 mg-500 mg capsule (Fish Oil) simvastatin 20 mg tablet 20 mg PO DAILY 01/19/23 duloxetine 60 mg capsule,delayed 120 mg PO DAILY 07/20/23 release cyanocobalamin (vitamin B-12) See Rx Instructions .Route 08/16/23 1,000 mcg sublingual tablet .COMPLEX #30 tabs donepezil 10 mg tablet 10 mg PO QHS #90 tabs 10/03/23 diazepam 10 mg tablet 10 mg PO HS 01/30/24 diazepam 5 mg tablet 5 mg PO DAILY 01/30/24 cholecalciferol (vitamin D3) 25 2,000 unit PO DAILY 02/11/24 mcg (1,000 unit) capsule (Vitamin D3) olanzapine 10 mg tablet 10 mg PO TID 02/11/24 polyethylene glycol 3350 17 17 g PO QDAY 02/11/24 gram/dose oral powder (Miralax) tizanidine 2 mg tablet 2 mg PO BID 02/11/24 trazodone 50 mg tablet 50 mg PO QHS PRN 02/11/24 memantine 10 mg tablet 10 mg PO BID #180 tabs 02/27/24 albuterol sulfate 90 mcg/actuation 1 inh inhalation Q6H PRN 06/04/24 aerosol inhaler azithromycin 250 mg tablet 500 mg (2 x 250 mg) PO DAILY #6 06/06/24 tabs cefpodoxime 200 mg tablet 200 mg PO BID #6 tabs 06/06/24 prednisone 20 mg tablet 40 mg (2 x 20 mg) PO DAILY #6 tabs 06/06/24 albuterol sulfate 90 mcg/actuation 2 inh inhalation Q6H PRN 06/21/24 aerosol inhaler (Ventolin HFA) meloxicam 7.5 mg tablet 7.5 mg PO DAILY 06/21/24 ondansetron 4 mg disintegrating 4 mg PO Q6H 06/21/24 tablet Current Visit Medications: Current Medications Generic Name Dose Route Start Last Admin Trade Name [facility] PRN Reason Stop Dose Admin Acetaminophen 0 mg 06/21/24 17:52 06/21/24 18:57 Acetaminophen 325 Mg Tab PO 650 mg Q4H PRN PRN Administration Al Hydrox/Mg Hydrox/Simethicone 30 ml 06/21/24 17:52 Mylanta Suspension 30 Ml Cup PO Q2H PRN PRN Albuterol Sulfate 1 puff 06/21/24 18:33 Albuterol Hfa 8 Gm 60 Puff Inh IH Q6H PRN Albuterol Sulfate 2 puff 06/21/24 18:33 Albuterol Hfa 8 Gm 60 Puff Inh IH Q6H PRN Cholecalciferol 2,000 units 06/22/24 08:30 Cholecalciferol (Vitamin D3) 1,000 Unit Tab PO DAILY MARIA ALEJANDRA Clozapine 200 mg 06/21/24 20:00 06/21/24 22:05 Clozapine 100 Mg Tab PO 200 mg HS MARIA ALEJANDRA Administration Cyanocobalamin 1,000 mcg 06/22/24 08:30 Cyanocobalamin 500 Mcg Tab PO DAILY MARIA ALEJANDRA Diazepam 10 mg 06/21/24 20:00 06/21/24 20:03 Diazepam 5 Mg Tab PO 10 mg HS MARIA ALEJANDRA Administration Docusate Sodium 100 mg 06/21/24 17:52 Docusate Sodium 100 Mg Cap PO TID PRN PRN Docusate Sodium 100 mg 06/21/24 20:00 06/21/24 20:03 Docusate Sodium 100 Mg Cap PO 100 mg BID [facility] Administration Donepezil HCl 10 mg 06/21/24 20:00 06/21/24 20:03 Donepezil 5 Mg Tab PO 10 mg HS MARIA ALEJANDRA Administration Duloxetine HCl 120 mg 06/22/24 08:30 Duloxetine 30 Mg Cap PO DAILY [facility] Enoxaparin Sodium 40 mg 06/21/24 18:00 06/21/24 18:57 Enoxaparin 40 Mg/0.4 Ml Syr SC 40 mg Q24H MARIA ALEJANDRA Administration Fish Oil 1,000 mg 06/22/24 08:30 Corolla-3 Fatty Acids 1000 Mg Cap PO DAILY [facility] Hydromorphone HCl 0.5 mg 06/21/24 19:45 Hydromorphone 2 Mg/Ml Syr IVP Q4H PRN PRN Ringer's Solution 1,000 mls @ 75 mls/hr 06/22/24 00:00 06/22/24 00:25 IV 75 mls/hr INFUSION [facility] Administration IV Miscellaneous Supplies 1 each 06/21/24 16:00 Iv Access-Emergency Dept IV DIRECTED [facility] Ketorolac Tromethamine 15 mg 06/21/24 19:45 06/21/24 20:05 Ketorolac 15 Mg/Ml Vial IVP 06/26/24 19:44 15 mg Q8H PRN PRN Administration Magnesium Hydroxide 30 ml 06/21/24 17:52 Milk Of Magnesia 30 Ml Cup PO DAILY PRN PRN Magnesium Oxide 400 mg 06/22/24 08:30 Magnesium Oxide 400 Mg Tab PO DAILY [facility] Memantine 10 mg 06/21/24 20:00 06/21/24 20:04 Memantine 5 Mg Tab PO 10 mg BID MARIA ALEJANDRA Administration Olanzapine 10 mg 06/21/24 20:00 06/21/24 20:04 Olanzapine 10 Mg Tab PO 10 mg TID [facility] Administration Ondansetron HCl 4 mg 06/21/24 18:33 06/22/24 06:42 Ondansetron O.D.T. 4 Mg Tabef PO Not Given Q6H MARIA ALEJANDRA Polyethylene Glycol 17 gm 06/21/24 17:52 Polyethylene Glycol 3350 17 Gm Packet PO DAILY PRN PRN Constipation Polyethylene Glycol 17 gm 06/22/24 08:30 Polyethylene Glycol 3350 17 Gm Packet PO DAILY MARIA ALEJANDRA Simvastatin 20 mg 06/22/24 08:30 Simvastatin 20 Mg Tab PO DAILY MARIA ALEJANDRA Sodium Chloride 0 ml 06/21/24 15:55 Normal Saline Flush 10 Ml Syr IVP PRN PRN Sodium Chloride 0 ml 06/21/24 20:00 06/21/24 20:04 Normal Saline Flush 10 Ml Syr IVP 10 ml BID MARIA ALEJANDRA Administration Sodium Chloride 0 ml 06/21/24 15:55 Normal Saline 10 Ml Vial IJ DIRECTED PRN Tamsulosin HCl 0.8 mg 06/21/24 20:00 06/21/24 20:04 Tamsulosin 0.4 Mg Capcr PO 0.8 mg HS MARIA ALEJANDRA Administration Tizanidine HCl 2 mg 06/21/24 20:00 06/21/24 20:03 Tizanidine 2 Mg Tab PO 2 mg BID MARIA ALEJANDRA Administration Trazodone HCl 50 mg 06/21/24 20:00 06/21/24 20:04 Trazodone 50 Mg Tab PO 50 mg HS MARIA ALEJANDRA Administration Umeclidinium [place] 1 cap 06/22/24 08:30 Umeclidinium 7 Cap Inhaler IH DAILY MARIA ALEJANDRA PFSH Active Problems Active Problems: Problem Status Onset Code Oliguria Acute R34 Displaced fracture of right femoral neck Acute S72.001A Aspiration pneumonia Acute J69.0 Schizophrenia Chronic F20.9 Alzheimer's dementia without behavioral disturbance Chronic G30.9, F02.80 Medical History Medical History Left foot pain Cognitive impairment Bilateral primary osteoarthritis of knee Sepsis Pneumonia COVID Dermatophytosis of nail Alcohol abuse, in remission Auditory hallucinations History of suicidal ideation Paranoid schizophrenia Altered mental status Cognitive changes Anemia Elevated PSA Urinary incontinence Hyperplasia of prostate with lower urinary tract symptoms (LUTS) Emphysema lung Pulmonary nodule Tobacco abuse COPD (chronic obstructive pulmonary disease) History of prediabetes Hyperlipidemia Low back pain Acute metabolic encephalopathy Neutrophilia Pain, foot, left, chronic Patellofemoral joint pain Atherosclerosis Surgical History Surgical History Hx of knee surgery Tobacco Smoking/Tobacco Use Status: Former Tobacco Use Alcohol Alcohol Intake: never Substance Use Substance use type: does not use Vital Signs and Lab Results Vital Signs Most Recent Vital Signs in EMR: Most Recent Vital Signs Temp Pulse Resp BP Pulse Ox 36.8 C 98 H 20 113/90 93 06/22/24 05:49 06/22/24 05:49 06/22/24 05:49 06/22/24 05:49 06/22/24 05:49 Lab Results 06/22/24 06:18 06/22/24 06:18 Blood Type / Crossmatch: 2 No Data to Display Complete Blood Count: 2 White Blood Count 10.12 10^3/uL (4.4-10.8) 06/22/24 06:18 Red Blood Count 4.32 10^6/uL (4.36-5.78) L 06/22/24 06:18 Hemoglobin 12.2 g/dL (13.5-17.5) L 06/22/24 06:18 Hematocrit 39.1 % (40.0-50.0) L 06/22/24 06:18 Platelet Count 303 10^3/uL (130-400) 06/22/24 06:18 Venous Blood Lactate 0.7 mmol/L (<or=2.0) 06/05/24 06:20 Complete Metabolic Panel: 2 Sodium 142 mmol/L (136-145) 06/22/24 06:18 Potassium 4.1 mmol/L (3.5-5.1) 06/22/24 06:18 Chloride 104 mmol/L (98-107) 06/22/24 06:18 Carbon Dioxide 27.7 mmol/L (21.0-32.0) 06/22/24 06:18 BUN 18 mg/dL (7-18) 06/22/24 06:18 Creatinine 1.1 mg/dL (0.70-1.30) 06/22/24 06:18 Est GFR (CKD-EPI 2020) 73.58 (mL/min/1.73m2) 06/22/24 06:18 Magnesium 2.3 mg/dL 06/21/24 16:08 Calcium 9.0 mg/dL (8.5-10.1) 06/22/24 06:18 Albumin 3.1 g/dL (3.4-5.0) L 06/22/24 06:18 Glucose 117 mg/dL (74-106) H 06/22/24 06:18 Liver Function Panel: 2 Alanine Aminotransferase (ALT/SGPT) 31 U/L (16-63) 06/22/24 06: 18 Aspartate Amino Transf (AST/SGOT) 18 U/L (15-37) 06/22/24 06:18 Coagulation Panel: 2 No Data to Display Cardiac Panel: 2 Troponin I 7 ng/L (<or=76) 06/21/24 NT-Pro-B Natriuret Pep 350 pg/mL (<300) H 06/04/24 Arterial Blood Gas: 2 No Data to Display Venous Blood Gas: 2 Venous Blood pH 7.38 (7.31-7.41) 06/04/24 06:40 Venous Blood Partial Pressure O2 36 mmHg 06/04/24 06:40 Venous Blood Partial Pressure CO2 51 mmHg (41-51) 06/04/24 06:4 0 Venous Blood Oxygen Saturation 70 % 06/04/24 06:40 Venous Blood HCO3 30 mmol/L (23-28) H 06/04/24 06:40 Venous Blood Base Excess 5 mmol/L (-2-3) H 06/04/24 06:40 Venous Blood Total Carbon Dioxide 28 mmol/L (24-29) 06/04/24 06 :40 Pancreas Panel: 2 No Data to Display Thyroid Panel: 2 No Data to Display Infectious Disease: 2 Coronavirus (COVID-19)(PCR) Negative (Negative) 06/04/24 04:39 Coronavirus 2019 Source Nasopharynx 06/04/24 04:39 Influenza Virus Type A (PCR) Negative (Negative) 06/04/24 04:3 9 Influenza Virus Type B (PCR) Negative (Negative) 06/04/24 04:3 9 Respiratory Syncytial Virus (PCR) Negative (Negative) 06/04/24 04:39 Blood Cultures: 2 No Data to Display Toxicology Panel: 2 No Data to Display Anesthesia Assessment and Plan Anesthesia History Personal History: Unknown Anesthesia History Family History: Family History Unknown Exercise Tolerance Exercise Tolerance: Metabolic Equivalents<4 Pertinent Negatives Pertinent Negatives: No Symptoms of GERD Cardiac & Pulmonary Exam Cardiac Exam: Normal S1/S2 Heart Sounds Pulmonary Exam: Wheezing Present (Expiratory wheeze, decreased bases. St02 88% on RA.) Implantable Cardiac Device Does patient have a Pacemaker or an ICD?: No Airway Exam Known Difficult Airway: No Mallampati Class: 3 Mouth Opening: Normal (> 3cm) Thyromental Distance: Greater than 3 cm Neck Range of Motion: Full ROM Neck Circumference: Normal Teeth Condition: Normal Dentition ASA Classification ASA Score: ASA 3 Emergency Case?: Yes NPO Status NPO Status: NPO Clears >2 hours, Solids >8 hours Anesthesia Plan Resuscitation Status: Full Code Anesthesia Technique: General Anesthesia Airway Planned: Endotracheal Tube Monitors Used: Standard Monitors and Cerebral Oximetry
--- NOTE | 2024-06-22 07:53 | W.PM.OP ---
Operative Note Operative Note PRE-OP DIAGNOSIS: Displaced Right Femoral Neck Fracture POST-OP DIAGNOSIS: same PROCEDURE: Right Anterior Total Hip Arthroplasty with Intraoperative Navigation SURGEON: Antony Caraballo SOLUTION SPECIALIST: Susannah Macedo ANESTHESIA TYPE: General LMA/ETT Refer to Anesthesia Record ESTIMATED BLOOD LOSS: 300 PATHOLOGY: none sent TOURNIQUET TIME: 0 COMPLICATIONS: None Patient was transported to: PACU Patient's condition: stable Implants: 1. Depuy [place] Acetabular Component, 56mm 2. Depuy Acetabular Liner, [id number] 3. Depuy Actis High Offset Collared Femoral Stem, Size 4 4. Depuy Altrx Ceramic Femoral Head, Size 36+5mm Indications: I have seen Gopal in consultation for a displaced right femoral neck fracture from mechanical falls. Given the displaced nature of the fracture and its location I recommended arthroplasty. I discussed them briefly the difference between hemiarthroplasty and total hip arthroplasty. He does report that he walks some distance outside and does stairs. He is only 69 but does have other medical comorbidities. Nevertheless, given his age and his reported functional status, I did offer total hip arthroplasty. I discussed the technical details of a hip replacement. I explained the risks of the procedure to include, but not limited to, bleeding, infection, pain, stiffness, fracture, damage to nerves and vessels, damage to muscles and tendons, loosening, instability, leg length inequality, need for repeat procedure, blood clot and cardiopulmonary demise. Despite these risks, he elected to proceed. Findings: There is a fracture within the subcapital region of the femoral neck. There is no extension of fracture down into the neck or shaft. There was some mild arthritic change seen within the superior femoral head and in the superior acetabulum. Procedure Description: Gopal was greeted in the preoperative holding area where the correct side was identified and marked. The consent was reviewed with the patient and signed. The history and physical was updated. All questions were answered. He was taken back to the operating room. A general anesthetic was then administered. The feet were wrapped with cast padding and Coban and then placed into the boot liners and then into the boots. Care was taken to protect the skin and make sure the heels were fully down and the boots were stable. The patient was then positioned onto the HANA table. Both legs were held in a neutral position. SCDs were applied. The patient was then slid down onto a peroneal post. Prophylactic antibiotics in the form of Cefazolin were administered. 1g of Tranxemic Acid was given intravenously within 30 minutes of incision. The right leg was then prepped with Chloraprep and draped in a standard fashion. A second prep with Chloraprep was performed prior to placement of a shower-curtain type drape with Iodine impregnated skin protection. A timeout to confirm correct identity, side and site, procedure, allergies, anesthesia, and medical concerns was performed. An obliquely oriented incision was made starting lateral to the ASIS and running distal over the Tensor Fascia Ewa (TFL) muscle belly toward the fibular head, approximately 10cm. The skin and soft tissue was dissected sharply, through Gisella?s fascia, and to the fascia of the TFL. With the fascia and superior border of the IT band identified, the fascia was incised with a new knife just above any perforators from the IT band. The TFL muscle belly was bluntly dissected away from the fascia and moved laterally. The fat between TFL and rectus was identified to ensure the dissection was not within the TFL. Blunt dissection created space between abductors and the capsule and retractor was placed over the lateral femoral neck. The fibers of the rectus femoris tendon were identified and these were freed from the anterior capsule. A second cobra retractor was placed around the medial femoral neck. The TFL was further retracted laterally to show the deep fascia. Careful dissection through this layer identified three main crossing vessels of the lateral femoral circumflex. These were cauterized in multiple locations and then cut without any noticeable bleeding. The TFL was further released bluntly from the deep fascia to expose anterior hip capsule and fat The soft tissue orthopaedic retractor was then placed beneath the TFL and against sartorius and medial soft tissues to protect and retract the soft tissues. A T-capsulotomy was then performed starting at the superior lateral acetabulum and moving distally to the intertrochanteric ridge. These capsular flaps were tagged with a No. 1 Vicryl and elevated from within. The capsular flaps were released to the shoulder of the lateral neck and to the lesser trochanter to give excellent visualization of the proximal femur. A neck osteotomy was performed using an oscillating saw based on preoperative templates. This cut started in the shoulder and of the lateral neck and exited medially. The saw was at all times directed medially to avoid injury to the greater trochanter. Gross traction was applied to the leg and the osteotomy opened. The intercalary bony segment was removed with a rongeur. The femoral head was removed with a corkscrew, making sure to protect the TFL on its exit. Traction was released after head removal. This was measured on the back table to determine the starting reamer size. Portions of the rectus obscuring visualization were minimally elevated off the superior acetabulum. An anterior retractor was placed over the anterior wall between capsule and labrum and attached to the Gripper retraction system. The femur was rotated to 90 degrees and medial capsule was fully released until the lesser trochanter was palpable and visible; the femur was returned to 30 degrees. A posterior retractor was placed similarly between capsule and labrum. This provided excellent visualization. The contents of the cotyloid fossa were removed with electrocautery and the labrum was removed with a knife. Acetabular reaming began with a 52mm reamer. This first reaming was directed anterior to posterior and medial to get down to the true floor. This was inspected and reamed until the true floor was reached. The anterior retractor was then released and entry and exit was provided by traction on the capsular flaps. I then reamed sequentially up to a 56mm reamer where good fit was obtained. The larger reamers were oriented based on anatomical reference of the anterior and lateral allen to ensure proper abduction and anteversion. Positioning and size was confirmed with the fluoroscopy. A 56mm Depuy [place] acetabular component was selected. The acetabulum was reamed around the periphery with the selected acetabular size to prevent a rim fit. The deep tissues were irrigated. The acetabular component was then impacted in a position of about 40-45 degrees of abduction and 15-20 degrees of anteversion, using the patient?s anatomy as the ultimate landmark. Fluoroscopy was used to confirm this. There was excellent smooth plater of the acetabular component and the inserting handle was removed. The acetabular liner, Depuy [id number] polyethylene liner, was inserted and lined up with the tines of the acetabular component. There was no soft tissue interposition. The liner was then impacted into position and confirmed to be well-seated. A portion of the greer-articular cocktail was then injected around the acetabulum into the capsule and periosteum. This cocktail consisted of 123mg of Ropivacaine, 0.25mg of Epinephrine, 0.04mg of Clonidine, and 15mg of Ketorolac, diluted to 50cc. The leg was rotated to 120 degrees. Any remaining medial capsule was released until the lesser trochanter was easily palpable. A retractor was placed medially. The lateral capsule was further released into the shoulder to allow access to the greater trochanter. A Goyal retractor was placed over the greater trochanter which allowed the trochanter to flip in front of the capsule for excellent exposure. The leg was brought down into maximal extension and 20 degrees of adduction while ensuring there was no impingement on the acetabulum. Any remnant capsule within the trochanter was released. Piriformis and obturator externis were identified and protected. There was excellent access to the proximal femur. The lateral neck remnant was removed with a rongeur. A blunt canal probe was used to identify the canal and trajectory for later broaching. A box osteotome initiated the broach course. A small curved rasp and a curved curette were used to work laterally. Broaching then began with a starter Actis broach. This was inserted manually around the trochanter and into the canal before mallet blows. The broach was seated to the neck cut level based on the neck cut and the preoperative template. Sequential broaching was continued with the [id number] pneumatic broaching device until a tight fit was obtained with good rotational control of the femur. A trial high offset neck was inserted along with a +1.5 trial head. The leg was brought out of extension and adduction and then reduced with traction and internal rotation. The leg was stable anteriorly in a position of 30 degrees of extension and 90 degrees of external rotation. Fluoroscopy was used to ensure there was no fracture and the stem was seated well. Leg lengths were checked with an AP pelvis and pelvic reference points. [employer] navigation system was used to confirm appropriate positioning and leg length and offset. Once content with the desired offset and leg lengths, the leg was brought back into extension, external rotation and adduction. The periosteum and surrounding tissue was injected with remaining portion of the greer-articular cocktail. The proximal femur was irrigated as well as the deep tissues. The [employer] Actis High Offset collared stem, size 4, was then manually inserted into the proximal femur making sure to control rotation. It was then malleted into position with light blows, giving breaks to allow bone expansion and decrease risk of fracture. The selected Depuy Altrx Ceramic Head, size 36+5mm, was then placed onto the clean and dry trunnion and secured with impaction onto the tapered fit. The leg was brought back out of extension and adduction and reduced with traction and internal rotation. Stability was confirmed with no shuck at 90 degrees of external rotation and 30 degrees of extension. No impingement through range of motion arc. Final x-ray images were obtained with fluoroscopy to confirm adequate positioning and no intraoperative fracture. The deep tissues were thoroughly irrigated with Surgiphor, betadine solution. This was allowed to sit in the wound for 3 minutes before being thoroughly irrigated out with normal saline. The capsule was then reapproximated with the previously placed sutures and the indirect head of the rectus was inspected and reapproximated with a #1 Vicryl. The TFL fascia was finally closed with a No. 2 Stratafix, barbed suture. Deep tissues were then reapproximated with 0 Vicryl and a running 2-0 Vicryl. The skin was closed with a running 4-0 Monocryl in a subcuticular fashion. This was reinforced with skin glue. A Mepilex silver dressing was applied. At the end of the case, all counts were correct. Gopal was transferred to the hospital bed without difficulty and suffering no apparent complication. He has a good prognosis. Physical therapy will start today and without restrictions, weight-bearing as tolerated. Anticoagulation can start this evening. Date of Procedure: 06/22/24
[2024-06-22] MEDS: Lactated Ringers 1,000 ML 100 ML IV ×3 (08:13→22:30)
--- NOTE | 2024-06-22 09:03 | PDOC.CMIN ---
Date of service: 06/22/24 Time of Service: 09:03 Care Management Initial Assmt Initial Assessment Reason for Hospitalization: Displaced Right Femoral Neck Fracture Functional Status/Living Situation Patient Presentation: Gopal was transferred to the ICU after hip surgery for close monitoring. He is slow to recover and is requiring Hi Isidro O2. He was awake and lying in bed when CM met with him. He resides at [facility] with his Lidia. CM will follow. Town of Residence: [facility] Resides with: Spouse (Resides at [facility] with his ) Caregiver/Guardian: LTC at [facility] (formerly [facility]) Natural Supports: , Lidia Employment Status: Retired Instrumental Activities of Daily Living (ADLs): Requires support Medications Medication Management: No Issues/Barriers identified Physical Functioning/Mobility Assistive Device: Walker Advance Directives Advance Directives: Do you have an Advance Directive: Y 12/12/22 12:20 AD On File at [facility]: Y 12/12/22 12:20 Date Asked 12/15/23 06/04/24 07:22 AD Date Reviewed 06/21/24 06/21/24 16:56 COLST On File at [facility] COLST Date Scanned Code Status Resuscitation Status Full Code Portal Pt does not currently have a portal and education provided: Yes Insurance Coverage/Financial Issues Insurance: Medicaid of [place] Medicare Part A & B Care Team Visit Care Team Role Provider Type Milka Shelley Primary Care Provider ADV PRACTICE REGISTERED NURSE Maru Casper Other Providers CERTIFIED HOME HEALTH AIDE Adriana Vásquez Other Providers CERTIFIED HOME HEALTH AIDE Antony Caraballo MD Other Providers [facility] STAFF PHYSICIAN Milka Mckenzie Other Providers CERTIFIED HOME HEALTH AIDE Lucila Weems RN Other Providers CERTIFIED HOME HEALTH AIDE Agustina Carcamo Other Providers CERTIFIED HOME HEALTH AIDE Darcy Benitez NP Emergency Provider NURSE PRACTITIONER Richard Carcamo MD Admit Provider [facility] STAFF PHYSICIAN Attending Provider Other Providers Discharge Potential Discharge Needs: PCP F/U Appt, Surgical F/U Appt (F/U with Ortho) and Other (Return to [facility]) Anticipated Barriers to Discharge: None Identified Patient/Family Education Needs: Review discharge instructions, discuss Ask Me Three Transportation: RCT ( ) RCT Transportation: Wheel chair van Plan: Gopal is a resident of [facility], and plans to return when he is medically ready for discharge. Transportation will be dependent on mobility, EMS vs. RCT W/C van. He will need Ortho follow up and updated PT notes sent to SNF. CM will continue to follow. Social Determinants of Health Screening Will the Patient Participate in the Screening?: Declined to provide PFSH All Active Problems (Updated 06/22/24 @ 13:11 by Richard Carcamo MD) Respiratory acidosis (Acute) Oliguria (Acute) Displaced fracture of right femoral neck (Acute) Aspiration pneumonia (Acute) Schizophrenia (Chronic) Alzheimer's dementia without behavioral disturbance (Chronic) Medical History Left foot pain Cognitive impairment Bilateral primary osteoarthritis of knee Sepsis Pneumonia COVID Dermatophytosis of nail Alcohol abuse, in remission Auditory hallucinations History of suicidal ideation Paranoid schizophrenia Altered mental status Cognitive changes Anemia Elevated PSA Urinary incontinence Hyperplasia of prostate with lower urinary tract symptoms (LUTS) Emphysema lung Pulmonary nodule Tobacco abuse COPD (chronic obstructive pulmonary disease) History of prediabetes Hyperlipidemia Low back pain Acute metabolic encephalopathy Neutrophilia Pain, foot, left, chronic Patellofemoral joint pain Atherosclerosis Surgical History Hx of knee surgery Family History Mother Brain cancer Father Heart disease Hypertension Obesity Osteoarthritis Social History Smoking/Tobacco Use Status: Former Tobacco Use Tobacco: How many years used: 38 Smoking risk assessment performed?: Yes Alcohol Intake: never Substance use type: does not use Housing: house Do you feel safe at home: Yes Do you feel safe in your relationship?: Yes
--- NOTE | 2024-06-22 09:29 | DI.RAD_ITS ---
Exam(s) XR HIP RT IN OR EXAM: XR HIP RT IN OR CLINICAL HISTORY: RIGHT HIP FRACTURE. TECHNIQUE: 2D digital imaging was performed. COMPARISON: No exams were available for comparison FINDINGS: Intraoperative fluoroscopy was provided during right hip arthroplasty perform. See procedure report for details. IMPRESSION: Total fluoroscopy time 50 seconds Radiation exposure index/cumulative dose:antonia Flanagan=8.3115 mGy DATA REPOSITORY: RADIATION DOSE DELIVERED:
[2024-06-22 11:17] LABS: BE 0 mmol/L (-2-3); HCO3 26 mmol/L (22-26); pCO2 49 mmHg (35-45); pH 7.33 (7.35-7.45); pO2 57 mmHg (80-105); sO2 87 % (95-98); tCO2 24 mmol/L (23-27)
[2024-06-22 11:19] LABS: FIO2L Unknown/Not Given L
--- NOTE | 2024-06-22 12:01 | W.ANESPOSTOP ---
Postoperative Evaluation Date, Time and Location Date Performed: 06/22/24 Time Performed: 12:01 Patient Location: Intensive Care Unit Vital Signs Most Recent Imported Vital Signs: Most Recent Vital Signs Temp Pulse Resp BP Pulse Ox 36.4 C L 93 H 11 L 113/71 88 L 06/22/24 11:33 06/22/24 11:33 06/22/24 11:33 06/22/24 11:33 06/22/24 11:33 Pain Score Most Recent Pain Score: Most Recent Pain Score Pain Level 5 06/22/24 11:33 Assessment Mental Status: Arousable with meaningful communication Airway and Respiratory Function: Abnormal Respiratory exam (See explanation) Cardiovascular Function: Hemodynamically Stable Hydration Status: Adequately Hydrated Nausea & Vomiting: No Nausea or Vomiting Pain: Pt. Denies Any Pain Peripheral Nerve Block: Patient did not receive a nerve block Postoperative Comments:: Pt noted with persistent hypoxia in PACU requiring >8L/min via FM. ABG noted with PaO2 of 57. PCo2 of 49. Slow to clear anesthesia meds with ongoing confusion/lethargy. Transferred to ICU for monitoring. Lauro Bejarano CRNA
--- NOTE | 2024-06-22 13:00 | PHA.REVIEW2 ---
Pharmacy Admission Review Admission Clinical Review Admission Pharmacy Review: Oliguria (Acute) Displaced fracture of right femoral neck (Acute) No Known Allergies Allergy (Verified 06/21/24 15:59) Resuscitation Status Full Code Height 5 ft 7 in Weight 95.708 kg Pharmacy Admission Review Renal Dosing Renal Dosing: BUN 18 mg/dL (7-18) 06/22/24 06:18 Creatinine 1.1 mg/dL (0.70-1.30) 06/22/24 06:18 Medications needing adjustments: Reviewed (CrCl 70.2 mL/min) List of meds needing interventions: Current medications are okay Anticoagulation Anticoagulation: Hgb 12.2 g/dL (13.5-17.5) L 06/22/24 06:18 Hct 39.1 % (40.0-50.0) L 06/22/24 06:18 Plt Count 303 10^3/uL (130-400) 06/22/24 06:18 Creatinine 1.1 mg/dL (0.70-1.30) 06/22/24 06:18 DVT Prophylaxis: Reviewed (Hgb decreased from 13.1) Medications: Enoxaparin (40mg daily) Opiate Usage Evaluate Pain Scale/Pains Meds: Reviewed (hydromorphone 0.5mg IV q4h PRN - no doses given) Scheduled Bowel Reg ordered if on Opiates?: Yes (docusate and Miralax) Relevant Labs Relevant Labs: Sodium 142 mmol/L (136-145) 06/22/24 06:18 Potassium 4.1 mmol/L (3.5-5.1) 06/22/24 06:18 Chloride 104 mmol/L (98-107) 06/22/24 06:18 Magnesium 2.3 mg/dL 06/21/24 16:08 Electrolytes, C-Reactive P, ESR: Reviewed Cardiac Review Cardiac Review: Troponin I Cancelled 06/21/24 18:55 BP, HR, EF%: Reviewed (BP WNL, HR 98, oxygen flow rate 8) QTc Review QTc: Reviewed (436 from 06/21/24) IV to PO Switch IV Medications: Reviewed (cefepime, hydromorphone, ketorolac) Home Meds Home Med List reviewed: Reviewed Relevent Home Meds Not ordered & why?: meloxicam Current Meds Current Medication Order Review: Intervened Comments: Discontinued duplicate albuterol order Added 2nd PRN to albuterol order Changed IV ED access
--- NOTE | 2024-06-22 13:07 | W.PM.PROGNOT ---
Date of Service Date of service: 06/22/24 Time of Service: 13:07 Assessment and Plan Assessment and plan (1) Schizophrenia: Status: Chronic Assessment and plan: medical management (2) Closed fracture of right hip: Status: Deleted Assessment and plan: Pt would not benefit from further risk stratification based on his history/labs/ekg findings 06/22/24 s/p surgery. Recheck labs, appears on an appropriate post operative course (3) Alzheimer's dementia without behavioral disturbance: Status: Chronic Assessment and plan: medical management (4) Respiratory acidosis: Status: Acute Assessment and plan: Noted, pt is currently in the ICU but as a stepdown. PT does appear to be improving in his oxygenation Subjective Subjective Interval history since last seen: Pt seen post operatively and was still quite somnolent Exam Narrative Exam Narrative: somnolent heent-ncat neck-no lad/jvd/thyroidmegaly cv-rrr no mrg lungs-ctab no amu abd-sntndbsa gen-69 y/o who appears his stated age Objective Last Vital Signs Temp 36.1 C L 06/22/24 12:53 Pulse 98 H 06/22/24 12:54 Resp 18 06/22/24 12:54 BP 113/71 06/22/24 11:33 Pulse Ox 98 06/22/24 12:54 Laboratory Results - last 24 hr 06/21/24 06/21/24 06/21/24 16:08 17:32 18:55 WBC 10.85 H RBC 4.65 Hgb 13.1 L Hct 41.7 MCV 90 MCH 28.2 MCHC 31.4 L RDW 14.0 Plt Count 374 MPV 9.9 Immature Gran % 0.3 Neutrophils % 71.0 Lymphocytes % 17.5 Monocytes % 10.9 Eosinophils % 0.0 Basophils % 0.3 Nucleated RBC % 0.0 Absolute Neutrophils 7.70 H Absolute Lymphocytes 1.90 Absolute Monocytes 1.18 H Absolute Eosinophils 0.00 Absolute Basophils 0.03 ABG Sample Site ABG pH ABG pCO2 ABG pO2 ABG HCO3 ABG Total CO2 ABG O2 Saturation ABG Base Excess Oxygen Liter Flow FiO2 Sodium 141 Potassium 4.3 Chloride 104 Carbon Dioxide 27.6 Anion Gap 9.4 BUN 15 Creatinine 1.1 Est GFR (CKD-EPI 2020) 73.58 Glucose 130 H Calcium 9.7 Magnesium 2.3 Total Bilirubin 0.4 AST 27 ALT 46 Alkaline Phosphatase 98 Troponin I 5 7 Cancelled Total Protein 7.7 Albumin 3.5 Urine Color Urine Clarity Urine pH Ur Specific Perry Urine Protein Urine Ketones Urine Blood Urine Nitrite Urine Bilirubin Urine Urobilinogen Ur Leukocyte Esterase Urine RBC Urine WBC Ur Epithelial Cells Urine Crystals Urine Bacteria Urine Casts Urine Mucus Urine Other Ur Culture Indicated? Urine Glucose 06/21/24 06/22/24 06/22/24 20:00 06:18 10:55 WBC 10.12 RBC 4.32 L Hgb 12.2 L Hct 39.1 L MCV 91 MCH 28.2 MCHC 31.2 L RDW 14.0 Plt Count 303 MPV 10.0 Immature Gran % Neutrophils % Lymphocytes % Monocytes % Eosinophils % Basophils % Nucleated RBC % Absolute Neutrophils Absolute Lymphocytes Absolute Monocytes Absolute Eosinophils Absolute Basophils ABG Sample Site Cancelled ABG pH Cancelled ABG pCO2 Cancelled ABG pO2 Cancelled ABG HCO3 Cancelled ABG Total CO2 Cancelled ABG O2 Saturation Cancelled ABG Base Excess Cancelled Oxygen Liter Flow Cancelled FiO2 Cancelled Sodium 142 Potassium 4.1 Chloride 104 Carbon Dioxide 27.7 Anion Gap 10.3 BUN 18 Creatinine 1.1 Est GFR (CKD-EPI 2020) 73.58 Glucose 117 H Calcium 9.0 Magnesium Total Bilirubin 0.5 AST 18 ALT 31 Alkaline Phosphatase 89 Troponin I Total Protein 7.0 Albumin 3.1 L Urine Color Yellow Urine Clarity Clear Urine pH 6.0 Ur Specific Perry >= 1.030 H Urine Protein 30 H Urine Ketones Trace H Urine Blood Negative Urine Nitrite Negative Urine Bilirubin Negative Urine Urobilinogen 0.2 Ur Leukocyte Esterase Negative Urine RBC Negative Urine WBC Negative Ur Epithelial Cells Negative Urine Crystals Negative Urine Bacteria Negative Urine Casts Negative Urine Mucus Negative Urine Other Negative Ur Culture Indicated? No Urine Glucose Negative 06/22/24 11:08 WBC RBC Hgb Hct MCV MCH MCHC RDW Plt Count MPV Immature Gran % Neutrophils % Lymphocytes % Monocytes % Eosinophils % Basophils % Nucleated RBC % Absolute Neutrophils Absolute Lymphocytes Absolute Monocytes Absolute Eosinophils Absolute Basophils ABG Sample Site Unknown ABG pH 7.33 L ABG pCO2 49 H ABG pO2 57 L ABG HCO3 26 ABG Total CO2 24 ABG O2 Saturation 87 L ABG Base Excess 0 Oxygen Liter Flow Unknown/Not Given FiO2 Sodium Potassium Chloride Carbon Dioxide Anion Gap BUN Creatinine Est GFR (CKD-EPI 2020) Glucose Calcium Magnesium Total Bilirubin AST ALT Alkaline Phosphatase Troponin I Total Protein Albumin Urine Color Urine Clarity Urine pH Ur Specific Perry Urine Protein Urine Ketones Urine Blood Urine Nitrite Urine Bilirubin Urine Urobilinogen Ur Leukocyte Esterase Urine RBC Urine WBC Ur Epithelial Cells Urine Crystals Urine Bacteria Urine Casts Urine Mucus Urine Other Ur Culture Indicated? Urine Glucose Time Spent with Patient Time Spent with Patient: 25-34 minutes Time was spent: preparing to see the patient(eg.review tests), [facility], ordering medications,tests, procedures, referring, communicating with other health wound care center consultant, indepentently interpreting results, counseling the patient and care coordination
[2024-06-22] MEDS: ceFAZolin 1 GM/50 ML BAG IVPB ×2 (13:12→19:56)
--- NOTE | 2024-06-22 15:55 | IN_ITS ---
PT Notes Visit Reasons: Hip Fracture Inpatient Physical Therapy Evaluation Date: 06/22/24 Referring Doctor: Dr. Caraballo PT Orders: PT CONSULT: s/p right ILYA for hip fx Precautions: fall, standard Patient Profile/Admitting Diagnosis: Gopal is a 69 year old male with multiple medical comorbidities, most significantly COPD, cognitive impairment and schizophrenia. He lives in an assisted living facility with his , Lidia. He suffered a fall on 06/20 resulting in right femoral neck fx. Underwent right anterior ILYA this morning, then was transferred to ICU for high flow oxygen supplementation due to respiratory acidosis. Received verbal confirmation from Dr. Caraballo to proceed with PT consultation. Social History/Home Situation: Has resided at [facility] x 2 years. His is also a resident. Ambulates with FWW at baseline. H/o 2 falls. Equipment Owned/DME: FWW, LTC resident Subjective: Venu states that his hip is sore, and he expected that he'd have no pain after surgery. He is agreeable to getting up to the chair. Objective: General Observation: Resting in bed, with oxygen supplementation via mask. IV in LUE. BP cuff, pulse oximeter and telemetry all in place. Mental Status: Alert throughout. Perseverates on presence of pain in right hip, although admits it's not severe. Pain: right hip Vital Signs: monitored by nursing throughout. SaO2 remains in 90s. ROM: Right Upper Extremity: WFL Left Upper Extremity: WFL Right Lower Extremity: Functionally demonstrates 80* hip flexion. Knee motion 0- 90* functionally. Left Lower Extremity: Functionally demonstrates 80* hip flexion. Knee motion 0- 90* functionally. Strength: Right Upper Extremity: WFL Left Upper Extremity: WFL Right Lower Extremity: quads 3/5. Hip abduction 2/5, requiring assist for bed mobility. Hip adduction 3/5. Ankle DF 3/5 or greater. Left Lower Extremity: Grossly 3/5 for all LE motions. Unable to follow commands for resisted strength assessment. Sensation: intact distally Bed Mobility/Transfers: supine-sit: mod Ax1, max cues sit-supine: min A to RLE sit-stand: CGA, cues for safety stand-sit: poorly controlled descent x 2 due to LOB while standing at EOB Gait: unable. In static standing, he requires CGA and bilat UE support to FWW. He demonstrates tremulousness through the hips, knees and trunk, with poorly controlled descent to bed after standing x 5 seconds on first attempt, 10 seconds on second. Balance: Static Sitting: fair. Initially requires mod A with tremor of UEs and trunk, although this improves over time. Ultimately able to sit with supervision only, with with intermittent large amplitude tremors of the trunk and extremities. Patient reports that this is consistent with his baseline. Dynamic Sitting: poor Static Standing: poor Dynamic Standing: poor Special Tests: Mobility Limitations Standardized Measure [facility] AM-PAC 6 clicks Basic Mobility Inpatient Short Form: Raw Score: 11 Standardized Score: 33.86 CMS Score: 73% impairm ent Informed Consent/Education: Patient instructed in purpose of PT consult and plan of care. Treatment: Initial Evaluation (26813) Therapeutic Exercises (87784): seated LAQ 10x2, max cues ankle pumps 10x supine, 10x seated left hip flexion 10x static standing with UE support to walker, CGA, 2 reps Assessment: Patient is a 69 year old male referred to physical therapy services with the diagnosis of right femoral neck fx, now s/p right ILYA, post-op day 0. Patient presents with clinical signs and symptoms consistent with post op status, and complicated by underlying medical conditions, specifically COPD, cognitive impairment and schizophrenia. He currently demonstrates the following impairment level findings: 1. decreased RLE strength 2. decreased activity tolerance 3. tremor 4. decreased balance 5. gait impairments Impairments are contributing to the following functional limitations: 1. unable to ambulate safely 2. decreased independence with bed mobility 3. decreased independence with static standing Patient is assessed as Moderate 94369 complexity based on the following: History: As above Examination: functional limitations as above Presentation: evolving Decision Making: moderate complexity Goals: Goals X1 week 1. Supine-Sit : supervision 2. Sit-Supine : supervision 3. Sit-Stand : supervision 4. Stand-Sit : supervision 5. Bed-Chair : supervision with FWW 6. Chair-Bed : supervision with FWW 7. Gait : CGA with FWW x 20' Plan of Care/Treatment Plan: 1-2x/day, 7 days/week x 1 week. Plan of care has been reviewed with the [facility] providing the service under Physical Therapy direction. Initiate Physical Therapy intervention for strengthening, bed mobility, transfers, gait, stairs, balance training, use of assistive device. DISCHARGE RECOMMENDATIONS: [] SNF for continued rehabilitation TREATMENT CODE/TIME: 9713-9115 (34166, 23631) Michelle Hernandez, PT, DPT [place] [facility]
[2024-06-22] MEDS: Magnesium Oxide 400 MG TAB PO (16:20)
[2024-06-22] MEDS: Acetaminophen 325 MG TAB PO (16:20)
[2024-06-22] MEDS: Simvastatin 20 MG TAB PO (16:20)
[2024-06-22] MEDS: traMADol 50 MG TAB PO ×2 (16:20→22:31)
[2024-06-22] MEDS: Docusate Sodium 100 MG CAP PO ×2 (16:20→19:57)
[2024-06-22] MEDS: Memantine 5 MG TAB 10 MG PO ×2 (16:20→22:31)
[2024-06-22] MEDS: Normal Saline Flush 10 ML SYR IVP ×2 (16:21→22:22)
[2024-06-22] MEDS: HYDROmorphone 2 MG/ML SYR 0.5 MG IVP (16:21)
[2024-06-22] MEDS: OLANZapine 10 MG TAB PO ×2 (16:21→19:56)
[2024-06-22] MEDS: DULoxetine 30 MG CAP 120 MG PO (16:21)
[2024-06-22] MEDS: Ketorolac 15 MG/ML VIAL IVP (16:21)
[2024-06-22] MEDS: Ondansetron O.D.T. 4 MG TABEF PO (19:57)
[2024-06-22] MEDS: diazePAM 5 MG TAB 10 MG PO (19:57)
[2024-06-22] MEDS: Tamsulosin 0.4 MG CAPCR 0.8 MG PO (19:57)
[2024-06-22] MEDS: Donepezil 5 MG TAB 10 MG PO (19:57)
[2024-06-22] MEDS: Enoxaparin 40 MG/0.4 ML SYR SC (19:58)
[2024-06-23] VITALS (51 sets, daily range): BP systolic 83–128; BP diastolic 60–75; PULSE 66–108; RESP 10–20; TEMP 36–36.3; O2SAT 85–95
[2024-06-23] MEDS: Lactated Ringers 500 ML IV (03:35)
[2024-06-23] MEDS: ceFAZolin 1 GM/50 ML BAG IVPB (04:50)
[2024-06-23] MEDS: Normal Saline Flush 10 ML SYR IVP ×3 (05:47→20:43)
[2024-06-23] MEDS: Lactated Ringers 1,000 ML 100 ML IV (05:47)
[2024-06-23 07:01] LABS: Abs Immature Grans 0.06 10^3/uL (0.0-0.06); Absolute Basophil Count 0.01 10^3/uL (0.0-0.2); Absolute Monocyte Count 1.47 10^3/uL (0.1-0.8); Absolute Neutrophil Count 11.12 10^3/uL (1.2-6.7); Basophils % 0.1 %; Eosinophils % 0.1 %; HCT 32.7 % (40.0-50.0); HGB 10.1 g/dL (13.5-17.5); Immature Grans % 0.4 %; Lymphocytes % 12.9 %; MCH 28.4 pg (27.0-33.0); MCHC 30.9 % (32.0-36.0); MCV 92 fL (80-95); MPV 10.6 fL (8.0-11.0); Monocytes % 10.1 %; Neutrophils % 76.4 %; Platelet Count 268 10^3/uL (130-400); RBC 3.56 10^6/uL (4.36-5.78); RDW 13.8 % (11.8-14.1); WBC 14.55 10^3/uL (4.4-10.8)
[2024-06-23 07:03] LABS: Absolute Eosinophil Count 0.01 10^3/uL (0.0-0.7); Absolute Lymphocyte Count 1.88 10^3/uL (1.2-3.4)
[2024-06-23 07:29] LABS: ALT 31 U/L (16-63); AST 21 U/L (15-37); Albumin 2.4 g/dL (3.4-5.0); Alkaline Phosphatase 73 U/L (46-116); Anion Gap 6.2 mmol/L (3-11); BUN 22 mg/dL (7-18); Bilirubin, Total 0.2 mg/dL (0.2-1.0); CO2 27.8 mmol/L (21.0-32.0); CREATININE 0.9 mg/dL (0.70-1.30); Calcium 8.7 mg/dL (8.5-10.1); Chloride 105 mmol/L (98-107); Estimated GFR 93.61 (mL/min/1.73m2); Glucose 129 mg/dL (74-106); Potassium 4.5 mmol/L (3.5-5.1); Sodium 139 mmol/L (136-145); Total Protein 6.2 g/dL (6.4-8.2)
[2024-06-23] MEDS: Umeclidinium 7 CAP INHALER 1 CAP IH (08:20)
[2024-06-23] MEDS: Acetaminophen 325 MG TAB PO ×2 (08:38→15:00)
[2024-06-23] MEDS: OLANZapine 10 MG TAB PO ×3 (08:39→20:41)
[2024-06-23] MEDS: Memantine 5 MG TAB 10 MG PO ×2 (08:40→20:42)
[2024-06-23] MEDS: Magnesium Oxide 400 MG TAB PO (08:41)
[2024-06-23] MEDS: Omega-3 Fatty Acids 1000 MG CAP PO (08:41)
[2024-06-23] MEDS: Cholecalciferol (Vitamin D3) 1,000 UNIT TAB 2000 UNITS PO (08:41)
[2024-06-23] MEDS: Simvastatin 20 MG TAB PO (08:41)
[2024-06-23] MEDS: Cyanocobalamin 500 MCG TAB 1000 MCG PO (08:42)
[2024-06-23] MEDS: DULoxetine 30 MG CAP 120 MG PO (08:49)
--- NOTE | 2024-06-23 10:52 | W.PM.PROGNOT ---
Date of Service Date of service: 06/23/24 Time of Service: 10:52 Assessment and Plan Assessment and plan (1) Schizophrenia: Status: Chronic Assessment and plan: cw medical management (2) Closed fracture of right hip: Status: Deleted Assessment and plan: Pt would not benefit from further risk stratification based on his history/labs/ekg findings 06/23/24 PT appears to be on an appropriate post operative course. Will await input from Ortho in regards to disposition (3) Alzheimer's dementia without behavioral disturbance: Status: Chronic Subjective Subjective Interval history since last seen: Pt seen and examined in his room this am. Pt resting comfortably at that time. POC d/w bedside nurse during ICU huddle Exam Narrative Exam Narrative: heent-ncat mmm eomi perrla neck-no lad/jvd/thyroidmegaly cv-rrr no mrg lungs-ctab no amu abd-sntndbsa gen-69 y/o who appears his stated age Objective Last Vital Signs Temp 36.2 C L 06/23/24 07:30 Pulse 81 06/23/24 07:31 Resp 11 L 06/23/24 07:31 BP 101/68 06/23/24 07:30 Pulse Ox 92 06/23/24 08:21 Laboratory Results - last 24 hr 06/22/24 06/22/24 06/23/24 10:55 11:08 05:35 WBC RBC Hgb Hct MCV MCH MCHC RDW Plt Count MPV Immature Gran % Neutrophils % Lymphocytes % Monocytes % Eosinophils % Basophils % Nucleated RBC % Absolute Neutrophils Absolute Lymphocytes Absolute Monocytes Absolute Eosinophils Absolute Basophils ABG Sample Site Cancelled Unknown ABG pH Cancelled 7.33 L ABG pCO2 Cancelled 49 H ABG pO2 Cancelled 57 L ABG HCO3 Cancelled 26 ABG Total CO2 Cancelled 24 ABG O2 Saturation Cancelled 87 L ABG Base Excess Cancelled 0 Oxygen Liter Flow Cancelled Unknown/Not Given FiO2 Cancelled Sodium Cancelled Potassium Cancelled Chloride Cancelled Carbon Dioxide Cancelled Anion Gap Cancelled BUN Cancelled Creatinine Cancelled Est GFR (CKD-EPI 2020) Cancelled Glucose Cancelled Calcium Cancelled Total Bilirubin AST ALT Alkaline Phosphatase Total Protein Albumin 06/23/24 05:48 WBC 14.55 H RBC 3.56 L Hgb 10.1 L D Hct 32.7 L MCV 92 MCH 28.4 MCHC 30.9 L RDW 13.8 Plt Count 268 MPV 10.6 Immature Gran % 0.4 Neutrophils % 76.4 Lymphocytes % 12.9 Monocytes % 10.1 Eosinophils % 0.1 Basophils % 0.1 Nucleated RBC % 0.0 Absolute Neutrophils 11.12 H Absolute Lymphocytes 1.88 Absolute Monocytes 1.47 H Absolute Eosinophils 0.01 Absolute Basophils 0.01 ABG Sample Site ABG pH ABG pCO2 ABG pO2 ABG HCO3 ABG Total CO2 ABG O2 Saturation ABG Base Excess Oxygen Liter Flow FiO2 Sodium 139 Potassium 4.5 Chloride 105 Carbon Dioxide 27.8 Anion Gap 6.2 BUN 22 H Creatinine 0.9 Est GFR (CKD-EPI 2020) 93.61 Glucose 129 H Calcium 8.7 Total Bilirubin 0.2 AST 21 ALT 31 Alkaline Phosphatase 73 Total Protein 6.2 L Albumin 2.4 L Time Spent with Patient Time Spent with Patient: 25-34 minutes Time was spent: preparing to see the patient(eg.review tests), obtaining and/or reviewing separately otained hiistory, ordering medications,tests, procedures, referring, communicating with other health career technical supervisor, indepentently interpreting results, counseling the patient and care coordination
--- NOTE | 2024-06-23 11:25 | PT.INTREAT ---
PT Notes Visit Reasons: Hip Fracture Inpatient Physical Therapy Treatment Note [facility] Date: 06/23/24 PRECAUTIONS:fall, standard SUBJECTIVE: Venu states that he is sore all over. Rates pain as 11/24. He's agreeable to getting up to the chair. OBJECTIVE: ? VITALS: monitored by nursing throughout? Therapeutic Exercises (13765q1): Direct one-on-one instruction in therapeutic exercises to develop strength, endurance, range of motion and flexibility. BED MOBILITY/TRANSFERS? Supine-sit: supervision? Sit-stand: CGA. Requires cues for safety and technique ? Stand-sit: CGA ? Bed-Chair: FWW, CGA ? Exercises ? Ankle pumps 10x3 LAQ 10x3 seated heel slides 10x static stand x 30 seconds, 3 reps. Limited by increasing tremor, with poorly controlled descent to chair on 2 occasions Ambulation ? Assistive Device: FWW? Weight bearing: WBAT Assist: CGA ? Distance:? 6' ? Deviation: wide CHAPARRITA, slow gait, increasing tremor ? ASSESSMENT:? Improving mobility. Increasing tremor with fatigue, limiting safety with ambulation and transfers. PLAN: Continue progressing ambulation and strengthening efforts. TREATMENT CODE/TIME: 8415-9699 (06120) DISCHARGE RECOMMENDATION: return to SNF ,resumption of PT services
[2024-06-23] MEDS: Ketorolac 15 MG/ML VIAL IVP ×2 (11:34→20:42)
[2024-06-23] MEDS: Enoxaparin 40 MG/0.4 ML SYR SC (17:15)
[2024-06-23] MEDS: traMADol 50 MG TAB PO (17:15)
--- NOTE | 2024-06-23 18:41 | W.PC.ACHO ---
Registration Status: Primary Language: Preferred Language: ED Information & Data Chief Complaint Orthopedic 06/21/24 17:38 Chief Complaint Orthopedic 06/21/24 15:58 Triage Note x2 unwitnessed falls 06/21/24 15:55 yesterday with possible head strike, C/O right hip pain Medical / Surgical History (Last Reviewed 06/21/24 @ 21:44 by Antony Caraballo MD) Left foot pain Cognitive impairment Bilateral primary osteoarthritis of knee Sepsis Pneumonia COVID Dermatophytosis of nail Alcohol abuse, in remission Auditory hallucinations History of suicidal ideation Paranoid schizophrenia Altered mental status Cognitive changes Anemia Elevated PSA Urinary incontinence Hyperplasia of prostate with lower urinary tract symptoms (LUTS) Emphysema lung Pulmonary nodule Tobacco abuse COPD (chronic obstructive pulmonary disease) History of prediabetes Hyperlipidemia Low back pain Acute metabolic encephalopathy Neutrophilia Pain, foot, left, chronic Patellofemoral joint pain Atherosclerosis (Last Reviewed 06/21/24 @ 21:44 by Antony Caraballo MD) Hx of knee surgery Most Recent Vital Signs Temperature 36.3 C L 06/23/24 15:45 Temperature Source Temporal Artery Scan 06/23/24 15:45 Pulse 92 H 06/23/24 17:11 Pulse Rhythm Regular 06/21/24 19:42 Pulse 75 06/23/24 11:02 Respiratory Rate 11 L 06/23/24 11:02 Respiratory Effort Normal 06/22/24 12:54 Respiratory Depth Normal 06/22/24 12:54 Respiratory Pattern Normal 06/22/24 12:54 Blood Pressure 97/69 L 06/23/24 17:11 Blood Pressure Mean 79 06/23/24 17:11 Blood Pressure Position Supine 06/22/24 12:54 Pulse Oximetry 93 06/23/24 17:11 Respiratory End-tidal CO2 37 06/22/24 11:33 Oxygen Delivery Method Nasal Cannula 06/23/24 08:21 Oxygen Flow Rate 3 06/23/24 08:21 Pain Level 9 06/23/24 08:38 Allergies No Known Allergies Allergy (Verified 06/21/24 15:59) Precautions Isolation Standard precaution 06/21/24 17:38 Active Medications Generic Name Dose Route Start Last Admin Trade Name Freq PRN Reason Stop Dose Admin Acetaminophen 0 mg 06/21/24 17:52 06/23/24 15:00 Acetaminophen 325 Mg Tab PO 650 mg Q4H PRN PRN Administration Cholecalciferol 2,000 units 06/22/24 08:30 06/23/24 08:41 Cholecalciferol (Vitamin D3) 1,000 Unit Tab PO 2,000 units DAILY MARIA ALEJANDRA Administration Clozapine 200 mg 06/21/24 20:00 06/22/24 19:57 Clozapine 100 Mg Tab PO 200 mg HS MARIA ALEJANDRA Administration Cyanocobalamin 1,000 mcg 06/22/24 08:30 06/23/24 08:42 Cyanocobalamin 500 Mcg Tab PO 1,000 mcg DAILY MARIA ALEJANDRA Administration Diazepam 10 mg 06/21/24 20:00 06/22/24 19:57 Diazepam 5 Mg Tab PO 10 mg HS MARIA ALEJANDRA Administration Docusate Sodium 100 mg 06/21/24 20:00 06/23/24 08:42 Docusate Sodium 100 Mg Cap PO 100 mg BID MARIA ALEJANDRA Administration Donepezil HCl 10 mg 06/21/24 20:00 06/22/24 19:57 Donepezil 5 Mg Tab PO 10 mg HS MARIA ALEJANDRA Administration Duloxetine HCl 120 mg 06/22/24 08:30 06/23/24 08:49 Duloxetine 30 Mg Cap PO 120 mg DAILY MARIA ALEJANDRA Administration Enoxaparin Sodium 40 mg 06/21/24 18:00 06/23/24 17:15 Enoxaparin 40 Mg/0.4 Ml Syr SC 40 mg Q24H MARIA ALEJANDRA Administration Fish Oil 1,000 mg 06/22/24 08:30 06/23/24 08:41 [place]-3 Fatty Acids 1000 Mg Cap PO 1,000 mg DAILY MARIA ALEJANDRA Administration Hydromorphone HCl 0.5 mg 06/21/24 19:45 06/22/24 16:21 Hydromorphone 2 Mg/Ml Syr IVP 0.5 mg Q4H PRN PRN Administration Ringer's Solution 1,000 mls @ 100 mls/hr 06/22/24 09:15 06/23/24 13:30 IV 100 mls/hr INFUSION MARIA ALEJANDRA Infusion Ketorolac Tromethamine 15 mg 06/21/24 19:45 06/23/24 11:34 Ketorolac 15 Mg/Ml Vial IVP 06/26/24 19:44 15 mg Q8H PRN PRN Administration Magnesium Oxide 400 mg 06/22/24 08:30 06/23/24 08:41 Magnesium Oxide 400 Mg Tab PO 400 mg DAILY MARIA ALEJANDRA Administration Memantine 10 mg 06/21/24 20:00 06/23/24 08:40 Memantine 5 Mg Tab PO 10 mg BID MARIA ALEJANDRA Administration Olanzapine 10 mg 06/21/24 20:00 06/23/24 15:00 Olanzapine 10 Mg Tab PO 10 mg TID MARIA ALEJANDRA Administration Polyethylene Glycol 17 gm 06/22/24 08:30 06/23/24 08:42 Polyethylene Glycol 3350 17 Gm Packet PO 17 gm DAILY MARIA ALEJANDRA Administration Sodium Chloride 0 ml 06/21/24 15:55 06/23/24 05:47 Normal Saline Flush 10 Ml Syr IVP 20 ml PRN PRN Administration Sodium Chloride 0 ml 06/21/24 20:00 06/23/24 08:42 Normal Saline Flush 10 Ml Syr IVP 10 ml BID MARIA ALEJANDRA Administration Tamsulosin HCl 0.8 mg 06/21/24 20:00 06/22/24 19:57 Tamsulosin 0.4 Mg Capcr PO 0.8 mg HS MARIA ALEJANDRA Administration Tizanidine HCl 2 mg 06/21/24 20:00 06/23/24 08:40 Tizanidine 2 Mg Tab PO 2 mg BID MARIA ALEJANDRA Administration Tramadol HCl 50 mg 06/22/24 09:48 06/23/24 17:15 Tramadol 50 Mg Tab PO 50 mg Q4H PRN PRN Administration Trazodone HCl 50 mg 06/21/24 20:00 06/22/24 22:22 Trazodone 50 Mg Tab PO Not Given HS MARIA ALEJANDRA Umeclidinium [place] 1 cap 06/22/24 08:30 06/23/24 08:20 Umeclidinium 7 Cap Inhaler IH 1 inh DAILY MARIA ALEJANDRA Administration IV IV Catheter Type [Left Hand] Peripheral IV IV Catheter Type [Right Peripheral IV Antecubital] IV Catheter Gauge [Left Hand] 20 IV Catheter Gauge [Right 20 Antecubital] Diagnostics 06/23/24 06/23/24 Range/Units 05:48 05:35 WBC 14.55 H (4.4-10.8) 10^3/uL RBC 3.56 L (4.36-5.78) 10^6/uL Hgb 10.1 L D (13.5-17.5) g/dL Hct 32.7 L (40.0-50.0) % MCV 92 (80-95) fL MCH 28.4 (27.0-33.0) pg MCHC 30.9 L (32.0-36.0) % RDW 13.8 (11.8-14.1) % Plt Count 268 (130-400) 10^3/uL MPV 10.6 (8.0-11.0) fL Immature Gran % 0.4 % Neutrophils % 76.4 % Lymphocytes % 12.9 % Monocytes % 10.1 % Eosinophils % 0.1 % Basophils % 0.1 % Nucleated RBC % 0.0 (0.0-0.3) % Absolute Neutrophils 11.12 H (1.2-6.7) 10^3/uL Absolute Lymphocytes 1.88 (1.2-3.4) 10^3/uL Absolute Monocytes 1.47 H (0.1-0.8) 10^3/uL Absolute Eosinophils 0.01 (0.0-0.7) 10^3/uL Absolute Basophils 0.01 (0.0-0.2) 10^3/uL Sodium 139 Cancelled Potassium 4.5 Cancelled Chloride 105 Cancelled Carbon Dioxide 27.8 Cancelled Anion Gap 6.2 Cancelled BUN 22 H Cancelled Creatinine 0.9 Cancelled Est GFR (CKD-EPI 2020) 93.61 Cancelled Glucose 129 H Cancelled Calcium 8.7 Cancelled Total Bilirubin 0.2 (0.2-1.0) mg/dL AST 21 (15-37) U/L ALT 31 (16-63) U/L Alkaline Phosphatase 73 (46-116) U/L Total Protein 6.2 L (6.4-8.2) g/dL Albumin 2.4 L (3.4-5.0) g/dL Intake and Output - 24 Hour Total 06/21/24 15:37 thru 06/23/24 13:46 Intake Total 5768.917 Output Total 1295 Balance 4473.917 Weight 91.3 kg Intake: IV 4548.917 Oral 1220 Output: Urine 995 Estimated Blood Loss 300 Other: Urine Color Light Jyothi Urine Appearance Clear Stool Size Small Stool Characteristics Soft Urinary Catheter Urinary Catheter Date of 06/22/24 Insertion [Urethral (Sy)] Time of insertion [Urethral ( 06:13 Sy)] Falls Risk Assessment History of Falls Admit Due to Fall 06/22/24 12:54 Contributing Factors Confusion,Unstable, 06/22/24 12:54 Impairments,Medications Ambulatory Aids Uses ambulatory device + 06/22/24 12:54 Tubes/Lines With any additional score 06/22/24 12:54 Gait Evaluation W/any additional score 06/22/24 12:54 Cognition Cognitive impairment 06/22/24 12:54 Fall Total Score 122 06/22/24 12:54 Level of Risk Maximum Risk 06/22/24 12:54 Problems (Last Reviewed 06/21/24 @ 21:44 by Antony Caraballo MD) Respiratory acidosis (Acute) Oliguria (Acute) Displaced fracture of right femoral neck (Acute) Schizophrenia (Chronic) Alzheimer's dementia without behavioral disturbance (Chronic) v v v v v v v v v Sending and/or Receiving Nurses: Please use comment section below to note any information pertinent to the patient hand-off not included above. Information / Comments: Report received from: Darron from ICU @1903 via wheelchair. Transferred from ICU room 221 to Rm 214 MS
[2024-06-23] MEDS: Docusate Sodium 100 MG CAP PO (20:41)
[2024-06-23] MEDS: Tamsulosin 0.4 MG CAPCR 0.8 MG PO (20:41)
[2024-06-23] MEDS: traZODone 50 MG TAB PO (20:42)
[2024-06-23] MEDS: diazePAM 5 MG TAB 10 MG PO (20:42)
[2024-06-23] MEDS: Donepezil 5 MG TAB 10 MG PO (20:42)
[2024-06-24] VITALS (7 sets, daily range): BP systolic 101–116; BP diastolic 58–74; PULSE 89–102; RESP 17–20; TEMP 36–36.8; O2SAT 90–94
[2024-06-24 06:59] LABS: Abs Immature Grans 0.02 10^3/uL (0.0-0.06); Absolute Basophil Count 0.02 10^3/uL (0.0-0.2); Absolute Eosinophil Count 0.01 10^3/uL (0.0-0.7); Absolute Monocyte Count 0.71 10^3/uL (0.1-0.8); Absolute Neutrophil Count 5.34 10^3/uL (1.2-6.7); Basophils % 0.2 %; Eosinophils % 0.1 %; HCT 30.4 % (40.0-50.0); HGB 9.4 g/dL (13.5-17.5); Immature Grans % 0.2 %; Lymphocytes % 31.5 %; MCH 28.6 pg (27.0-33.0); MCHC 30.9 % (32.0-36.0); MCV 92 fL (80-95); RBC 3.29 10^6/uL (4.36-5.78); RDW 13.8 % (11.8-14.1)
[2024-06-24 07:32] LABS: ALT 33 U/L (16-63); AST 41 U/L (15-37); Albumin 2.2 g/dL (3.4-5.0); Alkaline Phosphatase 68 U/L (46-116); Anion Gap 5.4 mmol/L (3-11); BUN 23 mg/dL (7-18); Bilirubin, Total 0.2 mg/dL (0.2-1.0); CO2 30.6 mmol/L (21.0-32.0); CREATININE 0.8 mg/dL (0.70-1.30); Calcium 8.5 mg/dL (8.5-10.1); Chloride 105 mmol/L (98-107); Glucose 101 mg/dL (74-106); Potassium 4.5 mmol/L (3.5-5.1); Sodium 141 mmol/L (136-145); Total Protein 5.9 g/dL (6.4-8.2)
[2024-06-24] MEDS: Lactated Ringers 1,000 ML 100 ML IV ×2 (07:53→18:29)
[2024-06-24] MEDS: Normal Saline Flush 10 ML SYR IVP ×2 (07:53→21:11)
[2024-06-24] MEDS: Umeclidinium 7 CAP INHALER 1 CAP IH (08:36)
[2024-06-24] MEDS: Polyethylene Glycol 3350 17 GM PACKET PO (08:52)
[2024-06-24] MEDS: DULoxetine 30 MG CAP 120 MG PO (08:52)
[2024-06-24] MEDS: Cyanocobalamin 500 MCG TAB 1000 MCG PO (08:53)
[2024-06-24] MEDS: OLANZapine 10 MG TAB PO ×3 (08:53→21:09)
[2024-06-24] MEDS: Memantine 5 MG TAB 10 MG PO ×2 (08:53→21:09)
[2024-06-24] MEDS: Omega-3 Fatty Acids 1000 MG CAP PO (08:53)
[2024-06-24] MEDS: Magnesium Oxide 400 MG TAB PO (08:53)
[2024-06-24] MEDS: Docusate Sodium 100 MG CAP PO ×2 (08:53→21:09)
[2024-06-24] MEDS: Cholecalciferol (Vitamin D3) 1,000 UNIT TAB 2000 UNITS PO (08:53)
[2024-06-24] MEDS: traMADol 50 MG TAB PO ×2 (10:36→21:08)
--- NOTE | 2024-06-24 12:15 | CMPROGNOTE_ITS ---
Date of service: 06/24/24 Time of Service: 12:15 Care Management Progress Note Progress Note Text Progress Note Text: Gopal is slowly recovering from hip surgery. He has a new O2 requirement and is will likely need to discharge back to [facility] with supplemental oxygen. [facility] oxygen comes from a supplier other than [facility] or [facility]. No changes were made to his discharge plan. Discharge Potential Discharge Needs: Surgical F/U Appt Anticipated Barriers to Discharge: None Identified Patient/Family Education Needs: Review discharge instructions, discuss Ask Me Three Transportation: RCT Plan: Gopal is a resident of [facility], and plans to return when he is medically ready for discharge. Transportation will be dependent on mobility, EMS vs. RCT W/C van. He will need Ortho follow up and updated PT notes sent to SNF. CM will continue to follow. Social Determinants of Health Screening Will the Patient Participate in the Screening?: Declined to provide
--- NOTE | 2024-06-24 12:16 | PTTR_ITS ---
PT Notes Visit Reasons: Hip Fracture Inpatient Physical Therapy Treatment Note [facility] Date: 06/24/2024 PRECAUTIONS:WBAT RLE, standard, IV access LUE, oxygen at 3 L/Min via nc SUBJECTIVE: Pt report he is sore today OBJECTIVE:Pt premedicated by Nurse 45 mins prior to session d/t pt report of pain 8/10 when approached for session initially. IV infusing in LUE oxygen in place 3L/min via NC.. ? PAIN: pt reports its sore but denied it as a 8/10 after receiving pain meds. VITALS: ?monitored by Nursing Therapeutic Activities (40840b[]): Direct one-on-one instruction in dynamic activities to improve functional performance. ? BED MOBILITY/TRANSFERS? Rolling L/R: max assist of 1 Supine-sit: max Assist of 1 ? Sit-stand: Mod A of 2? Stand-sit: mod A of 2? Bed-Chair: steady lift 2 assist? Chair-bed: steady lift 2 assist Provided skilled cues and instruction on performance and technique throughout. Neuromuscular Re-education (94218): Activities that facilitate re-education of movement balance, posture, coordination, and proprioception or kinesthetic sense, requiring skilled tactile and verbal cues sitting with BUE support max Assit of 1 with LOB/ lean/listing to the left. Pt intermittently able to correct . Pt unable to weight shift to right past mid line x down on elbow then return to midline from left. stand x 3 trials : 2 at FWW with mod a of 2 x 30 sec increase lean to left tremulous BLE with B knee instability ; 3rd trial on steady lift able to sustain x 15 sec with lean/listing to left. ASSESSMENT:At start of session pt noted with drooling left side however he had been asleep with head turned to the left. Pt again had episode of drooling left side in standing at FWW with assist of 2. Pt with list to left in sitting and standing with and without support. Pt decreased motor coordination left UE and LE for transfers. pt required lateral trunk support on left while seated in the chair. Nurse Kobe notified of status this session as prior session pt was CGA for transfers and ambulation for 6 feet. Recommend Nursing to utilize steady lift 2 assist In PM, Pt seen by MD in the am after PT session. Nursing assisted him BTB via steady lift 2 assist. Pt difficult to arouse once woke he refused to participate in PT session. PLAN: 1-2x/day, 7 days/week x 1 week. Plan of care has been reviewed with the LEAD CYTOGENETIC TECHNOLOGIST providing the service under Physical Therapy direction. Initiate Physical Therapy intervention for strengthening, bed mobility, transfers, gait, stairs, balance training, use of assistive device. TREATMENT CODE/TIME: 5573-5815/ 98484, 42807 DISCHARGE RECOMMENDATION: return to SNF with skilled PT, OT
--- NOTE | 2024-06-24 13:53 | W.PM.PROGNOT ---
Date of Service Date of service: 06/24/24 Time of Service: 13:53 Assessment and Plan Assessment and plan (1) Closed fracture of right hip: Status: Deleted Assessment and plan: -admitted on 06/22 and seen on xray -taken to OR with Dr. Caraballo on 06/22, now POD #2 -continue to work with PT, but recs to go back to [facility] where patient is from (2) Schizophrenia: Status: Chronic Assessment and plan: -cw medical management (3) Alzheimer's dementia without behavioral disturbance: Status: Chronic (4) Acute respiratory failure with hypoxia: Status: Acute Assessment and plan: -no direct cause as patient is without acute exacerbation of COPD, shortness of breath, or findings n CXR from admission -may be secondary to atelectasis in the setting of post-op status and poor inspiratory effeort, as well as patients history of COPD and intermittent oxygen requirements -continue IS and COPD regimen as noted below (5) COPD (chronic obstructive pulmonary disease): Status: Chronic Assessment and plan: -without acute exacerbation -continue home inhaler regimen Subjective Subjective Interval history since last seen: Patient states that he is doing well today and has no complaints or concerns at this time. Exam Narrative Exam Narrative: older gentleman sitting up in the chair in no acute distress, awake, alert, oriented to person and place, heart RRR, lungs CTAB, abdomen soft, non-tender, non-distended, Objective Last Vital Signs Temp 97.9 F 06/24/24 12:30 Pulse 99 H 06/24/24 12:30 Resp 20 06/24/24 12:30 BP 111/70 06/24/24 12:30 Pulse Ox 91 L 06/24/24 12:30 Laboratory Results - last 24 hr 06/24/24 06:18 WBC 8.90 RBC 3.29 L Hgb 9.4 L Hct 30.4 L MCV 92 MCH 28.6 MCHC 30.9 L RDW 13.8 Plt Count MPV Immature Gran % 0.2 Neutrophils % 60.0 Lymphocytes % 31.5 Monocytes % 8.0 Eosinophils % 0.1 Basophils % 0.2 Nucleated RBC % 0.0 Absolute Neutrophils 5.34 Absolute Lymphocytes 2.80 Absolute Monocytes 0.71 Absolute Eosinophils 0.01 Absolute Basophils 0.02 Sodium 141 Potassium 4.5 Chloride 105 Carbon Dioxide 30.6 Anion Gap 5.4 BUN 23 H Creatinine 0.8 Est GFR (CKD-EPI 2020) 97.00 Glucose 101 Calcium 8.5 Total Bilirubin 0.2 AST 41 H ALT 33 Alkaline Phosphatase 68 Total Protein 5.9 L Albumin 2.2 L Time Spent with Patient Time Spent with Patient: >50 minutes Time was spent: preparing to see the patient(eg.review tests), obtaining and/or reviewing separately otained hiistory, ordering medications,tests, procedures, referring, communicating with other health childcare center director, indepentently interpreting results, counseling the patient and care coordination
--- NOTE | 2024-06-24 16:43 | W.PM.PROGNOT ---
Date of Service Date of service: 06/24/24 Time of Service: 16:44 Assessment and Plan Assessment and plan (1) History of total right hip replacement: Status: Acute Assessment and plan: Gopal postop day #2 status post a right total hip replaced as treatment for femoral neck fracture of the right hip. His pain is under good control. He should continue to weight-bear as tolerated with a walker. Ultimately we will follow-up in approximately [address] Caraballo. Subjective Subjective Interval history since last seen: Gopal is postop day #2 status post a right total hip replacement as treatment for a right femoral neck fracture. He is sitting comfortably in his chair and states that he was able to walk a little bit with a walker. He states that his pain is under good control. He relates only soreness with ambulation and attempted movement. He states his pain is manageable. Exam Extrem Other: Exam of the right hip today shows that the Mepilex dressing is in place and intact without any drainage into the dressing. He is able to demonstrate passive internal and external rotation without pain. Objective Last Vital Signs Temp 98.2 F 06/24/24 15:44 Pulse 92 H 06/24/24 15:44 Resp 20 06/24/24 12:30 BP 103/58 L 06/24/24 15:44 Pulse Ox 94 06/24/24 15:44 Laboratory Results - last 24 hr 06/24/24 06:18 WBC 8.90 RBC 3.29 L Hgb 9.4 L Hct 30.4 L MCV 92 MCH 28.6 MCHC 30.9 L RDW 13.8 Plt Count MPV Immature Gran % 0.2 Neutrophils % 60.0 Lymphocytes % 31.5 Monocytes % 8.0 Eosinophils % 0.1 Basophils % 0.2 Nucleated RBC % 0.0 Absolute Neutrophils 5.34 Absolute Lymphocytes 2.80 Absolute Monocytes 0.71 Absolute Eosinophils 0.01 Absolute Basophils 0.02 Sodium 141 Potassium 4.5 Chloride 105 Carbon Dioxide 30.6 Anion Gap 5.4 BUN 23 H Creatinine 0.8 Est GFR (CKD-EPI 2020) 97.00 Glucose 101 Calcium 8.5 Total Bilirubin 0.2 AST 41 H ALT 33 Alkaline Phosphatase 68 Total Protein 5.9 L Albumin 2.2 L Time Spent with Patient Time Spent with Patient: <25 minutes Time was spent: preparing to see the patient(eg.review tests) and counseling the patient
[2024-06-24] MEDS: Enoxaparin 40 MG/0.4 ML SYR SC (18:04)
[2024-06-24] MEDS: traZODone 50 MG TAB PO (21:09)
[2024-06-24] MEDS: diazePAM 5 MG TAB 10 MG PO (21:09)
[2024-06-24] MEDS: Donepezil 5 MG TAB 10 MG PO (21:10)
[2024-06-24] MEDS: Tamsulosin 0.4 MG CAPCR 0.8 MG PO (21:10)
[2024-06-24] MEDS: Simvastatin 20 MG TAB PO (21:10)
[2024-06-25 03:54] VITALS: BP 95/58; PULSE 98; RESP 17; TEMP 36.8; O2SAT 86
[2024-06-25 04:00] VITALS: BP 100/64
[2024-06-25] MEDS: Lactated Ringers 1,000 ML 100 ML IV (05:28)
[2024-06-25 07:42] VITALS: BP 102/62; PULSE 102; TEMP 36.6; O2SAT 87
[2024-06-25] MEDS: Tiotropium Bromide-Respimat 10 PUFF INH 2 PUFF IH (07:57)
[2024-06-25 08:02] VITALS: O2SAT 89
[2024-06-25] MEDS: DULoxetine 30 MG CAP 120 MG PO (08:25)
[2024-06-25] MEDS: Polyethylene Glycol 3350 17 GM PACKET PO (08:25)
[2024-06-25] MEDS: Cyanocobalamin 500 MCG TAB 1000 MCG PO (08:27)
[2024-06-25] MEDS: Memantine 5 MG TAB 10 MG PO (08:29)
[2024-06-25] MEDS: Docusate Sodium 100 MG CAP PO (08:30)
[2024-06-25] MEDS: OLANZapine 10 MG TAB PO (08:31)
[2024-06-25] MEDS: Normal Saline Flush 10 ML SYR IVP ×2 (08:31→08:45)
[2024-06-25] MEDS: Cholecalciferol (Vitamin D3) 1,000 UNIT TAB 2000 UNITS PO (08:31)
[2024-06-25] MEDS: Magnesium Oxide 400 MG TAB PO (08:33)
[2024-06-25] MEDS: Omega-3 Fatty Acids 1000 MG CAP PO (08:34)
[2024-06-25] MEDS: Ketorolac 15 MG/ML VIAL IVP (08:44)
[2024-06-25 09:55] VITALS: O2SAT 90
--- NOTE | 2024-06-25 10:50 | PT.INTREAT ---
PT Notes Visit Reasons: Hip Fracture Inpatient Physical Therapy Treatment Note [facility] Date: 06/25/2024 PRECAUTIONS:WBAT RLE, standard, IV access LUE, oxygen at 3 L/Min via mask SUBJECTIVE: Pt report he is sore and tired today. OBJECTIVE: IV infusing in LUE oxygen in place 3L/min via mask. ? PAIN: pt reports its sore VITALS: ?monitored by Nursing Therapeutic Activities (63102): Direct one-on-one instruction in dynamic activities to improve functional performance. ?? (am) BED MOBILITY/TRANSFERS? Rolling L/R: max assist of 2 Supine-sit: max Assist of 1 ? Sit-stand: Min A of 1 SBA of 1? ? ? at steadylift? Stand-sit: mod A of 1 min A of 1 ? from steady lift? Bed-Chair: steady lift 2 assist? Chair-bed: steady lift 2 assist Provided skilled cues and instruction on performance and technique throughout. Neuromuscular Re-education: Activities that facilitate re-education of movement balance, posture, coordination, and proprioception or kinesthetic sense, requiring skilled tactile and verbal cues sitting with BUE support in prep for transfer initially able to sutain midline with supervision x 1 min then increase lean to the right requiring max Assit of 1 with LOB/ lean/listing to the right on this date . stand x2 trials in steady lift. Pt able to sustain without support at buttock x 12 sec x 1 and 20 sec x 1. ASSESSMENT: Pt with increased spontaneous movement no longer demonstrating listing to the left. Pt able to sustain midline in chair after steady lift. Pt noted with wet vocal quality when sat at edge of bed. Pt noted to have coughing episode after small sip of liquid when seated in recliner Nurse Jeri notified. PLAN: 1-2x/day, 7 days/week x 1 week. Plan of care has been reviewed with the CIGARETTE MAKING MACHINE OPERATOR providing the service under Physical Therapy direction. Initiate Physical Therapy intervention for strengthening, bed mobility, transfers, gait, stairs, balance training, use of assistive device. TREATMENT CODE/TIME: 58022/ [id number] DISCHARGE RECOMMENDATION: return to SNF with skilled PT, OT
--- NOTE | 2024-06-25 11:10 | DSE_ITS ---
Date of service: 06/25/24 Time of Service: 11:10 DS: Diagnosis Discharge Diagnosis (1) History of total right hip replacement: Status: Acute Discharge Plan Disposition Patient Disposition: Detention Facility(SNF) Condition: Good Discharge Details Reason For Visit: Hip Fracture Admit Date/Time: 06/24/24 11:04 Admit Provider: Richard Carcamo Attending Provider: Richard Carcamo Primary Care Provider: Milka Shelley Hospital Course Hospital Course: Patient initially presented to the hospital after a fall in which he experienced right hip fracture. He had surgical repair on 06/22/2024 and worked with physical therapy. Additionally, patient was also noted to have hypoxic respiratory failure requiring 3 L nasal cannula. Chest x-ray was negative, patient was without cough and did not have a leukocytosis. Patient does have history of COPD and intermittent oxygen requirement, and given his current bedbound status in the setting of his right hip fracture, this is likely secondary to atelectasis as the patient has shown poor inspiratory effort. However, given patient's COPD he will also be discharged with recommendation of continuing supplemental oxygen while at rehab facility. Home Meds and New Rx's Prescriptions: New tramadol 50 mg Tablet 50 mg PO Q4H PRN PRNQty: 10 0RF Continued omega 1-ycz-hbd-fish oil [Fish Oil] 60-90-500 mg capsule 1 cap PO DAILY simvastatin 20 mg tablet 20 mg PO DAILY docusate sodium 100 mg capsule 100 mg PO BID clozapine 50 mg tablet 50 mg PO QHS Rx Instructions: Take with 400mg for total dose of 450mg QHS tamsulosin 0.4 mg capsule 0.8 mg PO QHS Incruse Ellipta 62.5 mcg/actuation blister with device 1 inh inhalation DAILY acetaminophen [Tylenol] 325 mg tablet 650 mg PO Q6H PRN magnesium 250 mg tablet 400 mg PO DAILY trazodone 50 mg tablet 50 mg PO QHS clozapine 200 mg tablet 200 mg PO QHS duloxetine 60 mg capsule,delayed release(DR/EC) 120 mg PO DAILY cyanocobalamin (vitamin B-12) 1,000 mcg tablet, sublingual See Rx Instructions .ROUTE .COMPLEX Qty: 30 11RF Dose Instruction: 1 TAB (1000mcg) ORALLY DAILY Rx Instructions: 1 TAB (1000mcg) ORALLY DAILY donepezil 10 mg tablet 10 mg PO QHS Qty: 90 3RF memantine 10 mg tablet 10 mg PO BID Qty: 180 11RF diazepam 10 mg tablet 10 mg PO HS Patient Comments: Bedtime diazepam 5 mg tablet 5 mg PO DAILY Patient Comments: AM polyethylene glycol 3350 [Miralax] 17 gram/dose powder 17 g PO QDAY cholecalciferol (vitamin D3) [Vitamin D3] 25 mcg (1,000 unit) capsule 2,000 unit PO DAILY tizanidine 2 mg tablet 2 mg PO BID olanzapine 10 mg tablet 10 mg PO TID meloxicam 7.5 mg tablet 7.5 mg PO DAILY ondansetron 4 mg tablet,disintegrating 4 mg PO Q6H PRN albuterol sulfate [Ventolin HFA] 90 mcg/actuation HFA aerosol inhaler 2 inh inhalation Q6H PRN Discharge Instructions Activity:: Activity as Tolerated Equipment/Supplies:: No Equipment Needed Diet:: As Tolerated Discharge Orders Discharge Orders: Discharge Order (Routine); Ordered 06/25/24 Ordered By: Jace Medina DS: Summary Time Spent with Patient providing and/or coordinating discharge services: Greater than 30 minutes Status at Discharge Functional status at discharge: independent ambulation Overall status at discharge: patient is back to baseline Mental Status: mental status grossly normal Speech and Movement: speech and movement normal Mood: congruent mood Affect: normal affect Quality:SDOH Health Related Social Needs: Health related social needs problems with daily activi ties (Z73.9) Exam Narrative Exam Narrative: older gentleman sitting up in the chair in no acute distress, awake, alert, oriented to person and place, heart RRR, lungs CTAB, abdomen soft, non-tender, non-distended, Psych Mental Status: mental status grossly normal Speech and Movement: speech and movement normal Mood: congruent mood Affect: normal affect DS: Data Vitals/I&O Vitals and I&O: Vital Signs Temperature 97.9 F 06/25/24 07:42 Temperature Source Tympanic 06/25/24 07:42 Pulse 102 H 06/25/24 07:42 Pulse Rhythm Regular 06/21/24 19:42 Pulse 75 06/23/24 11:02 Respiratory Rate 17 06/25/24 03:54 Respiratory Effort Normal 06/22/24 12:54 Respiratory Depth Normal 06/22/24 12:54 Respiratory Pattern Normal 06/22/24 12:54 Blood Pressure 102/62 06/25/24 07:42 Blood Pressure Mean 72 06/23/24 18:01 Blood Pressure Position Supine 06/22/24 12:54 Pulse Oximetry 90 L 06/25/24 09:55 Respiratory End-tidal CO2 37 06/22/24 11:33 Oxygen Delivery Method OxyMask 06/25/24 09:55 Oxygen Flow Rate 3 06/25/24 09:55 Pain Level 0 06/25/24 03:54 Intake & Output 06/24/24 06/25/24 06/25/24 17:59 05:59 17:59 Intake Total 1360 / 1360 1000 / 2360 Output Total 500 / 500 500 / 1000 450 / 450 Balance 860 / 860 500 / 1360 -450 / -450 Weight 214 lb 11.684 oz Intake: IV 1000 / 1000 1000 / 2000 Oral 360 / 360 Output: Urine 500 / 500 500 / 1000 450 / 450 Other: Urine Color Dark Jyothi Dark Jyothi Yellow Urine Appearance Clear Clear Clear Comment Pt encouraged to drink fluids. Stool Size Small PFSH All Active Problems (Updated 06/24/24 @ 14:06 by Jace Medina MD) History of total right hip replacement (Acute 06/22/24) As treatment for right femoral neck fracture COPD (chronic obstructive pulmonary disease) (Chronic) Acute respiratory failure with hypoxia (Acute) Respiratory acidosis (Acute) Oliguria (Acute) Displaced fracture of right femoral neck (Acute) Aspiration pneumonia (Acute) Schizophrenia (Chronic) Alzheimer's dementia without behavioral disturbance (Chronic) Medical History Left foot pain Cognitive impairment Bilateral primary osteoarthritis of knee Sepsis Pneumonia COVID Dermatophytosis of nail Alcohol abuse, in remission Auditory hallucinations History of suicidal ideation Paranoid schizophrenia Altered mental status Cognitive changes Anemia Elevated PSA Urinary incontinence Hyperplasia of prostate with lower urinary tract symptoms (LUTS) Emphysema lung Pulmonary nodule Tobacco abuse COPD (chronic obstructive pulmonary disease) History of prediabetes Hyperlipidemia Low back pain Acute metabolic encephalopathy Neutrophilia Pain, foot, left, chronic Patellofemoral joint pain Atherosclerosis Surgical History Hx of knee surgery Family History Mother Brain cancer Father Heart disease Hypertension Obesity Osteoarthritis Social History Smoking/Tobacco Use Status: Former Tobacco Use Tobacco: How many years used: 38 Smoking risk assessment performed?: Yes Alcohol Intake: never Substance use type: does not use Housing: house Do you feel safe at home: Yes Do you feel safe in your relationship?: Yes Time Spent with Patient Time Spent with Patient: <45 minutes Time was spent: preparing to see the patient(eg.review tests), obtaining and/or reviewing separately otained hiistory, ordering medications,tests, procedures, referring, communicating with other health client care representative, indepentently interpreting results, counseling the patient and care coordination
[2024-06-25 11:21] VITALS: BP 89/55; PULSE 100; RESP 16; TEMP 36.2; O2SAT 88
--- NOTE | 2024-06-25 11:46 | PDOC.CMDIS ---
Date of service: 06/25/24 Time of Service: 11:47 LACE Index Scoring Tool Questions: Length of Stay (in days): 1 Was the patient admitted via the E.D.?: Yes Comorbidities: Chronic Pulmonary Disease E.D. Visits: 4 Answers: Total Score: 10 Risk of Readmission: High Risk Care Management Discharge Plan Reason for Hospitalization: s/p fall resulting in right hip fracture. surgical repair of the hip on 06/22/2024. Discharge Plan: Venu is being discharged back to the [facility] with new O2. He will f/u with the facility provider and continue per his plan of care. Venu will transfer via [facility] wheelchair van as coordinated by CM. Patient/Family Education Needs: Review of discharge instructions, activity, limitations and discuss Ask me 3. SDOH Health Related Social Needs: Health related social needs problems with daily activities (Z73.9)
== END 2024-06-25 13:12 | disposition skilled nursing facility (03) | DRG 521 ==
LOC: ER 17:59 → MS 18:51 → ICU 06-22 12:17 → MS 06-23 18:45
PROVIDERS: Student in an Organized Health Care Education/Training Program; Admitting Provider Hospitalist; Emergency Provider Registered Nurse Emergency; PCP Nurse Practitioner Family; Responsible Provider Family Medicine; Visit Provider Hospitalist
PROC: 0SR904A Replacement of Right Hip Joint with Ceramic on Polyethylene Synthetic Substitute, Uncemented, Open Approach (ICD-10-PCS; CPT 27130; principal; 2024-06-22 08:00)
DX: S72.001A Fracture of unspecified part of neck of right femur, initial encounter for closed fracture; J96.01 Acute respiratory failure with hypoxia; E87.29 Other acidosis; J98.11 Atelectasis; F20.0 Paranoid schizophrenia; G30.9 Alzheimer's disease, unspecified; F02.80 Dementia in other diseases classified elsewhere, unspecified severity, without behavioral disturbance, psychotic disturbance, mood disturbance, and anxiety; J44.9 Chronic obstructive pulmonary disease, unspecified; W19.XXXA Unspecified fall, initial encounter; R29.6 Repeated falls; R41.89 Other symptoms and signs involving cognitive functions and awareness; F10.11 Alcohol abuse, in remission; D64.9 Anemia, unspecified; N40.1 Benign prostatic hyperplasia with lower urinary tract symptoms; R32 Unspecified urinary incontinence; E78.5 Hyperlipidemia, unspecified; R91.1 Solitary pulmonary nodule; R34 Anuria and oliguria
CPT/HCPCS: 27130; 20985; 00123; 36415; 73552; 80048; 80053; 82805; 85027; 93005; 94640; 96372; 97110; 97112; 97162; 97530; 99223; 99232; 99285; J1650; 70450; 71045; 72170; 73501; 81003; 81015; 83735; 84484; 85025; 93010; 94664; 94760; 99222; 99233; 99239; C1776; G0378; J0131; J0690; J1100; J1171; J1885; J2003; J2405; J2704; J3010

== ENCOUNTER 2024-06-28 18:06 | Outpatient (REF) | payer MEDICARE, MEDICAID, SELFPAY ==
[2024-06-28 19:23] LABS: HCT 24.7 % (40.0-50.0); MCH 28.2 pg (27.0-33.0); MCHC 30.4 % (32.0-36.0); MCV 93 fL (80-95); MPV 10.3 fL (8.0-11.0); Platelet Count 285 10^3/uL (130-400); RBC 2.66 10^6/uL (4.36-5.78); RDW 13.9 % (11.8-14.1); RDW-SD 47.5 fL; WBC 8.92 10^3/uL (4.4-10.8)
[2024-06-28 19:33] LABS: HGB 7.5 g/dL (13.5-17.5)
== END 2024-06-28 18:07 | disposition home or self-care (01) ==
LOC: LBN 18:06
PROVIDERS: PCP Nurse Practitioner Family; Visit Provider Family Medicine Geriatric Medicine
DX: Z51.81 Encounter for therapeutic drug level monitoring (principal); Z79.899 Other long term (current) drug therapy
CPT/HCPCS: 85027

== ENCOUNTER 2024-07-05 14:21 | Outpatient (REF) | payer MEDICARE, MEDICAID, SELFPAY ==
[2024-07-05 15:09] LABS: Abs Immature Grans 0.11 10^3/uL (0.0-0.06); Absolute Basophil Count 0.05 10^3/uL (0.0-0.2); Absolute Eosinophil Count 0.03 10^3/uL (0.0-0.7); Absolute Lymphocyte Count 2.78 10^3/uL (1.2-3.4); Absolute Monocyte Count 0.53 10^3/uL (0.1-0.8); Absolute Neutrophil Count 6.29 10^3/uL (1.2-6.7); Basophils % 0.5 %; Eosinophils % 0.3 %; Immature Grans % 1.1 %; Lymphocytes % 28.4 %; MCH 27.5 pg (27.0-33.0); MCHC 30.3 % (32.0-36.0); MCV 91 fL (80-95); MPV 9.6 fL (8.0-11.0); Monocytes % 5.4 %; Neutrophils % 64.3 %; Platelet Count 568 10^3/uL (130-400); RBC 3.63 10^6/uL (4.36-5.78); RDW 14.4 % (11.8-14.1); RDW-SD 47.5 fL; WBC 9.79 10^3/uL (4.4-10.8)
== END 2024-07-05 14:22 | disposition home or self-care (01) ==
LOC: LBN 14:21
PROVIDERS: PCP Nurse Practitioner Family; Visit Provider Family Medicine Geriatric Medicine
DX: F20.9 Schizophrenia, unspecified (principal)
CPT/HCPCS: 85025

== ENCOUNTER 2024-07-12 13:29 | Outpatient (REF) | payer MEDICARE, MEDICAID, SELFPAY ==
[2024-07-12 15:57] LABS: Abs Immature Grans 0.04 10^3/uL (0.0-0.06); Absolute Basophil Count 0.04 10^3/uL (0.0-0.2); Absolute Eosinophil Count 0.01 10^3/uL (0.0-0.7); Absolute Lymphocyte Count 2.45 10^3/uL (1.2-3.4); Absolute Monocyte Count 0.77 10^3/uL (0.1-0.8); Absolute Neutrophil Count 5.97 10^3/uL (1.2-6.7); Basophils % 0.4 %; Eosinophils % 0.1 %; HCT 32.7 % (40.0-50.0); HGB 9.6 g/dL (13.5-17.5); Immature Grans % 0.4 %; Lymphocytes % 26.4 %; MCH 27.1 pg (27.0-33.0); MCHC 29.4 % (32.0-36.0); MCV 92 fL (80-95); MPV 9.9 fL (8.0-11.0); Monocytes % 8.3 %; Neutrophils % 64.4 %; Platelet Count 572 10^3/uL (130-400); RBC 3.54 10^6/uL (4.36-5.78); RDW 14.2 % (11.8-14.1); RDW-SD 48.4 fL; WBC 9.28 10^3/uL (4.4-10.8)
== END 2024-07-12 13:30 | disposition home or self-care (01) ==
LOC: LBN 13:29
PROVIDERS: PCP Nurse Practitioner Family; Visit Provider Family Medicine Geriatric Medicine
DX: F20.9 Schizophrenia, unspecified (principal)
CPT/HCPCS: 85025

== ENCOUNTER 2024-07-19 12:31 | Outpatient (REF) | payer MEDICARE, MEDICAID, SELFPAY ==
[2024-07-19 12:38] LABS: Abs Immature Grans 0.05 10^3/uL (0.0-0.06); Absolute Basophil Count 0.05 10^3/uL (0.0-0.2); Absolute Eosinophil Count 0.01 10^3/uL (0.0-0.7); Absolute Lymphocyte Count 2.78 10^3/uL (1.2-3.4); Absolute Monocyte Count 0.63 10^3/uL (0.1-0.8); Absolute Neutrophil Count 6.74 10^3/uL (1.2-6.7); Basophils % 0.5 %; Eosinophils % 0.1 %; HCT 36.9 % (40.0-50.0); HGB 11.1 g/dL (13.5-17.5); Immature Grans % 0.5 %; Lymphocytes % 27.1 %; MCH 26.9 pg (27.0-33.0); MCHC 30.1 % (32.0-36.0); MCV 90 fL (80-95); MPV 9.8 fL (8.0-11.0); Monocytes % 6.1 %; Neutrophils % 65.7 %; Platelet Count 417 10^3/uL (130-400); RBC 4.12 10^6/uL (4.36-5.78); RDW 14.5 % (11.8-14.1); RDW-SD 46.5 fL; WBC 10.26 10^3/uL (4.4-10.8)
== END 2024-07-19 12:32 | disposition home or self-care (01) ==
LOC: LBN 12:31
PROVIDERS: PCP Nurse Practitioner Family; Visit Provider Family Medicine Geriatric Medicine
DX: F20.0 Paranoid schizophrenia (principal)
CPT/HCPCS: 85025

== ENCOUNTER 2024-07-25 13:24 | Outpatient (CLI) | payer MEDICARE, MEDICAID, SELFPAY ==
--- NOTE | 2024-07-25 10:00 | DI.RAD_ITS ---
Exam(s) XR HIP RT COMPLETE AP PELVIS EXAM: XR HIP RT COMPLETE AP PELVIS CLINICAL HISTORY: 1st post op S/P R ILYA. TECHNIQUE: 2D digital imaging was performed. Two views COMPARISON: CR XR PELVIS AP from 06/21/2024 XA XR HIP RT IN OR from 06/22/2024 FINDINGS: BONES: No acute fracture is present. No bony destructive lesion is seen. JOINTS: No dislocation present. Stable alignment of right hip prosthesis. SOFT TISSUE: Normal. IMPRESSION: Stable appearance of right hip prosthesis. DATA REPOSITORY: RADIATION DOSE DELIVERED:
== END 2024-07-25 13:25 | disposition home or self-care (01) ==
LOC: DIORS 13:25
PROVIDERS: PCP Nurse Practitioner Family; Referring Provider Nurse Practitioner Family; Visit Provider Physician Assistant
DX: Z96.641 Presence of right artificial hip joint (principal); Z47.1 Aftercare following joint replacement surgery
CPT/HCPCS: 99024; 73502

== ENCOUNTER 2024-08-16 17:42 | Outpatient (REF) | payer MEDICARE, MEDICAID, SELFPAY ==
[2024-08-16 18:27] LABS: Abs Immature Grans 0.02 10^3/uL (0.0-0.06); Absolute Basophil Count 0.06 10^3/uL (0.0-0.2); Absolute Eosinophil Count 0.13 10^3/uL (0.0-0.7); Absolute Lymphocyte Count 2.82 10^3/uL (1.2-3.4); Absolute Monocyte Count 0.55 10^3/uL (0.1-0.8); Absolute Neutrophil Count 3.39 10^3/uL (1.2-6.7); Basophils % 0.9 %; Eosinophils % 1.9 %; HCT 38.3 % (40.0-50.0); HGB 11.4 g/dL (13.5-17.5); Immature Grans % 0.3 %; Lymphocytes % 40.5 %; MCHC 29.8 % (32.0-36.0); MCV 91 fL (80-95); MPV 10.2 fL (8.0-11.0); Monocytes % 7.9 %; Neutrophils % 48.5 %; Platelet Count 307 10^3/uL (130-400); RBC 4.22 10^6/uL (4.36-5.78); RDW 14.6 % (11.8-14.1); WBC 6.97 10^3/uL (4.4-10.8)
== END 2024-08-16 17:43 | disposition home or self-care (01) ==
LOC: LBN 17:42
PROVIDERS: PCP Nurse Practitioner Family; Visit Provider Family Medicine
DX: F20.0 Paranoid schizophrenia (principal)
CPT/HCPCS: 85025

== ENCOUNTER 2024-08-30 19:17 | Outpatient (REF) | payer MEDICARE, MEDICAID, SELFPAY ==
[2024-08-30 17:28] LABS: Abs Immature Grans 0.02 10^3/uL (0.0-0.06); Absolute Basophil Count 0.05 10^3/uL (0.0-0.2); Absolute Eosinophil Count 0.12 10^3/uL (0.0-0.7); Absolute Lymphocyte Count 2.61 10^3/uL (1.2-3.4); Absolute Monocyte Count 0.53 10^3/uL (0.1-0.8); Absolute Neutrophil Count 4.17 10^3/uL (1.2-6.7); Basophils % 0.7 %; Eosinophils % 1.6 %; HCT 39.3 % (40.0-50.0); HGB 11.8 g/dL (13.5-17.5); Immature Grans % 0.3 %; Lymphocytes % 34.8 %; MCH 26.3 pg (27.0-33.0); MCV 88 fL (80-95); MPV 10.3 fL (8.0-11.0); Monocytes % 7.1 %; Neutrophils % 55.5 %; Platelet Count 287 10^3/uL (130-400); RBC 4.48 10^6/uL (4.36-5.78); RDW 14.5 % (11.8-14.1); RDW-SD 46.5 fL
== END 2024-08-30 19:18 | disposition home or self-care (01) ==
LOC: LBN 19:17
PROVIDERS: PCP Nurse Practitioner Family; Visit Provider Nurse Practitioner Gerontology
DX: F20.0 Paranoid schizophrenia (principal)
CPT/HCPCS: 85025

== ENCOUNTER 2024-09-06 17:18 | Outpatient (REF) | payer MEDICARE, MEDICAID, SELFPAY ==
[2024-09-06 14:42] LABS: Abs Immature Grans 0.04 10^3/uL (0.0-0.06); Absolute Basophil Count 0.04 10^3/uL (0.0-0.2); Absolute Eosinophil Count 0.07 10^3/uL (0.0-0.7); Absolute Lymphocyte Count 2.06 10^3/uL (1.2-3.4); Absolute Monocyte Count 0.65 10^3/uL (0.1-0.8); Basophils % 0.4 %; Eosinophils % 0.6 %; HCT 39.3 % (40.0-50.0); HGB 11.5 g/dL (13.5-17.5); Immature Grans % 0.4 %; Lymphocytes % 18.4 %; MCH 26.1 pg (27.0-33.0); MCHC 29.3 % (32.0-36.0); MCV 89 fL (80-95); MPV 10.4 fL (8.0-11.0); Monocytes % 5.8 %; Neutrophils % 74.4 %; Platelet Count 252 10^3/uL (130-400); RBC 4.41 10^6/uL (4.36-5.78); RDW 14.6 % (11.8-14.1); WBC 11.22 10^3/uL (4.4-10.8)
[2024-09-06 14:43] LABS: Absolute Neutrophil Count 8.35 10^3/uL (1.2-6.7)
== END 2024-09-06 17:19 | disposition home or self-care (01) ==
LOC: LBN 17:18
PROVIDERS: PCP Nurse Practitioner Family; Visit Provider Nurse Practitioner Adult Health
DX: F20.0 Paranoid schizophrenia (principal)
CPT/HCPCS: 85025

== ENCOUNTER → 2024-09-19 10:30 | Outpatient (BNVA) | payer MEDICARE, MEDICAID, SELFPAY | PROVIDERS: PCP Nurse Practitioner Family; Referring Provider Nurse Practitioner Family; Visit Provider Student in an Organized Health Care Education/Training Program | DX: Z47.1 Aftercare following joint replacement surgery (principal); Z96.641 Presence of right artificial hip joint | CPT/HCPCS: 99024 ==

== ENCOUNTER 2024-09-27 17:45 | Outpatient (REF) | payer MEDICARE, MEDICAID, SELFPAY ==
[2024-09-27 19:11] LABS: Abs Immature Grans 0.03 10^3/uL (0.0-0.06); Absolute Basophil Count 0.04 10^3/uL (0.0-0.2); Absolute Eosinophil Count 0.09 10^3/uL (0.0-0.7); Absolute Lymphocyte Count 2.74 10^3/uL (1.2-3.4); Basophils % 0.4 %; Eosinophils % 0.8 %; HCT 44.5 % (40.0-50.0); HGB 13.1 g/dL (13.5-17.5); Immature Grans % 0.3 %; Lymphocytes % 24.9 %; MCHC 29.4 % (32.0-36.0); MCV 89 fL (80-95); MPV 10.1 fL (8.0-11.0); Monocytes % 6.4 %; Neutrophils % 67.2 %; Platelet Count 419 10^3/uL (130-400); RBC 5.03 10^6/uL (4.36-5.78); RDW 14.6 % (11.8-14.1); RDW-SD 47.2 fL; WBC 11.02 10^3/uL (4.4-10.8)
[2024-09-27 19:13] LABS: Absolute Monocyte Count 0.71 10^3/uL (0.1-0.8); Absolute Neutrophil Count 7.41 10^3/uL (1.2-6.7)
== END 2024-09-27 17:46 | disposition home or self-care (01) ==
LOC: LBN 17:45
PROVIDERS: PCP Nurse Practitioner Family; Visit Provider Nurse Practitioner Gerontology
DX: F20.9 Schizophrenia, unspecified (principal)
CPT/HCPCS: 85025

== ENCOUNTER 2024-09-28 10:23 | Emergency (ER) | payer MEDICARE, MEDICAID, SELFPAY ==
[2024-09-28] VITALS (32 sets, daily range): BP systolic 102–123; BP diastolic 62–80; PULSE 79–91; RESP 18; TEMP 37.1–37.3; O2SAT 90–97
--- NOTE | 2024-09-28 10:30 | DI.RAD_ITS ---
Exam(s) XR KNEE RT 3V AP,LAT,EDILMA EXAM: XR KNEE RT 3V AP,LAT,EDILMA CLINICAL HISTORY: fall, pain. TECHNIQUE: 2D digital imaging was performed. COMPARISON: CR,XR XR KNEE LT 3V AP,LAT,EDILMA from 06/12/2023 FINDINGS: 3 views No evidence of acute fracture or obvious joint effusion. There is a small osteophytic density located medially below the medial aspect of the tibial plateau, this measuring 4 x 2 mm. Possibly loose body which has migrated to this level. This does not have the appearance of a Segond-type fracture fragment (which usually comes off of the lateral tibial plateau rim). There is no significant narrowing of the medial lateral compartments. There is small marginal osteophytes of these compartments. Bone density normal. No significant osseous lesions. IMPRESSION: No acute fracture or joint effusion. Medial small 4 x 2 mm calcification associated with the inferior aspect of the medial collateral ligament. There does not appear to be prominent overlying soft tissue swelling. DATA REPOSITORY: RADIATION DOSE DELIVERED:
--- NOTE | 2024-09-28 10:30 | DI.RAD_ITS ---
Exam(s) XR HIP LT COMPLETE AP PELVIS EXAM: XR HIP LT COMPLETE AP PELVIS CLINICAL HISTORY: fall pain. TECHNIQUE: 2D digital imaging was performed. COMPARISON: CR XR HIP RT COMPLETE AP PELVIS from 07/25/2024 FINDINGS: 3 views No evidence of pelvic nor hip fracture. Right hip prosthesis appears stable. Left hip appears unremarkable. Sacroiliac joints and symphysis pubis unremarkable. IMPRESSION: No acute fractures. Stable appearance of right hip prosthesis. No left hip fracture seen. DATA REPOSITORY: RADIATION DOSE DELIVERED:
--- NOTE | 2024-09-28 10:30 | DI.RAD_ITS ---
Exam(s) XR KNEE LT 3V AP,LAT,EDILMA EXAM: XR KNEE LT 3V AP,LAT,EDILMA CLINICAL HISTORY: weakness. TECHNIQUE: 2D digital imaging was performed. COMPARISON: CR,XR XR KNEE RT 3V AP,LAT,EDILMA from 09/28/2024 FINDINGS: 3 views No evidence of acute fracture nor obvious knee joint effusion. There is no joint space narrowing. No significant osseous lesions. IMPRESSION: No acute osseous findings in the knee. No obvious joint effusion. Incidentally noted is some mild-moderate vascular calcification in the lower femoral artery and in the partially visual runoff arteries of the calf DATA REPOSITORY: RADIATION DOSE DELIVERED:
--- NOTE | 2024-09-28 10:45 | DI.RAD_ITS ---
Exam(s) XR CHEST 2V PA LATERAL EXAM: XR CHEST 2V PA LATERAL CLINICAL HISTORY: weakness. TECHNIQUE: 2D digital imaging was performed. COMPARISON: CR,XR XR CHEST 2V PA LATERAL from 06/04/[address] CHEST PE CTA from 06/04/2024 CR XR PORTABLE CHEST AP from 06/21/2024 FINDINGS: 2 views: Heart size is normal. The mediastinum is not widened. On the lateral view a density posteriorly corresponds to benign-appearing excessive fat in this region as seen on CT scan of 06/04/2024. There are no obvious infiltrates nor pleural effusions. The relatively extensive right lung infiltrate which was evident on CT scan of 06/04/2024 appears to have mostly resolved. There are mild remaining increased markings in right upper lobe but significantly improved from 06/04/2024. Increased markings behind the left side of the heart appear to be vascular markings. There are no obvious pleural effusions. IMPRESSION: Significant improvement in the extensive right lung infiltrates which were evident in May 2024. There is presently mild increased markings in the right upper lobe which may be remnant mild infiltrate. If clinically indicated follow-up CT scan can be performed. DATA REPOSITORY: RADIATION DOSE DELIVERED:
--- NOTE | 2024-09-28 10:45 | RT.EKG_ITS ---
APPROVED REPORT Exam: Resting ECG Reason for Exam: weakness Patient Location: E HR:87 bpm ECG Measurements Heart Rate 87 AXIS FL 167 P 51 QRSd 95 QRS 2 QT 384 T 49 QTc 462 Conclusion Sinus rhythm...normal P axis, V-rate 60- 99 Low voltage, precordial leads...precordial leads <1.0mV No Occlusion CO
[2024-09-28 10:54] LABS: Lactate 1.4 mmol/L (<or=2.0)
[2024-09-28 11:04] LABS: Abs Immature Grans 0.05 10^3/uL (0.0-0.06); Absolute Eosinophil Count 0.02 10^3/uL (0.0-0.7); Absolute Lymphocyte Count 1.88 10^3/uL (1.2-3.4); Absolute Monocyte Count 0.69 10^3/uL (0.1-0.8); Absolute Neutrophil Count 8.59 10^3/uL (1.2-6.7); Basophils % 0.4 %; Eosinophils % 0.2 %; HCT 40.2 % (40.0-50.0); HGB 12.1 g/dL (13.5-17.5); Immature Grans % 0.4 %; Lymphocytes % 16.7 %; MCH 26.4 pg (27.0-33.0); MCHC 30.1 % (32.0-36.0); MCV 88 fL (80-95); MPV 9.6 fL (8.0-11.0); Monocytes % 6.1 %; Neutrophils % 76.2 %; Platelet Count 397 10^3/uL (130-400); RBC 4.59 10^6/uL (4.36-5.78); RDW 14.7 % (11.8-14.1); RDW-SD 47.5 fL; WBC 11.27 10^3/uL (4.4-10.8)
[2024-09-28 11:07] LABS: Absolute Basophil Count 0.05 10^3/uL (0.0-0.2)
[2024-09-28 11:13] LABS: ALT 51 U/L (16-63); AST 252 U/L (15-37); Albumin 2.9 g/dL (3.4-5.0); Alkaline Phosphatase 105 U/L (46-116); Anion Gap 5.7 mmol/L (3-11); BUN 22 mg/dL (7-18); Bilirubin, Total 0.3 mg/dL (0.2-1.0); CO2 31.3 mmol/L (21.0-32.0); CREATININE 1.1 mg/dL (0.70-1.30); Calcium 9.3 mg/dL (8.5-10.1); Chloride 105 mmol/L (98-107); Estimated GFR 73.58 (mL/min/1.73m2); Glucose 99 mg/dL (74-106); Potassium 4.2 mmol/L (3.5-5.1); Sodium 142 mmol/L (136-145); Total Protein 7.1 g/dL (6.4-8.2)
[2024-09-28 11:13] LABS: Bilirubin Small (Negative); Blood Large (Negative); Clarity Clear (Clear); Glucose Negative (Negative); Ketones Trace mg/dL (Negative); Leukocyte Esterase Negative (Negative); Nitrite Negative (Negative); Specific Gravity >= 1.030 (1.005-1.025); Urobilinogen 0.2 mg/dL (Up to 0.2); pH 5.5 (5-8)
[2024-09-28 11:29] LABS: Bacteria Rare HPF (Negative); C & S Indicated? No; Casts Negative LPF (Negative); Crystals Many Amorphous HPF (Negative); Epithelial Cells Rare HPF (Negative); Mucus Negative (Negative)
--- NOTE | 2024-09-28 12:39 | DI.VRAD_ITS ---
PROCEDURE INFORMATION: Exam: XR Chest Exam date and time: 09/28/2024 11:52 AM Age: 69 years old Clinical indication: Other: Weakness TECHNIQUE: Imaging protocol: Radiologic exam of the chest. Views: 2 views. COMPARISON: CR XR PORTABLE CHEST AP 06/21/2024 6:35 PM FINDINGS: Lungs: Atelectasis in the left base. No consolidation. Pleural spaces: Unremarkable. No pleural effusion. No pneumothorax. Heart/Mediastinum: Unremarkable. No cardiomegaly. Bones/joints: Unremarkable. IMPRESSION: No acute findings. Dictated and Authenticated by: Tawanna Hutchins MD. Orderin Shaw Limon MD
--- NOTE | 2024-09-28 12:43 | DI.VRAD_ITS ---
PROCEDURE INFORMATION: Exam: XR Left Hip Exam date and time: 09/28/2024 11:25 AM Age: 69 years old Clinical indication: Other: Fall pain TECHNIQUE: Imaging protocol: Radiologic exam of the left hip. Views: 2 or 3 views hip with pelvis when performed. COMPARISON: CR XR PELVIS AP 06/21/2024 5:13 PM FINDINGS: Bones/joints: Right total hip replacement without evidence of complication. Moderate degenerative changes of the left hip. Joint space narrowing medially. There is no evidence of acute fracture.There is no evidence of malalignment or dislocation. Soft tissues: Unremarkable. IMPRESSION: 1. Right total hip replacement without evidence of complication. 2. Moderate degenerative changes of the left hip. Joint space narrowing medially. 3. There is no evidence of acute fracture.There is no evidence of malalignment or dislocation. Dictated and Authenticated by: Tawanna Hutchins MD. Orderin Shaw Limon MD
--- NOTE | 2024-09-28 12:44 | DI.VRAD_ITS ---
PROCEDURE INFORMATION: Exam: XR Right Knee Exam date and time: 09/28/2024 11:27 AM Age: 69 years old Clinical indication: Other: Fall pain TECHNIQUE: Imaging protocol: Radiologic exam of the right knee. Views: 3 views. COMPARISON: CR XR KNEE RT 4V AP,LAT,EDILMA,PAT 01/19/2023 10:21 AM FINDINGS: Bones/joints: Mild Tricompartmental joint space narrowing and osteophyte formation consistent with degenerative changes. There is no evidence of acute fracture.There is no evidence of malalignment or dislocation. Well corticated avulsion fracture along the medial aspect of the medial tibial plateau. It was present in 2022 Soft tissues: Normal. IMPRESSION: 1. Mild Tricompartmental joint space narrowing and osteophyte formation consistent with degenerative changes. 2. There is no evidence of acute fracture.There is no evidence of malalignment or dislocation. Dictated and Authenticated by: Tawanna Hutchins MD. Orderin Shaw Limon MD
--- NOTE | 2024-09-28 12:44 | DI.VRAD_ITS ---
PROCEDURE INFORMATION: Exam: XR Left Knee Exam date and time: 09/28/2024 11:29 AM Age: 69 years old Clinical indication: Other: Fall pain TECHNIQUE: Imaging protocol: Radiologic exam of the left knee. Views: 3 views. COMPARISON: CR XR KNEE LT 3V AP,LAT,EDILMA 06/12/2023 1:51 AM FINDINGS: Bones/joints: Mild Tricompartmental joint space narrowing and osteophyte formation consistent with degenerative changes. There is no evidence of acute fracture.There is no evidence of malalignment or dislocation. Soft tissues: Normal. IMPRESSION: 1. Mild Tricompartmental joint space narrowing and osteophyte formation consistent with degenerative changes. 2. There is no evidence of acute fracture.There is no evidence of malalignment or dislocation. Dictated and Authenticated by: Tawanna Hutchins MD. Orderin Shaw Limon MD
--- NOTE | 2024-09-28 15:05 | W.ED.GENAD ---
Discharge Plan Disposition Patient Disposition: Home Condition: Stable Discharge Details Clinical Impression: Contusion of knee, Fall Primary Care Provider: Milka Shelley ED Provider: Ashly Squires Home Meds and New Rx's Prescriptions: Continued omega 2-nls-tme-fish oil [Fish Oil] 60-90-500 mg capsule 1 cap PO DAILY simvastatin 20 mg tablet 20 mg PO DAILY docusate sodium 100 mg capsule 100 mg PO BID clozapine 50 mg tablet 50 mg PO QHS Rx Instructions: total 250mg tramadol 50 mg tablet 50 mg PO Q4H PRN MDD 4 PRN (Reason: pain) Qty: 10 0RF tamsulosin 0.4 mg capsule 0.8 mg PO QHS Incruse Ellipta 62.5 mcg/actuation blister with device 1 inh inhalation DAILY trazodone 50 mg tablet 50 mg PO QHS clozapine 200 mg tablet 200 mg PO QHS duloxetine 60 mg capsule,delayed release(DR/EC) 120 mg PO DAILY cyanocobalamin (vitamin B-12) 1,000 mcg tablet, sublingual See Rx Instructions .ROUTE .COMPLEX Qty: 30 11RF Dose Instruction: 1 TAB (1000mcg) ORALLY DAILY Rx Instructions: 1 TAB (1000mcg) ORALLY DAILY acetaminophen [Tylenol] 325 mg tablet 650 mg PO BID diazepam 5 mg tablet 10 mg PO BID Patient Comments: AM diclofenac sodium 1 % gel 2 g TOPICAL DAILY magnesium oxide 400 mg magnesium capsule 400 mg PO DAILY donepezil 10 mg tablet 5 mg PO QHS memantine 10 mg tablet 5 mg PO BID polyethylene glycol 3350 [Miralax] 17 gram/dose powder 17 g PO QDAY cholecalciferol (vitamin D3) [Vitamin D3] 25 mcg (1,000 unit) capsule 1,000 unit PO DAILY tizanidine 2 mg tablet 2 mg PO TID olanzapine 10 mg tablet 5 mg PO BID meloxicam 7.5 mg tablet 7.5 mg PO DAILY ondansetron 4 mg tablet,disintegrating 4 mg PO Q6H PRN albuterol sulfate [Ventolin HFA] 90 mcg/actuation HFA aerosol inhaler 2 inh inhalation Q6H PRN Discharge Instructions Instructions: Acute Pain, Adult (DC), Preventing Falls ED Additional Instructions: I would recommend 1 mg of Ativan in the morning only as needed for anxiety or increasing zyprexa dosing the valium is an extremely large dose and likely contributing to falls in the patient at the very least, I would hold or cut the HS dose in half tylenol as needed for pain no obvious fracture on testing mild elevating in AST, this should be recheckout on outpatient basis HPI General Date/Time Provider Initiated Documentation: 09/28/24 10:26. HPI Narrative: 69-year-old male from rehab after a fall while going to the bathroom at night. History of frequent falls, using a walker, lost balance, on the ground for 30 minutes before assistance. Persistent knee pain prompted visit. No weakness, dizziness, head injury, or neck pain. Related Data Home Medications ?Medication ?Instructions ?Recorded ?Confirmed tamsulosin 0.4 mg capsule 0.8 mg PO QHS 03/23/22 09/28/24 trazodone 50 mg tablet 50 mg PO QHS 03/23/22 09/28/24 umeclidinium 62.5 mcg/actuation 1 inh inhalation DAILY 03/23/22 09/28/24 blister powder for inhalation (Incruse Ellipta) clozapine 200 mg tablet 200 mg PO QHS 01/19/23 09/28/24 clozapine 50 mg tablet 50 mg PO QHS 01/19/23 09/28/24 docusate sodium 100 mg capsule 100 mg PO BID 01/19/23 09/28/24 omega 0-bfj-shd-fish oil 60 mg-90 1 cap PO DAILY 01/19/23 09/28/24 mg-500 mg capsule (Fish Oil) simvastatin 20 mg tablet 20 mg PO DAILY 01/19/23 09/28/24 duloxetine 60 mg capsule,delayed 120 mg PO DAILY 07/20/23 09/28/24 release cyanocobalamin (vitamin B-12) See Rx Instructions .Route 08/16/23 09/28/24 1,000 mcg sublingual tablet .COMPLEX #30 tabs cholecalciferol (vitamin D3) 25 1,000 unit PO DAILY 02/11/24 09/28/24 mcg (1,000 unit) capsule (Vitamin D3) polyethylene glycol 3350 17 17 g PO QDAY 02/11/24 09/28/24 gram/dose oral powder (Miralax) albuterol sulfate 90 mcg/actuation 2 inh inhalation Q6H PRN 06/21/24 09/28/24 aerosol inhaler (Ventolin HFA) meloxicam 7.5 mg tablet 7.5 mg PO DAILY 06/21/24 09/28/24 ondansetron 4 mg disintegrating 4 mg PO Q6H PRN 06/21/24 09/28/24 tablet tizanidine 2 mg tablet 2 mg PO TID 07/25/24 09/28/24 acetaminophen 325 mg tablet 650 mg PO BID 08/07/24 09/28/24 (Tylenol) diazepam 5 mg tablet 10 mg PO BID 08/07/24 09/28/24 olanzapine 10 mg tablet 5 mg PO BID 08/07/24 09/28/24 tramadol 50 mg tablet 50 mg PO Q4H PRN PRN pain #10 tabs 08/07/24 09/28/24 diclofenac sodium 1 % topical gel 2 g topical DAILY 09/28/24 09/28/24 donepezil 10 mg tablet 5 mg PO QHS 09/28/24 09/28/24 magnesium oxide 400 mg PO DAILY 09/28/24 09/28/24 memantine 10 mg tablet 5 mg PO BID 09/28/24 09/28/24 Previous Rx's ?Medication ?Instructions ?Recorded cyanocobalamin (vitamin B-12) See Rx Instructions .Route 08/16/23 1,000 mcg sublingual tablet .COMPLEX #30 tabs tramadol 50 mg tablet 50 mg PO Q4H PRN PRN pain #10 tabs 08/07/24 Allergies Allergy/AdvReac Type Severity Reaction Status Date / Time No Known Allergies Allergy Verified 09/28/24 10:32 General Stated Complaint: Fall/Non TraumaCriteria WILLIAMS: 3 Exam Narrative Exam Narrative: General Appearance: Normal. Vital signs: Within normal limits. HEENT: Within normal limits. Respiratory: Within normal limits. Back, Musculoskeletal: No head trauma. No cervical spine tenderness. No lumbar or thoracic spine trauma. Extremities: Tenderness in both knees. Mild tenderness in left hip, neurovascularly intact. Abrasion on left knee and ankle. Nontender left ankle. Bruising and tenderness in both knees. Skin: Warm and dry, no rash. Neurological: GCS 15. Other observations: No CVA tenderness. Course Vital Signs Vital signs: Vital Signs Temperature 37.3 C 09/28/24 10:24 Pulse 91 H 09/28/24 10:24 Respiratory Rate 18 09/28/24 10:24 Blood Pressure 123/77 09/28/24 10:24 Pulse Oximetry 91 L 09/28/24 10:24 Temperature 37.1 C 09/28/24 11:06 Temperature Source Oral 09/28/24 11:06 Pulse 90 09/28/24 13:31 Pulse 90 09/28/24 13:31 Respiratory Rate 18 09/28/24 10:24 Blood Pressure 116/76 09/28/24 13:31 Blood Pressure Mean 90 09/28/24 13:31 Pulse Oximetry 97 09/28/24 13:31 Oxygen Delivery Method Nasal Cannula 09/28/24 10:24 Oxygen Flow Rate 3 09/28/24 10:24 Pain Level 3 09/28/24 10:24 Lab/Test Results Lab/Test Results: Laboratory Tests Range/Units 09/28/24 09/28/24 09/28/24 10:45 10:48 11:05 WBC (4.4-10.8) 10^3/uL 11.27 H RBC (4.36-5.78) 10^6/uL 4.59 Hgb (13.5-17.5) g/dL 12.1 L Hct (40.0-50.0) % 40.2 MCV (80-95) fL 88 MCH (27.0-33.0) pg 26.4 L MCHC (32.0-36.0) % 30.1 L RDW (11.8-14.1) % 14.7 H Plt Count (130-400) 10^3/uL 397 MPV (8.0-11.0) fL 9.6 Immature Gran % % 0.4 Neutrophils % % 76.2 Lymphocytes % % 16.7 Monocytes % % 6.1 Eosinophils % % 0.2 Basophils % % 0.4 Nucleated RBC % (0.0-0.3) % 0.0 Absolute Neutrophils (1.2-6.7) 10^3/uL 8.59 H Absolute Lymphocytes (1.2-3.4) 10^3/uL 1.88 Absolute Monocytes (0.1-0.8) 10^3/uL 0.69 Absolute Eosinophils (0.0-0.7) 10^3/uL 0.02 Absolute Basophils (0.0-0.2) 10^3/uL 0.05 VBG Lactate (<or=2.0) mmol/L 1.4 Sodium Cancelled 142 Potassium Cancelled 4.2 Chloride Cancelled 105 Carbon Dioxide Cancelled 31.3 Anion Gap Cancelled 5.7 BUN Cancelled 22 H Creatinine Cancelled 1.1 Est GFR (CKD-EPI 2020) Cancelled 73.58 Glucose Cancelled 99 Calcium Cancelled 9.3 Total Bilirubin Cancelled 0.3 AST Cancelled 252 H ALT Cancelled 51 Alkaline Phosphatase Cancelled 105 Total Protein Cancelled 7.1 Albumin Cancelled 2.9 L Urine Color (Yellow) Brown Urine Clarity (Clear) Clear Urine pH (5-8) 5.5 Ur Specific [place] (1.005-1.025) >= 1.030 H Urine Protein (Neg-Trace) mg/dL 100 H Urine Ketones (Negative) mg/dL Trace H Urine Blood (Negative) Large H Urine Nitrite (Negative) Negative Urine Bilirubin (Negative) Small H Urine Urobilinogen (Up to 0.2) mg/dL 0.2 Ur Leukocyte Esterase (Negative) Negative Urine RBC (0-2) HPF 3-5 H Urine WBC (0-5) HPF 3-5 Ur Epithelial Cells (Negative) HPF Rare Urine Crystals (Negative) HPF Many Amorphous Urine Bacteria (Negative) HPF Rare Urine Casts (Negative) LPF Negative Urine Mucus (Negative) Negative Ur Culture Indicated? No Urine Glucose (Negative) mg/dL Negative Medical Decision Making Laboratory: Blood in urine, mildly elevated AST. Imaging: X-rays of chest, hips, and knees show no acute pathology. Initial Assessment: 69-year-old male presents from rehab after a fall while going to the bathroom at night. History of frequent falls, knee pain, no head injury or neck pain, GCS 15, no visible sign of head trauma, no cervical spine tenderness, chest wall without evidence of trauma, abdomen nontender, bilateral knees with tenderness, hips left mildly tender, neurovascularly intact, abrasion to left knee and left ankle, left ankle nontender, bilateral knees with bruising and tenderness, no lumbar spine or thoracic spine trauma, no CVA tenderness, not anticoagulated. ED Course: - X-rays of chest, hips, and knees reviewed by me, no acute pathology. - Given Tylenol for discomfort. - Tetanus up to date. - Labs: blood in urine, mildly elevated AST, recheck by PCP. Final Assessment: Patient presents with fall-related injury while using walker, knee pain, and history of frequent falls. X-rays show no acute pathology. Labs indicate blood in urine and mildly elevated AST. Given Tylenol for discomfort. Tetanus up to date. Clinical Impression: - Fall-related injury Disposition: - Discharge: Lives at rehab center, needs PT assessment at home. - Follow-Up: Recheck labs by PCP. Patient Education: Reviewed return precautions, patient expressed understanding. MDM Components Evaluation: - Number of Differential Diagnoses or Management Options: Fall-related injury. - Amount and Complexity of Data Reviewed: X-rays of chest, hips, and knees, labs. - Risk of Complication and Morbidity or Mortality: Falls may be due to medication regimen including Valium 10 mg BID, olanzapine, clozapine, trazodone. Recommend tapering Valium. Medication management deferred to provider. Quality:SDOH Health Related Social Needs: Health related social needs daily activities PFSH All Active Problems (Updated 09/28/24 @ 12:57 by FLORIDALMA Lawler) Fall (Acute) Contusion of knee (Acute) Palliative care encounter (Acute) Advanced care planning/counseling discussion (Acute) Chronic respiratory failure with hypoxia, on home O2 therapy (Acute) Supplemental oxygen dependent (Acute) COPD (chronic obstructive pulmonary disease) (Chronic) Aspiration pneumonia (Acute) Schizophrenia (Chronic) Alzheimer's dementia without behavioral disturbance (Chronic) Medical History (Updated 09/28/24 @ 12:57 by FLORIDALMA Lawler) Left foot pain Cognitive impairment Bilateral primary osteoarthritis of knee Sepsis Pneumonia COVID Dermatophytosis of nail Alcohol abuse, in remission Auditory hallucinations History of suicidal ideation Paranoid schizophrenia Altered mental status Cognitive changes Anemia Elevated PSA Urinary incontinence Hyperplasia of prostate with lower urinary tract symptoms (LUTS) Emphysema lung Pulmonary nodule Tobacco abuse History of prediabetes Hyperlipidemia Low back pain Acute metabolic encephalopathy Neutrophilia Pain, foot, left, chronic Patellofemoral joint pain Atherosclerosis Surgical History (Updated 09/19/24 @ 11:14 by FLORIDALMA Ghosh) 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) As treatment for right femoral neck fracture Hx of knee surgery Family History Mother Brain cancer Father Heart disease Hypertension Obesity Osteoarthritis Social History Smoking/Tobacco Use Status: Former Tobacco Use Tobacco: How many years used: 38 Smoking risk assessment performed?: Yes Alcohol Intake: never Substance use type: does not use Housing: house Do you feel safe at home: Yes Do you feel safe in your relationship?: Yes
--- NOTE | 2024-09-30 09:57 | NUR.NOTE ---
Accessed chart to reconcile orders for EKG with EKG?s in [facility]. One order completed in [facility] and one in [facility]. Nursing Note:
[2024-10-01 16:53] LABS: Clozapine 420 ng/mL (350-600); Clozapine+Norclozapine Total 773 ng/mL; Norclozapine 353 ng/mL
== END 2024-09-28 13:56 | disposition home or self-care (01) ==
PROVIDERS: Emergency Provider Physician Assistant; PCP Nurse Practitioner Family
DX: S80.02XA Contusion of left knee, initial encounter (principal); S90.02XA Contusion of left ankle, initial encounter; M25.552 Pain in left hip; M25.562 Pain in left knee; M25.561 Pain in right knee; Z96.641 Presence of right artificial hip joint; W19.XXXA Unspecified fall, initial encounter
CPT/HCPCS: 99284 ×2; 51701; 73562; 80053; 87637; 93005; 71046; 73502; 80159; 81003; 81015; 83605; 85025; 93010

== ENCOUNTER 2024-09-29 01:50 | Inpatient (IN) | payer MEDICARE, MEDICAID, SELFPAY ==
[2024-09-29] VITALS (140 sets, daily range): BP systolic 83–164; BP diastolic 52–144; PULSE 76–119; RESP 11–28; TEMP 35–37.6; O2SAT 75–98
--- NOTE | 2024-09-29 | DI.RAD_ITS ---
Exam(s) XR ABDOMEN FLAT PLATE EXAM: XR ABDOMEN FLAT PLATE CLINICAL HISTORY: constipation. TECHNIQUE: 2D digital imaging was performed. COMPARISON: CT CT CHEST PE ABD PELVIS W from 09/29/2024 FINDINGS: AP view of the abdomen-pelvis. There increased markings in the lung bases, slightly more so on the left side. The bowel gas pattern is nonspecific in the supine position. There are no obvious dilated bowel loops. There is contrast seen in the urinary bladder from CT scan performed earlier same date. Bladder wall appears somewhat trabeculated. There is a right hip prosthesis. No pelvic fractures evident. IMPRESSION: Nonspecific bowel gas pattern in the supine position. There is mild infiltrate in the lung bases, slightly more prominent on the left side. No large pleural effusions. DATA REPOSITORY: RADIATION DOSE DELIVERED:
--- NOTE | 2024-09-29 01:45 | RT.EKG_ITS ---
APPROVED REPORT Exam: Resting ECG Reason for Exam: hypoxia Patient Location: E HR:107 bpm ECG Measurements Heart Rate 107 AXIS KS 152 P 50 QRSd 89 QRS 41 QT 334 T 62 QTc 446 Conclusion Sinus tachycardia...rate> [address] segment or T wave abnormalities to suggest occlusive MO
--- NOTE | 2024-09-29 01:46 | W.ED.GENAD ---
Discharge Plan Disposition Patient Disposition: Admit to [facility] Condition: Critical Discharge Details Clinical Impression: Acute and chronic respiratory failure with hypoxia, Aspiration pneumonitis, COPD (chronic obstructive pulmonary disease), Schizophrenia, Dementia Primary Care Provider: Milka Shelley ED Provider: Hafsa Chan Home Meds and New Rx's Prescriptions: No Action omega 2-mki-oeb-fish oil [Fish Oil] 60-90-500 mg capsule 1 cap PO DAILY simvastatin 20 mg tablet 20 mg PO DAILY docusate sodium 100 mg capsule 100 mg PO BID clozapine 50 mg tablet 50 mg PO QHS Rx Instructions: total 250mg tramadol 50 mg tablet 50 mg PO Q4H PRN MDD 4 PRN (Reason: pain) Qty: 10 0RF tamsulosin 0.4 mg capsule 0.8 mg PO QHS Incruse Ellipta 62.5 mcg/actuation blister with device 1 inh inhalation DAILY trazodone 50 mg tablet 50 mg PO QHS clozapine 200 mg tablet 200 mg PO QHS duloxetine 60 mg capsule,delayed release(DR/EC) 60 mg PO BID cyanocobalamin (vitamin B-12) 1,000 mcg tablet, sublingual See Rx Instructions .ROUTE .COMPLEX Qty: 30 11RF Dose Instruction: 1 TAB (1000mcg) ORALLY DAILY Rx Instructions: 1 TAB (1000mcg) ORALLY DAILY acetaminophen [Tylenol] 325 mg tablet 650 mg PO BID diazepam 5 mg tablet 10 mg PO BID Patient Comments: AM diclofenac sodium 1 % gel 2 g TOPICAL DAILY magnesium oxide 400 mg magnesium capsule 400 mg PO DAILY donepezil 10 mg tablet 5 mg PO QHS memantine 10 mg tablet 5 mg PO BID donepezil [Aricept] 5 mg tablet 5 mg PO DAILY bisacodyl 10 mg suppository 10 mg WV ONCE PRN Fleet Enema 19-7 gram/118 mL enema 118 ml WV DAILY PRN Incruse Ellipta 62.5 mcg/actuation blister with device 1 inh inhalation DAILY polyethylene glycol 3350 [Miralax] 17 gram/dose powder 17 g PO QDAY cholecalciferol (vitamin D3) [Vitamin D3] 25 mcg (1,000 unit) capsule 1,000 unit PO DAILY tizanidine 2 mg tablet 2 mg PO TID olanzapine 10 mg tablet 5 mg PO BID meloxicam 7.5 mg tablet 7.5 mg PO DAILY ondansetron 4 mg tablet,disintegrating 4 mg PO Q6H PRN albuterol sulfate [Ventolin HFA] 90 mcg/actuation HFA aerosol inhaler 2 inh inhalation Q6H PRN HPI General Mode of arrival: EMS. Date/Time Provider Initiated Documentation: 09/29/24 01:56. Limitations to Documentation: no limitations. Information obtained by: patient, EMS and old records reviewed. HPI Narrative: 69yo M with hx schizophrenia, COPD on baseline 3L NC, dementia, aspiration pneumonia, presenting via EMS for hypoxia. Patient began vomiting around 0100, brownish emesis. Subsequently O2 dropped to low 80's. On arrival pt on 10L NRB and satting 88-90%. Patient states he felt well before the onset of symptoms this morning. Denies any difficulty breathing currently, does feel nauseated. No abdominal pain or diarrhea. No chest pain. No fevers or chills. Seen in this ED yesterday evening after a fall and discharged back to nursing facility after reassuring workup. Related Data Home Medications ?Medication ?Instructions ?Recorded ?Confirmed tamsulosin 0.4 mg capsule 0.8 mg PO QHS 03/23/22 09/29/24 trazodone 50 mg tablet 50 mg PO QHS 03/23/22 09/29/24 umeclidinium 62.5 mcg/actuation 1 inh inhalation DAILY 03/23/22 09/28/24 blister powder for inhalation (Incruse Ellipta) clozapine 200 mg tablet 200 mg PO QHS 01/19/23 09/29/24 clozapine 50 mg tablet 50 mg PO QHS 01/19/23 09/29/24 docusate sodium 100 mg capsule 100 mg PO BID 01/19/23 09/29/24 omega 4-xcq-bqu-fish oil 60 mg-90 1 cap PO DAILY 01/19/23 09/29/24 mg-500 mg capsule (Fish Oil) simvastatin 20 mg tablet 20 mg PO DAILY 01/19/23 09/29/24 duloxetine 60 mg capsule,delayed 60 mg PO BID 07/20/23 09/29/24 release cyanocobalamin (vitamin B-12) See Rx Instructions .Route 08/16/23 09/29/24 1,000 mcg sublingual tablet .COMPLEX #30 tabs cholecalciferol (vitamin D3) 25 1,000 unit PO DAILY 02/11/24 09/29/24 mcg (1,000 unit) capsule (Vitamin D3) polyethylene glycol 3350 17 17 g PO QDAY 02/11/24 09/29/24 gram/dose oral powder (Miralax) albuterol sulfate 90 mcg/actuation 2 inh inhalation Q6H PRN 06/21/24 09/29/24 aerosol inhaler (Ventolin HFA) meloxicam 7.5 mg tablet 7.5 mg PO DAILY 06/21/24 09/29/24 ondansetron 4 mg disintegrating 4 mg PO Q6H PRN 06/21/24 09/29/24 tablet tizanidine 2 mg tablet 2 mg PO TID 07/25/24 09/29/24 acetaminophen 325 mg tablet 650 mg PO BID 08/07/24 09/28/24 (Tylenol) diazepam 5 mg tablet 10 mg PO BID 08/07/24 09/29/24 olanzapine 10 mg tablet 5 mg PO BID 08/07/24 09/29/24 tramadol 50 mg tablet 50 mg PO Q4H PRN PRN pain #10 tabs 08/07/24 09/29/24 diclofenac sodium 1 % topical gel 2 g topical DAILY 09/28/24 09/29/24 donepezil 10 mg tablet 5 mg PO QHS 09/28/24 09/28/24 magnesium oxide 400 mg PO DAILY 09/28/24 09/29/24 memantine 10 mg tablet 5 mg PO BID 09/28/24 09/29/24 bisacodyl 10 mg rectal suppository 10 mg WV ONCE PRN 09/29/24 09/29/24 donepezil 5 mg tablet (Aricept) 5 mg PO DAILY 09/29/24 09/29/24 sodium phosphates 19 gram-7 118 ml WV DAILY PRN 09/29/24 09/29/24 gram/118 mL enema (Fleet Enema) umeclidinium 62.5 mcg/actuation 1 inh inhalation DAILY 09/29/24 09/29/24 blister powder for inhalation (Incruse Ellipta) Previous Rx's ?Medication ?Instructions ?Recorded cyanocobalamin (vitamin B-12) See Rx Instructions .Route 08/16/23 1,000 mcg sublingual tablet .COMPLEX #30 tabs tramadol 50 mg tablet 50 mg PO Q4H PRN PRN pain #10 tabs 08/07/24 Allergies Allergy/AdvReac Type Severity Reaction Status Date / Time No Known Allergies Allergy Verified 09/29/24 02:01 General WILLIAMS: 3 Review of Systems Narrative: see HPI Exam Narrative Exam Narrative: General: Alert, in no acute distress. Head: Normocephalic, atraumatic Neck: Trachea midline, ?Neck supple. ENT: ?MMM.? Cardiac: ?Tachycardiac, no murmurs appreciated Resp: No increased WOB. Diffuse crackles bilaterally. Abd: ?Soft, non-distended, nontender Extremities: ?No deformities.? No peripheral edema. Neurologic: GCS 15.? Moves all extremities freely against gravity Medical Decision Making 69yo M with hx schizophrenia, COPD on baseline 3L NC, dementia, aspiration pneumonia, presenting via EMS for hypoxia. Patient began vomiting around 0100, brownish emesis, subsequently O2 dropped to low 80's and now requiring 10L NRB to keep sat at 88-90%. Tachycardiac to low 100's on arrival, denies any respiratory distress. Diffuse crackles on exam and no abdominal tenderness. Strongly suspect aspiration pneumonitis. Started on HFNC, maintaining sat ~90% on 45L 35% FiO2 -EKG sinus tachycardia, appropriate intervals, no ST segment or T wave abnormalities to suggest occlusive OK. -Labs reviewed as below and compared to yesterday, CBC with leukocytosis to 14 (increased) and Hg unchanged, CMP with no actionable abnormalities, Mg normal, lipase not suggestive of pancreatitis, lactate normal -CTA chest independently reviewed; no large saddle embolus on my view, bilateral infiltrate. Radiology read below with no PE -CT abd/pelvis independently reviewed; no free fluid on my view. Radiology read below discussed with reading radiologist with possible early appendicitis (no prior scans available for comparison). On reassessment patient remains free of abdominal pain with no abdominal tenderness including no tenderness to light and deep palpation of RLQ and McBurney's point. History and exam are not suggestive of appendicitis; would not involve surgery at this time. No further vomiting here. Doing well on current high flow settings. Discussed with [facility] hospitalist Dr. Medina and pt accepted to medicine service. Awaiting admission orders and transfer to the unit. Imaging Data Radiologic Study: Imaging: CT Scan Radiologist's impression: IMPRESSION: 1. No pulmonary embolus. 2. Multifocal patchy pulmonary opacities suspicious for mild multifocal aspiration/infection. Short interval follow-up is recommended to exclude underlying pulmonary pathology. 3. Mild wall thickening of the appendix and trace periappendiceal fat stranding. Findings may be associated with very early acute non perforated appendicitis. Please correlate with physical exam findings and laboratory values. 4. Large amount of inspissated stool within the rectosigmoid suspicious for fecal impaction. No upstream bowel obstruction Lab Data Lab results reviewed: Yes I reviewed the patient's lab results. Labs: Laboratory Tests Range/Units 09/29/24 02:05 WBC (4.4-10.8) 10^3/uL 14.67 H RBC (4.36-5.78) 10^6/uL 4.59 Hgb (13.5-17.5) g/dL 12.0 L Hct (40.0-50.0) % 40.7 MCV (80-95) fL 89 MCH (27.0-33.0) pg 26.1 L MCHC (32.0-36.0) % 29.5 L RDW (11.8-14.1) % 14.9 H Plt Count (130-400) 10^3/uL 412 H MPV (8.0-11.0) fL 9.5 Immature Gran % % 0.5 Neutrophils % % 81.6 Lymphocytes % % 13.8 Monocytes % % 3.5 Eosinophils % % 0.3 Basophils % % 0.3 Nucleated RBC % (0.0-0.3) % 0.0 Absolute Neutrophils (1.2-6.7) 10^3/uL 11.97 H Absolute Lymphocytes (1.2-3.4) 10^3/uL 2.02 Absolute Monocytes (0.1-0.8) 10^3/uL 0.51 Absolute Eosinophils (0.0-0.7) 10^3/uL 0.04 Absolute Basophils (0.0-0.2) 10^3/uL 0.04 VBG Lactate (<or=2.0) mmol/L 1.4 Sodium (136-145) mmol/L 143 Potassium (3.5-5.1) mmol/L 3.7 Chloride (98-107) mmol/L 102 Carbon Dioxide (21.0-32.0) mmol/L 31.6 Anion Gap (3-11) mmol/L 9.4 BUN (7-18) mg/dL 22 H Creatinine (0.70-1.30) mg/dL 0.9 Est GFR (CKD-EPI 2020) (mL/min/1.73m2) 93.61 Glucose (74-106) mg/dL 152 H Calcium (8.5-10.1) mg/dL 9.1 Magnesium (1.8-2.4) mg/dL 2.2 Total Bilirubin (0.2-1.0) mg/dL 0.3 AST (15-37) U/L 432 H ALT (16-63) U/L 73 H Alkaline Phosphatase (46-116) U/L 110 Total Protein (6.4-8.2) g/dL 7.3 Albumin (3.4-5.0) g/dL 3.0 L Lipase (<78) U/L 12 Quality:SDOH Health Related Social Needs: Health related social needs daily activities Critical Care Time Critical Care Time Critical Care Time: Yes Total Critical Care Time: 35 Attestation: Due to a high probability of clinically significant, life threatening deterioration, the patient required my highest level of preparedness to intervene emergently and I personally spent this critical care time directly and personally managing the patient. This critical care time included obtaining a history; examining the patient; pulse oximetry; ordering and review of studies; arranging urgent treatment with development of a management plan; evaluation of patient's response to treatment; frequent reassessment; and, discussions with other providers. This critical care time was performed to assess and manage the high probability of imminent, life-threatening deterioration that could result in multi-organ failure. It was exclusive of separately billable procedures. [facility] All Active Problems (Updated 09/29/24 @ 03:15 by Hafsa Chan MD) Dementia (Chronic) Schizophrenia (Chronic) COPD (chronic obstructive pulmonary disease) (Chronic) Aspiration pneumonitis (Acute) Acute and chronic respiratory failure with hypoxia (Acute) Fall (Acute) Contusion of knee (Acute) Palliative care encounter (Acute) Advanced care planning/counseling discussion (Acute) Chronic respiratory failure with hypoxia, on home O2 therapy (Acute) Supplemental oxygen dependent (Acute) COPD (chronic obstructive pulmonary disease) (Chronic) Aspiration pneumonia (Acute) Schizophrenia (Chronic) Alzheimer's dementia without behavioral disturbance (Chronic) Medical History (Updated 09/29/24 @ 03:15 by Hafsa Chan MD) Left foot pain Cognitive impairment Bilateral primary osteoarthritis of knee Sepsis Pneumonia COVID Dermatophytosis of nail Alcohol abuse, in remission Auditory hallucinations History of suicidal ideation Paranoid schizophrenia Altered mental status Cognitive changes Anemia Elevated PSA Urinary incontinence Hyperplasia of prostate with lower urinary tract symptoms (LUTS) Emphysema lung Pulmonary nodule Tobacco abuse History of prediabetes Hyperlipidemia Low back pain Acute metabolic encephalopathy Neutrophilia Pain, foot, left, chronic Patellofemoral joint pain Atherosclerosis Surgical History (Updated 09/19/24 @ 11:14 by FLORIDALMA Ghosh) 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) As treatment for right femoral neck fracture Hx of knee surgery Family History Mother Brain cancer Father Heart disease Hypertension Obesity Osteoarthritis Social History Smoking/Tobacco Use Status: Former Tobacco Use Tobacco: How many years used: 38 Smoking risk assessment performed?: Yes Alcohol Intake: never Substance use type: does not use Housing: house Do you feel safe at home: Yes Do you feel safe in your relationship?: Yes
--- NOTE | 2024-09-29 01:56 | DI.CT_ITS ---
Exam(s) CT CHEST PE ABD PELVIS W EXAM: CT CHEST PE ABD PELVIS W CLINICAL HISTORY: vomiting, hypoxia, likely aspiration. TECHNIQUE: Imaging Protocol: Axial CT angiography was performed with multi- slice acquisition and multi-planar and/or 3D reconstructions. CONTRAST MATERIAL: Intravenous: Omnipaque 350 Contrast volume:100 ml Oral: None COMPARISON: CT CT CHEST PE CTA from 06/04/2024 FINDINGS: CHEST: PULMONARY ARTERIES: There are no intra-arterial filling defects to suggest the presence of acute pulmonary emboli. LUNGS: There is patchy infiltrate in basal segments of both lower lobes as well as in the posterior segment of the right upper lobe. There is relative sparing of the right middle lobe and lingular segment of the left lung. There is a calcified granuloma in the left lower lobe..There are no significant findings in trachea and mainstem bronchi. There are no pleural effusions. MEDIASTINUM: There is no hilar adenopathy. Slightly prominent right paratracheal lymph node noted as well as a few small lymph nodes just anterior to the mylene and origin of the mainstem bronchi. Visualized thyroid unremarkable. CARDIAC: Heart size is normal. There is no pericardial effusion. There is no significant shift of the interventricular septum.Caliber of the thoracic aorta is within normal limits. No evidence of dissection. OSSEOUS: No significant osseous lesions.No fractures.. ABDOMEN: GI: Small hiatal hernia. The stomach is distended as is the duodenum to the ligament of Treitz level. Small-bowel loops distal to this are not dilated. The colon is not collapsed. Terminal ileum appears unremarkable. There is some mild periappendiceal streaking and the appendix diameter is 9 mm. There is no evidence of perforation. LIVER: There are no focal hepatic lesions nor dilatation of intrahepatic ducts. GALLBLADDER/BILIARY: No obvious gallbladder pathology. CBD is not dilated. PANCREAS: No evidence of pancreatic mass nor dilatation of the pancreatic duct. SPLEEN: Spleen is not enlarged. There are no intrasplenic lesions. Splenic and portal veins are patent. ADRENALS: There is the calcification at the genu of the left adrenal gland. No other significant adrenal findings. KIDNEYS:No significant focal renal findings. No calculi nor hydronephrosis. No solid renal masses. ABDOMINAL AORTA: Abdominal aorta is not enlarged. Calcified plaque noted at the origin of the renal arteries. Celiac and superior mesenteric arteries unremarkable and the inferior mesenteric artery is patent. No significant stenosis nor aneurysms in the common iliac arteries. LYMPH NODES: There is no retroperitoneal or para-aortic adenopathy. ABDOMINAL WALL/GI: There are fat only containing bilateral inguinal hernias. No bowel obstruction. PELVIS: LYMPH NODES: There is no intrapelvic nor inguinal adenopathy. GI: Abnormal appendix findings as described above.Abundant fecal material in the sigmoid. No significant sigmoid diverticular disease. URINARY BLADDER: Partially obscured by beam hardening artifact from a right hip prosthesis. However, there does appear to be some non uniform bladder wall thickening. REPRODUCTIVE: Prostate size upper normal. OSSEOUS: Right hip prosthesis. No fractures nor significant osseous lesions. No disc space narrowing nor listhesis. No significant facet arthropathy in the lumbar spine. IMPRESSION: 1. No evidence of acute pulmonary emboli nor pulmonary infarction. However, there is patchy infiltrate in both lower lobes as well as posterior segment of the right upper lobe, consistent with infectious etiology. There are no pleural effusions. 2. Stomach and duodenum are somewhat distended to the level of the ligament of Treitz. The diameter of the duodenum measures up to 6 cm which is significantly abnormal. Distal to this the small-bowel loops exhibit normal caliber. 3. The appendix is slightly thickened to diameter 9 mm and there is mild periappendiceal streaking. This may indicate early non perforated appendicitis. 5. There is abundant fecal material throughout the colon. Also in the rectum and the rectal diameter is 6.8 cm. May indicate an element of impaction. There is no significant diverticular disease. Preliminary virtual Radiology report was reviewed. RADIATION DOSE DELIVERED: 671.43mGy.cm Total DLP DATA REPOSITORY: All CT scans at this facility are submitted to the National Radiology Data Registry (NRDR) Dose Index Registry (DIR) with the [employer] (ACR). RADIATION OPTIMIZATION: All CT scans at this facility use at least one of these dose optimization techniques: automated exposure control; mA and/or kV adjustment per patient size (includes targeted exams where dose is matched to clinical indication); or iterative reconstruction.
[2024-09-29 02:10] LABS: Lactate 1.4 mmol/L (<or=2.0)
[2024-09-29 02:11] LABS: Abs Immature Grans 0.07 10^3/uL (0.0-0.06); Absolute Basophil Count 0.04 10^3/uL (0.0-0.2); Absolute Lymphocyte Count 2.02 10^3/uL (1.2-3.4); Absolute Neutrophil Count 11.97 10^3/uL (1.2-6.7); Basophils % 0.3 %; Eosinophils % 0.3 %; HCT 40.7 % (40.0-50.0); Immature Grans % 0.5 %; Lymphocytes % 13.8 %; MCH 26.1 pg (27.0-33.0); MCHC 29.5 % (32.0-36.0); MCV 89 fL (80-95); MPV 9.5 fL (8.0-11.0); Monocytes % 3.5 %; Neutrophils % 81.6 %; Platelet Count 412 10^3/uL (130-400); RBC 4.59 10^6/uL (4.36-5.78); RDW 14.9 % (11.8-14.1); RDW-SD 48.2 fL; WBC 14.67 10^3/uL (4.4-10.8)
[2024-09-29 02:13] LABS: Absolute Eosinophil Count 0.04 10^3/uL (0.0-0.7); Absolute Monocyte Count 0.51 10^3/uL (0.1-0.8)
[2024-09-29] MEDS: Normal Saline - Diluent 50 ML VIAL IJ (02:40)
[2024-09-29] MEDS: Omnipaque 350 MG/ML 100 ML BTL IJ (02:40)
[2024-09-29 02:45] LABS: ALT 73 U/L (16-63); AST 432 U/L (15-37); Alkaline Phosphatase 110 U/L (46-116); Anion Gap 9.4 mmol/L (3-11); BUN 22 mg/dL (7-18); Bilirubin, Total 0.3 mg/dL (0.2-1.0); CO2 31.6 mmol/L (21.0-32.0); CREATININE 0.9 mg/dL (0.70-1.30); Calcium 9.1 mg/dL (8.5-10.1); Chloride 102 mmol/L (98-107); Estimated GFR 93.61 (mL/min/1.73m2); Glucose 152 mg/dL (74-106); Lipase 12 U/L (<78); Magnesium 2.2 mg/dL (1.8-2.4); Potassium 3.7 mmol/L (3.5-5.1); Sodium 143 mmol/L (136-145); Total Protein 7.3 g/dL (6.4-8.2)
--- NOTE | 2024-09-29 03:02 | DI.VRAD_ITS ---
PROCEDURE INFORMATION: Exam: CTA Chest With Contrast CTA Abdomen With Contrast Exam date and time: 09/29/2024 2:16 AM Age: 69 years old Clinical indication: Other: Vomiting, hypoxia, likely aspiration; Prior surgery; Surgery date: 1-6 months; Surgery type: RT hip replacement x 3 mo ago TECHNIQUE: Imaging protocol: Computed tomographic angiography of the chest with contrast. Exam focused on the arteries. Computed tomographic angiography of the abdomen with contrast. Exam focused on the arteries. 3D rendering (Not supervised by radiologist): MIP and/or 3D reconstructed images were created by the technologist. Contrast material: OMNI 350; Contrast volume: 100 ml; Contrast route: INTRAVENOUS (IV); COMPARISON: CT CHEST PE CTA 06/04/2024 6:54 AM FINDINGS: Limitations: The examination is motion limited. VASCULATURE: Pulmonary arteries: No acute pulmonary embolus. Aorta: Atheromatous calcifications are present within the visualized thoracic aorta. There are scattered atheromatous calcifications throughout the aorta and iliac arteries. Celiac trunk and mesenteric arteries: No occlusion or significant stenosis. Renal arteries: There are likely moderate grade stenoses at the origins of the bilateral renal arteries. CHEST: Lungs: Patchy airspace opacities are present in the dependent lung bases and within the dependent right upper lobe. These are most confluence at the left lung base. Pleural spaces: Unremarkable. No pneumothorax. No pleural effusion. Heart: Unremarkable. No cardiomegaly. No pericardial effusion. ABDOMEN AND PELVIS: Liver: The liver has a normal appearance. Gallbladder and biliary ducts: The gallbladder is unremarkable. No biliary ductal dilatation. Pancreas: The pancreas demonstrates normal size. No pancreatic ductal dilatation. Spleen: The spleen demonstrates normal size. The spleen demonstrates normal size. Adrenal glands: The adrenal glands have a normal appearance. The adrenal glands have a normal appearance. A benign-appearing calcification is present within the left adrenal gland. Kidneys: The kidneys are normal in size. There is mild bilateral perinephric fat stranding. No nephrolithiasis or hydronephrosis. No hydroureter or ureterolithiasis. Stomach and bowel: There is moderate gaseous distension of the stomach. The small bowel demonstrates overall normal caliber and wall thickness. A large amount of inspissated stool is visualized within the rectosigmoid suggesting fecal impaction. The upstream colon demonstrates normal caliber and wall thickness and a moderate stool burden is present. Appendix: The appendix measures up to 9 mm in diameter. There is trace periappendiceal fat stranding. No free periappendiceal fluid. Intraperitoneal space: No pneumoperitoneum. No free fluid. No pneumoperitoneum. Urinary bladder: The bladder is thin walled and fluid filled. Lymph nodes: Unremarkable. No enlarged lymph nodes. Bones/joints: Bones have a normal appearance. No acute fracture or suspicious bone lesion. Soft tissues: There is a large fat containing right inguinal hernia. There is a small fat containing left inguinal hernia. IMPRESSION: 1. No pulmonary embolus. 2. Multifocal patchy pulmonary opacities suspicious for mild multifocal aspiration/infection. Short interval follow-up is recommended to exclude underlying pulmonary pathology. 3. Mild wall thickening of the appendix and trace periappendiceal fat stranding. Findings may be associated with very early acute non perforated appendicitis. Please correlate with physical exam findings and laboratory values. 4. Large amount of inspissated stool within the rectosigmoid suspicious for fecal impaction. No upstream bowel obstruction. 5. THIS REPORT CONTAINS FINDINGS THAT MAY BE CRITICAL TO PATIENT CARE. 6. The findings were verbally communicated via telephone conference with GILDARDO BARRIOS at 3:00 AM EST on 09/29/2024. 7. The findings were acknowledged and understood. Dictated and Authenticated by: Loni Ayoub MD. Orderin Dustin Pereyra MD
[2024-09-29] MEDS: Ondansetron 4 MG/2 ML VIAL IVP (03:12)
--- NOTE | 2024-09-29 03:19 | W.PM.HP.N ---
Date of service: 09/29/24 Time of Service: 03:19 Assessment and Plan Assessment and plan (1) Sepsis: Status: Acute Assessment and plan: - Patient meets criteria for sepsis with a white blood cell count of 14, heart rate greater than 100 and source of infection being aspiration pneumonitis/pneumonia - Does not meet criteria for severe sepsis as there is no sign of endorgan damage - Was not started on any antibiotics in the emergency department, zosyn has been ordered upon admission - Follow-up a.m. CBC and CMP (2) Aspiration pneumonitis: Status: Acute Assessment and plan: - Source of infection as noted above - Reason for acute on chronic hypoxic respiratory failure as noted below (3) Acute and chronic respiratory failure with hypoxia: Status: Acute Assessment and plan: - Patient normally oxygen dependent on 3 L nasal cannula - Currently requiring high flow 45% to her maintain oxygen saturation between 88 to 92% - Wean oxygen as tolerated (4) COPD (chronic obstructive pulmonary disease): Status: Chronic Assessment and plan: - Without acute exacerbation - Continue home inhaler regimen (5) Dementia: Status: Chronic Assessment and plan: - Continue home donepezil and as needed benzos for behavior (6) Advanced care planning/counseling discussion: Status: Acute Assessment and plan: - Patient is full code - Recommend palliative consultation History of Present Illness History of Present Illness Chief Complaint: Increased oxygen requirements Narrative: 69-year-old gentleman with a past medical history of Alzheimer's dementia, schizophrenia, chronic Evoxac respiratory failure 3 L nasal cannula loose in the [facility] presents to the emergency department with increased oxygen requirement. Patient reportedly woke up around 1 AM and had brown emesis and immediately had significant increase in his oxygen requirement prompting EMS to be called. On their arrival placement was placed on 10 L nonrebreather. In the emergency department the patient was placed on high flow nasal cannula to maintain oxygen saturation between 88 to 92%. Patient was tachycardic but was also noted to have a white blood cell count of 14. Chest CT showed pneumonitis or early aspiration pneumonia, and as far as investigating cause for vomiting CT abdomen pelvis showed potential early signs of appendicitis though patient's abdominal exam was benign. At which time emergency room physician paged hospitalist for admission for patient with acute on chronic hypoxic respiratory failure secondary to sepsis from aspiration pneumonia/pneumonitis. Review of Systems All systems reviewed & are unremarkable except as noted in HPI and below PFSH All Active Problems (Updated 09/29/24 @ 03:21 by Jace Medina MD) Sepsis (Acute) Dementia (Chronic) Schizophrenia (Chronic) COPD (chronic obstructive pulmonary disease) (Chronic) Aspiration pneumonitis (Acute) Acute and chronic respiratory failure with hypoxia (Acute) Fall (Acute) Contusion of knee (Acute) Palliative care encounter (Acute) Advanced care planning/counseling discussion (Acute) Chronic respiratory failure with hypoxia, on home O2 therapy (Acute) Supplemental oxygen dependent (Acute) COPD (chronic obstructive pulmonary disease) (Chronic) Aspiration pneumonia (Acute) Schizophrenia (Chronic) Alzheimer's dementia without behavioral disturbance (Chronic) Medical History (Updated 09/29/24 @ 03:21 by Jace Medina MD) Left foot pain Cognitive impairment Bilateral primary osteoarthritis of knee Pneumonia COVID Dermatophytosis of nail Alcohol abuse, in remission Auditory hallucinations History of suicidal ideation Paranoid schizophrenia Altered mental status Cognitive changes Anemia Elevated PSA Urinary incontinence Hyperplasia of prostate with lower urinary tract symptoms (LUTS) Emphysema lung Pulmonary nodule Tobacco abuse History of prediabetes Hyperlipidemia Low back pain Acute metabolic encephalopathy Neutrophilia Pain, foot, left, chronic Patellofemoral joint pain Atherosclerosis Surgical History (Updated 09/19/24 @ 11:14 by FLORIDALMA Ghosh) 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) As treatment for right femoral neck fracture Hx of knee surgery Family History Mother Brain cancer Father Heart disease Hypertension Obesity Osteoarthritis Social History Smoking/Tobacco Use Status: Former Tobacco Use Tobacco: How many years used: 38 Smoking risk assessment performed?: Yes Alcohol Intake: never Substance use type: does not use Housing: house Do you feel safe at home: Yes Do you feel safe in your relationship?: Yes Meds Allergies and Home Medications Allergies Allergy/AdvReac Type Severity Reaction Status Date / Time No Known Allergies Allergy Verified 09/29/24 02:01 Home Medications ?Medication ?Instructions ?Recorded ?Confirmed ?Type tamsulosin 0.4 mg capsule 0.8 mg PO QHS 03/23/22 09/29/24 History trazodone 50 mg tablet 50 mg PO QHS 03/23/22 09/29/24 History umeclidinium 62.5 mcg/actuation 1 inh inhalation DAILY 03/23/22 09/28/24 History blister powder for inhalation (Incruse Ellipta) clozapine 200 mg tablet 200 mg PO QHS 01/19/23 09/29/24 History clozapine 50 mg tablet 50 mg PO QHS 01/19/23 09/29/24 History docusate sodium 100 mg capsule 100 mg PO BID 01/19/23 09/29/24 History omega 5-jhn-iko-fish oil 60 mg-90 1 cap PO DAILY 01/19/23 09/29/24 History mg-500 mg capsule (Fish Oil) simvastatin 20 mg tablet 20 mg PO DAILY 01/19/23 09/29/24 History duloxetine 60 mg capsule,delayed 60 mg PO BID 07/20/23 09/29/24 History release cyanocobalamin (vitamin B-12) See Rx Instructions .Route 08/16/23 09/29/24 Rx 1,000 mcg sublingual tablet .COMPLEX #30 tabs cholecalciferol (vitamin D3) 25 1,000 unit PO DAILY 02/11/24 09/29/24 History mcg (1,000 unit) capsule (Vitamin D3) polyethylene glycol 3350 17 17 g PO QDAY 02/11/24 09/29/24 History gram/dose oral powder (Miralax) albuterol sulfate 90 mcg/actuation 2 inh inhalation Q6H PRN 06/21/24 09/29/24 History aerosol inhaler (Ventolin HFA) meloxicam 7.5 mg tablet 7.5 mg PO DAILY 06/21/24 09/29/24 History ondansetron 4 mg disintegrating 4 mg PO Q6H PRN 06/21/24 09/29/24 History tablet tizanidine 2 mg tablet 2 mg PO TID 07/25/24 09/29/24 History acetaminophen 325 mg tablet 650 mg PO BID 08/07/24 09/28/24 History (Tylenol) diazepam 5 mg tablet 10 mg PO BID 08/07/24 09/29/24 History olanzapine 10 mg tablet 5 mg PO BID 08/07/24 09/29/24 History tramadol 50 mg tablet 50 mg PO Q4H PRN PRN pain #10 tabs 08/07/24 09/29/24 Rx diclofenac sodium 1 % topical gel 2 g topical DAILY 09/28/24 09/29/24 History donepezil 10 mg tablet 5 mg PO QHS 09/28/24 09/28/24 History magnesium oxide 400 mg PO DAILY 09/28/24 09/29/24 History memantine 10 mg tablet 5 mg PO BID 09/28/24 09/29/24 History bisacodyl 10 mg rectal suppository 10 mg ME ONCE PRN 09/29/24 09/29/24 History donepezil 5 mg tablet (Aricept) 5 mg PO DAILY 09/29/24 09/29/24 History sodium phosphates 19 gram-7 118 ml ME DAILY PRN 09/29/24 09/29/24 History gram/118 mL enema (Fleet Enema) umeclidinium 62.5 mcg/actuation 1 inh inhalation DAILY 09/29/24 09/29/24 History blister powder for inhalation (Incruse Ellipta) Exam Narrative Exam Narrative: Chronically ill-appearing older gentleman laying in bed no acute distress, hyponasal cannula in place, awake, alert, oriented to person, heart regular rate rhythm, lungs with coarse breath sounds throughout, abdomen soft, nontender, nondistended Results Labs 09/29/24 02:05 09/29/24 02:05 Labs: Laboratory Results - last 24 hr 09/29/24 02:05 WBC 14.67 H RBC 4.59 Hgb 12.0 L Hct 40.7 MCV 89 MCH 26.1 L MCHC 29.5 L RDW 14.9 H Plt Count 412 H MPV 9.5 Immature Gran % 0.5 Neutrophils % 81.6 Lymphocytes % 13.8 Monocytes % 3.5 Eosinophils % 0.3 Basophils % 0.3 Nucleated RBC % 0.0 Absolute Neutrophils 11.97 H Absolute Lymphocytes 2.02 Absolute Monocytes 0.51 Absolute Eosinophils 0.04 Absolute Basophils 0.04 VBG Lactate 1.4 Sodium 143 Potassium 3.7 Chloride 102 Carbon Dioxide 31.6 Anion Gap 9.4 BUN 22 H Creatinine 0.9 Est GFR (CKD-EPI 2020) 93.61 Glucose 152 H Calcium 9.1 Magnesium 2.2 Total Bilirubin 0.3 AST 432 H ALT 73 H Alkaline Phosphatase 110 Total Protein 7.3 Albumin 3.0 L Lipase 12 Last Vital Signs Temp 98.2 F 09/29/24 01:58 Pulse 101 H 09/29/24 02:50 Resp 17 09/29/24 02:50 BP 164/144 H 09/29/24 02:38 Pulse Ox 90 L 09/29/24 02:50 Time Spent Time spent with Patient: >75 minutes Time was spent: preparing to see the patient(eg.review tests), obtaining and/or reviewing separately otained hiistory, ordering medications,tests, procedures, referring, communicating with other health family day care provider, indepentently interpreting results, counseling the patient and care coordination
[2024-09-29 06:09] LABS: HCT 41.1 % (40.0-50.0); HGB 12.2 g/dL (13.5-17.5); MCH 26.3 pg (27.0-33.0); MCHC 29.7 % (32.0-36.0); MCV 89 fL (80-95); MPV 9.9 fL (8.0-11.0); Platelet Count 428 10^3/uL (130-400); RBC 4.64 10^6/uL (4.36-5.78); RDW 14.9 % (11.8-14.1); RDW-SD 47.5 fL; WBC 15.63 10^3/uL (4.4-10.8)
[2024-09-29] MEDS: Lactated Ringers 1,000 ML 75 ML IV ×2 (06:13→21:35)
[2024-09-29] MEDS: PIPERACILLIN/TAZO 4.5 GM in Normal Saline 100 ML IVPB ×3 (06:14→17:29)
[2024-09-29 06:17] LABS: BUN 26 mg/dL (7-18); Calcium 9.2 mg/dL (8.5-10.1); Chloride 103 mmol/L (98-107); Estimated GFR 82.49 (mL/min/1.73m2); Glucose 114 mg/dL (74-106); Potassium 4.4 mmol/L (3.5-5.1); Sodium 141 mmol/L (136-145)
--- NOTE | 2024-09-29 07:43 | PDOC.CMIN ---
Date of service: 09/29/24 Time of Service: 07:43 Care Management Initial Assmt Initial Assessment Reason for Hospitalization: Sepsis, aspiration PNA, acute on chronic hypoxic Functional Status/Living Situation Patient Presentation: Gopal Lea was lying in his bed in the ICU, when CM arrived. Venu is living at [facility], prior he was at [facility]. He presented to the ED after a fall, using the restroom at [facility]. Per RN, he is on high flow O2 at 42% NC, at this time. He is followed by palliative - CM requested consult. CM requested a PT consult - which will be preformed when appropriate. Venu appears alert to self, and place. Per RN, he will continue to do frequent neuro checks. 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 He states, he has lived at [facility] for 2-3 years. He states, the people there are nice and he enjoys it. The follow information comes from Christine at [facility] (weekend supervisor rough end). At baseline, he is able to very clearly communicate his needs. He utilizes a 4WW but they prefer he does not walk alone, as he is unstable on his feet. He is on 3L O2 NC, at the facility. Christine also reports, in June, he was found to have a pulmonary nodule. Christine states, Venu has a history of being an unreliable historian. Venu and his have a close gusman, and tend to support each other, in the facility. CM will continue to follow. Town of Residence: [facility] Resides with: Other (SNF - [facility] ) Significant Other/Family: Out of area Caregiver/Guardian: before SNF Natural Supports: , brother Employment Status: Retired Instrumental Activities of Daily Living (ADLs): Requires support Activities/Hobbies/SocialSupport: playing bingo and social settings Medications Medication Management: No Issues/Barriers identified Physical Functioning/Mobility Assistive Device: 4WW Advance Directives Advance Directives: Do you have an Advance Directive: Y 12/12/22, 12:20 AD On File at [facility]: Y 12/12/22, 12:20 Date Asked 07/12/24 07/12/24, 13:13 AD Date Reviewed 09/28/24 09/28/24, 10:25 COLST On File at [facility] COLST Date Scanned Code Status Resuscitation Status Full Code Portal Pt does not currently have a portal and education provided: Yes Insurance Coverage/Financial Issues Insurance: Medicare Part A & B - [id number] Medicaid of [place] - [id number] Care Team Visit Care Team Role Provider Type Milka Shelley Primary Care Provider ADV PRACTICE REGISTERED NURSE Hafsa Chan MD Emergency Provider [facility] STAFF PHYSICIAN Jace Medina MD Admit Provider [facility] STAFF PHYSICIAN Attending Provider Discharge Potential Discharge Needs: PT Evaluation and PCP F/U Appt Anticipated Barriers to Discharge: Medical Status Patient/Family Education Needs: Review discharge instructions, discuss Ask Me Three Transportation: Private vehicle Plan: Anticipate, Gopal will return to [facility] where he resides, once medically cleared. He will follow up with facility providers, PT, palliative care, and plan of care. He will transport RCT vs. EMS. CM will continue to follow. Social Determinants of Health Screening Will the Patient Participate in the Screening?: Declined to provide PFSH All Active Problems (Updated 09/29/24 @ 03:21 by Jace Medina MD) Sepsis (Acute) Dementia (Chronic) Schizophrenia (Chronic) COPD (chronic obstructive pulmonary disease) (Chronic) Aspiration pneumonitis (Acute) Acute and chronic respiratory failure with hypoxia (Acute) Fall (Acute) Contusion of knee (Acute) Palliative care encounter (Acute) Advanced care planning/counseling discussion (Acute) Chronic respiratory failure with hypoxia, on home O2 therapy (Acute) Supplemental oxygen dependent (Acute) COPD (chronic obstructive pulmonary disease) (Chronic) Aspiration pneumonia (Acute) Schizophrenia (Chronic) Alzheimer's dementia without behavioral disturbance (Chronic) Medical History (Updated 09/29/24 @ 03:21 by Jace Medina MD) Left foot pain Cognitive impairment Bilateral primary osteoarthritis of knee Pneumonia COVID Dermatophytosis of nail Alcohol abuse, in remission Auditory hallucinations History of suicidal ideation Paranoid schizophrenia Altered mental status Cognitive changes Anemia Elevated PSA Urinary incontinence Hyperplasia of prostate with lower urinary tract symptoms (LUTS) Emphysema lung Pulmonary nodule Tobacco abuse History of prediabetes Hyperlipidemia Low back pain Acute metabolic encephalopathy Neutrophilia Pain, foot, left, chronic Patellofemoral joint pain Atherosclerosis Surgical History (Updated 09/19/24 @ 11:14 by FLORIDALMA Ghosh) 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) As treatment for right femoral neck fracture Hx of knee surgery Family History Mother Brain cancer Father Heart disease Hypertension Obesity Osteoarthritis Social History Smoking/Tobacco Use Status: Former Tobacco Use Tobacco: How many years used: 38 Smoking risk assessment performed?: Yes Alcohol Intake: never Substance use type: does not use Housing: house Do you feel safe at home: Yes Do you feel safe in your relationship?: Yes Readmission Within the Past 30 Days Yes or No: No
[2024-09-29] MEDS: Umeclidinium 7 CAP INHALER IH (08:17)
[2024-09-29] MEDS: Simvastatin 20 MG TAB PO (10:02)
[2024-09-29] MEDS: OLANZapine 10 MG TAB 5 MG PO ×2 (10:02→21:14)
[2024-09-29] MEDS: diazePAM 5 MG TAB 10 MG PO ×2 (10:03→21:14)
[2024-09-29] MEDS: DULoxetine 30 MG CAP 120 MG PO (10:03)
[2024-09-29] MEDS: Donepezil 5 MG TAB PO (10:05)
[2024-09-29] MEDS: Enoxaparin 40 MG/0.4 ML SYR SC (10:05)
--- NOTE | 2024-09-29 10:41 | DI.VRAD_ITS ---
PROCEDURE INFORMATION: Exam: XR Abdomen Exam date and time: 09/29/2024 10:18 AM Age: 69 years old Clinical indication: Constipation TECHNIQUE: Imaging protocol: Radiologic exam of the abdomen. Views: Frontal supine view of the abdomen. 1 View. COMPARISON: No relevant prior studies available. FINDINGS: Gastrointestinal tract: Normal. No bowel dilation. Organs: Contrast is seen in the bladder. Vasculature: There are numerous benign phleboliths in the pelvis. Bones/joints: There has been a right total hip arthroplasty. There are mild degenerative changes in the left hip joint. IMPRESSION: Nonobstructive bowel gas pattern. Dictated and Authenticated by: Jarad Monaco MD. Orderin Carlos Alberto Ramos MD
--- NOTE | 2024-09-29 12:02 | W.EVENT ---
Date of service: 09/29/24 Time of Service: 12:02 Event Note: Pt seen and examined in his room this am. PICC consult placed. No ttp at [facility]'s pt. ESR/CRP/RES VIRAL PANEL/PROCAL/MRSA/CRP/SSE SPEECH CS ORDERED Time Spent with Patient Time spent in critical care(minutes): zero Time Spent Included: Chart review
[2024-09-29 12:11] LABS: MRSA PCR Negative (Negative)
[2024-09-29] MEDS: Normal Saline Flush 10 ML SYR (12:21)
[2024-09-29] MEDS: Normal Saline Flush 10 ML SYR IVP ×2 (12:23→13:01)
[2024-09-29] MEDS: Albuterol 2.5 MG/3 ML INH SOLN VIAL UPD (13:55)
[2024-09-29 14:35] LABS: BE (Venous) 5 mmol/L (-2-3); HCO3 (Venous) 30 mmol/L (23-28); O2 Sat (Venous) 79 %; TCO2 (Venous) 27 mmol/L (24-29); pCO2 (Venous) 49 mmHg (41-51); pO2 (Venous) 44 mmHg
[2024-09-29] MEDS: Polyethylene Glycol 3350 17 GM PACKET PO (14:46)
[2024-09-29 15:21] LABS: COVID-19 PCR Negative (Negative); Influenza A PCR Negative (Negative); Influenza B PCR Negative (Negative); RSV PCR Negative (Negative)
[2024-09-29 15:23] LABS: Source Nasopharynx
[2024-09-29] MEDS: traZODone 50 MG TAB PO (21:14)
[2024-09-29] MEDS: Tamsulosin 0.4 MG CAPCR 0.8 MG PO (21:14)
[2024-09-30] VITALS (105 sets, daily range): BP systolic 84–113; BP diastolic 51–68; PULSE 73–117; RESP 12–24; TEMP 35.6–37.1; O2SAT 74–96
--- NOTE | 2024-09-30 | DI.RAD_ITS ---
Exam(s) XR PORTABLE CHEST AP EXAM: XR PORTABLE CHEST AP CLINICAL HISTORY: hypoxia TECHNIQUE: 2D digital imaging was performed of the chest. Two images were obtained. AP views were obtained. COMPARISON: CR XR PORTABLE CHEST AP from 06/21/2024 CR,XR XR CHEST 2V PA LATERAL from 09/28/[address] CHEST PE ABD PELVIS W from 09/29/2024 FINDINGS: MEDIASTINUM: Normal. HEART: Normal. PULMONARY VASCULATURE: Normal. LUNGS: There are infiltrates seen in the lower lobes bilaterally which are present on the CT scan from 09/29/2024. PLEURAL SPACE: There does appear to be blunting of the right costophrenic angle suggesting a small right pleural effusion. No pneumothorax is identified. BONE:Within normal limits for the patient's age. OTHER FINDINGS:Normal. IMPRESSION: 1. Bilateral basilar infiltrates. 2. Question of a small right pleural effusion. 3. The preliminary VRAD report was reviewed. DATA REPOSITORY: RADIATION DOSE DELIVERED:
[2024-09-30] MEDS: PIPERACILLIN/TAZO 4.5 GM in Normal Saline 100 ML IVPB ×5 (00:10→23:46)
--- NOTE | 2024-09-30 06:16 | DI.VRAD_ITS ---
PROCEDURE INFORMATION: Exam: XR Chest Exam date and time: 09/30/2024 6:09 AM Age: 69 years old Clinical indication: Other: Hypoxia TECHNIQUE: Imaging protocol: Radiologic exam of the chest. Views: 1 view. COMPARISON: CT CHEST PE ABD PELVIS W 09/29/2024 2:16 AM FINDINGS: Lungs: Bibasilar pulmonary opacities. Low lung volumes. Pleural spaces: Right pleural effusion. Heart/Mediastinum: No cardiomegaly. Bones/joints: No acute abnormality. IMPRESSION: 1. Right pleural effusion. 2. Bibasilar pulmonary opacities. Consider atelectasis, pneumonia. Follow-up as clinically warranted. Dictated and Authenticated by: Joellen Ro MD. Orderin Julissa Warren MD
--- NOTE | 2024-09-30 06:35 | NUR.NOTE ---
0520-Kellie Lindsey and this nurse checked attends and cleaned pt, then turned him to the right side. Almost immediately , pt desatted to 74%. Still in sinus rhythm with HR of 97. BP-89/63. Turned immediately back to supine and O2 increased with very increase to 80%. Call placed to access for RT to come to the ICU. RT made changed to the settings and was on max settings with increase of sao2 to upper 80's. Left side of chest noted to be larger than the right. Breath sounds very diminished but more so on the left. 0545-Dr Costa called via access and is here at 0545. ordered PCXR and did exam. Nursing glass cut off supervisor +called and came to the icu. Ti labs from the midline. 0600-Radiology here and did Portable chest. Dr. Chan and Kayden from the ER arrive. 0625-RT had put pt on a mask and now removes it and HFNS with setting 37/60/36. sao2 in the high 80's to low 90;'s. 0637-Dr. Costa spoke to pt about the possibility of being intubated and pt agreed. 0645-sao2 of 93 percent with pt HIOB up high fowlers and HFNC 30/60/65
[2024-09-30 06:40] LABS: Abs Immature Grans 0.02 10^3/uL (0.0-0.06); Absolute Basophil Count 0.03 10^3/uL (0.0-0.2); Absolute Eosinophil Count 0.13 10^3/uL (0.0-0.7); Absolute Lymphocyte Count 2.12 10^3/uL (1.2-3.4); Absolute Monocyte Count 0.68 10^3/uL (0.1-0.8); Absolute Neutrophil Count 7.68 10^3/uL (1.2-6.7); Basophils % 0.3 %; Eosinophils % 1.2 %; HCT 32.7 % (40.0-50.0); HGB 10.1 g/dL (13.5-17.5); Immature Grans % 0.2 %; Lymphocytes % 19.9 %; MCH 26.9 pg (27.0-33.0); MCHC 30.9 % (32.0-36.0); MCV 87 fL (80-95); MPV 9.9 fL (8.0-11.0); Monocytes % 6.4 %; Platelet Count 350 10^3/uL (130-400); RBC 3.75 10^6/uL (4.36-5.78); RDW 15.1 % (11.8-14.1); RDW-SD 48.8 fL; WBC 10.66 10^3/uL (4.4-10.8)
[2024-09-30 06:49] LABS: ESR 59 mm/hr (0-20)
[2024-09-30] MEDS: Normal Saline Flush 10 ML SYR IVP ×2 (06:53→07:48)
[2024-09-30 07:00] LABS: ALT 51 U/L (16-63); AST 196 U/L (15-37); Albumin 2.5 g/dL (3.4-5.0); Alkaline Phosphatase 86 U/L (46-116); Anion Gap 4.1 mmol/L (3-11); BUN 18 mg/dL (7-18); Bilirubin, Total 0.4 mg/dL (0.2-1.0); CO2 33.9 mmol/L (21.0-32.0); CREATININE 0.7 mg/dL (0.70-1.30); Calcium 8.7 mg/dL (8.5-10.1); Chloride 104 mmol/L (98-107); Estimated GFR 100.99 (mL/min/1.73m2); Glucose 107 mg/dL (74-106); Potassium 4.2 mmol/L (3.5-5.1); Sodium 142 mmol/L (136-145); Total Protein 6.3 g/dL (6.4-8.2)
[2024-09-30] MEDS: Umeclidinium 7 CAP INHALER IH (07:43)
[2024-09-30] MEDS: DULoxetine 30 MG CAP 120 MG PO (07:48)
[2024-09-30] MEDS: diazePAM 5 MG TAB 10 MG PO ×2 (07:49→20:27)
[2024-09-30] MEDS: Donepezil 5 MG TAB PO (07:49)
[2024-09-30] MEDS: Simvastatin 20 MG TAB PO (07:50)
[2024-09-30] MEDS: Docusate Sodium 100 MG CAP PO ×3 (07:50→20:24)
[2024-09-30] MEDS: Polyethylene Glycol 3350 17 GM PACKET PO (07:51)
[2024-09-30] MEDS: Milk of Magnesia 30 ML CUP PO (07:51)
[2024-09-30] MEDS: Enoxaparin 40 MG/0.4 ML SYR SC (07:51)
[2024-09-30] MEDS: OLANZapine 10 MG TAB 5 MG PO ×2 (07:52→20:28)
[2024-09-30 08:28] LABS: Procalcitonin < 0.10 ng/mL
--- NOTE | 2024-09-30 08:44 | CMPROGNOTE_ITS ---
Date of service: 09/30/24 Time of Service: 08:45 Care Management Progress Note Progress Note Text Progress Note Text: Venu was sitting up in bed when CM met with him. He was polite, but did not fully engage with CM. Venu was admitted with aspiration pneumonia and remains ICU level of care. He is hypotensive and tachycardic and is still requiring high flow nasal oxygen. Yesterday he had a CT scan of the abdomen which revealed a large stool burden and distended bowel. He admitted that he is uncomfortable and constipated and was about to have an enema. He stated he hopes that it is effective as he will likely feel better. Discharge Potential Discharge Needs: Other (return to SNF) Anticipated Barriers to Discharge: None Identified Patient/Family Education Needs: Review discharge instructions, discuss Ask Me Three Transportation: [facility] Plan: Anticipate Venu will return to [facility] when medically stable. He will follow up with the facility providers and plan of care and transport via RCT coordinated by CM. CM will follow and continue to support discharge plannning. Social Determinants of Health Screening Will the Patient Participate in the Screening?: Declined to provide
--- NOTE | 2024-09-30 10:00 | NUR.NOTE ---
Accessed chart to reconcile orders for EKG with EKG?s in [facility]. Wrong V# account. Nursing Note:
--- NOTE | 2024-09-30 10:54 | W.PM.PROGNOT ---
Date of Service Date of service: 09/30/24 Time of Service: 10:55 Assessment and Plan Assessment and plan (1) Sepsis: Status: Acute Assessment and plan: - Patient meets criteria for sepsis with a white blood cell count of 14, heart rate greater than 100 and source of infection being aspiration pneumonitis/pneumonia - Does not meet criteria for severe sepsis as there is no sign of endorgan damage - Was not started on any antibiotics in the emergency department, zosyn has been ordered upon admission - Follow-up a.m. CBC and CMP 09/30/24 afebrile/wbc wnl/no tachypnea/afebrile cw abx (2) Aspiration pneumonitis: Status: Acute Assessment and plan: - Source of infection as noted above - Reason for acute on chronic hypoxic respiratory failure as noted below 09/30/24 ST to see today. Most recent speech evaluation was reassuring. 06/06/24 Recommendations: ? 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 (3) Acute and chronic respiratory failure with hypoxia: Status: Acute Assessment and plan: - Patient normally oxygen dependent on 3 L nasal cannula - Currently requiring high flow 45% to her maintain oxygen saturation between 88 to 92% - Wean oxygen as tolerated (4) COPD (chronic obstructive pulmonary disease): Status: Chronic Assessment and plan: - Without acute exacerbation - Continue home inhaler regimen (5) Dementia: Status: Chronic Assessment and plan: - Continue home donepezil and as needed benzos for behavior (6) Advanced care planning/counseling discussion: Status: Acute Assessment and plan: - Patient is full code - Recommend palliative consultation (placed) Subjective Subjective Interval history since last seen: Pt seen and examined in his room this am. No new specific complaints Exam Narrative Exam Narrative: Chronically ill-appearing older gentleman laying in bed no acute distress, hyponasal cannula in place, awake, alert, oriented to person, heart regular rate rhythm, lungs with coarse breath sounds throughout, abdomen soft, nontender, nondistended Objective Last Vital Signs Temp 36.4 C L 09/30/24 09:32 Pulse 101 H 09/30/24 09:32 Resp 16 09/30/24 09:32 BP 101/66 09/30/24 09:32 Pulse Ox 91 L 09/30/24 09:32 Laboratory Results - last 24 hr 09/29/24 09/29/24 09/29/24 09:45 14:23 14:26 WBC RBC Hgb Hct MCV MCH MCHC RDW Plt Count MPV Immature Gran % Neutrophils % Lymphocytes % Monocytes % Eosinophils % Basophils % Nucleated RBC % Absolute Neutrophils Absolute Lymphocytes Absolute Monocytes Absolute Eosinophils Absolute Basophils ESR VBG pH 7.40 VBG pCO2 49 VBG pO2 44 VBG HCO3 30 H VBG Total CO2 27 VBG O2 Saturation 79 VBG Base Excess 5 H Sodium Potassium Chloride Carbon Dioxide Anion Gap BUN Creatinine Est GFR (CKD-EPI 2020) Glucose Calcium Total Bilirubin AST ALT Alkaline Phosphatase Total Protein Albumin Procalcitonin COVID-19 Source Nasopharynx SARS-CoV-2 (PCR) Negative Influenza Type A (PCR) Negative Influenza Type B (PCR) Negative RSV (PCR) Negative MRSA (TEM-PCR) Negative 09/30/24 06:00 WBC 10.66 RBC 3.75 L Hgb 10.1 L D Hct 32.7 L MCV 87 MCH 26.9 L MCHC 30.9 L RDW 15.1 H Plt Count 350 MPV 9.9 Immature Gran % 0.2 Neutrophils % 72.0 Lymphocytes % 19.9 Monocytes % 6.4 Eosinophils % 1.2 Basophils % 0.3 Nucleated RBC % 0.0 Absolute Neutrophils 7.68 H Absolute Lymphocytes 2.12 Absolute Monocytes 0.68 Absolute Eosinophils 0.13 Absolute Basophils 0.03 ESR 59 H VBG pH VBG pCO2 VBG pO2 VBG HCO3 VBG Total CO2 VBG O2 Saturation VBG Base Excess Sodium 142 Potassium 4.2 Chloride 104 Carbon Dioxide 33.9 H Anion Gap 4.1 BUN 18 Creatinine 0.7 Est GFR (CKD-EPI 2020) 100.99 Glucose 107 H Calcium 8.7 Total Bilirubin 0.4 AST 196 H ALT 51 Alkaline Phosphatase 86 Total Protein 6.3 L Albumin 2.5 L Procalcitonin < 0.10 COVID-19 Source SARS-CoV-2 (PCR) Influenza Type A (PCR) Influenza Type B (PCR) RSV (PCR) MRSA (TEM-PCR) Time Spent with Patient Time Spent with Patient: 25-34 minutes Time was spent: preparing to see the patient(eg.review tests), obtaining and/or reviewing separately otained hiistory, ordering medications,tests, procedures, referring, communicating with other health certified caregiver, indepentently interpreting results, counseling the patient and care coordination
[2024-09-30] MEDS: Lactated Ringers 1,000 ML 75 ML IV (11:17)
--- NOTE | 2024-09-30 11:18 | SP_ITS ---
Date of service: 09/30/24 Time of Service: 10:45 Subjective Clinical (Bedside) , Swallow Evaluation - Inpatient Speech Language Pathology Referred by: Richard Carcamo MD Start time: 10:45 End time: 11:15 Total patient contact: 30 min Referral Type: Routine Swallow Consult Precautions: Standard, Fall, Full Code Reason for Referral/HPI: Venu is a 69 y/o M with Alzheimer's dementia, history of schizophrenia, COPD with chronic respiratory failure on 3 L nasal cannula. He lives with his , Lidia, who helps take care of him but the both reside at [facility]. Previously lived at [facility] but due to his increasing falls they needed a higher level of care. The patient was brought to emergency department after an episode of emesis after which he immediately presented with unresolving increased oxygen requirement. On admit he was found to be septic, with aspiration pneumonitis contributing to acute on chronic respiratory failure, with investigation of abdominal and GI causes for emesis episode. Of note, AIR SEALING TECHNICIAN evaluated patient during a prior admission when he presented with aspiration pneumonia after a series of vomiting episodes, and at that time his oral-pharyngeal swallow function was not judged to a likely primary cause of his respiratory presentation. AIR SEALING TECHNICIAN IMPRESSIONS & RECOMMENDATIONS: Venu presents with likely acute oral-pharyngeal dysphagia at this time, likely secondary to weakness and deconditioning in light of poor medical status and increased oxygen needs leading to difficulty coordinating breathing and swallowing. It is possible that his oral-pharyngeal swallow function is also in the process of declining, though given relatively normal function with suspected esphageal component in recent evaluations, suspect this is at worst an acute exacerbation of emerging baseline dypshagia. At this time he presents with difficulty tolerating thin liquids, with intermittent coughing (somewhat difficult to differentiate from baseline productive coughing) with poor lip sealing and significant anterior loss when using spoon and cup edge. He is able to suck liquids through a straw with significant effort, but has difficulty maintaining this task for many trials in a row due to fatigue. He presents with strong hyolaryngeal movement, though timing of this is somewhat delayed and inconsistent. He tolerates applesauce well from an airway perspective though does remain with some anterior oral residue due to open mouth position and poor lip sealing impacting oral stripping. He is on high flow oxygen at this time. Given his difficulty drawing even thin liquids from a straw he is most appropriate to take thin liquids (water only to reduce pulmonary impact) and small amounts of pureed solids to reduce impact on work of breathing and in light of significant fatigue/oral motor weakness. Strict oral care and aspiration precautions in place and reviewed with nursing, with conservative amounts of liquid and puree for stimulation and to prevent disuse atrophy. Anticipate as infection status and respiratory status improve, patient's tolerance will begin to improve. FURTHER INPATIENT AIR SEALING TECHNICIAN SERVICES: Patient to be followed while on unit Modified Barium Swallow Study to be considered if no improvement in symptoms. Suggested Referrals/Consults: Gastroenterology Palliative Care Physical Therapy DISCHARGE RECOMMENDATIONS: Recommend AIR SEALING TECHNICIAN services at [facility] Recommendations: ? SOLIDS: 4-Pureed Solids - conservative amounts, every 2-3 hrs rather than full meals due to high respiratory fatigue LIQUIDS: 0-Thin Liquids Minimize liquids intake during meals Water only, conservative amounts after good oral care between meals to reduce respiratory impact MEDICATIONS: Whole vs crushed, as tolerated, with puree Alter medications only as advised by MD or Pharmacist RISK MANAGEMENT: Level of Assistance/Supervision: 1:1Assistive feeding only by trained staff/family Positioning and environment: PO intake only when awake/alert? Reduce auditory and/or visual distractions when eating As upright as tolerated, use HOB controls/bed tilt to achieve upright positioning Up to chair for meals/PO when able Oral hygiene Q3-4h/every 3-4 hours AND Before/after solid PO intake Using suction swab kits on all oral structures as tolerated Strategies/Adaptations/Assistive Equipment: Small sips Small bites Slow rate of intake Avoid thin liquids when providing purees to reduce risk of residue aspiration Conservative amounts of purees/more frequently due to respiratory impact/fatigue Provide only water, no other liquids, between meals when excellent oral care has been recently completed Reflux Precautions: Small+frequent meals throughout day Maintain fully upright position at least 30 minutes after meals Avoid meals/snacks 2-3 hours prior to reclining/sleeping Sleep with head of bed elevated to reduce likelihood of nocturnal reflux Education Provided to: Nursing Topics Addressed: anatomy/physiology of swallowing mechanism definition and impacts of aspiration impact of current diagnoses on swallow function role of AIR SEALING TECHNICIAN in management of swallow disorders overt s/sx to monitor for re: potential aspiration of food / liquids relationship between reflux, GERD and swallow fxn relationship between respiratory function and deglutition rationale and instruction for additional risk management strategies as below SUBJECTIVE: Patient received: alert/awake, lethargic. Agreeable to evaluation. Pain Reported Baseline Swallow Function: Patient denies swallowing difficulty prior to admission and eats a soft solids food at baseline (edentulous no dentures) OBJECTIVE Patient positioning: As upright as possible using HOB/bed tilt controls Oral care: Wide Area Network Systems Administrator assisting to complete oral care prior to PO trials Respiratory status: High flow (60L/min at 40%). baseline coughing noted. O2 sats 92-93% throughout exam. Patient is mouth breathing, with difficulty maintaining closed mouth position even when eating/drinking. Orientation/Mental status: Oriented to self Oriented to situation Oriented to locationAppears with low insight into deficits recall of recent events is impaired follows instructions to the best of his ability. Speech: Dysarthric ( mild weakness, suspected to be global) Oral Mechanism Examination: Dentition: Edentulous Oral mucosa: WFL ? Cranial Nerve Assessment: Global oral-motor weakness and incoordination. Without focal deficits. PO Intake: Trials Assessed: Ice IDDSI 0 Thin Liquids IDDSI 4 Puree Solid Oral Phase Findings: Anterior leakage from mouth Difficulty with bolus manipulation Difficulty with a-p transport Residue Difficulty maintaining closed mouth during PO trials Pharyngeal Phase Findings: Delayed swallow initiation (mild-mod) Reduced hyolaryngeal elevation/excursion Cough after swallow - intermittent Voice change after swallow? Throat clearing? PLAN: Frequency: 2-3x/week for 1-2 weeks Goals: Correction Goals: Patient will remain free from aspiration-related illness, malnutrition, and dehydration. Patient/family will verbalize comprehension of education provided re strategies to maximize functioning, and role of ST. Short Term Goals: Patient will participate in ongoing diagnostic treatment addressing areas of dysphagia. Patient will tolerate Puree Diet and Thin liquids without overt s/s aspiration across 2/2 visits. Patient will tolerate PO trials for consideration of diet upgrade without overt s/s aspiration across 2/2 visits. AIR SEALING TECHNICIAN CPT Code: 92806 Clinical Swallowing Evaluation
[2024-09-30 17:51] LABS: CRP, High Sensitivity >15.00 mg/L (See Note)
[2024-09-30] MEDS: Bisacodyl 10 MG SUPP PR (17:55)
[2024-09-30] MEDS: Bisacodyl 5 MG TABEC PO (17:55)
[2024-09-30] MEDS: guaiFENesin 600 MG TABCR PO (20:23)
[2024-09-30] MEDS: Acetaminophen 325 MG TAB PO (20:24)
[2024-09-30] MEDS: traZODone 50 MG TAB PO (20:24)
[2024-09-30] MEDS: Tamsulosin 0.4 MG CAPCR 0.8 MG PO (20:26)
--- NOTE | 2024-09-30 22:30 | NUR.NOTE ---
0520-late entry-patient's sao2 has been 93-94 percent all shift. This nurse and nurses aid have checked patient's attends and turned him to the right side. Within a minute or less, sao2 decreased to 73 percent. Pt did not look distressed. Wedges removed and patient pushed back to supine and HOB raised to high fowlers with minimal results. Oxygen increased on the HF nasal system and access called to get ahold of RT to come to the ICU. RT has increased the pressure and O2 on the high flow system. sao2 has increased to low 80's. Chest noted to be larger on the left side than the right but lung sounds diminished throughout. 0535-Access called to have Dr. Costa call the ICU. When he called, report given and asked to come to the ICU. 0545-Dr. Costa here. Did assessment and ordered PCXR. RT has changed out the HF nasal system to 60L/90 percent. HR 97, temp-37.6. 89/63. 0550-RT has changed to HF system to a mask with max settings. Dr Chan and Kayden RN from the ER have come to help. 0600-portable CXR done. 0625-sao2 improving and RT has put HF nasal system back on at 37/60L/65. Dr. Costa spoke to pt about the possible need for being intubated and pt stated understanding and stated he would be willing to do that.
[2024-10-01] VITALS (88 sets, daily range): BP systolic 79–105; BP diastolic 53–69; PULSE 70–98; RESP 11–21; TEMP 35.4–37; O2SAT 87–97
[2024-10-01] MEDS: Lactated Ringers 1,000 ML 75 ML IV ×2 (00:04→11:48)
[2024-10-01] MEDS: Normal Saline Flush 10 ML SYR IVP ×3 (05:51→18:17)
[2024-10-01] MEDS: PIPERACILLIN/TAZO 4.5 GM in Normal Saline 100 ML IVPB ×3 (05:52→18:14)
[2024-10-01 07:07] LABS: Abs Immature Grans 0.02 10^3/uL (0.0-0.06); Absolute Basophil Count 0.03 10^3/uL (0.0-0.2); Absolute Eosinophil Count 0.11 10^3/uL (0.0-0.7); Absolute Lymphocyte Count 1.96 10^3/uL (1.2-3.4); Absolute Monocyte Count 0.59 10^3/uL (0.1-0.8); Absolute Neutrophil Count 5.14 10^3/uL (1.2-6.7); Basophils % 0.4 %; Eosinophils % 1.4 %; HCT 29.3 % (40.0-50.0); HGB 8.8 g/dL (13.5-17.5); Immature Grans % 0.3 %; MCH 26.6 pg (27.0-33.0); MCV 89 fL (80-95); Monocytes % 7.5 %; Neutrophils % 65.4 %; Platelet Count 286 10^3/uL (130-400); RBC 3.31 10^6/uL (4.36-5.78); RDW-SD 48.8 fL; WBC 7.85 10^3/uL (4.4-10.8)
[2024-10-01 07:36] LABS: ALT 48 U/L (16-63); AST 120 U/L (15-37); Albumin 2.1 g/dL (3.4-5.0); Alkaline Phosphatase 76 U/L (46-116); Anion Gap 4.3 mmol/L (3-11); BUN 12 mg/dL (7-18); Bilirubin, Total 0.3 mg/dL (0.2-1.0); CO2 32.7 mmol/L (21.0-32.0); CREATININE 0.7 mg/dL (0.70-1.30); Calcium 8.4 mg/dL (8.5-10.1); Chloride 105 mmol/L (98-107); Estimated GFR 100.99 (mL/min/1.73m2); Glucose 87 mg/dL (74-106); Potassium 3.9 mmol/L (3.5-5.1); Sodium 142 mmol/L (136-145); Total Protein 5.7 g/dL (6.4-8.2)
[2024-10-01] MEDS: Umeclidinium 7 CAP INHALER IH (08:22)
[2024-10-01] MEDS: diazePAM 5 MG TAB 10 MG PO ×2 (08:41→21:33)
[2024-10-01] MEDS: Donepezil 5 MG TAB PO (08:42)
[2024-10-01] MEDS: OLANZapine 10 MG TAB 5 MG PO ×2 (08:42→21:33)
[2024-10-01] MEDS: DULoxetine 30 MG CAP 120 MG PO (08:42)
[2024-10-01] MEDS: guaiFENesin 600 MG TABCR PO ×2 (08:42→21:34)
[2024-10-01] MEDS: Enoxaparin 40 MG/0.4 ML SYR SC (08:43)
--- NOTE | 2024-10-01 09:12 | CMPROGNOTE_ITS ---
Date of service: 10/01/24 Time of Service: 09:12 Care Management Progress Note Progress Note Text Progress Note Text: Venu was sitting up in bed when CM met with him. He was much more awake and alert today. Venu stated that he is feeling a little better. CM informed Venu that his Lidia is also at [facility]. He seemed unaware of that fact. When asked if he wanted to CM to deliver a message to her he responded tell her I miss her. He informed CM that he thought she was still at [facility]. Clinically, Venu is improving. His blood pressure is still a little low with the SBP mostly in the 90s, however he is now on oxygen via nasal cannula at 4L/min which is an improvement from the high flow he has requires since admission. Discharge Potential Discharge Needs: PCP F/U Appt Anticipated Barriers to Discharge: None Identified Patient/Family Education Needs: Review discharge instructions, discuss Ask Me Three Transportation: RCT Plan: Anticipate Venu will return to [facility] when medically stable. He will follow up with the facility providers and plan of care and transport via RCT coordinated by CM. CM will follow and continue to support discharge plannning. Social Determinants of Health Screening Will the Patient Participate in the Screening?: Declined to provide
--- NOTE | 2024-10-01 12:08 | W.NUTRFU ---
Date of service: 10/01/24 Time of Service: 12:08 Nutrition Note NOTE: Mr Stafford is a 69yo male who at baseline resides in group home and has a history of Alzheimer's dementia, schizophrenia, COPD. He is being treated in the ICU for aspiration PNA. Speech therapy notes indicate recommendations today for puree diet with thin liquids (water only and minimal amounts to prevent aspiration) but also high fiber diet, which was carried over from his original diet order when he was admitted - most likely in hopes to help relieve constipation. Incontinent of stool yesterday after VA dulcolax per nursing. I updated diet order to purees on regular diet as high fiber diet and puree consistencies are not congruent to come out with appropriate IDDSI consistencies - also concern of further blockage risk if high fiber on a lower water intake as patient looks to just be getting IV flushes. Will check with ICU staff to get updates on toleration of diet/consistencies. Low total protein lab and albumin lab today (5.7/2.1) - will offer gelatein protein supplement that is appropriate for IDDSI purees and follow up with nursing to check on intake. slightly low calcium today (8.4) and pt with significant vitamin D deficiency a year ago - has 1,000 IU vitamin D on home med list, which seems low for recovering from deficiency. Weight history jumps around between 85-95kg the last 2 years - 92kg currently. Nutrition Dx: decreased ability to take a variety of healthy foods by po due to aspiration risk/dysphagia tendencies as evidenced by lower albumin ant total protein labs as well as inconsistent weight hx. Recommendations: Would suggest vitamin D at home dose of 1,000 IU (25mcg) daily. Continued puree consistencies and monitoring/assistance to help prevent aspiration. Monitoring: will monitor nutrition-related labs, po intake, weight, protein supp toleration/acceptance Time Spent in Nutritional Counseling and Treatment: 10 min
--- NOTE | 2024-10-01 12:34 | PGE_ITS ---
Date of Service Date of service: 10/01/24 Time of Service: 12:34 Assessment and Plan Assessment and plan (1) Sepsis: Status: Acute Assessment and plan: - Patient meets criteria for sepsis with a white blood cell count of 14, heart rate greater than 100 and source of infection being aspiration pneumonitis/pneumonia - Does not meet criteria for severe sepsis as there is no sign of endorgan damage - Was not started on any antibiotics in the emergency department, zosyn has been ordered upon admission - Follow-up a.m. CBC and CMP 09/30/24 afebrile/wbc wnl/no tachypnea/afebrile cw abx 10/01/24 cw zosyn/vss but continued oxygen requirement. Wean as tolerated (2) Aspiration pneumonitis: Status: Acute Assessment and plan: - Source of infection as noted above - Reason for acute on chronic hypoxic respiratory failure as noted below 09/30/24 ST to see today. Most recent speech evaluation was reassuring. 06/06/24 Recommendations: ? SOLIDS: 7-Regular Solids LIQUIDS: 0-Thin Liquids MEDICATIONS: As tolerated Education Provided to: Nursing, Patient, Case Management Topics Addressed: FREEDOM OF INFORMATION OFFICER findings/no further FREEDOM OF INFORMATION OFFICER needs [facility] 09/30/24 Diet Recommendations: ? SOLIDS: 4-Pureed Solids - conservative amounts, every 2-3 hrs rather than full meals due to high respiratory fatigue LIQUIDS: 0-Thin Liquids Minimize liquids intake during meals Water only, conservative amounts after good oral care between meals to reduce respiratory impact MEDICATIONS: Whole vs crushed, as tolerated, with puree Alter medications only as advised by MD or Pharmacist (3) Acute and chronic respiratory failure with hypoxia: Status: Acute Assessment and plan: - Patient normally oxygen dependent on 3 L nasal cannula - Currently requiring high flow 45% to her maintain oxygen saturation between 88 to 92% - Wean oxygen as tolerated (4) COPD (chronic obstructive pulmonary disease): Status: Chronic Assessment and plan: - Without acute exacerbation - Continue home inhaler regimen (5) Dementia: Status: Chronic Assessment and plan: - Continue home donepezil and as needed benzos for behavior (6) Advanced care planning/counseling discussion: Status: Acute Assessment and plan: - Patient is full code - Recommend palliative consultation (placed) Subjective Subjective Interval history since last seen: Pt seen and examined in his room. No new complaints. POC d/w pt as well as bedside nurse during ICU huddle Exam Narrative Exam Narrative: Chronically ill-appearing older gentleman laying in bed no acute distress, hyponasal cannula in place, awake, alert, oriented to person, heart regular rate rhythm, lungs with coarse breath sounds throughout, abdomen soft, nontender, nondistended Objective Last Vital Signs Temp 36.8 C 10/01/24 11:42 Pulse 78 10/01/24 11:30 Resp 14 10/01/24 11:30 BP 97/60 L 10/01/24 11:00 Pulse Ox 91 L 10/01/24 11:42 Laboratory Results - last 24 hr 09/30/24 10/01/24 06:00 05:40 WBC 7.85 RBC 3.31 L Hgb 8.8 L Hct 29.3 L MCV 89 MCH 26.6 L MCHC 30.0 L RDW 15.0 H Plt Count 286 MPV 10.0 Immature Gran % 0.3 Neutrophils % 65.4 Lymphocytes % 25.0 Monocytes % 7.5 Eosinophils % 1.4 Basophils % 0.4 Nucleated RBC % 0.0 Absolute Neutrophils 5.14 Absolute Lymphocytes 1.96 Absolute Monocytes 0.59 Absolute Eosinophils 0.11 Absolute Basophils 0.03 Sodium 142 Potassium 3.9 Chloride 105 Carbon Dioxide 32.7 H Anion Gap 4.3 BUN 12 Creatinine 0.7 Est GFR (CKD-EPI 2020) 100.99 Glucose 87 Calcium 8.4 L Total Bilirubin 0.3 AST 120 H ALT 48 Alkaline Phosphatase 76 C-React Prot High Sens >15.00 Total Protein 5.7 L Albumin 2.1 L Time Spent with Patient Time Spent with Patient: 25-34 minutes Time was spent: preparing to see the patient(eg.review tests), obtaining and/or reviewing separately otained hiistory, ordering medications,tests, procedures, referring, communicating with other health customer care consultant, indepentently interpreting results, counseling the patient and care coordination
[2024-10-01] MEDS: Polyethylene Glycol 3350 17 GM PACKET PO (13:06)
[2024-10-01] MEDS: Docusate Sodium 100 MG CAP PO (13:06)
[2024-10-01] MEDS: Bisacodyl 5 MG TABEC PO (13:06)
[2024-10-01] MEDS: Acetaminophen 325 MG TAB PO (13:14)
--- NOTE | 2024-10-01 16:44 | SPP_ITS ---
Date of service: 10/01/24 Time of Service: 12:45 Subjective Venu was contacted at bedside in ICU. Awake/alert/responsive. Nursing helping to reposition him more upright and performed oral care immediately prior to PALLIATIVE CARE NURSE PRACTITIONER session. He reports he is feeling a little better today but also reports some leg pain. Nursing was present/aware. Objective/Assessment/Plan Objective Treatment Techniques & Outcomes: Trials Assessed: IDDSI 0 Thin Liquids IDDSI 4 Puree Solid Oral Phase Findings: Anterior leakage from mouth - improving Difficulty with bolus manipulation - improving Difficulty with a-p transport - improving Residue - improving Difficulty maintaining closed mouth during PO trials - improving Pharyngeal Phase Findings: Delayed swallow initiation (mild) Reduced hyolaryngeal elevation/excursion Gallery Intern Goals: Patient will remain free from aspiration-related illness, malnutrition, and dehydration. Patient/family will verbalize comprehension of education provided re strategies to maximize functioning, and role of ST. Short Term Goals: Patient will participate in ongoing diagnostic treatment addressing areas of dysphagia. Patient will tolerate Puree Diet and Thin liquids without overt s/s aspiration across 2/2 visits. Patient will tolerate PO trials for consideration of diet upgrade without overt s/s aspiration across 2/2 visits. Assessment Venu was seen today for dysphagia follow-up in setting of acute vs [id number] dysphagia in setting of hypoxic respiratory failure and aspiration pneumonia, likely due in part to aspiration event during nausea/vomiting episode, with possible overlaid oral-pharyngeal component. Speech remains somewhat dysarthric, likely in setting of dementia and poor respiratory status. This date he was seen during noon meal with purees and thin liquids. He showed some modest improvements with spoon stripping, decreased oral residue, and improved lip seal/suck strength for pulling liquids through straw. He does continue with some mild anterior loss when drinking directly from cup edge, improves with use of straw (cues for small sip size). No overt s/sx aspiration noted this date, albeit with limited liquids trials. He continues on high flow nasal cannula and significantly decreased breath support for speech and swallow coordination. At this time, continue to recommend puree/thin liquid diet with strict aspiration precautions including pacing and oral care as below. It is encouraging that he is showing some clinical improvement, which appears correlated with improving WBC. Tomorrow he may be appropriate to trial some updgraded textures. This date he stated he was very full after only about 6-7 bites puree (custard, carrots, applesauce), and has not yet had a bowel movement since admit. DISCHARGE RECOMMENDATIONS: Recommend [facility]UR[facility] Diet Recommendations: ? SOLIDS: 4-Pureed Solids - conservative amounts, every 2-3 hrs rather than full meals due to high respiratory fatigue LIQUIDS: 0-Thin Liquids Minimize liquids intake during meals Water only, conservative amounts after good oral care between meals to reduce respiratory impact MEDICATIONS: Whole vs crushed, as tolerated, with puree Alter medications only as advised by MD or Pharmacist RISK MANAGEMENT: Level of Assistance/Supervision: 1:1Assistive feeding only by trained staff/family Positioning and environment: PO intake only when awake/alert? Reduce auditory and/or visual distractions when eating As upright as tolerated, use HOB controls/bed tilt to achieve upright positioning Up to chair for meals/PO when able Oral hygiene Q3-4h/every 3-4 hours AND Before/after solid PO intake Using suction swab kits on all oral structures as tolerated Strategies/Adaptations/Assistive Equipment: Small sips Small bites Slow rate of intake Avoid thin liquids when providing purees to reduce risk of residue aspiration Conservative amounts of purees/more frequently due to respiratory impact/fatigue Provide only water, no other liquids, between meals when excellent oral care has been recently completed Reflux Precautions: Small+frequent meals throughout day Maintain fully upright position at least 30 minutes after meals Avoid meals/snacks 2-3 hours prior to reclining/sleeping Sleep with head of bed elevated to reduce likelihood of nocturnal reflux Plan Plan: ? PLAN: Frequency: 2-3x/week for 1-2 weeks
[2024-10-01] MEDS: Normal Saline 500 ML IV (18:15)
[2024-10-01] MEDS: Simvastatin 20 MG TAB PO (21:32)
[2024-10-01] MEDS: Tamsulosin 0.4 MG CAPCR 0.8 MG PO (21:32)
[2024-10-01] MEDS: traZODone 50 MG TAB PO (21:33)
[2024-10-02] VITALS (122 sets, daily range): BP systolic 83–110; BP diastolic 54–73; PULSE 65–92; RESP 0–26; TEMP 36.5–36.9; O2SAT 86–95
[2024-10-02] MEDS: PIPERACILLIN/TAZO 4.5 GM in Normal Saline 100 ML IVPB ×4 (00:41→20:22)
[2024-10-02] MEDS: Lactated Ringers 1,000 ML 75 ML IV (00:41)
[2024-10-02 06:45] LABS: Abs Immature Grans 0.03 10^3/uL (0.0-0.06); Absolute Basophil Count 0.05 10^3/uL (0.0-0.2); Absolute Eosinophil Count 0.16 10^3/uL (0.0-0.7); Basophils % 0.7 %; Eosinophils % 2.1 %; HGB 9.3 g/dL (13.5-17.5); Immature Grans % 0.4 %; Lymphocytes % 27.9 %; MCH 26.3 pg (27.0-33.0); MCV 88 fL (80-95); MPV 10.3 fL (8.0-11.0); Neutrophils % 60.9 %; Platelet Count 324 10^3/uL (130-400); RBC 3.53 10^6/uL (4.36-5.78); RDW 15.1 % (11.8-14.1); RDW-SD 48.2 fL; WBC 7.54 10^3/uL (4.4-10.8)
[2024-10-02 07:13] LABS: ALT 52 U/L (16-63); AST 86 U/L (15-37); Alkaline Phosphatase 73 U/L (46-116); Anion Gap 4.8 mmol/L (3-11); BUN 11 mg/dL (7-18); Bilirubin, Total 0.2 mg/dL (0.2-1.0); CO2 33.2 mmol/L (21.0-32.0); CREATININE 0.7 mg/dL (0.70-1.30); Calcium 8.8 mg/dL (8.5-10.1); Chloride 107 mmol/L (98-107); Estimated GFR 100.99 (mL/min/1.73m2); Glucose 86 mg/dL (74-106); Potassium 3.9 mmol/L (3.5-5.1); Sodium 145 mmol/L (136-145); Total Protein 5.8 g/dL (6.4-8.2)
[2024-10-02] MEDS: Umeclidinium 7 CAP INHALER IH (08:05)
[2024-10-02] MEDS: diazePAM 5 MG TAB 10 MG PO ×2 (08:24→20:24)
[2024-10-02] MEDS: guaiFENesin 600 MG TABCR PO ×2 (08:24→20:25)
[2024-10-02] MEDS: DULoxetine 30 MG CAP 120 MG PO (08:24)
[2024-10-02] MEDS: OLANZapine 10 MG TAB 5 MG PO ×2 (08:24→20:24)
[2024-10-02] MEDS: Donepezil 5 MG TAB PO (08:25)
[2024-10-02] MEDS: Acetaminophen 325 MG TAB PO (08:25)
[2024-10-02] MEDS: Enoxaparin 40 MG/0.4 ML SYR SC (08:25)
[2024-10-02] MEDS: Normal Saline Flush 10 ML SYR IVP (08:26)
--- NOTE | 2024-10-02 09:46 | PDOC.CMPRO ---
Date of service: 10/02/24 Time of Service: 09:46 Care Management Progress Note Progress Note Text Progress Note Text: Venu was sitting up in bed when CM met with him. He was dozing but was easily awakened with gentle touch. Venu continues to be more awake and engaged today. He stated he is feeling much better and hopes to be able to return to [facility] soon. His Lidia was also hospitalized but returned to the SNF yesterday. Venu has been unable to see her and states he misses her. His O2 needs are back to baseline at 2L/min with O2 saturation at 95%. His vital signs are stable and he remains afebrile. If he remains stable, he will likely be able to discharge back to [facility] tomorrow. Discharge Potential Discharge Needs: Other (SNF) Anticipated Barriers to Discharge: None Identified Patient/Family Education Needs: Review discharge instructions, discuss Ask Me Three Transportation: RCT Plan: Anticipate Venu will return to [facility] when medically stable. He will follow up with the facility providers and plan of care and transport via RCT coordinated by CM. CM will follow and continue to support discharge planning. Social Determinants of Health Screening Will the Patient Participate in the Screening?: Declined to provide
--- NOTE | 2024-10-02 11:14 | PGE_ITS ---
Date of Service Date of service: 10/02/24 Time of Service: 11:14 Assessment and Plan Assessment and plan (1) Sepsis: Status: Acute Assessment and plan: - Patient meets criteria for sepsis with a white blood cell count of 14, heart rate greater than 100 and source of infection being aspiration pneumonitis/pneumonia - Does not meet criteria for severe sepsis as there is no sign of endorgan damage - Was not started on any antibiotics in the emergency department, zosyn has been ordered upon admission - Follow-up a.m. CBC and CMP 09/30/24 afebrile/wbc wnl/no tachypnea/afebrile cw abx 10/01/24 cw zosyn/vss but continued oxygen requirement. Wean as tolerated 10/02/24 Improved, wean oxygen as tolerated (2) Aspiration pneumonitis: Status: Acute Assessment and plan: - Source of infection as noted above - Reason for acute on chronic hypoxic respiratory failure as noted below 09/30/24 ST to see today. Most recent speech evaluation was reassuring. 06/06/24 Recommendations: ? SOLIDS: 7-Regular Solids LIQUIDS: 0-Thin Liquids MEDICATIONS: As tolerated Education Provided to: Nursing, Patient, Case Management Topics Addressed: HELP DESK MANAGER findings/no further HELP DESK MANAGER needs ST evnh 09/30/24 Diet Recommendations: ? SOLIDS: 4-Pureed Solids - conservative amounts, every 2-3 hrs rather than full meals due to high respiratory fatigue LIQUIDS: 0-Thin Liquids Minimize liquids intake during meals Water only, conservative amounts after good oral care between meals to reduce respiratory impact MEDICATIONS: Whole vs crushed, as tolerated, with puree Alter medications only as advised by MD or Pharmacist (3) Acute and chronic respiratory failure with hypoxia: Status: Acute Assessment and plan: - Patient normally oxygen dependent on 3 L nasal cannula - Currently requiring high flow 45% to her maintain oxygen saturation between 88 to 92% - Wean oxygen as tolerated (4) COPD (chronic obstructive pulmonary disease): Status: Chronic Assessment and plan: - Without acute exacerbation - Continue home inhaler regimen (5) Dementia: Status: Chronic Assessment and plan: - Continue home donepezil and as needed benzos for behavior (6) Advanced care planning/counseling discussion: Status: Acute Assessment and plan: - Patient is full code - Recommend palliative consultation (placed) Subjective Subjective Interval history since last seen: Pt seen and examined in his room this am. Pt states he is feeling better. POC d/w pt as well as bedside nurse during ICU huddle Exam Narrative Exam Narrative: Chronically ill-appearing older gentleman laying in bed no acute distress, NC in place at 3LNC, awake, alert, oriented to person, heart regular rate rhythm, lungs with coarse breath sounds throughout, abdomen soft, nontender, nondistended Objective Last Vital Signs Temp 36.5 C 10/02/24 07:15 Pulse 82 10/02/24 09:30 Resp 17 10/02/24 09:30 BP 105/62 10/02/24 09:00 Pulse Ox 95 10/02/24 09:30 Laboratory Results - last 24 hr 10/02/24 05:37 WBC 7.54 RBC 3.53 L Hgb 9.3 L Hct 31.0 L MCV 88 MCH 26.3 L MCHC 30.0 L RDW 15.1 H Plt Count 324 MPV 10.3 Immature Gran % 0.4 Neutrophils % 60.9 Lymphocytes % 27.9 Monocytes % 8.0 Eosinophils % 2.1 Basophils % 0.7 Nucleated RBC % 0.0 Absolute Neutrophils 4.60 Absolute Lymphocytes 2.10 Absolute Monocytes 0.60 Absolute Eosinophils 0.16 Absolute Basophils 0.05 Sodium 145 Potassium 3.9 Chloride 107 Carbon Dioxide 33.2 H Anion Gap 4.8 BUN 11 Creatinine 0.7 Est GFR (CKD-EPI 2020) 100.99 Glucose 86 Calcium 8.8 Total Bilirubin 0.2 AST 86 H ALT 52 Alkaline Phosphatase 73 Total Protein 5.8 L Albumin 2.0 L Time Spent with Patient Time Spent with Patient: 25-34 minutes Time was spent: preparing to see the patient(eg.review tests), obtaining and/or reviewing separately otained hiistory, ordering medications,tests, procedures, referring, communicating with other health medical care evaluation specialist, indepentently interpreting results, counseling the patient and care coordination
--- NOTE | 2024-10-02 12:13 | W.PALLCONSUL ---
Date of service: 10/02/24 Time of Service: 11:30 History of Present Illness Narrative: Mr. Lea is a 69 y/o M currently hospitalized at [facility] 2/2 sepsis c/b asp PNA; PMHx sig for Alzheimer's Dementia, schizophrenia, chronic resp failure (on 2-3L baseline); previously established w/PC - PC consult placed / CODE status Hospital Course: presented to ED on 09/29 w/increase O2 requirements, requiring 10L non-rebreather in ED, WBC 14, tachycardic, admitted for sepsis from asp PNA, started on Zosyn; WIRE SPRING RELAY ADJUSTER recommends purred/thin liquids w/strict asp precautions, considering MBSS; was in ICU, however down graded to MS status on 10/02, w/improved resp status back to baseline; plan for discharge back to [facility] tomorrow per staff: no agitation/behaviors; ADL support w/dressing, hygiene, he does use call manjarrez for urination and has been continent, BMs large movement yesterday and today, w/some incontinence w/diarrheal sxs which have improved today; reduced appetite, not interested in pureed foods much, only tolerating 10-25% of breakfast, is tolerating protein drinks better; he has not gotten OOB during this hospitalization Venu lives at [facility], where he relocated from [facility] with his Lidia; 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 Looking forward to being back with her Today he isn't feeling well, unable to provide more specifics w/o prompting, denies head involvement, agrees leg pain causing discomfort; would like to rest today as possible reports does get OOB at home, using WC most often, not walking. He is unable to recall conversation w/PC in July where he indicated his 's sisters be his HCA, when asked if he trusts Berkley and Jasmin, he agrees. Reports he would want all LST, including being connected to machines, even if Lidia were no longer with us. of note: Lidia also was hospitalized while Venu was here, she came in after and has already returned to [place] Assessment and Plan Assessment and plan (1) Sepsis: Status: Acute Assessment and plan: on Zosyn now back to baseline (2) Aspiration pneumonitis: Status: Acute Assessment and plan: WIRE SPRING RELAY ADJUSTER recommend pureed/thinned liquids tolerating oral intake per report today, reduced appetite potentially 2/2 pureed foods as above (3) COPD (chronic obstructive pulmonary disease): Status: Chronic Assessment and plan: on 3L at baseline (4) Acute and chronic respiratory failure with hypoxia: Status: Acute Assessment and plan: has returned to baseline, likely 2/2 asp PNA as above (5) Alzheimer's dementia without behavioral disturbance: Status: Chronic Assessment and plan: - IADL dependent: fully - ADL dependent: eat ind, able to call for urine, occasional BM incontinence, non-ambulatory, assistance dressing/hygiene - Weight trends: range from 186-203lbs during this admission, previously 203lbs 08/07, 214lbs 06/25/24 - PPS: 40% - FAST:6d-e - Meds: clozapine, diazepam, donepezil, memantine (6) Lives in custodial: Status: Acute (7) Deficit in activities of daily living (ADL): Status: Acute Assessment and plan: as above (8) Palliative care encounter: Status: Acute Assessment and plan: PC will continue to provide care outpatient, f/u previously scheduled for 12/05/24 - appropriate to keep at this time per chart review it appears Venu did have capacity to review/complete ACP documents at last visit; confirmed today's preferences of HCA and all LST; of note Venu was not able to critically think or answer w/more than 1-3 words - recommend f/u review GOC w/HCAs; continue to assess capacity may improve post discharge and return to home environment Review of Systems Narrative: as per HPI unable to provide history d/t mental condition PFSH All Active Problems (Updated 10/02/24 @ 12:31 by Taya Kaplan NP) Deficit in activities of daily living (ADL) (Acute) Lives in custodial (Acute) Sepsis (Acute) Dementia (Chronic) Schizophrenia (Chronic) COPD (chronic obstructive pulmonary disease) (Chronic) Aspiration pneumonitis (Acute) Acute and chronic respiratory failure with hypoxia (Acute) Fall (Acute) Contusion of knee (Acute) Palliative care encounter (Acute) Advanced care planning/counseling discussion (Acute) Chronic respiratory failure with hypoxia, on home O2 therapy (Acute) Supplemental oxygen dependent (Acute) COPD (chronic obstructive pulmonary disease) (Chronic) Aspiration pneumonia (Acute) Schizophrenia (Chronic) Alzheimer's dementia without behavioral disturbance (Chronic) Medical History Left foot pain Cognitive impairment Bilateral primary osteoarthritis of knee Pneumonia COVID Dermatophytosis of nail Alcohol abuse, in remission Auditory hallucinations History of suicidal ideation Paranoid schizophrenia Altered mental status Cognitive changes Anemia Elevated PSA Urinary incontinence Hyperplasia of prostate with lower urinary tract symptoms (LUTS) Emphysema lung Pulmonary nodule Tobacco abuse History of prediabetes Hyperlipidemia Low back pain Acute metabolic encephalopathy Neutrophilia Pain, foot, left, chronic Patellofemoral joint pain Atherosclerosis Surgical History 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) As treatment for right femoral neck fracture Hx of knee surgery Family History Mother Brain cancer Father Heart disease Hypertension Obesity Osteoarthritis Social History Smoking/Tobacco Use Status: Former Tobacco Use Tobacco: How many years used: 38 Smoking risk assessment performed?: Yes Alcohol Intake: never Substance use type: does not use Housing: house Do you feel safe at home: Yes Do you feel safe in your relationship?: Yes Exam Narrative Exam Narrative: General: 69 y/o M older appearing than stated age, lying in ICU bed sleeping on arrival, wakes w/elevated voice volume, engages immediately HEENT: drool in corner of mouth, MMM, hearing grossly WNL, normocephalic, atraumatic Resp: even and unlabored, speech limited to 1-4 words no changes in resp patterns; no cough, no audible wheeze; NC in place Psych: makes appropraite eye contact, cooperative yet tired, answers limited to 1-4 word answers; aware in hospital, unaware of why; thought process impoverished and loose association; insight/judgment poor Results Last Vital Signs Temp 97.7 F 10/02/24 07:15 Pulse 82 10/02/24 09:30 Resp 17 10/02/24 09:30 BP 105/62 10/02/24 09:00 Pulse Ox 95 10/02/24 09:30 Labs 10/02/24 05:37 10/02/24 05:37 Labs: Laboratory Results - last 24 hr 10/02/24 05:37 WBC 7.54 RBC 3.53 L Hgb 9.3 L Hct 31.0 L MCV 88 MCH 26.3 L MCHC 30.0 L RDW 15.1 H Plt Count 324 MPV 10.3 Immature Gran % 0.4 Neutrophils % 60.9 Lymphocytes % 27.9 Monocytes % 8.0 Eosinophils % 2.1 Basophils % 0.7 Nucleated RBC % 0.0 Absolute Neutrophils 4.60 Absolute Lymphocytes 2.10 Absolute Monocytes 0.60 Absolute Eosinophils 0.16 Absolute Basophils 0.05 Sodium 145 Potassium 3.9 Chloride 107 Carbon Dioxide 33.2 H Anion Gap 4.8 BUN 11 Creatinine 0.7 Est GFR (CKD-EPI 2020) 100.99 Glucose 86 Calcium 8.8 Total Bilirubin 0.2 AST 86 H ALT 52 Alkaline Phosphatase 73 Total Protein 5.8 L Albumin 2.0 L Time Spent Time Spent with Patient Time Spent(min): 45
[2024-10-02] MEDS: traMADol 50 MG TAB PO ×2 (12:23→12:41)
--- NOTE | 2024-10-02 14:39 | W.SPSTP ---
Date of service: 10/02/24 Time of Service: 12:30 Subjective Subjective: Patient received alert/awake, conversant Objective: Patient Positioning: upright in bed Oxygen Tolerance: tolerating nasal cannula, 2L Oral Hygiene: completed before PO trials PO Trials Assessed: IDDSI 0 Thin Liquids via cup and straw IDDSI 4 Puree Solid - carrots IDDSI 5 Minced and Moist Solid - Diced peaches cut in half Oral Phase Findings: Prolonged oral stage Min lingual surface residue intermittently noted Pharyngeal Phase Findings: Delayed swallow initiation (mild) Reduced hyolaryngeal elevation/excursion Assessment/Impression: Gopal was seen today for FINANCIAL DIRECTOR re-assessment for consideration of diet upgrade. Per nursing and patient Gopal does not like taste of pureed solids and thus PO intake has not been optimal. He was able to tolerate 4 ounces diced peaches (cut in half to mirror 'minced/moist' IDDSI consistency) and thin liquids via cup and straw without overt s/s aspiration. Vocal quality remained clear between trials. A wet cough was noted 30-60 seconds after PO trials, unclear if directly related. Per CIRCUIT BOARD INSPECTOR, patient did not tolerate straw well earlier this morning, though no issues with straw tolerance this session. Overall, the patient continues with [id number] dysphagia, with aspiration pneumonia likely due in part to vomiting episode, with possible overalid oral-pharyngeal component. Patient's overall status and diet tolerance appears to be steadily improving. Continue strict aspiration precautions as listed below. Plan: Frequency: 2-3 x week for 2 weeks Recommendation at Discharge: to be determined; at this time if he continues to steadily improve do not anticipate need for FINANCIAL DIRECTOR services post discharge Diet Recommendations: SOLIDS: 5-Minced & Moist Solids LIQUIDS: 0-Thin Liquids MEDICATIONS: Whole vs crushed, as tolerated, with puree Alter medications only as advised by MD or Pharmacist Level of Assistance/Supervision: 1:1 Assistive feeding; Continue to encourage self-feeding as endurance improves Positioning and environment: As upright as tolerated, use HOB controls/bed tilt to achieve upright positioning Up to chair for meals/PO when able Oral hygiene Before/After PO intake Using suction swab kits on all oral structures as tolerated Strategies/Adaptations/Assistive Equipment: Small sips Small bites Slow rate of intake Reflux Precautions: Maintain fully upright position at least 30 minutes after meals Avoid meals/snacks 2-3 hours prior to reclining/sleeping Sleep with head of bed elevated to reduce likelihood of nocturnal reflux Education Provided to: Nursing, Patient Topics Addressed: FINANCIAL DIRECTOR findings, recommendations Total Time: 20 minutes [id number] Swallow Therapy [id number]
--- NOTE | 2024-10-02 16:17 | PT.INIE ---
PT Notes Visit Reasons: Sepsis,Aspiration PNA,Acute on Chronic Hypoxic Res Inpatient Physical Therapy Evaluation Date: 10/02/24 Referring Doctor: Dr. Carcamo PT Orders: PT CONSULT: limited ability to ambulate Precautions: fall, standard Patient Profile/Admitting Diagnosis: Patient is a 69 year old resident of [facility], seen in ICU where he is being managed for sepsis and aspiration pneumonitis. Baseline mobility status unknown, with mixed reports of patient being non-ambulatory vs walking with frequent falls. PT consult ordered for mobilization during management of acute medical issues. Equipment Owned/DME: Resident of LT facility. Venu reports that he walks with a walker pretty good. Subjective: Venu is agreeable to ambulating with PT. States that his legs hurt. Objective: General Observation: Resting in bed with multiple lines. IV in RUE, pulse oximetry to LUE, blood pressure cuff to left upper extremity, telemetry in place, supplemental oxygen by nasal cannula. Mental Status: Alert and oriented. Understands that he is in the hospital to get better. Appropriate responses throughout treatment session, although with repetitive statements. Pain: Unable to quantify ROM: Right Upper Extremity: Active shoulder flexion allows 90 degrees. Elbow and wrist motion WFL. Demonstrates edema throughout bilateral hands, and AROM allows only partial opening and closing bilaterally. Left Upper Extremity: Active shoulder flexion allows 90 degrees. Elbow and wrist motion WFL. Demonstrates edema throughout bilateral hands, and AROM allows only partial opening and closing bilaterally. Right Lower Extremity: WFL Left Lower Extremity: WFL Strength: Right Upper Extremity: Shoulder flexion 3 -/5. Biceps 3/5. Baler is weak but equal Left Upper Extremity: Shoulder flexion 3 -/5. Biceps 3/5. Baler is weak but equal Right Lower Extremity: Hip flexion 3+/5. Quads 4 -/5. Ankle dorsiflexion 3/5 or greater Left Lower Extremity: Hip flexion 3+/5. Quads 4 -/5. Ankle dorsiflexion 3/5 or greater Bed Mobility/Transfers: Supine?sit: Mod assist of 1 Sit?stand: Mod assist of 2 with bed elevated Stand?sit: Mod assist of 2 with poor safety awareness, and patient attempting to sit with hands supported to walker and poor alignment to chair. requires significant assistance for safe descent. Gait: Ambulate 6 feet with FWW, initially mod assist of 2, progressing to max assist of 3 with a shuffling gait and increasing knee and trunk flexion Balance: Static Sitting: Right trunk lean, requiring mod assist to maintain positioning Dynamic Sitting: Poor Static Standing: Poor Dynamic Standing: Poor Special Tests: Mobility Limitations Standardized Measure [employer] AM-PAC 6 clicks Basic Mobility Inpatient Short Form: Raw Score: 11 Standardized Score: 33.86 CMS Score: 73% impairment Informed Consent/Education: Patient instructed in purpose of PT consult and plan of care. Treatment: Initial evaluation (66396) Therapeutic activities (24543 x 1): Instructed in the following exercises to assist in improved functional mobility and sitting balance Sit?stand x 2, initially requiring mod assist of 2, then min assist of 2 and second repetition. Requires max cues for equipment management and hand placement. Static stand at walker with mod assist of 2 x 2 minutes. Maintains posterior weight shift with limited weightbearing through forefoot throughout Seated june, with cues for upright posturing 10 times LAQ 10 x 2 Seated ankle pumps 10 times Seated crunch 10 times, max cues Seated trunk diagonals 10 times, limited range Assessment: Patient is a 69 year old male referred to physical therapy services in acute care setting where he is being managed for sepsis and aspiration pneumonitis. Patient has baseline mobility impairments and is a resident of a long-term care facility where he resides with his . He is appropriate for transfer back to long-term care facility with initiation of PT intervention to maximize safety and mobility once medically stable. Patient presents with the following impairment level findings: 1. Decreased upper extremity strength bilaterally 2. Decreased lower extremity strength bilaterally 3. Balance impairment 4. Baseline mobility impairment Impairments are contributing to the following functional limitations: 1 Unable to safely ambulate independently. 2. Unable to sit unsupported independently 3. Unable to transfer sit to stand independently Patient is assessed as Low 81411 complexity based on the following: History: As noted above. Complicating factor of unclear baseline level of mobility Examination: As above Presentation: Evolving due to acute medical issues Decision Making: Low complexity Goals: Goals X1 week 1. Supine-Sit : Min a x 1 2. Sit-Supine : Min a x 1 3. Sit-Stand : Min a x 1 4. Stand-Sit : Min a x 1 5. Bed-Chair : Min a x 2 with FWW 6. Chair-Bed : Min a x 2 with FWW 7. Gait : : Min a x 2 with FWW x 20' Plan of Care/Treatment Plan: 1-2x/day, 7 days/week x 1 week. Plan of care has been reviewed with the LICENSED PRACTICAL NURSE CLINIC NURSE providing the service under Physical Therapy direction. Initiate Physical Therapy intervention for strengthening, bed mobility, transfers, gait, stairs, balance training, use of assistive device. DISCHARGE RECOMMENDATIONS: Return to [facility] with initiation of PT services to maximize safety and mobility TREATMENT CODE/TIME: [id number] ([id number], [id number]) Michelle Hernandez, PT, DPT [facility] All Active Problems (Updated 10/02/24 @ 12:31 by Taya Kaplan NP) Deficit in activities of daily living (ADL) (Acute) Lives in [facility] (Acute) Sepsis (Acute) Dementia (Chronic) Schizophrenia (Chronic) COPD (chronic obstructive pulmonary disease) (Chronic) Aspiration pneumonitis (Acute) Acute and chronic respiratory failure with hypoxia (Acute) Fall (Acute) Contusion of knee (Acute) Palliative care encounter (Acute) Advanced care planning/counseling discussion (Acute) Chronic respiratory failure with hypoxia, on home O2 therapy (Acute) Supplemental oxygen dependent (Acute) COPD (chronic obstructive pulmonary disease) (Chronic) Aspiration pneumonia (Acute) Schizophrenia (Chronic) Alzheimer's dementia without behavioral disturbance (Chronic) Medical History Left foot pain Cognitive impairment Bilateral primary osteoarthritis of knee Pneumonia COVID Dermatophytosis of nail Alcohol abuse, in remission Auditory hallucinations History of suicidal ideation Paranoid schizophrenia Altered mental status Cognitive changes Anemia Elevated PSA Urinary incontinence Hyperplasia of prostate with lower urinary tract symptoms (LUTS) Emphysema lung Pulmonary nodule Tobacco abuse History of prediabetes Hyperlipidemia Low back pain Acute metabolic encephalopathy Neutrophilia Pain, foot, left, chronic Patellofemoral joint pain Atherosclerosis Surgical History 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) As treatment for right femoral neck fracture Hx of knee surgery
[2024-10-02] MEDS: traZODone 50 MG TAB PO (20:23)
[2024-10-02] MEDS: Simvastatin 20 MG TAB PO (20:23)
[2024-10-02] MEDS: Tamsulosin 0.4 MG CAPCR 0.8 MG PO (20:23)
[2024-10-02] MEDS: Memantine 5 MG TAB PO (20:24)
[2024-10-02] MEDS: Acetaminophen 325 MG TAB 650 MG PO (20:24)
[2024-10-03] VITALS (40 sets, daily range): BP systolic 83–128; BP diastolic 62–85; PULSE 63–84; RESP 10–19; TEMP 36.8; O2SAT 87–98
[2024-10-03] MEDS: PIPERACILLIN/TAZO 4.5 GM in Normal Saline 100 ML IVPB ×2 (00:47→05:42)
[2024-10-03] MEDS: Lactated Ringers 1,000 ML 75 ML IV (05:42)
[2024-10-03] MEDS: Umeclidinium 7 CAP INHALER IH (08:17)
[2024-10-03] MEDS: Diclofenac 1% Gel 100 GM TUBE TP (08:18)
[2024-10-03] MEDS: Enoxaparin 40 MG/0.4 ML SYR SC (08:19)
[2024-10-03] MEDS: guaiFENesin 600 MG TABCR PO (08:20)
[2024-10-03] MEDS: Omega-3 Fatty Acids 1000 MG CAP PO (08:20)
[2024-10-03] MEDS: Magnesium Oxide 400 MG TAB PO (08:20)
[2024-10-03] MEDS: Memantine 5 MG TAB PO (08:20)
[2024-10-03] MEDS: Cholecalciferol (Vitamin D3) 1,000 UNIT TAB 1000 UNITS PO (08:20)
[2024-10-03] MEDS: diazePAM 5 MG TAB 10 MG PO (08:21)
[2024-10-03] MEDS: Cyanocobalamin 500 MCG TAB 1000 MCG PO (08:21)
[2024-10-03] MEDS: Acetaminophen 325 MG TAB 650 MG PO (08:21)
[2024-10-03] MEDS: Donepezil 5 MG TAB PO (08:21)
[2024-10-03] MEDS: DULoxetine 30 MG CAP 120 MG PO (08:21)
[2024-10-03] MEDS: OLANZapine 10 MG TAB 5 MG PO (08:22)
[2024-10-03] MEDS: Meloxicam 15 MG TAB 7.5 MG PO (08:23)
--- NOTE | 2024-10-03 09:19 | W.SPSTP ---
Date of service: 10/03/24 Time of Service: 08:20 Subjective Subjective: Patient received alert/awake, conversant Objective: Patient Positioning: upright in bed Oxygen Tolerance: tolerating nasal cannula, 3L Oral Hygiene: completed before PO trials PO Trials Assessed: IDDSI 0 Thin Liquids via cup and straw IDDSI 4 Puree Solid - applesauce IDDSI 5 Minced and Moist Solid - scrambled eggs Medications whole in applesauce, administered by RN Oral Phase Findings: Prolonged oral stage - Improved Pharyngeal Phase Findings: Delayed swallow initiation (mild) Reduced hyolaryngeal elevation/excursion Intermittent coughing with strawberry shake; reduced when patient prompted to self-feed, single sip at a time, with clinician holding cup between sips to support optimal pacing. Assessment/Impression: Gopal was seen today for dysphagia follow-up for re-assessment of tolerance of yesterday's diet upgrade. Nursing denies new concerns. Patient seen with his breakfast tray today. He tolerated minced/moist solids quite well without overt s/s aspiration. With liquids, wet coughing was noted intermittently - more with the strawberry shake vs with water. Gopal has difficulty with pulling through a straw and did best when self-feeding single small sips, with clinician holding cup between sips and providing verbal cues to support optimal pacing. Gopal continues with improving [id number] dysphagia, with aspiration pneumonia likely due in part to the recent vomiting episode. His risk for recurrent aspiration related illness remains heightened in the setting of deconditioned status, though can be mitigated with ongoing aspiration precautions and diet modifications as outlined below. AIRCRAFT MACHINIST HELPER to continue to monitor respiratory improvement and liquid tolerance. Plan: Frequency: 2-3 x week for 2 weeks Recommendation at Discharge: If he continues to steadily improve do not anticipate need for AIRCRAFT MACHINIST HELPER services post discharge Diet Recommendations: SOLIDS: 5-Minced & Moist Solids LIQUIDS: 0-Thin Liquids MEDICATIONS: Whole vs crushed, as tolerated, with puree Alter medications only as advised by MD or Pharmacist Level of Assistance/Supervision: 1:1 Assistive feeding with solids Encourage self-feeding with liquids, with staff holding cup between sips to encourage optimal pacing Positioning and environment: As upright as tolerated, use HOB controls/bed tilt to achieve upright positioning Up to chair for meals/PO when able Remain upright at least 30 min after meals Oral hygiene Before/After PO intake Using suction swab kits on all oral structures as tolerated Strategies/Adaptations/Assistive Equipment: Small sips Small bites Slow rate of intake Verbal prompts for small sips with liquid Reflux Precautions: Avoid meals/snacks 2-3 hours prior to reclining/sleeping Sleep with head of bed elevated to reduce likelihood of nocturnal reflux Education Provided to: Nursing, Patient Topics Addressed: AIRCRAFT MACHINIST HELPER findings, recommendations Total Time: 30 minutes 220-160 Swallow Therapy [id number]
--- NOTE | 2024-10-03 09:26 | W.PM.DS.N ---
Date of service: 10/03/24 Time of Service: 09:26 DS: Diagnosis Discharge Diagnosis (1) Sepsis: Status: Acute (2) Aspiration pneumonitis: Status: Acute (3) COPD (chronic obstructive pulmonary disease): Status: Chronic (4) Acute and chronic respiratory failure with hypoxia: Status: Acute (5) Alzheimer's dementia without behavioral disturbance: Status: Chronic (6) Lives in shelter: Status: Acute (7) Deficit in activities of daily living (ADL): Status: Acute (8) Palliative care encounter: Status: Acute Discharge Plan Disposition Patient Disposition: Shelter Facility(SNF) Condition: Stable Discharge Details Reason For Visit: Sepsis,Aspiration PNA,Acute on Chronic Hypoxic Res Admit Date/Time: 09/29/24 03:19 Admit Provider: Jace Medina Attending Provider: Jace Medina Primary Care Provider: Milka Shelley Hospital Course Hospital Course: This is a 69-year-old gentleman who currently lives in a retirement facility presented to the ED with symptoms listed below. He was diagnosed with pneumonia while he was here and was admitted to the ICU secondary to increasing oxygen requirements. Patient was admitted on . Over the last 24 to 48 hours his oxygen requirement has decreased remarkably and he is now on his baseline O2 which is 2 L nasal cannula. Considering that his oxygen requirement has returned to his baseline I recommend discharge. In reviewing his labs and diagnostic data I have attached a copy of his CT on admission to the body of this document. His white count has resolved. He does have normal temperature over the last 2 days. I will discharge him with Zithromax for 3 more days. At the time of discharge his condition is stable History of Present Illness Chief Complaint: Increased oxygen requirements Narrative: 69-year-old gentleman with a past medical history of Alzheimer's dementia, schizophrenia, chronic Evoxac respiratory failure 3 L nasal cannula loose in the shelter presents to the emergency department with increased oxygen requirement. Patient reportedly woke up around 1 AM and had brown emesis and immediately had significant increase in his oxygen requirement prompting EMS to be called. On their arrival placement was placed on 10 L nonrebreather. In the emergency department the patient was placed on high flow nasal cannula to maintain oxygen saturation between 88 to 92%. Patient was tachycardic but was also noted to have a white blood cell count of 14. Chest CT showed pneumonitis or early aspiration pneumonia, and as far as investigating cause for vomiting CT abdomen pelvis showed potential early signs of appendicitis though patient's abdominal exam was benign. At which time emergency room physician paged hospitalist for admission for patient with acute on chronic hypoxic respiratory failure secondary to sepsis from aspiration pneumonia/pneumonitis. Assessment and plan (1) Sepsis: Status: Acute Assessment and plan: - Patient meets criteria for sepsis with a white blood cell count of 14, heart rate greater than 100 and source of infection being aspiration pneumonitis/pneumonia - Does not meet criteria for severe sepsis as there is no sign of endorgan damage - Was not started on any antibiotics in the emergency department, zosyn has been ordered upon admission - Follow-up a.m. CBC and CMP (2) Aspiration pneumonitis: Status: Acute Assessment and plan: - Source of infection as noted above - Reason for acute on chronic hypoxic respiratory failure as noted below (3) Acute and chronic respiratory failure with hypoxia: Status: Acute Assessment and plan: - Patient normally oxygen dependent on 3 L nasal cannula - Currently requiring high flow 45% to her maintain oxygen saturation between 88 to 92% - Wean oxygen as tolerated (4) COPD (chronic obstructive pulmonary disease): Status: Chronic Assessment and plan: - Without acute exacerbation - Continue home inhaler regimen (5) Dementia: Status: Chronic Assessment and plan: - Continue home donepezil and as needed benzos for behavior (6) Advanced care planning/counseling discussion: Status: Acute Assessment and plan: - Patient is full code - Recommend palliative consultation CT abd/pelvis 09/29/24 IMPRESSION: 1. No evidence of acute pulmonary emboli nor pulmonary infarction. However, there is patchy infiltrate in both lower lobes as well as posterior segment of the right upper lobe, consistent with infectious etiology. There are no pleural effusions. 2. Stomach and duodenum are somewhat distended to the level of the ligament of Treitz. The diameter of the duodenum measures up to 6 cm which is significantly abnormal. Distal to this the small-bowel loops exhibit normal caliber. 3. The appendix is slightly thickened to diameter 9 mm and there is mild periappendiceal streaking. This may indicate early non perforated appendicitis. 5. There is abundant fecal material throughout the colon. Also in the rectum and the rectal diameter is 6.8 cm. May indicate an element of impaction. There is no significant diverticular disease. Home Meds and New Rx's Prescriptions: New azithromycin 250 mg tablet 250 mg PO DAILY 5 Days Qty: 5 0RF Continued omega 5-fqp-oim-fish oil [Fish Oil] 60-90-500 mg capsule 1 cap PO DAILY simvastatin 20 mg tablet 20 mg PO DAILY docusate sodium 100 mg capsule 100 mg PO BID clozapine 50 mg tablet 50 mg PO QHS Rx Instructions: total 250mg tramadol 50 mg tablet 50 mg PO Q4H PRN MDD 4 PRN (Reason: pain) Qty: 10 0RF tamsulosin 0.4 mg capsule 0.8 mg PO QHS Incruse Ellipta 62.5 mcg/actuation blister with device 1 inh inhalation DAILY trazodone 50 mg tablet 50 mg PO QHS clozapine 200 mg tablet 200 mg PO QHS duloxetine 60 mg capsule,delayed release(DR/EC) 60 mg PO BID acetaminophen [Tylenol] 325 mg tablet 650 mg PO BID diazepam 5 mg tablet 10 mg PO BID Patient Comments: AM diclofenac sodium 1 % gel 2 g TOPICAL DAILY magnesium oxide 400 mg magnesium capsule 400 mg PO DAILY donepezil 10 mg tablet 5 mg PO QHS memantine 10 mg tablet 5 mg PO BID donepezil [Aricept] 5 mg tablet 5 mg PO DAILY bisacodyl 10 mg suppository 10 mg ND ONCE PRN Fleet Enema 19-7 gram/118 mL enema 118 ml ND DAILY PRN Incruse Ellipta 62.5 mcg/actuation blister with device 1 inh inhalation DAILY cyanocobalamin (vitamin B-12) 1,000 mcg tablet, sublingual 1,000 mcg PO DAILY Rx Instructions: 1 TAB (1000mcg) ORALLY DAILY polyethylene glycol 3350 [Miralax] 17 gram/dose powder 17 g PO QDAY cholecalciferol (vitamin D3) [Vitamin D3] 25 mcg (1,000 unit) capsule 1,000 unit PO DAILY tizanidine 2 mg tablet 2 mg PO TID olanzapine 10 mg tablet 5 mg PO BID meloxicam 7.5 mg tablet 7.5 mg PO DAILY ondansetron 4 mg tablet,disintegrating 4 mg PO Q6H PRN albuterol sulfate [Ventolin HFA] 90 mcg/actuation HFA aerosol inhaler 2 inh inhalation Q6H PRN Discharge Instructions Referrals: Milka Shelley [Primary Care Provider, Medicine] Referral Note: follow up with PCP in 5-7 days Activity:: Activity as Tolerated Equipment/Supplies:: No Equipment Needed Diet:: As Tolerated Discharge Orders Discharge Orders: Discharge Order (Routine); Ordered 10/03/24 Ordered By: Richard Carcamo DS: Summary Time Spent with Patient providing and/or coordinating discharge services: Greater than 30 minutes Status at Discharge Functional status at discharge: bed bound Overall status at discharge: patient is back to baseline Mental Status: mental status grossly normal Speech and Movement: speech and movement normal Mood: congruent mood Affect: normal affect Quality:SDOH Health Related Social Needs: Health related social needs daily activities Exam Narrative Exam Narrative: HEENT: drool in corner of mouth, MMM, hearing grossly WNL, normocephalic, atraumatic Resp: Bilateral wheeze but no accessory muscle use and speaking in complete sentences Psych: responds appropriately to verbal stimuli Psych Mental Status: mental status grossly normal Speech and Movement: speech and movement normal Mood: congruent mood Affect: normal affect DS: Data Vitals/I&O Vitals and I&O: Vital Signs Temperature 36.8 C 10/03/24 07:40 Temperature Source Temporal Artery Scan 10/03/24 07:40 Pulse 78 10/03/24 07:42 Pulse 77 10/03/24 07:42 Respiratory Rate 16 10/03/24 07:42 Respiratory Effort Short of Breath, Labored 09/29/24 06:23 Respiratory Depth Shallow 09/29/24 04:15 Respiratory Pattern Tachypnea 09/29/24 04:15 Blood Pressure 113/73 10/03/24 07:42 Blood Pressure Mean 85 10/03/24 07:42 Pulse Oximetry 87 L 10/03/24 07:42 Oxygen Delivery Method Nasal Cannula 10/03/24 07:40 Oxygen Flow Rate 2 10/03/24 07:40 Fraction of Inspired Oxygen (FIO2) 38 10/01/24 11:42 Pain Level 0 10/03/24 07:40 Comment Patient states his leg pain is better. 10/01/24 16:06 Intake & Output 10/02/24 10/02/24 10/03/24 11:59 23:59 11:59 Intake Total 1690 / 3370 1680 / 3370 200 / 200 Output Total 400 / 400 0 / 400 375 / 375 Balance 1290 / 2970 1680 / 2970 -175 / -175 Weight 95.2 kg Intake: IV 1200 / 2400 1200 / 2400 200 / 200 Oral 490 / 970 480 / 970 Output: Urine 400 / 400 0 / 400 375 / 375 Other: Urine Color Light Jyothi Yellow Urine Appearance Clear Clear Urine Odor Normal Normal Comment No void at this time. Diaper dry. Stool Size Small Moderate Large Stool Characteristics Soft Soft Soft Brown Liquid PFSH All Active Problems (Updated 10/02/24 @ 12:31 by Taya Kaplan NP) Deficit in activities of daily living (ADL) (Acute) Lives in shelter (Acute) Sepsis (Acute) Dementia (Chronic) Schizophrenia (Chronic) COPD (chronic obstructive pulmonary disease) (Chronic) Aspiration pneumonitis (Acute) Acute and chronic respiratory failure with hypoxia (Acute) Fall (Acute) Contusion of knee (Acute) Palliative care encounter (Acute) Advanced care planning/counseling discussion (Acute) Chronic respiratory failure with hypoxia, on home O2 therapy (Acute) Supplemental oxygen dependent (Acute) COPD (chronic obstructive pulmonary disease) (Chronic) Aspiration pneumonia (Acute) Schizophrenia (Chronic) Alzheimer's dementia without behavioral disturbance (Chronic) Medical History Left foot pain Cognitive impairment Bilateral primary osteoarthritis of knee Pneumonia COVID Dermatophytosis of nail Alcohol abuse, in remission Auditory hallucinations History of suicidal ideation Paranoid schizophrenia Altered mental status Cognitive changes Anemia Elevated PSA Urinary incontinence Hyperplasia of prostate with lower urinary tract symptoms (LUTS) Emphysema lung Pulmonary nodule Tobacco abuse History of prediabetes Hyperlipidemia Low back pain Acute metabolic encephalopathy Neutrophilia Pain, foot, left, chronic Patellofemoral joint pain Atherosclerosis Surgical History 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) As treatment for right femoral neck fracture Hx of knee surgery Family History Mother Brain cancer Father Heart disease Hypertension Obesity Osteoarthritis Social History Smoking/Tobacco Use Status: Former Tobacco Use Tobacco: How many years used: 38 Smoking risk assessment performed?: Yes Alcohol Intake: never Substance use type: does not use Housing: house Do you feel safe at home: Yes Do you feel safe in your relationship?: Yes Time Spent with Patient Time Spent with Patient: 45-69 minutes Time was spent: preparing to see the patient(eg.review tests), obtaining and/or reviewing separately otained hiistory, ordering medications,tests, procedures, referring, communicating with other health intensive care nurse, indepentently interpreting results, counseling the patient and care coordination
--- NOTE | 2024-10-03 09:55 | PDOC.CMDIS ---
Date of service: 10/03/24 Time of Service: 10:38 LACE Index Scoring Tool Questions: Length of Stay (in days): 4 - 6 Was the patient admitted via the E.D.?: Yes Comorbidities: Chronic Pulmonary Disease and Dementia E.D. Visits: 4 Answers: Total Score: 16 Risk of Readmission: High Risk Care Management Discharge Plan Reason for Hospitalization: Sepsis, Aspiration PNA, Acute on chronic hypoxic resp fail Discharge Plan: Venu will return to [facility] today at 11:00. He will follow up with the facility providers and plan of care and transport via EMS coordinated by CM. Patient/Family Education Needs: Review of discharge instructions, activity, limitations, and plan of care. Discuss Ask Me Three. Services Needed at Discharge: [facility] ([facility]TC) SDOH Health Related Social Needs: Health related social needs daily activities
== END 2024-10-03 11:28 | disposition skilled nursing facility (03) | DRG 871 ==
LOC: ER 03:28 → ICU 04:00
PROVIDERS: Admitting Provider Family Medicine; Emergency Provider Student in an Organized Health Care Education/Training Program; PCP Nurse Practitioner Family; Responsible Provider Hospitalist; Visit Provider Family Medicine
DX: A41.9 Sepsis, unspecified organism (principal); J69.0 Pneumonitis due to inhalation of food and vomit; J96.21 Acute and chronic respiratory failure with hypoxia; J44.0 Chronic obstructive pulmonary disease with (acute) lower respiratory infection; G30.9 Alzheimer's disease, unspecified; F02.80 Dementia in other diseases classified elsewhere, unspecified severity, without behavioral disturbance, psychotic disturbance, mood disturbance, and anxiety; F20.0 Paranoid schizophrenia; Z99.81 Dependence on supplemental oxygen; M17.0 Bilateral primary osteoarthritis of knee; D64.9 Anemia, unspecified; N40.1 Benign prostatic hyperplasia with lower urinary tract symptoms; E78.5 Hyperlipidemia, unspecified; R73.03 Prediabetes; Z96.641 Presence of right artificial hip joint; Z87.891 Personal history of nicotine dependence; Z79.899 Other long term (current) drug therapy
CPT/HCPCS: 36410; 00123; 36415; 36592; 71275; 74177; 80048; 80053; 82805; 83690; 84145; 85027; 85652; 86141; 87637; 87641; 92526; 93005; 94640; 94761; 96374; 97161; 97530; 99291; J1650; 71045; 74018; 83605; 83735; 85025; 93010; 94664; 94668; 94760; 99223; 99232; 99239; J2405; J2543; J3490; J7613

== ENCOUNTER 2024-11-04 10:36 | Outpatient (REF) | payer MEDICARE, MEDICAID, SELFPAY ==
[2024-11-04 10:48] LABS: Abs Immature Grans 0.02 10^3/uL (0.0-0.06); HCT 32.0 % (40.0-50.0); HGB 9.5 g/dL (13.5-17.5); Immature Grans % 0.2 %; MCH 25.9 pg (27.0-33.0); MCHC 29.7 % (32.0-36.0); MCV 87 fL (80-95); MPV 9.4 fL (8.0-11.0); Platelet Count 432 10^3/uL (130-400); RBC 3.67 10^6/uL (4.36-5.78); RDW 15.9 % (11.8-14.1); RDW-SD 51.1 fL; WBC 8.52 10^3/uL (4.4-10.8)
[2024-11-04 11:07] LABS: ALT 18 U/L (16-63); AST 15 U/L (15-37); Albumin 2.5 g/dL (3.4-5.0); Alkaline Phosphatase 83 U/L (46-116); Anion Gap 6.9 mmol/L (3-11); BUN 20 mg/dL (7-18); Bilirubin, Total 0.2 mg/dL (0.2-1.0); CO2 31.1 mmol/L (21.0-32.0); Calcium 9.0 mg/dL (8.5-10.1); Chloride 104 mmol/L (98-107); Estimated GFR 97.00 (mL/min/1.73m2); Glucose 118 mg/dL (74-106); NT-proBNP 113 pg/mL (<300); Potassium 4.2 mmol/L (3.5-5.1); Sodium 142 mmol/L (136-145); Total Protein 6.6 g/dL (6.4-8.2); Troponin I 4 ng/L (<or=76)
== END 2024-11-04 10:37 | disposition home or self-care (01) ==
LOC: LBN 10:36
PROVIDERS: PCP Nurse Practitioner Family; Visit Provider Nurse Practitioner Adult Health
DX: J96.21 Acute and chronic respiratory failure with hypoxia (principal)
CPT/HCPCS: 80053; 83880; 84484; 85025

== ENCOUNTER 2024-11-08 17:52 | Outpatient (REF) | payer MEDICARE, MEDICAID, SELFPAY ==
[2024-11-08 15:18] LABS: HCT 33.7 % (40.0-50.0); HGB 10.1 g/dL (13.5-17.5); Immature Grans % 0.6 %; MCH 26.4 pg (27.0-33.0); MCHC 30.0 % (32.0-36.0); MCV 88 fL (80-95); MPV 9.7 fL (8.0-11.0); Platelet Count 467 10^3/uL (130-400); RBC 3.82 10^6/uL (4.36-5.78); RDW 15.7 % (11.8-14.1); RDW-SD 49.8 fL; WBC 15.59 10^3/uL (4.4-10.8)
[2024-11-08 15:42] LABS: Abs Immature Grans 0.00 10^3/uL (0.0-0.06); RBC Morphology Normal
== END 2024-11-08 17:53 | disposition home or self-care (01) ==
LOC: LBN 17:52
PROVIDERS: PCP Nurse Practitioner Family; Visit Provider Nurse Practitioner Adult Health
DX: F20.0 Paranoid schizophrenia (principal)
CPT/HCPCS: 85025

== ENCOUNTER 2024-11-21 18:18 | Outpatient (REF) | payer MEDICARE, MEDICAID, SELFPAY ==
[2024-11-22 19:29] LABS: Legionella Ag Detection Urine Negative (Negative)
== END 2024-11-21 18:19 | disposition home or self-care (01) ==
LOC: LBN 18:18
PROVIDERS: PCP Nurse Practitioner Family; Visit Provider Family Medicine
DX: A48.1 Legionnaires' disease (principal)
CPT/HCPCS: 87449

== ENCOUNTER 2024-12-10 19:47 | Outpatient (REF) | payer MEDICARE, MEDICAID, SELFPAY ==
[2024-12-10 19:48] LABS: Abs Immature Grans 0.12 10^3/uL (0.0-0.06); HCT 33.4 % (40.0-50.0); HGB 9.9 g/dL (13.5-17.5); Immature Grans % 1.1 %; MCH 26.2 pg (27.0-33.0); MCHC 29.6 % (32.0-36.0); MCV 88 fL (80-95); MPV 10.5 fL (8.0-11.0); Platelet Count 392 10^3/uL (130-400); RBC 3.78 10^6/uL (4.36-5.78); RDW 15.3 % (11.8-14.1); RDW-SD 49.4 fL; WBC 10.55 10^3/uL (4.4-10.8)
== END 2024-12-10 19:48 | disposition home or self-care (01) ==
LOC: LBN 19:47
PROVIDERS: PCP Nurse Practitioner Family; Visit Provider Family Medicine
DX: F20.0 Paranoid schizophrenia (principal)
CPT/HCPCS: 85025

== ENCOUNTER 2024-12-13 21:00 | Inpatient (IN) | payer MEDICARE, MEDICAID, SELFPAY ==
[2024-12-13] VITALS (11 sets, daily range): BP systolic 94–98; BP diastolic 50–55; PULSE 79–85; RESP 11–22; TEMP 36.5; O2SAT 90–92
--- NOTE | 2024-12-13 20:51 | W.ED.GENAD ---
Discharge Plan Disposition Patient Disposition: Admit to [facility] Condition: Fair Discharge Details Clinical Impression: Multifocal pneumonia Primary Care Provider: Milka Shelley ED Provider: Richard Claire [place] Meds and New Rx's Prescriptions: No Action omega 5-[id number]-fish oil [Fish Oil] 60-90-500 mg capsule 1 cap PO DAILY simvastatin 20 mg tablet 20 mg PO DAILY docusate sodium 100 mg capsule 100 mg PO BID clozapine 50 mg tablet 50 mg PO DAILY tramadol 50 mg tablet 50 mg PO Q4H PRN MDD 4 PRN (Reason: pain) Qty: 10 0RF tamsulosin 0.4 mg capsule 0.8 mg PO QHS Incruse Ellipta 62.5 mcg/actuation blister with device 1 inh inhalation DAILY trazodone 50 mg tablet 50 mg PO QHS clozapine 200 mg tablet 200 mg PO QHS duloxetine 60 mg capsule,delayed release(DR/EC) 60 mg PO BID acetaminophen [Tylenol] 325 mg tablet 650 mg PO BID diazepam 5 mg tablet 10 mg PO BID Patient Comments: AM diclofenac sodium 1 % gel 2 g TOPICAL DAILY magnesium oxide 400 mg magnesium capsule 400 mg PO DAILY memantine 10 mg tablet 5 mg PO BID bisacodyl 10 mg suppository 10 mg MO ONCE PRN Fleet Enema 19-7 gram/118 mL enema 118 ml MO DAILY PRN Incruse Ellipta 62.5 mcg/actuation blister with device 1 inh inhalation DAILY cyanocobalamin (vitamin B-12) 1,000 mcg tablet, sublingual 1,000 mcg PO DAILY Rx Instructions: 1 TAB (1000mcg) ORALLY DAILY polyethylene glycol 3350 [Miralax] 17 gram/dose powder 17 g PO QDAY cholecalciferol (vitamin D3) [Vitamin D3] 25 mcg (1,000 unit) capsule 1,000 unit PO DAILY tizanidine 2 mg tablet 2 mg PO TID olanzapine 10 mg tablet 5 mg PO BID meloxicam 7.5 mg tablet 7.5 mg PO DAILY ondansetron 4 mg tablet,disintegrating 4 mg PO Q6H PRN albuterol sulfate [Ventolin HFA] 90 mcg/actuation HFA aerosol inhaler 2 inh inhalation Q6H PRN diazepam 10 mg tablet 10 mg PO BID donepezil 5 mg tablet 5 mg PO DAILY HPI General Mode of arrival: EMS. Date/Time Provider Initiated Documentation: 12/13/24 21:03. Limitations to Documentation: no limitations. Information obtained by: patient, RN notes reviewed and old records reviewed. HPI Narrative: Patient presents to ED from [facility] for increasing shortness of breath, chest pain, altered mental status per [facility] staff. On arrival here patient is awake and alert answering questions appropriately. Reports having chest pain and shortness of breath. Denies having abdominal pain or vomiting. No report of a fever. He has history of COPD on nasal cannula oxygen chronically. Also has history of aspiration pneumonia with an admission in September for same. Points to the center of his chest as to where he is having discomfort but cannot really give details in regards to the pain. Reportedly with some low blood pressures as well at [facility]. Related Data Home Medications ?Medication ?Instructions ?Recorded ?Confirmed tamsulosin 0.4 mg capsule 0.8 mg PO QHS 03/23/22 12/13/24 trazodone 50 mg tablet 50 mg PO QHS 03/23/22 12/13/24 umeclidinium 62.5 mcg/actuation 1 inh inhalation DAILY 03/23/22 12/13/24 blister powder for inhalation (Incruse Ellipta) clozapine 200 mg tablet 200 mg PO QHS 01/19/23 12/13/24 clozapine 50 mg tablet 50 mg PO DAILY 01/19/23 12/13/24 docusate sodium 100 mg capsule 100 mg PO BID 01/19/23 12/13/24 omega 7-[id number]-kae-fish oil 60 mg-90 1 cap PO DAILY 01/19/23 12/13/24 mg-500 mg capsule (Fish Oil) simvastatin 20 mg tablet 20 mg PO DAILY 01/19/23 12/13/24 duloxetine 60 mg capsule,delayed 60 mg PO BID 07/20/23 12/13/24 release cholecalciferol (vitamin D3) 25 1,000 unit PO DAILY 02/11/24 12/13/24 mcg (1,000 unit) capsule (Vitamin D3) polyethylene glycol 3350 17 17 g PO QDAY 02/11/24 12/13/24 gram/dose oral powder (Miralax) albuterol sulfate 90 mcg/actuation 2 inh inhalation Q6H PRN 06/21/24 12/13/24 aerosol inhaler (Ventolin HFA) meloxicam 7.5 mg tablet 7.5 mg PO DAILY 06/21/24 12/13/24 ondansetron 4 mg disintegrating 4 mg PO Q6H PRN 06/21/24 12/13/24 tablet tizanidine 2 mg tablet 2 mg PO TID 07/25/24 12/13/24 acetaminophen 325 mg tablet 650 mg PO BID 08/07/24 12/13/24 (Tylenol) diazepam 5 mg tablet 10 mg PO BID 08/07/24 12/13/24 olanzapine 10 mg tablet 5 mg PO BID 08/07/24 12/13/24 tramadol 50 mg tablet 50 mg PO Q4H PRN PRN pain #10 tabs 08/07/24 12/13/24 diclofenac sodium 1 % topical gel 2 g topical DAILY 09/28/24 12/13/24 magnesium oxide 400 mg PO DAILY 09/28/24 12/13/24 memantine 10 mg tablet 5 mg PO BID 09/28/24 12/13/24 bisacodyl 10 mg rectal suppository 10 mg MO ONCE PRN 09/29/24 12/13/24 sodium phosphates 19 gram-7 118 ml MO DAILY PRN 09/29/24 12/13/24 gram/118 mL enema (Fleet Enema) umeclidinium 62.5 mcg/actuation 1 inh inhalation DAILY 09/29/24 12/13/24 blister powder for inhalation (Incruse Ellipta) cyanocobalamin (vitamin B-12) 1,000 mcg PO DAILY 10/02/24 12/13/24 1,000 mcg sublingual tablet diazepam 10 mg tablet 10 mg PO BID 12/13/24 12/13/24 donepezil 5 mg tablet 5 mg PO DAILY 12/13/24 12/13/24 Previous Rx's ?Medication ?Instructions ?Recorded tramadol 50 mg tablet 50 mg PO Q4H PRN PRN pain #10 tabs 08/07/24 Allergies Allergy/AdvReac Type Severity Reaction Status Date / Time No Known Allergies Allergy Verified 09/29/24 02:01 General WILLIAMS: 3 Exam Narrative Exam Narrative: Const: WDWN elderly male in NAD. VS per triage. HEENT: NC/AT. Normal facial exam. Neck: Supple. Trachea midline. Lungs: Normal respiratory effort. Lungs with significant rhonchi in the right base. Minimal wheezing appreciated. Cor: RRR without murmur. Good radial pulses. GI: Soft/ND/NT. Neuro: A+O x 3. Normal speech, mentation. Cranial nerves II - XII grossly intact. No gross motor or sensory deficit. Medical Decision Making Patient presenting to ED from [facility] with chest pain, shortness of breath, cough, low blood pressure. Patient's mental status appears normal here. He is requiring 3 L nasal cannula to maintain pulse ox at 90. He has loud rhonchi at the right base. Initial blood pressure 98/50. IV established laboratory studies sent. Fluvid will be obtained. EKG and chest x-ray ordered. Patient's EKG is sinus rhythm with low voltage and nonspecific ST changes unchanged from previous. Chest x-ray per my read with definite retrocardiac infiltrate. Radiology feels there is likely a right upper lobe infiltrate and possibly some interstitial edema. Saturations remain in the low 90s on oxygen. Laboratory studies with slightly elevated white count of 12.3. Hemoglobin 10.4 which is baseline. He has mild retention of carbon dioxide at 55 but a normal pH at 7.39. Chemistries and liver function unremarkable. Initial troponin negative. Fluvid negative. Given the patient's history of aspiration pneumonia he is given Zosyn. Due to the history of [facility] resident is also covered with vancomycin. That [facility] currently has outbreak of Legionella so we will cover with Zithromax and Legionella studies sent. Blood pressures have responded to fluid boluses. Case discussed with hospitalist for admission for further management. Medical Records Medical records reviewed: Yes I reviewed the patient's medical records. Medical records narrative: Recent palliative note and September d/ summary Imaging Data Radiologic Study: Attestation: I personally reviewed and interpreted this imaging study as follows: Imaging: X-Ray My impression: Definite left retrocardiac infiltrate Radiologist's impression: IMPRESSION: 1. Enlarged cardiac silhouette, pleural effusion and diffuse interstitial prominence suggesting fluid overload. 2. Multifocal consolidative radiopacities in the right upper lung in the left lung base suspicious for multifocal aspiration/infection. Dictated and Authenticated by: Loni Ayoub MD. Lab Data Lab results reviewed: Yes I reviewed the patient's lab results. Lab results narrative: See [facility] ECG Data Attestation: I personally reviewed and interpreted this ECG (s) as follows: Prior ECG tracings: available for review Interpretation: see EKG/MDM Quality:SDOH Health Related Social Needs: Health related social needs daily activities PFSH All Active Problems (Updated 12/13/24 @ 23:16 by Richard Claire MD) Multifocal pneumonia (Acute) Multifocal pneumonia (Acute) Deficit in activities of daily living (ADL) (Acute) Lives in [facility] (Acute) Dementia (Chronic) Schizophrenia (Chronic) COPD (chronic obstructive pulmonary disease) (Chronic) Acute and chronic respiratory failure with hypoxia (Acute) Fall (Acute) Contusion of knee (Acute) Chronic respiratory failure with hypoxia, on home O2 therapy (Acute) Supplemental oxygen dependent (Acute) COPD (chronic obstructive pulmonary disease) (Chronic) Aspiration pneumonia (Acute) Schizophrenia (Chronic) Alzheimer's dementia without behavioral disturbance (Chronic) Medical History Left foot pain Cognitive impairment Bilateral primary osteoarthritis of knee Pneumonia COVID Dermatophytosis of nail Alcohol abuse, in remission Auditory hallucinations History of suicidal ideation Paranoid schizophrenia Altered mental status Cognitive changes Anemia Elevated PSA Urinary incontinence Hyperplasia of prostate with lower urinary tract symptoms (LUTS) Emphysema lung Pulmonary nodule Tobacco abuse History of prediabetes Hyperlipidemia Low back pain Acute metabolic encephalopathy Neutrophilia Pain, foot, left, chronic Patellofemoral joint pain Atherosclerosis Surgical History 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) As treatment for right femoral neck fracture Hx of knee surgery Family History Mother Brain cancer Father Heart disease Hypertension Obesity Osteoarthritis Social History Smoking/Tobacco Use Status: Former Tobacco Use Tobacco: How many years used: 38 Smoking risk assessment performed?: Yes Alcohol Intake: never Substance use type: does not use Housing: house Do you feel safe at home: Yes Do you feel safe in your relationship?: Yes
--- NOTE | 2024-12-13 21:00 | RT.EKG_ITS ---
APPROVED REPORT Exam: Resting ECG Reason for Exam: Patient Location: E HR:84 bpm ECG Measurements Heart Rate [address] 167 P 50 QRSd 88 QRS 7 QT 373 T 59 QTc 442 Conclusion Sinus rhythm...normal P axis, V-rate 60- 99 Low voltage, precordial leads...precordial leads <1.0mV Normal [place]/Intervals NS ST changes There are no significant changes compared to prior EKG performed on 09/29/2024 at 02:16.
--- NOTE | 2024-12-13 21:00 | DI.RAD_ITS ---
Exam(s) XR CHEST 2V PA LATERAL EXAM: XR CHEST 2V PA LATERAL CLINICAL HISTORY: cough, SOB TECHNIQUE: 2D digital imaging was performed of the chest. Two images were obtained. AP and lateral views were obtained. COMPARISON: CT CT CHEST PE ABD PELVIS W from 09/29/2024 CR,XR XR PORTABLE CHEST AP from 09/30/2024 FINDINGS: MEDIASTINUM: Normal. HEART: The heart is at the upper limits of normal in size. PULMONARY VASCULATURE: Normal. LUNGS: There is an opacity in the left lower lobe. There also appear to be smaller opacities in the upper lobes bilaterally. PLEURAL SPACE: There is a left pleural effusion. There is no pneumothorax. BONE:Within normal limits for the patient's age. OTHER FINDINGS:Normal. IMPRESSION: 1. There is an opacity in the left lower lobe with a smaller opacity seen in the upper lobes. The findings are suspicious for multifocal pneumonia. 2. Small left pleural effusion. 3. The preliminary [facility] report was reviewed. DATA REPOSITORY: RADIATION DOSE DELIVERED:
[2024-12-13] MEDS: Normal Saline 500 ML IV ×2 (21:23→23:59)
[2024-12-13 21:57] LABS: Abs Immature Grans 0.09 10^3/uL (0.0-0.06); HCT 35.2 % (40.0-50.0); HGB 10.4 g/dL (13.5-17.5); Immature Grans % 0.7 %; MCH 26.1 pg (27.0-33.0); MCHC 29.5 % (32.0-36.0); MCV 88 fL (80-95); MPV 10.1 fL (8.0-11.0); Platelet Count 369 10^3/uL (130-400); RBC 3.99 10^6/uL (4.36-5.78); RDW 15.5 % (11.8-14.1); RDW-SD 49.1 fL; WBC 12.32 10^3/uL (4.4-10.8)
[2024-12-13 22:02] LABS: BE (Venous) 8 mmol/L (-2-3); HCO3 (Venous) 33 mmol/L (23-28); O2 Sat (Venous) 72 %; TCO2 (Venous) 31 mmol/L (24-29); pCO2 (Venous) 55 mmHg (41-51); pO2 (Venous) 39 mmHg
[2024-12-13 22:07] LABS: COVID-19 PCR Negative (Negative); RSV PCR Negative (Negative)
[2024-12-13 22:17] LABS: ALT 27 U/L (16-63); AST 19 U/L (15-37); Albumin 2.8 g/dL (3.4-5.0); Alkaline Phosphatase 100 U/L (46-116); Anion Gap 5.1 mmol/L (3-11); BUN 29 mg/dL (7-18); Bilirubin, Total 0.2 mg/dL (0.2-1.0); CO2 34.9 mmol/L (21.0-32.0); Calcium 9.5 mg/dL (8.5-10.1); Chloride 105 mmol/L (98-107); Estimated GFR 93.61 (mL/min/1.73m2); Glucose 114 mg/dL (74-106); Magnesium 2.4 mg/dL (1.8-2.4); Potassium 4.2 mmol/L (3.5-5.1); Sodium 145 mmol/L (136-145); Total Protein 7.0 g/dL (6.4-8.2); Troponin I 4 ng/L (<or=76)
[2024-12-13] MEDS: PIPERACILLIN/TAZO 3.375 GM in Normal Saline 50 ML IVPB (22:28)
--- NOTE | 2024-12-13 22:55 | DI.[facility]_ITS ---
PROCEDURE INFORMATION: Exam: XR Chest Exam date and time: 12/13/2024 9:51 PM Age: 69 years old Clinical indication: Cough and shortness of breath; Cough, SOB TECHNIQUE: Imaging protocol: Radiologic exam of the chest. Views: 2 views. COMPARISON: CR XR PORTABLE CHEST AP 09/30/2024 6:09 AM FINDINGS: Lungs: Lung volumes are low. There are diffuse interstitial radiopacities bilaterally. Patchy airspace opacities are present within the right upper lung. There are likely consolidative radiopacities at the left lung base. Pleural spaces: No pleural effusion. No pneumothorax. Heart/Mediastinum: Cardiac silhouette is enlarged, as before. Bones/joints: Unremarkable. Other findings: There is likely a small left effusion. IMPRESSION: 1. Enlarged cardiac silhouette, pleural effusion and diffuse interstitial prominence suggesting fluid overload. 2. Multifocal consolidative radiopacities in the right upper lung in the left lung base suspicious for multifocal aspiration/infection. Dictated and Authenticated by: Loni Ayoub MD. Orderin Dakotah Ramos MD
--- NOTE | 2024-12-13 23:09 | W.PM.HP.N ---
Date of service: 12/13/24 Time of Service: 23:09 Assessment and Plan Assessment and plan (1) Acute and chronic respiratory failure with hypoxia: Start date: 12/13/24 Status: Acute Assessment and plan: This is a 69-year-old gentleman who resides at the local [facility] because of inability to take care of self with independent ADL activity and frequent falls. He has had no recent falls which prompted investigation or cause injury. He presents with worsening hypoxemia on chronic O2 at the [facility] and question of aspiration with recurrent aspiration in the past. Imaging does reveal possible right sided multifocal pneumonia consistent with aspiration. He was not witnessed aspirating. There has been an outbreak of Legionella at the [facility] and this is a possible source of his acute pneumonia and change in status. He will be admitted with O2 supplementation being weaned to his baseline before discharge and IV antibiotic therapy to cover the possibilities of aspiration and Legionella. Also he has been covered for healthcare facility acquired pneumonia. He is a full code. (2) Multifocal pneumonia: Start date: 12/13/24 Status: Acute Assessment and plan: Multifocal on the right more by imaging and question of aspiration with previous aspiration. Patient will be continued on IV Zosyn, vancomycin and Zithromax. There is some warning of QT prolongation with his multiple psychiatric meds and Zithromax with cardiac monitoring to be continued. He will be covered for Legionella with Zithromax since doxycycline will be better for his psychiatric meds but not as effective with resistance found with Legionella pneumonia. (3) COPD (chronic obstructive pulmonary disease): Status: Chronic Assessment and plan: Continue outpatient medical therapy. Patient does not have increased wheezing presently. (4) Schizophrenia: Status: Chronic Assessment and plan: Continue outpatient medical therapy. (5) Alzheimer's dementia without behavioral disturbance: Status: Chronic Assessment and plan: Continue outpatient medical therapy for prevention of progression. (6) BPH without obstruction/lower urinary tract symptoms: Status: Chronic Assessment and plan: Continue Flomax. Patient does wear adult diaper. History of Present Illness History of Present Illness Chief Complaint: Dyspnea at rest with cough and increased oxygen needs on chronic oxygen. Narrative: This is a 69-year-old male patient who has chronic schizophrenia and early dementia on medical therapy for these problems who resides at a local [facility] because of increased falls at home. He stated he did fall within the last couple weeks but he is a poor historian and is no report of him being seen for that fall or having sequela of the fall. Over the last couple days he has had increased cough with sputum but he cannot describe whether he is producing phlegm. He has had no fever. He has had increased oxygen needs and he was interpreted as having change in mental status by the [facility]. In the ED he appeared to be at baseline mentation. He was requiring increased oxygen and x-ray did show question of aspiration multifocal pneumonia with patient have a history of aspiration pneumonia. His WBC was slightly elevated and imaging positive with patient admitted for treatment of his pneumonia and increased oxygen needs with acute hypoxic respite failure on chronic hypoxic respiratory failure. He offers no further new history or complaints. As stated he is a poor historian. There are plans for him to return to the [facility]. The [facility] has had an outbreak of Legionella and this has been screened for and covered by the IV antibiotic therapy with IV Zosyn, vancomycin and Zithromax initiated by the ED physician which will be continued. He remains a full code which should be reevaluated with his status. Review of Systems Narrative: 13 point review of systems as per HPI, otherwise unrevealing or stable per report from [facility] with patient a poor historian. PFSH All Active Problems (Updated 12/13/24 @ 23:47 by Eric Pedro) BPH without obstruction/lower urinary tract symptoms (Chronic) Multifocal pneumonia (Acute) Multifocal pneumonia (Acute) Deficit in activities of daily living (ADL) (Acute) Lives in [facility] (Acute) Dementia (Chronic) Schizophrenia (Chronic) COPD (chronic obstructive pulmonary disease) (Chronic) Acute and chronic respiratory failure with hypoxia (Acute) Fall (Acute) Contusion of knee (Acute) Chronic respiratory failure with hypoxia, on home O2 therapy (Acute) Supplemental oxygen dependent (Acute) COPD (chronic obstructive pulmonary disease) (Chronic) Aspiration pneumonia (Acute) Schizophrenia (Chronic) Alzheimer's dementia without behavioral disturbance (Chronic) Medical History Left foot pain Cognitive impairment Bilateral primary osteoarthritis of knee Pneumonia COVID Dermatophytosis of nail Alcohol abuse, in remission Auditory hallucinations History of suicidal ideation Paranoid schizophrenia Altered mental status Cognitive changes Anemia Elevated PSA Urinary incontinence Hyperplasia of prostate with lower urinary tract symptoms (LUTS) Emphysema lung Pulmonary nodule Tobacco abuse History of prediabetes Hyperlipidemia Low back pain Acute metabolic encephalopathy Neutrophilia Pain, foot, left, chronic Patellofemoral joint pain Atherosclerosis Surgical History 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) As treatment for right femoral neck fracture Hx of knee surgery Family History Mother Brain cancer Father Heart disease Hypertension Obesity Osteoarthritis Social History Smoking/Tobacco Use Status: Former Tobacco Use Tobacco: How many years used: 38 Smoking risk assessment performed?: Yes Alcohol Intake: never Substance use type: does not use Housing: house Do you feel safe at home: Yes Do you feel safe in your relationship?: Yes Meds Allergies and Home Medications Allergies Allergy/AdvReac Type Severity Reaction Status Date / Time No Known Allergies Allergy Verified 09/29/24 02:01 Home Medications ?Medication ?Instructions ?Recorded ?Confirmed ?Type tamsulosin 0.4 mg capsule 0.8 mg PO QHS 03/23/22 12/13/24 History trazodone 50 mg tablet 50 mg PO QHS 03/23/22 12/13/24 History umeclidinium 62.5 mcg/actuation 1 inh inhalation DAILY 03/23/22 12/13/24 History blister powder for inhalation (Incruse Ellipta) clozapine 200 mg tablet 200 mg PO QHS 01/19/23 12/13/24 History clozapine 50 mg tablet 50 mg PO DAILY 01/19/23 12/13/24 History docusate sodium 100 mg capsule 100 mg PO BID 01/19/23 12/13/24 History omega 3-[id number]-tvn-fish oil 60 mg-90 1 cap PO DAILY 01/19/23 12/13/24 History mg-500 mg capsule (Fish Oil) simvastatin 20 mg tablet 20 mg PO DAILY 01/19/23 12/13/24 History duloxetine 60 mg capsule,delayed 60 mg PO BID 07/20/23 12/13/24 History release cholecalciferol (vitamin D3) 25 1,000 unit PO DAILY 02/11/24 12/13/24 History mcg (1,000 unit) capsule (Vitamin D3) polyethylene glycol 3350 17 17 g PO QDAY 02/11/24 12/13/24 History gram/dose oral powder (Miralax) albuterol sulfate 90 mcg/actuation 2 inh inhalation Q6H PRN 06/21/24 12/13/24 History aerosol inhaler (Ventolin HFA) meloxicam 7.5 mg tablet 7.5 mg PO DAILY 06/21/24 12/13/24 History ondansetron 4 mg disintegrating 4 mg PO Q6H PRN 06/21/24 12/13/24 History tablet tizanidine 2 mg tablet 2 mg PO TID 07/25/24 12/13/24 History acetaminophen 325 mg tablet 650 mg PO BID 08/07/24 12/13/24 History (Tylenol) tramadol 50 mg tablet 50 mg PO Q4H PRN PRN pain #10 tabs 08/07/24 12/13/24 Rx diclofenac sodium 1 % topical gel 2 g topical DAILY 09/28/24 12/13/24 History magnesium oxide 400 mg PO DAILY 09/28/24 12/13/24 History bisacodyl 10 mg rectal suppository 10 mg IN ONCE PRN 09/29/24 12/13/24 History sodium phosphates 19 gram-7 118 ml IN DAILY PRN 09/29/24 12/13/24 History gram/118 mL enema (Fleet Enema) cyanocobalamin (vitamin B-12) 1,000 mcg PO DAILY 10/02/24 12/13/24 History 1,000 mcg sublingual tablet diazepam 10 mg tablet 10 mg PO BID 12/13/24 12/13/24 History donepezil 5 mg tablet 5 mg PO DAILY 12/13/24 12/13/24 History memantine 5 mg tablet 5 mg PO BID 12/14/24 12/14/24 History olanzapine 5 mg tablet 5 mg PO BID 12/14/24 12/14/24 History Exam Narrative Exam Narrative: General: Patient appears older than stated age, moderately obese, alert and oriented possibly person and place but not time or purpose. He is in no acute distress. He has a flat affect with good eye contact but minimal conversation with 1-2 word answers to questions. HEENT: Normocephalic, coarsened facial features, eyes with pupils equal and reactive light symmetric, extraocular movement intact and sclera anicteric. Oropharynx with dry mucosa and poor dentition. Neck: Supple without JVD. Back: Kyphotic without CVA tenderness the patient has difficulty sitting up in bed. Lungs: Bronchovesicular breath sounds diffusely with rhonchi over the right more than left hemithorax but no focalized rales or coarse crackles. No increased expiratory phase or expiratory wheeze. Heart: Regular rate and rhythm with no appreciable murmurs or gallops.. Abdomen: Obese contour, soft and nontender to palpation with no palpable hepatosplenomegaly. Bowel sounds positive all quadrants. Genitalia/rectal: Exam deferred. Skin: Pale, warm and dry with actinic changes over sun exposed areas. Extremities: Without clubbing, cyanosis or grossly pitting edema. Good capillary refill. Neuro: Cranial nerves II through XII gross intact, no focalized motor deficits and no tremor. Psych: Flattened affect with depressed mood and normal conversation during interview. No abnormal thought processes manifested. No agitation. Remote memory and recent memory difficult to assess because of his chronic psychiatric disease and early dementia. He answers appropriately for both remote and recent memory at times and then wanders in conversation. Results Imaging Imaging Studies: Exam: XR Chest Exam date and time: 12/13/2024 9:51 PM Age: 69 years old Clinical indication: Cough and shortness of breath; Cough, SOB TECHNIQUE: Imaging protocol: Radiologic exam of the chest. Views: 2 views. COMPARISON: CR XR PORTABLE CHEST AP 09/30/2024 6:09 AM FINDINGS: Lungs: Lung volumes are low. There are diffuse interstitial radiopacities bilaterally. Patchy airspace opacities are present within the right upper lung. There are likely consolidative radiopacities at the left lung base. Pleural spaces: No pleural effusion. No pneumothorax. Heart/Mediastinum: Cardiac silhouette is enlarged, as before. Bones/joints: Unremarkable. Other findings: There is likely a small left effusion. IMPRESSION: 1. Enlarged cardiac silhouette, pleural effusion and diffuse interstitial prominence suggesting fluid overload. 2. Multifocal consolidative radiopacities in the right upper lung in the left lung base suspicious for multifocal aspiration/infection. Labs 12/14/24 05:55 12/14/24 05:55 Labs: Laboratory Results - last 24 hr 12/13/24 12/13/24 12/13/24 21:18 21:25 21:58 WBC 12.32 H RBC 3.99 L Hgb 10.4 L Hct 35.2 L MCV 88 MCH 26.1 L MCHC 29.5 L RDW 15.5 H Plt Count 369 MPV 10.1 Immature Gran % 0.7 Neutrophils % 58.3 Lymphocytes % 27.8 Monocytes % 6.8 Eosinophils % 5.8 Basophils % 0.6 Nucleated RBC % 0.0 Absolute Neutrophils 7.18 H Absolute Lymphocytes 3.42 H Absolute Monocytes 0.84 H Absolute Eosinophils 0.71 H Absolute Basophils 0.07 VBG pH 7.39 VBG pCO2 55 H VBG pO2 39 VBG HCO3 33 H VBG Total CO2 31 H VBG O2 Saturation 72 VBG Base Excess 8 H VBG Lactate 1.4 Sodium 145 Potassium 4.2 Chloride 105 Carbon Dioxide 34.9 H Anion Gap 5.1 BUN 29 H Creatinine 0.9 Est GFR (CKD-EPI 2020) 93.61 Glucose 114 H Calcium 9.5 Magnesium 2.4 Total Bilirubin 0.2 AST 19 ALT 27 Alkaline Phosphatase 100 Troponin I 4 Total Protein 7.0 Albumin 2.8 L COVID-19 Source Nasopharynx SARS-CoV-2 (PCR) Negative Influenza Type A (PCR) Negative Influenza Type B (PCR) Negative RSV (PCR) Negative Last Vital Signs Temp 36.5 C 12/13/24 21:01 Pulse 82 12/13/24 21:31 Resp 13 12/13/24 21:31 BP 94/55 L 12/13/24 21:30 Pulse Ox 90 L 12/13/24 21:32 Time Spent Time spent with Patient: >75 minutes Time was spent: preparing to see the patient(eg.review tests), obtaining and/or reviewing separately otained hiistory, ordering medications,tests, procedures, indepentently interpreting results and care coordination
[2024-12-13 23:10] LABS: Troponin I 5 ng/L (<or=76)
[2024-12-13] MEDS: AZITHROMYCIN 500 MG in Normal Saline 250 ML 250 MG IVPB (23:59)
[2024-12-14] VITALS (13 sets, daily range): BP systolic 88–116; BP diastolic 61–87; PULSE 70–84; RESP 16–19; TEMP 36–37.2; O2SAT 91–97
--- NOTE | 2024-12-14 00:09 | W.PC.ACHO ---
Registration Status: REG ER Primary Language: Preferred Language: ED Information & Data Chief Complaint Chest Pain 12/13/24 21:31 Chief Complaint Chest Pain 12/13/24 21:01 Other Complaint SOB 12/13/24 21:01 Triage Note BIBA for report of increased 12/13/24 21:01 diff breathing X 2 days per [facility] staff. Reports lethargy, hypotension, and chest pain. Pt says he has had yellow liquid coming up when he coughs. Medical / Surgical History (Last Reviewed 12/13/24 @ 23:17 by Eric Pedro) Left foot pain Cognitive impairment Bilateral primary osteoarthritis of knee Pneumonia COVID Dermatophytosis of nail Alcohol abuse, in remission Auditory hallucinations History of suicidal ideation Paranoid schizophrenia Altered mental status Cognitive changes Anemia Elevated PSA Urinary incontinence Hyperplasia of prostate with lower urinary tract symptoms (LUTS) Emphysema lung Pulmonary nodule Tobacco abuse History of prediabetes Hyperlipidemia Low back pain Acute metabolic encephalopathy Neutrophilia Pain, foot, left, chronic Patellofemoral joint pain Atherosclerosis (Last Reviewed 12/13/24 @ 23:17 by Eric Pedro) 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) Hx of knee surgery Most Recent Vital Signs Temperature 37.2 C 12/14/24 00:04 Temperature Source Oral 12/13/24 21:01 Pulse 74 12/14/24 00:04 Pulse 82 12/13/24 21:31 Respiratory Rate 16 12/14/24 00:04 Respiratory Effort Short of Breath 12/13/24 21:05 Blood Pressure 94/55 L 12/13/24 21:30 Blood Pressure Mean 67 12/13/24 21:30 Blood Pressure Position Sitting 12/13/24 21:01 Pulse Oximetry 90 L 12/13/24 21:32 Oxygen Delivery Method Nasal Cannula 12/13/24 21:32 Oxygen Flow Rate 3 12/13/24 21:32 Pain Level 7 12/13/24 21:01 Allergies No Known Allergies Allergy (Verified 09/29/24 02:01) IV IV Catheter Type [Right Saline Lock Antecubital] IV Catheter Gauge [Right 18 Antecubital] Diagnostics 12/13/24 12/13/24 12/13/24 Range/Units 22:47 21:58 21:25 WBC (4.4-10.8) 10^3/uL RBC (4.36-5.78) 10^6/uL Hgb (13.5-17.5) g/dL Hct (40.0-50.0) % MCV (80-95) fL MCH (27.0-33.0) pg MCHC (32.0-36.0) % RDW (11.8-14.1) % Plt Count (130-400) 10^3/uL MPV (8.0-11.0) fL Immature Gran % % Neutrophils % % Lymphocytes % % Monocytes % % Eosinophils % % Basophils % % Nucleated RBC % (0.0-0.3) % Absolute Neutrophils (1.2-6.7) 10^3/uL Absolute Lymphocytes (1.2-3.4) 10^3/uL Absolute Monocytes (0.1-0.8) 10^3/uL Absolute Eosinophils (0.0-0.7) 10^3/uL Absolute Basophils (0.0-0.2) 10^3/uL VBG pH 7.39 (7.31-7.41) VBG pCO2 55 H (41-51) mmHg VBG pO2 39 mmHg VBG HCO3 33 H (23-28) mmol/L VBG Total CO2 31 H (24-29) mmol/L VBG O2 Saturation 72 % VBG Base Excess 8 H (-2-3) mmol/L VBG Lactate 1.4 (<or=2.0) mmol/L Sodium (136-145) mmol/L Potassium (3.5-5.1) mmol/L Chloride (98-107) mmol/L Carbon Dioxide (21.0-32.0) mmol/L Anion Gap (3-11) mmol/L BUN (7-18) mg/dL Creatinine (0.70-1.30) mg/dL Est GFR (CKD-EPI 2020) (mL/min/1.73m2) Glucose (74-106) mg/dL Calcium (8.5-10.1) mg/dL Magnesium (1.8-2.4) mg/dL Total Bilirubin (0.2-1.0) mg/dL AST (15-37) U/L ALT (16-63) U/L Alkaline Phosphatase (46-116) U/L Troponin I 5 (<or=76) ng/L Total Protein (6.4-8.2) g/dL Albumin (3.4-5.0) g/dL COVID-19 Source Nasopharynx SARS-CoV-2 (PCR) Negative (Negative) Influenza Type A (PCR) Negative (Negative) Influenza Type B (PCR) Negative (Negative) Legionella Source Pending Legionella DNA (PCR) Pending RSV (PCR) Negative (Negative) 12/13/24 Range/Units 21:18 WBC 12.32 H (4.4-10.8) 10^3/uL RBC 3.99 L (4.36-5.78) 10^6/uL Hgb 10.4 L (13.5-17.5) g/dL Hct 35.2 L (40.0-50.0) % MCV 88 (80-95) fL MCH 26.1 L (27.0-33.0) pg MCHC 29.5 L (32.0-36.0) % RDW 15.5 H (11.8-14.1) % Plt Count 369 (130-400) 10^3/uL MPV 10.1 (8.0-11.0) fL Immature Gran % 0.7 % Neutrophils % 58.3 % Lymphocytes % 27.8 % Monocytes % 6.8 % Eosinophils % 5.8 % Basophils % 0.6 % Nucleated RBC % 0.0 (0.0-0.3) % Absolute Neutrophils 7.18 H (1.2-6.7) 10^3/uL Absolute Lymphocytes 3.42 H (1.2-3.4) 10^3/uL Absolute Monocytes 0.84 H (0.1-0.8) 10^3/uL Absolute Eosinophils 0.71 H (0.0-0.7) 10^3/uL Absolute Basophils 0.07 (0.0-0.2) 10^3/uL VBG pH (7.31-7.41) VBG pCO2 (41-51) mmHg VBG pO2 mmHg VBG HCO3 (23-28) mmol/L VBG Total CO2 (24-29) mmol/L VBG O2 Saturation % VBG Base Excess (-2-3) mmol/L VBG Lactate (<or=2.0) mmol/L Sodium 145 (136-145) mmol/L Potassium 4.2 (3.5-5.1) mmol/L Chloride 105 (98-107) mmol/L Carbon Dioxide 34.9 H (21.0-32.0) mmol/L Anion Gap 5.1 (3-11) mmol/L BUN 29 H (7-18) mg/dL Creatinine 0.9 (0.70-1.30) mg/dL Est GFR (CKD-EPI 2020) 93.61 (mL/min/1.73m2) Glucose 114 H (74-106) mg/dL Calcium 9.5 (8.5-10.1) mg/dL Magnesium 2.4 (1.8-2.4) mg/dL Total Bilirubin 0.2 (0.2-1.0) mg/dL AST 19 (15-37) U/L ALT 27 (16-63) U/L Alkaline Phosphatase 100 (46-116) U/L Troponin I 4 (<or=76) ng/L Total Protein 7.0 (6.4-8.2) g/dL Albumin 2.8 L (3.4-5.0) g/dL COVID-19 Source SARS-CoV-2 (PCR) (Negative) Influenza Type A (PCR) (Negative) Influenza Type B (PCR) (Negative) Legionella Source Legionella DNA (PCR) RSV (PCR) (Negative) Intake and Output - 24 Hour Total 12/13/24 20:46 thru 12/13/24 22:18 Intake Total 500 Balance 500 Weight 96.162 kg Intake: IV 500 Falls Risk Assessment History of Falls Previous History 12/13/24 21:20 Contributing Factors Confusion,Unstable, 12/13/24 21:20 Impairments,Incontinence, Medications Ambulatory Aids Uses ambulatory device + 12/13/24 21:20 Tubes/Lines With any additional score 12/13/24 21:20 Gait Evaluation W/any additional score 12/13/24 21:20 Cognition Cognitive impairment 12/13/24 21:20 Fall Total Score 115 12/13/24 21:20 Level of Risk Maximum Risk 12/13/24 21:20 Problems (Last Reviewed 12/13/24 @ 23:17 by Eric Pedro) BPH without obstruction/lower urinary tract symptoms (Chronic) Multifocal pneumonia (Acute) Schizophrenia (Chronic) COPD (chronic obstructive pulmonary disease) (Chronic) Acute and chronic respiratory failure with hypoxia (Acute) Alzheimer's dementia without behavioral disturbance (Chronic) v v v v v v v v v Sending and/or Receiving Nurses: Please use comment section below to note any information pertinent to the patient hand-off not included above. Information / Comments: Report received from ED. On NC 3L (Baseline). Will be on tele. Urine sample to be done. Stable Report received from: Shu WINTER
[2024-12-14] MEDS: DULoxetine 30 MG CAP 60 MG PO ×3 (01:09→19:56)
[2024-12-14] MEDS: Memantine 5 MG TAB PO ×3 (01:10→19:54)
[2024-12-14] MEDS: traZODone 50 MG TAB PO ×2 (01:10→19:56)
[2024-12-14] MEDS: Tamsulosin 0.4 MG CAPCR 0.8 MG PO ×2 (01:10→19:54)
[2024-12-14] MEDS: diazePAM 5 MG TAB 10 MG PO ×3 (01:10→19:54)
[2024-12-14 02:37] LABS: Glucose Negative (Negative)
[2024-12-14 02:44] LABS: C & S Indicated? No; RBC Negative HPF (0-2)
[2024-12-14] MEDS: PIPERACILLIN/TAZO 3.375 GM in Normal Saline 50 ML IVPB ×3 (05:45→19:54)
[2024-12-14 06:29] LABS: HCT 33.8 % (40.0-50.0); HGB 10.0 g/dL (13.5-17.5); MCH 26.2 pg (27.0-33.0); MCHC 29.6 % (32.0-36.0); MCV 89 fL (80-95); MPV 9.9 fL (8.0-11.0); Platelet Count 358 10^3/uL (130-400); RBC 3.82 10^6/uL (4.36-5.78); RDW 15.4 % (11.8-14.1); RDW-SD 49.0 fL; WBC 9.27 10^3/uL (4.4-10.8)
[2024-12-14 06:58] LABS: ALT 27 U/L (16-63); AST 17 U/L (15-37); Albumin 2.6 g/dL (3.4-5.0); Alkaline Phosphatase 91 U/L (46-116); Anion Gap 4.9 mmol/L (3-11); BUN 25 mg/dL (7-18); Bilirubin, Total 0.2 mg/dL (0.2-1.0); CO2 32.1 mmol/L (21.0-32.0); Calcium 9.1 mg/dL (8.5-10.1); Chloride 109 mmol/L (98-107); Estimated GFR 100.99 (mL/min/1.73m2); Glucose 92 mg/dL (74-106); Magnesium 2.4 mg/dL (1.8-2.4); Potassium 4.6 mmol/L (3.5-5.1); Sodium 146 mmol/L (136-145); Total Protein 6.6 g/dL (6.4-8.2)
[2024-12-14 07:02] LABS: TSH (W/Ref FT4) 0.61 uIU/mL (0.36-3.74)
[2024-12-14] MEDS: Umeclidinium 7 CAP INHALER IH (08:17)
--- NOTE | 2024-12-14 09:29 | INITIAL_ITS ---
Date of service: 12/14/24 Time of Service: 11:29 Care Management Initial Assmt Initial Assessment Reason for Hospitalization: Acute on chronic respiratory failure. Functional Status/Living Situation Patient Presentation: Gopalaliya Lea was lying in his bed and awake, when CM arrived. Venu resides at [facility] with his . He presented to the ED with symptoms of increased shortness of breath, chest pain, and altered mental status, as reported by skilled nursing staff. Upon arrival, he was noted to be alert and appropriately responsive; see ED documentation. Today, Venu appears alert to self and place. He was pleasant and cooperative with this commercial real estate underwriter and engaged appropriately in conversation. He has a known history of oxygen dependency. Per report, his baseline is 2L via NC; he is currently requiring 3L. Venu was last seen by the palliative care provider on 11/27 (see documentation for details). Today, he expressed feeling tired and stated he would like to rest. A speech therapy cons ult is scheduled for today. CM will continue to follow. Town of Residence: [facility] Resides with: Other ([facility]) Significant Other/Family: Out of area Caregiver/Guardian: before SNF Natural Supports: , brother Employment Status: Retired Instrumental Activities of Daily Living (ADLs): Requires support Activities/Hobbies/SocialSupport: playing bingo and social settings Medications Medication Management: No Issues/Barriers identified Physical Functioning/Mobility Assistive Device: 4WW Advance Directives Advance Directives: Do you have an Advance Directive: Y , 12:20 AD On File at [facility]: Y 12/12/22, 12:20 Date Asked 11/08/24 11/08/24, 14:13 AD Date Reviewed 12/13/24 12/13/24, 21:03 COLST On File at [facility] No 12/13/24, 21:03 COLST Date Scanned Code Status Resuscitation Status Full Code Portal Pt does not currently have a portal and education provided: Yes Insurance Coverage/Financial Issues Insurance: Medicare Part A & B - [id number] Medicaid of [place] - [id number] Care Team Visit Care Team Role Provider Type Radha Alva APRN MD [facility] STAFF PHYSICIAN Milka Shelley Primary Care Provider ADV PRACTICE REGISTERED NURSE Richard Claire MD Emergency Provider [facility] STAFF PHYSICIAN Eric Bourgeois Admit Provider NON-[place] STAFF PHYSICIAN Attending Provider Discharge Potential Discharge Needs: PCP F/U Appt Anticipated Barriers to Discharge: Medical Status Patient/Family Education Needs: Review discharge instructions, discuss Ask Me Three Transportation: Private vehicle Plan: Anticipate, Gopal will return to [facility] where he resides, once medically cleared. He will follow up with facility providers, PT, palliative care, and plan of care. He will transport RCT vs. EMS. CM will continue to follow. Social Determinants of Health Screening Social Determinants of health last assessed in clinic: 12/14/24 Will the Patient Participate in the Screening?: Unable to obtain Do you worry about having a steady place to live?: no Problems where you live: no known problems In the past 12 months, have you had to go without electric, gas, oil or water in your home?: no 1. Within the past 12 months, we worried whether our food would run out before we got money to buy more.: Never true 2. Within the past 12 months, the food we bought just didn't last and we didn't have money to get more.: Never true Has lack of transportation kept you from medical appointments or from doing things needed for daily living?: no Has anyone in your life made you feel unsafe or unsupported?: no How hard is it for you to pay for the very basics like food, housing, medical care, and heating? Would you say it is:: Not hard at all Do you want help finding or keeping work or a job?: I do not need or want help If for any reason you need help with day-to-day activities such as bathing, preparing meals, shopping, managing finances, etc., do you get the help you need?: I don?t need any help How often do you feel lonely or isolated from those around you?: Never Do you speak a language other than [place] at home?: No Does the patient want assistance with any of the above?: No PFSH All Active Problems (Updated 12/14/24 @ 11:19 by Radha Alva APRN) Obesity (Chronic) BPH without obstruction/lower urinary tract symptoms (Chronic) Multifocal pneumonia (Acute) Multifocal pneumonia (Acute) Deficit in activities of daily living (ADL) (Acute) Lives in skilled nursing (Acute) Dementia (Chronic) Schizophrenia (Chronic) COPD (chronic obstructive pulmonary disease) (Chronic) Acute and chronic respiratory failure with hypoxia (Acute) Fall (Acute) Contusion of knee (Acute) Chronic respiratory failure with hypoxia, on home O2 therapy (Acute) Supplemental oxygen dependent (Acute) COPD (chronic obstructive pulmonary disease) (Chronic) Aspiration pneumonia (Acute) Schizophrenia (Chronic) Alzheimer's dementia without behavioral disturbance (Chronic) Medical History Left foot pain Cognitive impairment Bilateral primary osteoarthritis of knee Pneumonia COVID Dermatophytosis of nail Alcohol abuse, in remission Auditory hallucinations History of suicidal ideation Paranoid schizophrenia Altered mental status Cognitive changes Anemia Elevated PSA Urinary incontinence Hyperplasia of prostate with lower urinary tract symptoms (LUTS) Emphysema lung Pulmonary nodule Tobacco abuse History of prediabetes Hyperlipidemia Low back pain Acute metabolic encephalopathy Neutrophilia Pain, foot, left, chronic Patellofemoral joint pain Atherosclerosis Surgical History 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) As treatment for right femoral neck fracture Hx of knee surgery Family History Mother Brain cancer Father Heart disease Hypertension Obesity Osteoarthritis Social History Smoking/Tobacco Use Status: Former Tobacco Use Tobacco: How many years used: 38 Smoking risk assessment performed?: Yes Alcohol Intake: never Substance use type: does not use Housing: house Do you feel safe at home: Yes Do you feel safe in your relationship?: Yes Readmission Within the Past 30 Days Yes or No: No
[2024-12-14] MEDS: Donepezil 5 MG TAB PO (09:44)
[2024-12-14] MEDS: Diclofenac 1% Gel 100 GM TUBE TP (09:44)
[2024-12-14] MEDS: Polyethylene Glycol 3350 17 GM PACKET PO (09:44)
[2024-12-14] MEDS: Enoxaparin 40 MG/0.4 ML SYR SC (09:44)
[2024-12-14] MEDS: Magnesium Oxide 400 MG TAB PO (09:44)
[2024-12-14] MEDS: Cyanocobalamin 500 MCG TAB 1000 MCG PO (09:45)
[2024-12-14] MEDS: Simvastatin 20 MG TAB PO (09:45)
[2024-12-14] MEDS: Acetaminophen 325 MG TAB 650 MG PO ×2 (09:45→19:55)
[2024-12-14] MEDS: Cholecalciferol (Vitamin D3) 1,000 UNIT TAB 1000 UNITS PO (09:45)
[2024-12-14] MEDS: Docusate Sodium 100 MG CAP PO ×2 (09:46→19:54)
[2024-12-14] MEDS: OLANZapine 10 MG TAB 5 MG PO ×2 (09:49→19:55)
[2024-12-14] MEDS: Normal Saline Flush 10 ML SYR IVP ×2 (09:49→19:57)
[2024-12-14] MEDS: Meloxicam 15 MG TAB 7.5 MG PO (09:52)
--- NOTE | 2024-12-14 10:30 | PGE_ITS ---
Date of Service Date of service: 12/14/24 Time of Service: 11:45 Assessment and Plan Assessment and plan (1) Acute and chronic respiratory failure with hypoxia: Start date: 12/13/24 Status: Acute Assessment and plan: on 2l/min O2 at baseline, now requiring 3l/min to maintain sat goals 88-92% in the setting of sepsis d/t pneumonia/ aspiration pneumonitis Titrate O2 to goals As below (2) Sepsis: Status: Resolved Assessment and plan: Sepsis criteria met w WBC 12.72 and tachypnea at 22- source respiratory apsiration pneumonia/ pneumonitis No end-organ damage that would meet severe sepsis Blood Cx as below (3) Multifocal pneumonia: Start date: 12/13/24 Status: Acute Assessment and plan: On Azithromycin, zosyn and Vancomycin MRSA PCR Mucinex Acapella Nebs Labs in AM SPL consult pending as above Diet Recommendations as per SPL completed on 10/03/24 : SOLIDS: 5-Minced & Moist Solids/Thin Liquids. Rx: Whole vs crushed, as tolerated, with puree Alter medications only as advised by MD or Pharmacist 1:1 Assistive feeding with solids Encourage self-feeding with liquids, with staff holding cup between sips to encourage optimal pacing Positioning and environment: As upright as tolerated, use HOB controls/bed tilt to achieve upright positioning Up to chair for meals/PO when able Remain upright at least 30 min after meals Oral hygiene Before/After PO intake Using suction swab kits on all oral structures as tolerated Strategies/Adaptations/Assistive Equipment: Small sips Small bites Slow rate of intake Verbal prompts for small sips with liquid Reflux Precautions: Avoid meals/snacks 2-3 hours prior to reclining/sleeping Sleep with head of bed elevated to reduce likelihood of nocturnal reflux (4) COPD (chronic obstructive pulmonary disease): Status: Chronic Assessment and plan: Continue home regimen scheduled and PRN nebs (5) Schizophrenia: Status: Chronic Assessment and plan: On outpatient drug regimen (6) Alzheimer's dementia without behavioral disturbance: Status: Chronic Assessment and plan: On outpatient drug regimen Monitor for delirium in the setting of acute illness w hospitalization (7) BPH without obstruction/lower urinary tract symptoms: Status: Chronic Assessment and plan: On outpatient drug regimen (8) Obesity: Status: Chronic Assessment and plan: BMI 33.2 DVT prophylaxis : LMWH Counseled in weight management and discussion w outpatient provider re: GLP-1 drug therapy discussed wtih Dr. Costa Subjective Subjective Patient reports: feels better, tolerating liquids well, tolerating a regular diet, voiding w/o difficulty, no bowel movement, shortness of breath and other (Fatigued ); denies diarrhea, nausea, vomiting or fever Exam Narrative Exam Narrative: 69 yo male, appearing older than stated age, fatigues, alert and oriented X 2 , off about dates, shallow breathing , right sided coarse crackles, S1, S2 regualr , no murmur, abdomen is round, non- distended, soft and non-tender, moves all 4 ext. Objective Last Vital Signs Temp 36.0 C L 12/14/24 08:35 Pulse 78 12/14/24 08:35 Resp 16 12/14/24 08:35 BP 115/87 12/14/24 08:35 Pulse Ox 97 12/14/24 08:35 Laboratory Results - last 24 hr 12/13/24 12/13/24 12/13/24 21:18 21:25 21:58 WBC 12.32 H RBC 3.99 L Hgb 10.4 L Hct 35.2 L MCV 88 MCH 26.1 L MCHC 29.5 L RDW 15.5 H Plt Count 369 MPV 10.1 Immature Gran % 0.7 Neutrophils % 58.3 Lymphocytes % 27.8 Monocytes % 6.8 Eosinophils % 5.8 Basophils % 0.6 Nucleated RBC % 0.0 Absolute Neutrophils 7.18 H Absolute Lymphocytes 3.42 H Absolute Monocytes 0.84 H Absolute Eosinophils 0.71 H Absolute Basophils 0.07 VBG pH 7.39 VBG pCO2 55 H VBG pO2 39 VBG HCO3 33 H VBG Total CO2 31 H VBG O2 Saturation 72 VBG Base Excess 8 H VBG Lactate 1.4 Sodium 145 Potassium 4.2 Chloride 105 Carbon Dioxide 34.9 H Anion Gap 5.1 BUN 29 H Creatinine 0.9 Est GFR (CKD-EPI 2020) 93.61 Glucose 114 H Calcium 9.5 Magnesium 2.4 Total Bilirubin 0.2 AST 19 ALT 27 Alkaline Phosphatase 100 Troponin I 4 5 Total Protein 7.0 Albumin 2.8 L TSH Urine Color Urine Clarity Urine pH Ur Specific [place] Urine Protein Urine Ketones Urine Blood Urine Nitrite Urine Bilirubin Urine Urobilinogen Ur Leukocyte Esterase Urine RBC Urine WBC Ur Epithelial Cells Urine Crystals Urine Bacteria Urine Casts Urine Mucus Ur Culture Indicated? Urine Glucose COVID-19 Source Nasopharynx SARS-CoV-2 (PCR) Negative Influenza Type A (PCR) Negative Influenza Type B (PCR) Negative RSV (PCR) Negative 12/14/24 12/14/24 00:10 05:55 WBC 9.27 RBC 3.82 L Hgb 10.0 L Hct 33.8 L MCV 89 MCH 26.2 L MCHC 29.6 L RDW 15.4 H Plt Count 358 MPV 9.9 Immature Gran % Neutrophils % Lymphocytes % Monocytes % Eosinophils % Basophils % Nucleated RBC % Absolute Neutrophils Absolute Lymphocytes Absolute Monocytes Absolute Eosinophils Absolute Basophils VBG pH VBG pCO2 VBG pO2 VBG HCO3 VBG Total CO2 VBG O2 Saturation VBG Base Excess VBG Lactate Sodium 146 H Potassium 4.6 Chloride 109 H Carbon Dioxide 32.1 H Anion Gap 4.9 BUN 25 H Creatinine 0.7 Est GFR (CKD-EPI 2020) 100.99 Glucose 92 Calcium 9.1 Magnesium 2.4 Total Bilirubin 0.2 AST 17 ALT 27 Alkaline Phosphatase 91 Troponin I Total Protein 6.6 Albumin 2.6 L TSH 0.61 Urine Color Yellow Urine Clarity Sl Cloudy Urine pH 6.0 Ur Specific [place] >= 1.030 H Urine Protein 30 H Urine Ketones Negative Urine Blood Negative Urine Nitrite Negative Urine Bilirubin Negative Urine Urobilinogen 0.2 Ur Leukocyte Esterase Negative Urine RBC Negative Urine WBC 3-5 Ur Epithelial Cells Rare Urine Crystals Negative Urine Bacteria Rare Urine Casts Negative Urine Mucus Negative Ur Culture Indicated? No Urine Glucose Negative COVID-19 Source SARS-CoV-2 (PCR) Influenza Type A (PCR) Influenza Type B (PCR) RSV (PCR) Time Spent with Patient Time Spent with Patient: >50 minutes Time was spent: preparing to see the patient(eg.review tests), obtaining and/or reviewing separately otained hiistory, ordering medications,tests, procedures, referring, communicating with other health assistant child care teacher, indepentently interpreting results, counseling the patient and care coordination
[2024-12-14] MEDS: VANCOMYCIN/WATER (PEG) 1.5 GM/300 ML BAG IVPB ×2 (10:56→22:18)
--- NOTE | 2024-12-14 11:53 | PHA.REVIEW2 ---
Pharmacy Admission Review Admission Clinical Review Admission Pharmacy Review: Multifocal pneumonia (Acute) Acute and chronic respiratory failure with hypoxia (Acute) No Known Allergies Allergy (Verified 09/29/24 02:01) Resuscitation Status Full Code Height 5 ft 7 in Weight 96.162 kg Pharmacy Admission Review Renal Dosing Renal Dosing: BUN 25 mg/dL (7-18) H 12/14/24 05:55 Creatinine 0.7 mg/dL (0.70-1.30) 12/14/24 05:55 Medications needing adjustments: Reviewed (CrCl 79.21 mL/min, BUN decreased from 29) List of meds needing interventions: Current medications are okay Anticoagulation Anticoagulation: Hgb 10.0 g/dL (13.5-17.5) L 12/14/24 05:55 Hct 33.8 % (40.0-50.0) L 12/14/24 05:55 Plt Count 358 10^3/uL (130-400) 12/14/24 05:55 Creatinine 0.7 mg/dL (0.70-1.30) 12/14/24 05:55 DVT Prophylaxis: Reviewed Medications: Enoxaparin (40mg daily) Relevant Labs Relevant Labs: Sodium 146 mmol/L (136-145) H 12/14/24 05:55 Potassium 4.6 mmol/L (3.5-5.1) 12/14/24 05:55 Chloride 109 mmol/L (98-107) H 12/14/24 05:55 Magnesium 2.4 mg/dL (1.8-2.4) 12/14/24 05:55 Electrolytes, C-Reactive P, ESR: Reviewed Cardiac Review Cardiac Review: Troponin I 5 ng/L (<or=76) 12/13/24 21:58 BP, HR, EF%: Reviewed (BP/HR WNL, oxygen flow rate = 3 (baseline 2 per respiratory)) QTc Review QTc: Reviewed (442 from 12/13/24) IV to PO Switch IV Medications: Reviewed (azithromycin, Zosyn and vancomycin) Home Meds Home Med List reviewed: Reviewed Current Meds Current Medication Order Review: Intervened Comments: Added 2nd PRN to albuterol, fleet enema and ondansetron orders per pharmacy protocol Changed bisacodyl from once PRN to daily PRN PRN Spoke to provider about 2 acetaminophen orders - BID scheduled and q4h PRN. Provider changed PRN order to q12h and kept the scheduled order. Pharmacy Antibiotic Review Relevant Labs: WBC 9.27 10^3/uL (4.4-10.8) 12/14/24 05:55 Temperature 36.2 C Temperature 36.0 C Temperature 36.6 C Temperature 36.4 C Temperature 37.2 C Pharmacy Antibiotic Activity: C/S review and Reviewed, no change Comments: Patient is on azithromycin, Zosyn and vancomycin, day 1, for pneumonia/sepsis. Current vancomycin dose is 1.5g q12h with predicted AUC of 590. Ordered level for today at 1800. Will adjust dose as needed based on results. WBC decreased from 12.32 and blood cultures pending.
[2024-12-14 13:06] LABS: MRSA PCR Negative (Negative)
[2024-12-14] MEDS: Albuterol/Ipratropium 3 ML UPD VIAL UPD ×2 (17:28→20:15)
[2024-12-14 18:51] LABS: Vancomycin, Random 19.9 ug/mL
[2024-12-14] MEDS: guaiFENesin 600 MG TABCR PO (19:54)
[2024-12-14] MEDS: AZITHROMYCIN 500 MG in Normal Saline 250 ML 250 MG IVPB (21:14)
[2024-12-14 23:22] LABS: Legionella Ag Detection Urine Negative (Negative)
[2024-12-15] VITALS (8 sets, daily range): BP systolic 91–127; BP diastolic 58–73; PULSE 62–82; RESP 15–19; TEMP 36.3–36.8; O2SAT 93–98
[2024-12-15] MEDS: PIPERACILLIN/TAZO 3.375 GM in Normal Saline 50 ML IVPB ×4 (01:41→19:34)
[2024-12-15 07:10] LABS: HCT 33.3 % (40.0-50.0); HGB 9.9 g/dL (13.5-17.5); MCH 25.9 pg (27.0-33.0); MCHC 29.7 % (32.0-36.0); MCV 87 fL (80-95); MPV 9.8 fL (8.0-11.0); Platelet Count 329 10^3/uL (130-400); RBC 3.82 10^6/uL (4.36-5.78); RDW 15.3 % (11.8-14.1); RDW-SD 48.4 fL; WBC 7.11 10^3/uL (4.4-10.8)
[2024-12-15 07:51] LABS: ALT 23 U/L (16-63); AST 21 U/L (15-37); Albumin 2.6 g/dL (3.4-5.0); Alkaline Phosphatase 89 U/L (46-116); Anion Gap 5.8 mmol/L (3-11); BUN 14 mg/dL (7-18); Bilirubin, Total 0.3 mg/dL (0.2-1.0); CO2 31.2 mmol/L (21.0-32.0); Calcium 9.1 mg/dL (8.5-10.1); Chloride 106 mmol/L (98-107); Estimated GFR 100.99 (mL/min/1.73m2); Glucose 88 mg/dL (74-106); Magnesium 2.3 mg/dL (1.8-2.4); Potassium 4.2 mmol/L (3.5-5.1); Sodium 143 mmol/L (136-145); Total Protein 6.7 g/dL (6.4-8.2)
[2024-12-15] MEDS: Umeclidinium 7 CAP INHALER IH (08:13)
[2024-12-15] MEDS: Albuterol/Ipratropium 3 ML UPD VIAL UPD ×3 (08:13→15:57)
--- NOTE | 2024-12-15 09:20 | PGE_ITS ---
Date of Service Date of service: 12/15/24 Time of Service: 09:20 Assessment and Plan Assessment and plan (1) Acute and chronic respiratory failure with hypoxia: Start date: 12/13/24 Status: Acute Assessment and plan: At [facility] now of on 2l/min O2 at baseline,was requiring 3l/min to maintain sat goals 88-92% in the setting of sepsis d/t pneumonia/ aspiration pneumonitis Titrate O2 to goals As below (2) Sepsis: Status: Resolved Assessment and plan: Sepsis criteria met w WBC 12.72 and tachypnea at 22- source respiratory apsiration pneumonia/ pneumonitis No further leukocytosis No end-organ damage that would meet severe sepsis Blood Cx still pending this AM as below (3) Multifocal pneumonia: Start date: 12/13/24 Status: Acute Assessment and plan: Continue Azithromycin, zosyn discontinue Vancomycin MRSA PCR - negative continue Mucinex and Acapella Ongoing Nebs Labs in AM SPL consult pending as above Diet Recommendations as per SPL completed on 10/03/24 : Apply until official consult SOLIDS: 5-Minced & Moist Solids/Thin Liquids. Rx: Whole vs crushed, as tolerated, with puree Alter medications only as advised by MD or Pharmacist 1:1 Assistive feeding with solids Encourage self-feeding with liquids, with staff holding cup between sips to encourage optimal pacing Positioning and environment: As upright as tolerated, use HOB controls/bed tilt to achieve upright positioning Up to chair for meals/PO when able Remain upright at least 30 min after meals Oral hygiene Before/After PO intake Using suction swab kits on all oral structures as tolerated Strategies/Adaptations/Assistive Equipment: Small sips Small bites Slow rate of intake Verbal prompts for small sips with liquid Reflux Precautions: Avoid meals/snacks 2-3 hours prior to reclining/sleeping Sleep with head of bed elevated to reduce likelihood of nocturnal reflux (4) COPD (chronic obstructive pulmonary disease): Status: Chronic Assessment and plan: On home medicine regimen scheduled and PRN nebs Monitor for exacerbation (5) Schizophrenia: Status: Chronic Assessment and plan: Stable. Ongoing outpatient drug regimen (6) Alzheimer's dementia without behavioral disturbance: Status: Chronic Assessment and plan: Ongoing outpatient medicine regimen Continue to monitor for delirium in the setting of acute illness w hospitalization (7) BPH without obstruction/lower urinary tract symptoms: Status: Chronic Assessment and plan: Continue outpatient drug regimen (8) Obesity: Status: Chronic Assessment and plan: BMI 33.2 DVT prophylaxis : LMWH Counseled in weight management and discussion w recommendation for outpatient provider consideration for GLP-1 drug therapy discussed wtih Dr. Carcamo Subjective Subjective Patient reports: no new complaints, feels better (less tired), tolerating liquids well, tolerating a regular diet, voiding w/o difficulty and flatus; denies nausea, vomiting, shortness of breath or fever Exam Narrative Exam Narrative: 69 yo male, appearing older than stated age, alert and oriented X 2 , no focal neurological deficits, , unlabored breathing - ronchi clearing somewhat with cough, S1, S2 regualr , no murmur, abdomen is round, non- distended, soft and non-tendern and bowel sound, moves all 4 ext. Objective Last Vital Signs Temp 36.6 C 12/15/24 07:44 Pulse 74 12/15/24 08:13 Resp 19 12/15/24 08:13 BP 108/58 L 12/15/24 07:44 Pulse Ox 93 12/15/24 08:13 Laboratory Results - last 24 hr 12/14/24 12/14/24 12/15/24 11:30 18:15 06:56 WBC 7.11 RBC 3.82 L Hgb 9.9 L Hct 33.3 L MCV 87 MCH 25.9 L MCHC 29.7 L RDW 15.3 H Plt Count 329 MPV 9.8 Sodium 143 Potassium 4.2 Chloride 106 Carbon Dioxide 31.2 Anion Gap 5.8 BUN 14 Creatinine 0.7 Est GFR (CKD-EPI 2020) 100.99 Glucose 88 Calcium 9.1 Magnesium 2.3 Total Bilirubin 0.3 AST 21 ALT 23 Alkaline Phosphatase 89 Total Protein 6.7 Albumin 2.6 L Random Vancomycin 19.9 MRSA (TEM-PCR) Negative Time Spent with Patient Time Spent with Patient: >50 minutes Time was spent: preparing to see the patient(eg.review tests), obtaining and/or reviewing separately otained hiistory, ordering medications,tests, procedures, referring, communicating with other health care services manager, indepentently interpreting results, counseling the patient, care coordination and other
[2024-12-15] MEDS: Normal Saline Flush 10 ML SYR IVP ×3 (09:39→19:35)
[2024-12-15] MEDS: Enoxaparin 40 MG/0.4 ML SYR SC (09:39)
[2024-12-15] MEDS: Polyethylene Glycol 3350 17 GM PACKET PO (09:39)
[2024-12-15] MEDS: Cyanocobalamin 500 MCG TAB 1000 MCG PO (09:40)
[2024-12-15] MEDS: Acetaminophen 325 MG TAB 650 MG PO ×3 (09:40→19:32)
[2024-12-15] MEDS: Meloxicam 15 MG TAB 7.5 MG PO (09:40)
[2024-12-15] MEDS: OLANZapine 10 MG TAB 5 MG PO ×2 (09:40→19:33)
[2024-12-15] MEDS: Simvastatin 20 MG TAB PO (09:40)
[2024-12-15] MEDS: Magnesium Oxide 400 MG TAB PO (09:41)
[2024-12-15] MEDS: diazePAM 5 MG TAB 10 MG PO ×2 (09:41→19:32)
[2024-12-15] MEDS: DULoxetine 30 MG CAP 60 MG PO ×2 (09:41→19:32)
[2024-12-15] MEDS: Donepezil 5 MG TAB PO (09:41)
[2024-12-15] MEDS: Docusate Sodium 100 MG CAP PO ×3 (09:41→19:32)
[2024-12-15] MEDS: Memantine 5 MG TAB PO ×2 (09:41→19:31)
[2024-12-15] MEDS: guaiFENesin 600 MG TABCR PO ×2 (09:41→19:31)
[2024-12-15] MEDS: Cholecalciferol (Vitamin D3) 1,000 UNIT TAB 1000 UNITS PO (09:41)
[2024-12-15] MEDS: Diclofenac 1% Gel 100 GM TUBE TP (09:53)
[2024-12-15] MEDS: VANCOMYCIN/WATER (PEG) 1.25 GM/250 ML BAG IVPB (11:13)
[2024-12-15] MEDS: Tamsulosin 0.4 MG CAPCR 0.8 MG PO (19:33)
[2024-12-15] MEDS: traZODone 50 MG TAB PO (19:34)
[2024-12-15] MEDS: AZITHROMYCIN 500 MG in Normal Saline 250 ML 250 MG IVPB (21:24)
[2024-12-16] VITALS (7 sets, daily range): BP systolic 85–131; BP diastolic 55–79; PULSE 64–85; RESP 16–18; TEMP 36.2–36.6; O2SAT 91–99
[2024-12-16] MEDS: PIPERACILLIN/TAZO 3.375 GM in Normal Saline 50 ML IVPB ×4 (01:39→20:15)
[2024-12-16 06:58] LABS: HCT 32.7 % (40.0-50.0); HGB 9.9 g/dL (13.5-17.5); MCH 26.2 pg (27.0-33.0); MCHC 30.3 % (32.0-36.0); MCV 87 fL (80-95); MPV 9.8 fL (8.0-11.0); Platelet Count 344 10^3/uL (130-400); RBC 3.78 10^6/uL (4.36-5.78); RDW 15.4 % (11.8-14.1); RDW-SD 48.1 fL; WBC 9.72 10^3/uL (4.4-10.8)
[2024-12-16 07:34] LABS: ALT 23 U/L (16-63); AST 17 U/L (15-37); Albumin 2.8 g/dL (3.4-5.0); Alkaline Phosphatase 85 U/L (46-116); Anion Gap 7.4 mmol/L (3-11); BUN 10 mg/dL (7-18); Bilirubin, Total 0.3 mg/dL (0.2-1.0); CO2 30.6 mmol/L (21.0-32.0); Calcium 9.0 mg/dL (8.5-10.1); Chloride 106 mmol/L (98-107); Estimated GFR 100.99 (mL/min/1.73m2); Glucose 89 mg/dL (74-106); Magnesium 2.3 mg/dL (1.8-2.4); Potassium 3.9 mmol/L (3.5-5.1); Sodium 144 mmol/L (136-145); Total Protein 6.8 g/dL (6.4-8.2)
[2024-12-16] MEDS: Umeclidinium 7 CAP INHALER IH (07:34)
[2024-12-16 07:36] LABS: Vancomycin, Random 12.8 ug/mL
[2024-12-16] MEDS: Diclofenac 1% Gel 100 GM TUBE TP (09:00)
[2024-12-16] MEDS: Normal Saline Flush 10 ML SYR IVP ×3 (09:00→20:15)
[2024-12-16] MEDS: Polyethylene Glycol 3350 17 GM PACKET PO (09:00)
[2024-12-16] MEDS: diazePAM 5 MG TAB 10 MG PO ×2 (09:01→20:11)
[2024-12-16] MEDS: Enoxaparin 40 MG/0.4 ML SYR SC (09:01)
[2024-12-16] MEDS: Donepezil 5 MG TAB PO (09:01)
[2024-12-16] MEDS: Magnesium Oxide 400 MG TAB PO (09:01)
[2024-12-16] MEDS: Cyanocobalamin 500 MCG TAB 1000 MCG PO (09:01)
[2024-12-16] MEDS: guaiFENesin 600 MG TABCR PO ×2 (09:01→20:12)
[2024-12-16] MEDS: Memantine 5 MG TAB PO ×2 (09:01→20:12)
[2024-12-16] MEDS: Cholecalciferol (Vitamin D3) 1,000 UNIT TAB 1000 UNITS PO (09:01)
[2024-12-16] MEDS: Simvastatin 20 MG TAB PO (09:02)
[2024-12-16] MEDS: Docusate Sodium 100 MG CAP PO ×3 (09:02→20:12)
[2024-12-16] MEDS: Meloxicam 15 MG TAB 7.5 MG PO (09:02)
[2024-12-16] MEDS: DULoxetine 30 MG CAP 60 MG PO ×2 (09:02→20:12)
[2024-12-16] MEDS: Acetaminophen 325 MG TAB 650 MG PO ×3 (09:02→20:21)
[2024-12-16] MEDS: OLANZapine 10 MG TAB 5 MG PO ×2 (09:03→20:11)
--- NOTE | 2024-12-16 10:30 | IN_ITS ---
PT Notes Visit Reasons: Acute on chronic hypoxic respiratory failure.... Inpatient Physical Therapy Evaluation Certification Period:? From 12/16/24 through 12/30/24 I certify the need for these services as being medically necessary and skilled as furnished under this plan of treatment while under my care. Please sign and return within 14 days if you agree with the plan of care listed below.? Thank you for this referral! ? Referring Physician? Date Referring Doctor:? PT Orders: PT CONSULT for eval for assistive device; fall safety assessment Precautions: Fall precautions, on O2 Patient Profile/Admitting Diagnosis:? The patient is a 69yo male admitted on 12/13/24 via the ER. Pt present with SOB, and hypoxemia. Pt is a custodial resident is (I) with ADLS, hx of frequent falls and history of aspiration pneumonia. Past Medical History: PFSH All Active Problems (Updated 12/13/24 @ 23:47 by Eric Pedro) BPH without obstruction/lower urinary tract symptoms (Chronic) Multifocal pneumonia (Acute) Multifocal pneumonia (Acute) Deficit in activities of daily living (ADL) (Acute) Lives in custodial (Acute) Dementia (Chronic) Schizophrenia (Chronic) COPD (chronic obstructive pulmonary disease) (Chronic) Acute and chronic respiratory failure with hypoxia (Acute) Fall (Acute) Contusion of knee (Acute) Chronic respiratory failure with hypoxia, on home O2 therapy (Acute) Supplemental oxygen dependent (Acute) COPD (chronic obstructive pulmonary disease) (Chronic) Aspiration pneumonia (Acute) Schizophrenia (Chronic) Alzheimer's dementia without behavioral disturbance (Chronic) Medical History Left foot pain Cognitive impairment Bilateral primary osteoarthritis of knee Pneumonia COVID Dermatophytosis of nail Alcohol abuse, in remission Auditory hallucinations History of suicidal ideation Paranoid schizophrenia Altered mental status Cognitive changes Anemia Elevated PSA Urinary incontinence Hyperplasia of prostate with lower urinary tract symptoms (LUTS) Emphysema lung Pulmonary nodule Tobacco abuse History of prediabetes Hyperlipidemia Low back pain Acute metabolic encephalopathy Neutrophilia Pain, foot, left, chronic Patellofemoral joint pain Atherosclerosis Surgical History 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) As treatment for right femoral neck fractureHx of knee surgery Social History/Home Situation: Resides in custodial Subjective: Patient was agreeable to participate in physical therapy. Objective: Mental Status: Patient is alert and oriented. Pain: Reported bilateral LE pain 8/10 ROM/Strength: Upper extremities: ROM (B) UE WFL, (B) UE strength grossly 4- to 4/5 Lower extremities: ROM (B) LE WFL, (B) LE strength grossly 4 to 4+/5 Tranfers: Sit to stand and stand to sit with contact-guard of 1 with verbal instructions for safety Gait: Ambulated feet 15 feet with contact-guard to min assist of 1 with front wheeled walker. Balance: Static standing balance with bilateral upper extremity support: Fair Dynamic standing balance with bilateral upper extremity support: Fair [facility] AM-PAC 6 clicks Basic Mobility Inpatient Short Form: Raw Score:???17? CMS Score: 50.75 Informed Consent/Education:? Patient instructed in purpose of PT consult and plan of care and is agreeable Assessment:? Patient is a 69year old male admitted on 01/13/25 for pneumonia.? Patient presents with pain, decreased strength, decreased functional mobility, decreased balance and difficulty with ambulation. The patient would benefit from skilled inpatient services to improve these impairments to maximize function and safety. Patient is assessed as:? Moderate 44524?based on the following: History: Examination: see above Presentation: Evolving clinical presentation? Decision Making:? Moderate (1-2 history, 2-3 exam, evolving, mod-30 mins) Physical Therapy Goals: 1 week Able to get in/out of bed with supervision only. Able to perform sit to/from stand with supervision only. Able to walk feet with rolling walker with supervision only. Independent with home exercise program Plan of Care/Treatment Plan: 1-2x/day, 7 days/week x 1 week. Plan of care has been reviewed with the [employer] P[employer] UP DRIVER providing the service under Physical Therapy direction. Initiate Physical Therapy intervention for strengthening, bed mobility, transfers, gait, stairs, balance training, use of assistive device. DISCHARGE RECOMMENDATIONS: Return to custodial with PT services to assist patient with return to baseline status for ambulation and mobility. Billing Charges: Treatment Units Time Duration Manual Therapy(81350) Hands-on techniques to modulate pain increase joint range of motion reduce or eliminate soft tissue swelling, inflammation, or restriction facilitate relaxation and improve contractile and non-contractile tissue extensibility ? ? Therapeutic Procedures (74899) Instruction in therapeutic exercises to develop strength and endurance, range of motion and flexibility. HEP instruction and review: Provided skilled instruction in proper exercise performance: Provided skilled manual cues to facilitate proper muscle recruitment and/or movement pattern Neurological Re-Education(85013) To improve balance, coordination, kinesthetic and proprioceptive sensations. ? ? Ultrasound(52305) To promote healing. ? ? Gait Training(84729) ? ? Therapeutic Activity(48587) Instruction in dynamic activities with one on one patient contact by the provider to improve functional performance as follows: ? ? Self Care Training(09397) ? ? E-Stim (Attended)(78215) ? ? Low IE(77008) Mod IE(20226) ?1 ?30 minutes High IE(66000) ? ? Time Coded Treatment Time 0 ? 0 Total Treatment Time ? 30 minutes Informed consent Prior to the start and throughout the course of the examination and treatment, patient was made aware of the specifics and purpose of the physical assessment and treatment procedures. Appropriate draping procedures were utilized to protect modesty where applicable.
--- NOTE | 2024-12-16 11:15 | PGE_ITS ---
Date of Service Date of service: 12/16/24 Time of Service: 11:15 Assessment and Plan Assessment and plan (1) Acute and chronic respiratory failure with hypoxia: Start date: 12/13/24 Status: Acute Assessment and plan: Now at baseline on 2l/min O2, was requiring 3l/min to maintain sat goals 88-92% on admission in the setting of sepsis d/t pneumonia/ aspiration pneumonitis O2 at goal As below (2) Sepsis: Status: Resolved Assessment and plan: Sepsis criteria met w WBC 12.72 and tachypnea at 22- source respiratory apsiration pneumonia/ pneumonitis No further leukocytosis No end-organ damage that would meet severe sepsis Blood Cx negative as below (3) Multifocal pneumonia: Start date: 12/13/24 Status: Acute Assessment and plan: Azithromycin, zosyn - can be transitioned to oral antibiotic for discharge. No further Vancomycin s/p negative MRSA PCR Ongoing Mucinex and Acapella continue Nebs PCR legionella re-entered today as per lab request -originally ordered on admit U Ag legionella pending Labs in AM SPL consult pending as above Diet Recommendations as per SPL completed on 10/03/24 : Apply until official consult SOLIDS: 5-Minced & Moist Solids/Thin Liquids. Rx: Whole vs crushed, as tolerated, with puree Alter medications only as advised by MD or Pharmacist 1:1 Assistive feeding with solids Encourage self-feeding with liquids, with staff holding cup between sips to encourage optimal pacing Positioning and environment: As upright as tolerated, use HOB controls/bed tilt to achieve upright positioning Up to chair for meals/PO when able Remain upright at least 30 min after meals Oral hygiene Before/After PO intake Using suction swab kits on all oral structures as tolerated Strategies/Adaptations/Assistive Equipment: Small sips Small bites Slow rate of intake Verbal prompts for small sips with liquid Reflux Precautions: Avoid meals/snacks 2-3 hours prior to reclining/sleeping Sleep with head of bed elevated to reduce likelihood of nocturnal reflux (4) COPD (chronic obstructive pulmonary disease): Status: Chronic Assessment and plan: On home medicine regimen; scheduled and PRN nebs Continue to monitor for exacerbation (5) Schizophrenia: Status: Chronic Assessment and plan: Stable no behavioral disturbance . Continue outpatient drug regimen (6) Alzheimer's dementia without behavioral disturbance: Status: Chronic Assessment and plan: On outpatient medicine regimen Ongoing monitoring for delirium in the setting of acute illness w hospitalization (7) BPH without obstruction/lower urinary tract symptoms: Status: Chronic Assessment and plan: Ongoing outpatient drug regimen (8) Obesity: Status: Chronic Assessment and plan: BMI 33.2 DVT prophylaxis : LMWH Counseled in weight management, and recommendation for discussion with outpatient provider regarding consideration for GLP-1 drug therapy (9) Discharge planning issues: Status: Acute Assessment and plan: Unable to return to SNF today - no CM on for d/c coordination w SNF D/c in AM s/p speech consult VS outpatient speech discussed wtih Dr. Carcamo Subjective Subjective Patient reports: feels better, tolerating liquids well, tolerating a regular diet, voiding w/o difficulty, flatus, bowel movement and other (Slept well); denies diarrhea, nausea, vomiting, shortness of breath or fever Exam Narrative Exam Narrative: 69 yo male, appearing older than stated age, alert and oriented X 2 , no focal neurological deficits, unlabored breathing - clear lungs , S1, S2 regualr , no murmur, abdomen non- distended, soft and non-tender and bowel sounds are present , moves all 4 ext. Objective Last Vital Signs Temp 36.5 C 12/16/24 11:09 Pulse 81 12/16/24 11:09 Resp 16 12/16/24 11:09 BP 85/69 L 12/16/24 11:09 Pulse Ox 95 12/16/24 11:09 Laboratory Results - last 24 hr 12/16/24 06:35 WBC 9.72 RBC 3.78 L Hgb 9.9 L Hct 32.7 L MCV 87 MCH 26.2 L MCHC 30.3 L RDW 15.4 H Plt Count 344 MPV 9.8 Sodium 144 Potassium 3.9 Chloride 106 Carbon Dioxide 30.6 Anion Gap 7.4 BUN 10 Creatinine 0.7 Est GFR (CKD-EPI 2020) 100.99 Glucose 89 Calcium 9.0 Magnesium 2.3 Total Bilirubin 0.3 AST 17 ALT 23 Alkaline Phosphatase 85 Total Protein 6.8 Albumin 2.8 L Random Vancomycin 12.8 Time Spent with Patient Time Spent with Patient: >50 minutes Time was spent: preparing to see the patient(eg.review tests), obtaining and/or reviewing separately otained hiistory, ordering medications,tests, procedures, referring, communicating with other health child care counselor, indepentently interpreting results, counseling the patient, care coordination and other
[2024-12-16] MEDS: traZODone 50 MG TAB PO (20:11)
[2024-12-16] MEDS: Tamsulosin 0.4 MG CAPCR 0.8 MG PO (20:11)
[2024-12-16] MEDS: AZITHROMYCIN 500 MG in Normal Saline 250 ML 250 MG IVPB (22:02)
[2024-12-17] MEDS: PIPERACILLIN/TAZO 3.375 GM in Normal Saline 50 ML IVPB ×2 (02:18→09:36)
[2024-12-17 03:55] VITALS: BP 101/71; PULSE 74; RESP 18; TEMP 36.8; O2SAT 91
[2024-12-17 07:00] LABS: Abs Immature Grans 0.04 10^3/uL (0.0-0.06); HCT 36.2 % (40.0-50.0); HGB 10.9 g/dL (13.5-17.5); Immature Grans % 0.5 %; MCH 26.7 pg (27.0-33.0); MCHC 30.1 % (32.0-36.0); MCV 89 fL (80-95); MPV 10.0 fL (8.0-11.0); Platelet Count 374 10^3/uL (130-400); RBC 4.08 10^6/uL (4.36-5.78); RDW 15.6 % (11.8-14.1); RDW-SD 50.0 fL; WBC 7.70 10^3/uL (4.4-10.8)
[2024-12-17 07:10] LABS: Anion Gap 4.2 mmol/L (3-11); BUN 11 mg/dL (7-18); CO2 31.8 mmol/L (21.0-32.0); Calcium 9.0 mg/dL (8.5-10.1); Chloride 107 mmol/L (98-107); Estimated GFR 97.00 (mL/min/1.73m2); Glucose 90 mg/dL (74-106); Magnesium 2.2 mg/dL (1.8-2.4); Potassium 3.9 mmol/L (3.5-5.1); Sodium 143 mmol/L (136-145)
[2024-12-17 08:35] VITALS: BP 130/79; PULSE 92; RESP 16; TEMP 36.3; O2SAT 93
[2024-12-17] MEDS: Umeclidinium 7 CAP INHALER IH (09:15)
[2024-12-17] MEDS: Cholecalciferol (Vitamin D3) 1,000 UNIT TAB 1000 UNITS PO (09:37)
[2024-12-17] MEDS: diazePAM 5 MG TAB 10 MG PO (09:37)
[2024-12-17] MEDS: Meloxicam 15 MG TAB 7.5 MG PO (09:37)
[2024-12-17] MEDS: Cyanocobalamin 500 MCG TAB 1000 MCG PO (09:38)
[2024-12-17] MEDS: Magnesium Oxide 400 MG TAB PO (09:38)
[2024-12-17] MEDS: Memantine 5 MG TAB PO (09:38)
[2024-12-17] MEDS: Omega-3 Fatty Acids 1000 MG CAP PO (09:38)
[2024-12-17] MEDS: guaiFENesin 600 MG TABCR PO (09:38)
[2024-12-17] MEDS: OLANZapine 10 MG TAB 5 MG PO (09:57)
[2024-12-17] MEDS: Enoxaparin 40 MG/0.4 ML SYR SC (09:57)
[2024-12-17] MEDS: Acetaminophen 325 MG TAB 650 MG PO (09:58)
[2024-12-17] MEDS: Normal Saline Flush 10 ML SYR IVP (09:58)
[2024-12-17] MEDS: DULoxetine 30 MG CAP 60 MG PO (09:58)
[2024-12-17] MEDS: Simvastatin 20 MG TAB PO (09:58)
[2024-12-17] MEDS: Donepezil 5 MG TAB PO (09:58)
[2024-12-17] MEDS: Docusate Sodium 100 MG CAP PO (09:59)
[2024-12-17] MEDS: Polyethylene Glycol 3350 17 GM PACKET PO (09:59)
[2024-12-17] MEDS: Diclofenac 1% Gel 100 GM TUBE TP (09:59)
[2024-12-17 11:12] VITALS: BP 103/74; PULSE 86; RESP 16; TEMP 36.2; O2SAT 95
--- NOTE | 2024-12-17 11:31 | PTTR_ITS ---
PT Notes Visit Reasons: Acute on chronic hypoxic respiratory failure.... Inpatient Physical Therapy Treatment Note [facility] Date: 12/17/24 SUBJECTIVE: Venu reports that his legs hurt, but he is feeling better than he did yesterday. OBJECTIVE: []? PAIN: B LE VITALS: ?monitored by nsg. Therapeutic Activities (08981s2): Direct one-on-one instruction in dynamic activities to improve functional performance. ? BED MOBILITY/TRANSFERS? pt seated in recliner.? Sit-stand: SBA? Stand-sit: SBA ? Provided skilled cues and instruction on performance and technique t hroughout. GAIT? Assistive Device:FWW ? Weight bearing: full Assist: CGA? Distance:?5' ? Deviation: shaky legs. Pain with wt bearing.? ? 2L of O2.? Therapeutic Exercises (97840m4): Direct one-on-one instruction in therapeutic exercises to develop strength, endurance, range of motion and flexibility. ? Exercises ?seated HR/TR, LAQ, hip flex, abd/add with manual resistance x 10 each. Sit to stands with [address] x3[address] Provided skilled instruction in proper exercise performance ASSESSMENT: tolerated session fairly well. C/o increased LE pain with wt bearing however after each sit to stand with march sequence his pain began to subside. Less shaking of LE with each round of ex. No SOB. PLAN: will continue to progress strength while improving his functional mobility following PT POC. TREATMENT CODE/TIME: 26min. [id number], 15153c1 DISCHARGE RECOMMENDATION: return to SNF
--- NOTE | 2024-12-17 12:42 | W.PM.DS.N ---
Date of service: 12/17/24 Time of Service: 12:42 DS: Diagnosis Discharge Diagnosis (1) Acute and chronic respiratory failure with hypoxia: Status: Acute (2) Sepsis: Status: Resolved (3) Multifocal pneumonia: Status: Acute (4) COPD (chronic obstructive pulmonary disease): Status: Chronic (5) Schizophrenia: Status: Chronic (6) Alzheimer's dementia without behavioral disturbance: Status: Chronic (7) BPH without obstruction/lower urinary tract symptoms: Status: Chronic (8) Obesity: Status: Chronic Discharge Plan Disposition Patient Disposition: [facility] Facility(SNF) Condition: Improving Discharge Details Reason For Visit: Acute on chronic hypoxic respiratory failure.... Admit Date/Time: 12/13/24 23:34 Admit Provider: Eric Pedro Attending Provider: Eric Pedro Primary Care Provider: Milka Shelley [facility] Course Hospital Course: This is a 69-year-old male patient resides at a local [place] [facility] presented to the emergency department with increased cough and sputum production. He was found to have a multifocal pneumonia. He was started on broad-spectrum antibiotics and slowly improved. He is eating and drinking and bowels and bladder functioning. He has remained hemodynamically stable. He is being discharged back to the [place] [facility] to complete a 7-day course of antibiotics. He will continue Augmentin and azithromycin while Legionella testing still pending. Discharge discussed with Dr. Carcamo [place] Meds and New Rx's Prescriptions: New amoxicillin-pot clavulanate 875-125 mg tablet 1 tab PO BID Qty: 5 0RF azithromycin 500 mg tablet 500 mg PO DAILY Qty: 3 0RF Rx Instructions: 500 mg orally; Continued omega 8-pzs-hhy-fish oil [Fish Oil] 60-90-500 mg capsule 1 cap PO DAILY simvastatin 20 mg tablet 20 mg PO DAILY docusate sodium 100 mg capsule 100 mg PO BID clozapine 50 mg tablet 50 mg PO DAILY tramadol 50 mg tablet 50 mg PO Q4H PRN MDD 4 PRN (Reason: pain) Qty: 10 0RF tamsulosin 0.4 mg capsule 0.8 mg PO QHS Incruse Ellipta 62.5 mcg/actuation blister with device 1 inh inhalation DAILY trazodone 50 mg tablet 50 mg PO QHS clozapine 200 mg tablet 200 mg PO QHS duloxetine 60 mg capsule,delayed release(DR/EC) 60 mg PO BID acetaminophen [Tylenol] 325 mg tablet 650 mg PO BID diclofenac sodium 1 % gel 2 g TOPICAL DAILY magnesium oxide 400 mg magnesium capsule 400 mg PO DAILY bisacodyl 10 mg suppository 10 mg WI ONCE PRN Fleet Enema 19-7 gram/118 mL enema 118 ml WI DAILY PRN cyanocobalamin (vitamin B-12) 1,000 mcg tablet, sublingual 1,000 mcg PO DAILY Rx Instructions: 1 TAB (1000mcg) ORALLY DAILY polyethylene glycol 3350 [Miralax] 17 gram/dose powder 17 g PO QDAY cholecalciferol (vitamin D3) [Vitamin D3] 25 mcg (1,000 unit) capsule 1,000 unit PO DAILY tizanidine 2 mg tablet 2 mg PO TID meloxicam 7.5 mg tablet 7.5 mg PO DAILY ondansetron 4 mg tablet,disintegrating 4 mg PO Q6H PRN albuterol sulfate [Ventolin HFA] 90 mcg/actuation HFA aerosol inhaler 2 inh inhalation Q6H PRN diazepam 10 mg tablet 10 mg PO BID donepezil 5 mg tablet 5 mg PO DAILY memantine 5 mg tablet 5 mg PO BID olanzapine 5 mg tablet 5 mg PO BID Discharge Instructions Instructions: Pneumonia, Adult ED Additional Instructions: continue antibiotics for 2 more days to complete the course. Referrals: Milka Shelley [Primary Care Provider, Medicine] Activity:: Activity as Tolerated Equipment/Supplies:: No Equipment Needed Diet:: As Tolerated Discharge Orders Discharge Orders: Discharge Order (Routine); Ordered 12/17/24 Ordered By: Lizbeth Randle DS: Summary Time Spent with Patient providing and/or coordinating discharge services: Greater than 30 minutes Status at Discharge Functional status at discharge: uses cane/walker Overall status at discharge: patient is progressing back to baseline Mental Status: mental status grossly normal Speech and Movement: speech and movement normal Mood: congruent mood Affect: normal affect Quality:SDOH Health Related Social Needs: Health related social needs daily activities Exam Const General: cooperative, comfortable and no acute distress Orientation: alert, awake and oriented to person HENME Head: normal to inspection, normocephalic and atraumatic Resp Effort & Inspection: normal respiratory effort Auscultation: diminished lung sounds Cardio Rate: regular rate Rhythm: regular rhythm GI Palpation: soft (round) and nontender Skin General skin exam: no rashes or lesions noted Neuro General: patient alert, patient awake and patient oriented x3 Extrem General: normal to inspection and full ROM Psych Mental Status: mental status grossly normal Speech and Movement: speech and movement normal Mood: congruent mood Affect: normal affect DS: Data Vitals/I&O Vitals and I&O: Vital Signs Temperature 36.2 C L 12/17/24 11:12 Temperature Source Temporal Artery Scan 12/17/24 11:12 Pulse 86 12/17/24 11:12 Pulse 82 12/13/24 21:31 Respiratory Rate 16 12/17/24 11:12 Respiratory Effort Short of Breath 12/14/24 00:40 Respiratory Pattern Bradypnea 12/14/24 00:40 Blood Pressure 103/74 12/17/24 11:12 Blood Pressure Mean 83 12/17/24 11:12 Blood Pressure Position Sitting 12/13/24 21:01 Pulse Oximetry 95 12/17/24 11:12 Oxygen Delivery Method Nasal Cannula 12/17/24 11:12 Oxygen Flow Rate 2 12/17/24 11:12 Pain Level 0 12/17/24 03:55 Intake & Output 12/16/24 12/17/24 12/17/24 23:59 11:59 23:59 Intake Total 830 / 1170 100 / 100 Output Total 400 / 1000 600 / 600 Balance 430 / 170 -500 / -500 Weight 83.461 kg Intake: IV 350 / 450 100 / 100 Oral 480 / 720 Output: Urine 400 / 1000 600 / 600 Other: Urine Color Yellow Yellow Urine Appearance Clear Urine Odor Normal Strong Comment Pt was inc. of urine, DOORMAKER changed brief. brief dry at this time Stool Size Smear Small Stool Characteristics Soft Soft Brown Brown Data Completed and Pending Labs on day of discharge: Labs from last 24 hours 12/17/24 12/14/24 12/13/24 06:10 00:10 22:47 WBC 7.70 RBC 4.08 L Hgb 10.9 L Hct 36.2 L MCV 89 MCH 26.7 L MCHC 30.1 L RDW 15.6 H Plt Count 374 MPV 10.0 Immature Gran % 0.5 Neutrophils % 52.5 Lymphocytes % 34.3 Monocytes % 6.6 Eosinophils % 4.8 Basophils % 1.3 Nucleated RBC % 0.0 Absolute Neutrophils 4.04 Absolute Lymphocytes 2.64 Absolute Monocytes 0.51 Absolute Eosinophils 0.37 Absolute Basophils 0.10 Sodium 143 Potassium 3.9 Chloride 107 Carbon Dioxide 31.8 Anion Gap 4.2 BUN 11 Creatinine 0.8 Est GFR (CKD-EPI 2020) 97.00 Glucose 90 Calcium 9.0 Magnesium 2.2 Legionella Source Cancelled Urine Legionella Ag Negative Legionella DNA (PCR) Cancelled Preliminary micro results at discharge 12/14/24 11:33 Blood Blood Culture - Preliminary NO GROWTH 48 HOURS 12/14/24 11:25 Blood Blood Culture - Preliminary NO GROWTH 48 HOURS PFSH All Active Problems (Updated 12/16/24 @ 16:49 by Radha Alva APRN) Discharge planning issues (Acute) Obesity (Chronic) BPH without obstruction/lower urinary tract symptoms (Chronic) Multifocal pneumonia (Acute) Multifocal pneumonia (Acute) Deficit in activities of daily living (ADL) (Acute) Lives in [place] [facility] [place] (Acute) Dementia (Chronic) Schizophrenia (Chronic) COPD (chronic obstructive pulmonary disease) (Chronic) Acute and chronic respiratory failure with hypoxia (Acute) Fall (Acute) Contusion of knee (Acute) Chronic respiratory failure with hypoxia, on home O2 therapy (Acute) Supplemental oxygen dependent (Acute) COPD (chronic obstructive pulmonary disease) (Chronic) Aspiration pneumonia (Acute) Schizophrenia (Chronic) Alzheimer's dementia without behavioral disturbance (Chronic) Medical History Left foot pain Cognitive impairment Bilateral primary osteoarthritis of knee Pneumonia COVID Dermatophytosis of nail Alcohol abuse, in remission Auditory hallucinations History of suicidal ideation Paranoid schizophrenia Altered mental status Cognitive changes Anemia Elevated PSA Urinary incontinence Hyperplasia of prostate with lower urinary tract symptoms (LUTS) Emphysema lung Pulmonary nodule Tobacco abuse History of prediabetes Hyperlipidemia Low back pain Acute metabolic encephalopathy Neutrophilia Pain, foot, left, chronic Patellofemoral joint pain Atherosclerosis Surgical History 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) As treatment for right femoral neck fracture Hx of knee surgery Family History Mother Brain cancer Father Heart disease Hypertension Obesity Osteoarthritis Social History Smoking/Tobacco Use Status: Former Tobacco Use Tobacco: How many years used: 38 Smoking risk assessment performed?: Yes Alcohol Intake: never Substance use type: does not use Housing: house Do you feel safe at home: Yes Do you feel safe in your relationship?: Yes Time Spent with Patient Time Spent with Patient: 45-69 minutes Time was spent: preparing to see the patient(eg.review tests), obtaining and/or reviewing separately otained hiistory, ordering medications,tests, procedures, indepentently interpreting results and care coordination
--- NOTE | 2024-12-17 13:59 | CMDISCH_ITS ---
Date of service: 12/17/24 Time of Service: 14:00 LACE Index Scoring Tool Questions: Length of Stay (in days): 4 - 6 Was the patient admitted via the E.D.?: Yes Comorbidities: Chronic Pulmonary Disease and Dementia E.D. Visits: 4 Answers: Total Score: 16 Risk of Readmission: High Risk Care Management Discharge Plan Reason for Hospitalization: pneumonia Discharge Plan: héctor will return to [facility] where he resides. He will follow up with the facility providers and plan of care and transport via RCT coordinated by CM. Patient/Family Education Needs: Review of discharge instructions, limitations, follow up plan and discuss Ask Me Three. Services Needed at Discharge: Transportation SDOH Health Related Social Needs: Health related social needs daily activities
--- NOTE | 2024-12-17 14:08 | PDOC.STREC ---
Date of service: 12/17/24 Time of Service: 14:08 Speech Therapy Recommendations Report ST Recommendations: .
--- NOTE | 2024-12-17 14:39 | NUR.NOTE ---
RN TO RM REPORT GIVEN TO DAVID RN AT [facility], CALLED NUMBER [phone]. ALL QUESTION ANSWERED, NO FURTHER INTERVENTION
[2024-12-17 23:50] LABS: Legionella Ag Detection Urine Negative (Negative)
== END 2024-12-17 14:00 | disposition skilled nursing facility (03) | DRG 871 ==
LOC: ER 23:39 → MS 12-14 00:22
PROVIDERS: Admitting Provider Family Medicine; Emergency Provider Emergency Medicine; PCP Nurse Practitioner Family; Responsible Provider Nurse Practitioner Acute Care; Visit Provider Family Medicine
DX: J96.21 Acute and chronic respiratory failure with hypoxia (principal); A41.9 Sepsis, unspecified organism; J69.0 Pneumonitis due to inhalation of food and vomit; J44.0 Chronic obstructive pulmonary disease with (acute) lower respiratory infection; G30.9 Alzheimer's disease, unspecified; F02.80 Dementia in other diseases classified elsewhere, unspecified severity, without behavioral disturbance, psychotic disturbance, mood disturbance, and anxiety; Z99.81 Dependence on supplemental oxygen; R07.89 Other chest pain; Z79.899 Other long term (current) drug therapy; Z73.89 Other problems related to life management difficulty; F20.9 Schizophrenia, unspecified; F10.11 Alcohol abuse, in remission; R32 Unspecified urinary incontinence; E78.5 Hyperlipidemia, unspecified; R73.03 Prediabetes; M54.50 Low back pain, unspecified; D64.9 Anemia, unspecified; Z96.641 Presence of right artificial hip joint; Z87.891 Personal history of nicotine dependence; N40.0 Benign prostatic hyperplasia without lower urinary tract symptoms; R29.6 Repeated falls; I70.90 Unspecified atherosclerosis; E66.9 Obesity, unspecified; Z68.33 Body mass index [BMI] 33.0-33.9, adult
CPT/HCPCS: 00123; 36415; 80048; 80053; 82805; 85027; 87040; 87449; 87637; 87641; 87801; 93005; 94640; 96361; 96365; 96366; 96367; 96368; 97110; 97162; 97530; 99285; J1650; 71046; 80202; 81003; 81015; 83605; 83735; 84443; 84484; 85025; 93010; 94664; 94667; 94668; 94760; 99223; 99233; 99239; J0456; J2543; J3373; J7620

== ENCOUNTER 2025-02-06 17:47 | Emergency (ER) | payer MEDICARE, MEDICAID, SELFPAY ==
--- NOTE | 2025-02-06 17:30 | DI.RAD_ITS ---
Exam(s) XR PORTABLE CHEST AP EXAM: XR PORTABLE CHEST AP CLINICAL HISTORY: cough TECHNIQUE: 2D digital imaging was performed. COMPARISON: CR,XR XR CHEST 2V PA LATERAL from 09/28/[address] CHEST PE ABD PELVIS W from 09/29/2024 CR,XR XR PORTABLE CHEST AP from 09/30/2024 CR,XR XR CHEST 2V PA LATERAL from 12/13/2024 FINDINGS: LUNGS: Linear scarring versus atelectasis at the left costophrenic angle. Calcified granuloma again noted at the left lung base. Clear. No pleural abnormality seen. HEART: Normal size. AORTA: Normal diameter. BONES: Unremarkable for age. Soft tissues: Eventration of the medial left diaphragm again noted. IMPRESSION: No acute findings. DATA REPOSITORY: RADIATION DOSE DELIVERED:
[2025-02-06 17:39] VITALS: BP 127/80; PULSE 85; RESP 20; TEMP 35.2; O2SAT 95
[2025-02-06] MEDS: AZITHROMYCIN 500 MG in Normal Saline 250 ML 250 MG IVPB (18:18)
[2025-02-06] MEDS: methylPREDNISolone SUCC 125 MG VIAL IVP (18:18)
[2025-02-06] MEDS: Albuterol/Ipratropium 3 ML UPD VIAL UPD (18:18)
[2025-02-06 18:31] LABS: Abs Immature Grans 0.02 10^3/uL (0.0-0.06); HCT 39.6 % (40.0-50.0); HGB 12.1 g/dL (13.5-17.5); Immature Grans % 0.3 %; MCH 27.2 pg (27.0-33.0); MCHC 30.6 % (32.0-36.0); MCV 89 fL (80-95); MPV 9.9 fL (8.0-11.0); Platelet Count 251 10^3/uL (130-400); RBC 4.45 10^6/uL (4.36-5.78); RDW 15.6 % (11.8-14.1); RDW-SD 51.0 fL; WBC 7.19 10^3/uL (4.4-10.8)
[2025-02-06 18:50] LABS: ALT 32 U/L (16-63); AST 26 U/L (15-37); Albumin 3.3 g/dL (3.4-5.0); Alkaline Phosphatase 89 U/L (46-116); Anion Gap 8.0 mmol/L (3-11); BUN 20 mg/dL (7-18); Bilirubin, Total 0.3 mg/dL (0.2-1.0); CO2 31.0 mmol/L (21.0-32.0); Calcium 9.0 mg/dL (8.5-10.1); Chloride 103 mmol/L (98-107); Estimated GFR 97.00 (mL/min/1.73m2); Glucose 110 mg/dL (74-106); Potassium 3.8 mmol/L (3.5-5.1); Sodium 142 mmol/L (136-145); Total Protein 7.4 g/dL (6.4-8.2)
[2025-02-06 19:10] LABS: COVID-19 PCR Negative (Negative); RSV PCR Negative (Negative)
--- NOTE | 2025-02-06 19:25 | W.ED.GENAD ---
Discharge Plan Disposition Patient Disposition: Senior Living Facility(SNF) Discharge Details Clinical Impression: COPD (chronic obstructive pulmonary disease), Cough Primary Care Provider: Milka Shelley ED Provider: Yoel Nolan Home Meds and New Rx's Prescriptions: New azithromycin 500 mg tablet 500 mg PO DAILY 2 Days Qty: 2 0RF Rx Instructions: start on day 2 of therapy Continued omega 0-nzq-sse-fish oil [Fish Oil] 60-90-500 mg capsule 1 cap PO DAILY simvastatin 20 mg tablet 20 mg PO DAILY clozapine 50 mg tablet 50 mg PO DAILY tramadol 50 mg tablet 50 mg PO Q4H PRN MDD 4 PRN (Reason: pain) Qty: 10 0RF tamsulosin 0.4 mg capsule 0.8 mg PO QHS Incruse Ellipta 62.5 mcg/actuation blister with device 1 inh inhalation DAILY trazodone 50 mg tablet 50 mg PO QHS clozapine 200 mg tablet 200 mg PO QHS duloxetine 60 mg capsule,delayed release(DR/EC) 60 mg PO BID acetaminophen [Tylenol] 325 mg tablet 650 mg PO BID bisacodyl 10 mg suppository 10 mg HI ONCE PRN Fleet Enema 19-7 gram/118 mL enema 118 ml HI DAILY PRN cyanocobalamin (vitamin B-12) 1,000 mcg tablet, sublingual 1,000 mcg PO DAILY Rx Instructions: 1 TAB (1000mcg) ORALLY DAILY polyethylene glycol 3350 [Miralax] 17 gram/dose powder 17 g PO QDAY cholecalciferol (vitamin D3) [Vitamin D3] 25 mcg (1,000 unit) capsule 1,000 unit PO DAILY tizanidine 2 mg tablet 2 mg PO TID meloxicam 7.5 mg tablet 7.5 mg PO DAILY ondansetron 4 mg tablet,disintegrating 4 mg PO Q6H PRN albuterol sulfate [Ventolin HFA] 90 mcg/actuation HFA aerosol inhaler 2 inh inhalation Q6H PRN diazepam 10 mg tablet 10 mg PO BID donepezil 5 mg tablet 5 mg PO DAILY memantine 5 mg tablet 5 mg PO BID Discharge Instructions Instructions: Cough in adults, COPD Exacerbation, Adult ED Additional Instructions: Please follow-up with your primary care provider regarding your visit to the emergency department today. Be sure to discuss results of all test performed here today to include radiology, and laboratory testing as well as results for any pending cultures. Should your symptoms worsen, or if you develop new concerning symptoms, please return immediately emergency department for further evaluation. HPI General Date/Time Provider Initiated Documentation: 02/06/25 17:53. HPI Narrative: MDM/Narrative: Initial Assessment: 69-year-old male with COPD, cough, and new sputum production for 1 week. No supplementary oxygen required, no increased work of breathing. Differential Diagnosis: - Mild COPD exacerbation: Treat with azithromycin. - Pneumonia: Rule out with chest x-ray. - COVID-19, influenza, RSV: Screen due to communal living. ED Course: - Administered DuoNeb, Solu-Medrol, azithromycin. - Labs negative. Final Assessment: New sputum production and cough. Administered DuoNeb, Solu-Medrol, azithromycin. Labs negative. Discharged with treatment plan for mild COPD exacerbation. Clinical Impression: Mild COPD exacerbation Disposition: Discharged back to long term. This document was created with assistance from JOHNNIE Dee. The patient consented to its use. HPI: The patient is a 69-year-old male residing in a long term, presenting with a cough and sputum production persisting for one week. His medical history includes dementia, schizophrenia, and chronic obstructive pulmonary disease (COPD) without baseline oxygen requirements. He denies experiencing chest pain, nausea, vomiting, pyrexia, chills, diarrhea, rash, or any other new symptoms. ROS: Negative besides as mentioned above Exam: Vital signs: Reviewed. General Appearance: Alert and oriented. No acute distress. HEENT: NCAT, EOMI, not icteric. External ears normal. No rhinorrhea. Moist mucous membranes. Neck: Supple, full range of motion, no observable masses, No meningeal sign. Respiratory: Mild diffuse expiratory wheezing in lungs. Cardiovascular: RRR, no edema. Gastrointestinal: Soft, nondistended, No rebound tenderness. Back: No midline tenderness to palpation or palpable step-offs of the C/T/L spine. Skin: Warm and dry, no rash. Neurological: Normal Gait, Grossly intact. Psychiatric: Appropriate for situation. Labs: Laboratory Tests Range/Units 02/06/25 02/06/25 18:15 18:21 WBC (4.4-10.8) 10^3/uL 7.19 RBC (4.36-5.78) 10^6/uL 4.45 Hgb (13.5-17.5) g/dL 12.1 L Hct (40.0-50.0) % 39.6 L MCV (80-95) fL 89 MCH (27.0-33.0) pg 27.2 MCHC (32.0-36.0) % 30.6 L RDW (11.8-14.1) % 15.6 H Plt Count (130-400) 10^3/uL 251 MPV (8.0-11.0) fL 9.9 Immature Gran % % 0.3 Neutrophils % % 53.4 Lymphocytes % % 35.9 Monocytes % % 6.3 Eosinophils % % 3.5 Basophils % % 0.6 Nucleated RBC % (0.0-0.3) % 0.0 Absolute Neutrophils (1.2-6.7) 10^3/uL 3.85 Absolute Lymphocytes (1.2-3.4) 10^3/uL 2.58 Absolute Monocytes (0.1-0.8) 10^3/uL 0.45 Absolute Eosinophils (0.0-0.7) 10^3/uL 0.25 Absolute Basophils (0.0-0.2) 10^3/uL 0.04 VBG Lactate (<or=2.0) mmol/L 1.7 Sodium (136-145) mmol/L 142 Potassium (3.5-5.1) mmol/L 3.8 Chloride (98-107) mmol/L 103 Carbon Dioxide (21.0-32.0) mmol/L 31.0 Anion Gap (3-11) mmol/L 8.0 BUN (7-18) mg/dL 20 H Creatinine (0.70-1.30) mg/dL 0.8 Est GFR (CKD-EPI 2020) (mL/min/1.73m2) 97.00 Glucose (74-106) mg/dL 110 H Calcium (8.5-10.1) mg/dL 9.0 Total Bilirubin (0.2-1.0) mg/dL 0.3 AST (15-37) U/L 26 ALT (16-63) U/L 32 Alkaline Phosphatase (46-116) U/L 89 Total Protein (6.4-8.2) g/dL 7.4 Albumin (3.4-5.0) g/dL 3.3 L COVID-19 Source Nasopharynx SARS-CoV-2 (PCR) (Negative) Negative Influenza Type A (PCR) (Negative) Negative Influenza Type B (PCR) (Negative) Negative RSV (PCR) (Negative) Negative Radiology: Chest x-ray: No acute findings as read by me Related Data Home Medications ?Medication ?Instructions ?Recorded ?Confirmed tamsulosin 0.4 mg capsule 0.8 mg PO QHS 03/23/22 01/09/25 trazodone 50 mg tablet 50 mg PO QHS 03/23/22 01/09/25 umeclidinium 62.5 mcg/actuation 1 inh inhalation DAILY 03/23/22 01/09/25 blister powder for inhalation (Incruse Ellipta) clozapine 200 mg tablet 200 mg PO QHS 01/19/23 01/09/25 clozapine 50 mg tablet 50 mg PO DAILY 01/19/23 01/09/25 omega 6-rny-mdh-fish oil 60 mg-90 1 cap PO DAILY 01/19/23 01/09/25 mg-500 mg capsule (Fish Oil) simvastatin 20 mg tablet 20 mg PO DAILY 01/19/23 01/09/25 duloxetine 60 mg capsule,delayed 60 mg PO BID 07/20/23 01/09/25 release cholecalciferol (vitamin D3) 25 1,000 unit PO DAILY 02/11/24 01/09/25 mcg (1,000 unit) capsule (Vitamin D3) polyethylene glycol 3350 17 17 g PO QDAY 02/11/24 01/09/25 gram/dose oral powder (Miralax) albuterol sulfate 90 mcg/actuation 2 inh inhalation Q6H PRN 06/21/24 01/09/25 aerosol inhaler (Ventolin HFA) meloxicam 7.5 mg tablet 7.5 mg PO DAILY 06/21/24 01/09/25 ondansetron 4 mg disintegrating 4 mg PO Q6H PRN 06/21/24 01/09/25 tablet tizanidine 2 mg tablet 2 mg PO TID 07/25/24 01/09/25 acetaminophen 325 mg tablet 650 mg PO BID 08/07/24 01/09/25 (Tylenol) tramadol 50 mg tablet 50 mg PO Q4H PRN PRN pain #10 tabs 08/07/24 01/09/25 bisacodyl 10 mg rectal suppository 10 mg HI ONCE PRN 09/29/24 01/09/25 sodium phosphates 19 gram-7 118 ml HI DAILY PRN 09/29/24 01/09/25 gram/118 mL enema (Fleet Enema) cyanocobalamin (vitamin B-12) 1,000 mcg PO DAILY 10/02/24 01/09/25 1,000 mcg sublingual tablet diazepam 10 mg tablet 10 mg PO BID 12/13/24 01/09/25 donepezil 5 mg tablet 5 mg PO DAILY 12/13/24 01/09/25 memantine 5 mg tablet 5 mg PO BID 12/14/24 01/09/25 azithromycin 500 mg tablet 500 mg PO DAILY 2 days #2 tabs 02/06/25 Previous Rx's ?Medication ?Instructions ?Recorded tramadol 50 mg tablet 50 mg PO Q4H PRN PRN pain #10 tabs 08/07/24 azithromycin 500 mg tablet 500 mg PO DAILY 2 days #2 tabs 02/06/25 Allergies Allergy/AdvReac Type Severity Reaction Status Date / Time No Known Allergies Allergy Verified 09/29/24 02:01 General Stated Complaint: RespSymp WILLIAMS: 3 Course Vital Signs Vital signs: Vital Signs Temperature 35.2 C L 02/06/25 17:39 Pulse 85 02/06/25 17:39 Respiratory Rate 20 02/06/25 17:39 Blood Pressure 127/80 02/06/25 17:39 Pulse Oximetry 95 02/06/25 17:39 Temperature 35.2 C L 02/06/25 17:39 Temperature Source Tympanic 02/06/25 17:39 Pulse 85 02/06/25 17:39 Respiratory Rate 20 02/06/25 17:39 Blood Pressure 127/80 02/06/25 17:39 Blood Pressure Position Sitting 02/06/25 17:39 Pulse Oximetry 95 02/06/25 17:39 Oxygen Delivery Method Nasal Cannula 02/06/25 17:39 Oxygen Flow Rate 2 02/06/25 17:39 Lab/Test Results Lab/Test Results: Laboratory Tests Range/Units 02/06/25 02/06/25 18:15 18:21 WBC (4.4-10.8) 10^3/uL 7.19 RBC (4.36-5.78) 10^6/uL 4.45 Hgb (13.5-17.5) g/dL 12.1 L Hct (40.0-50.0) % 39.6 L MCV (80-95) fL 89 MCH (27.0-33.0) pg 27.2 MCHC (32.0-36.0) % 30.6 L RDW (11.8-14.1) % 15.6 H Plt Count (130-400) 10^3/uL 251 MPV (8.0-11.0) fL 9.9 Immature Gran % % 0.3 Neutrophils % % 53.4 Lymphocytes % % 35.9 Monocytes % % 6.3 Eosinophils % % 3.5 Basophils % % 0.6 Nucleated RBC % (0.0-0.3) % 0.0 Absolute Neutrophils (1.2-6.7) 10^3/uL 3.85 Absolute Lymphocytes (1.2-3.4) 10^3/uL 2.58 Absolute Monocytes (0.1-0.8) 10^3/uL 0.45 Absolute Eosinophils (0.0-0.7) 10^3/uL 0.25 Absolute Basophils (0.0-0.2) 10^3/uL 0.04 VBG Lactate (<or=2.0) mmol/L 1.7 Sodium (136-145) mmol/L 142 Potassium (3.5-5.1) mmol/L 3.8 Chloride (98-107) mmol/L 103 Carbon Dioxide (21.0-32.0) mmol/L 31.0 Anion Gap (3-11) mmol/L 8.0 BUN (7-18) mg/dL 20 H Creatinine (0.70-1.30) mg/dL 0.8 Est GFR (CKD-EPI 2020) (mL/min/1.73m2) 97.00 Glucose (74-106) mg/dL 110 H Calcium (8.5-10.1) mg/dL 9.0 Total Bilirubin (0.2-1.0) mg/dL 0.3 AST (15-37) U/L 26 ALT (16-63) U/L 32 Alkaline Phosphatase (46-116) U/L 89 Total Protein (6.4-8.2) g/dL 7.4 Albumin (3.4-5.0) g/dL 3.3 L COVID-19 Source Nasopharynx SARS-CoV-2 (PCR) (Negative) Negative Influenza Type A (PCR) (Negative) Negative Influenza Type B (PCR) (Negative) Negative RSV (PCR) (Negative) Negative Medical Decision Making Quality:SDOH Health Related Social Needs: Health related social needs daily activities PFSH All Active Problems (Updated 02/06/25 @ 18:50 by Yoel Nolan MD) Cough (Acute) Obesity (Chronic) BPH without obstruction/lower urinary tract symptoms (Chronic) Multifocal pneumonia (Acute) Multifocal pneumonia (Acute) Deficit in activities of daily living (ADL) (Acute) Lives in long term (Acute) Dementia (Chronic) Schizophrenia (Chronic) COPD (chronic obstructive pulmonary disease) (Chronic) Acute and chronic respiratory failure with hypoxia (Acute) Fall (Acute) Contusion of knee (Acute) Chronic respiratory failure with hypoxia, on home O2 therapy (Acute) Supplemental oxygen dependent (Acute) COPD (chronic obstructive pulmonary disease) (Chronic) Aspiration pneumonia (Acute) Schizophrenia (Chronic) Alzheimer's dementia without behavioral disturbance (Chronic) Medical History Left foot pain Cognitive impairment Bilateral primary osteoarthritis of knee Pneumonia COVID Dermatophytosis of nail Alcohol abuse, in remission Auditory hallucinations History of suicidal ideation Paranoid schizophrenia Altered mental status Cognitive changes Anemia Elevated PSA Urinary incontinence Hyperplasia of prostate with lower urinary tract symptoms (LUTS) Emphysema lung Pulmonary nodule Tobacco abuse History of prediabetes Hyperlipidemia Low back pain Acute metabolic encephalopathy Neutrophilia Pain, foot, left, chronic Patellofemoral joint pain Atherosclerosis Surgical History 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) As treatment for right femoral neck fracture Hx of knee surgery Family History Mother Brain cancer Father Heart disease Hypertension Obesity Osteoarthritis Social History Smoking/Tobacco Use Status: Former Tobacco Use Tobacco: How many years used: 38 Smoking risk assessment performed?: Yes Alcohol Intake: never Substance use type: does not use Housing: house Do you feel safe at home: Yes Do you feel safe in your relationship?: Yes
[2025-02-06 19:33] VITALS: BP 121/82; BP 127/80; PULSE 78; PULSE 85; RESP 16; RESP 20; TEMP 35.2; O2SAT 95; O2SAT 96
== END 2025-02-06 19:42 | disposition skilled nursing facility (03) ==
PROVIDERS: Emergency Provider General Practice; PCP Nurse Practitioner Family
DX: J44.1 Chronic obstructive pulmonary disease with (acute) exacerbation (principal); R09.81 Nasal congestion
CPT/HCPCS: 99284 ×2; 80053; 87637; 96365; 71045; 83605; 85025; J0456; J2919; J7620

== ENCOUNTER → 2025-02-10 10:21 | Outpatient (BNVA) | payer MEDICARE, MEDICAID, SELFPAY | PROVIDERS: PCP Nurse Practitioner Family; Referring Provider Nurse Practitioner Family; Visit Provider Podiatrist | DX: L60.3 Nail dystrophy (principal); B35.1 Tinea unguium; M79.674 Pain in right toe(s); M79.675 Pain in left toe(s); I73.89 Other specified peripheral vascular diseases; G60.9 Hereditary and idiopathic neuropathy, unspecified; Z72.0 Tobacco use; R09.89 Other specified symptoms and signs involving the circulatory and respiratory systems; R60.0 Localized edema; L65.9 Nonscarring hair loss, unspecified; R23.4 Changes in skin texture; L60.8 Other nail disorders; L60.2 Onychogryphosis | CPT/HCPCS: 11719; 11720 ==

== ENCOUNTER 2025-02-12 10:59 | Outpatient (REF) | payer MEDICARE, MEDICAID, SELFPAY ==
[2025-02-12 11:55] LABS: Abs Immature Grans 0.03 10^3/uL (0.0-0.06); HCT 41.2 % (40.0-50.0); HGB 12.6 g/dL (13.5-17.5); Immature Grans % 0.3 %; MCH 27.2 pg (27.0-33.0); MCHC 30.6 % (32.0-36.0); MCV 89 fL (80-95); MPV 10.1 fL (8.0-11.0); Platelet Count 277 10^3/uL (130-400); RBC 4.64 10^6/uL (4.36-5.78); RDW 15.4 % (11.8-14.1); RDW-SD 50.1 fL; WBC 8.64 10^3/uL (4.4-10.8)
[2025-02-12 12:05] LABS: Anion Gap 6.3 mmol/L (3-11); BUN 23 mg/dL (7-18); CO2 31.7 mmol/L (21.0-32.0); Calcium 9.2 mg/dL (8.5-10.1); Chloride 104 mmol/L (98-107); Estimated GFR 97.00 (mL/min/1.73m2); Glucose 96 mg/dL (74-106); Potassium 4.3 mmol/L (3.5-5.1); Sodium 142 mmol/L (136-145)
== END 2025-02-12 11:00 | disposition home or self-care (01) ==
LOC: LBN 10:59
PROVIDERS: PCP Nurse Practitioner Family; Visit Provider Nurse Practitioner Adult Health
DX: F20.0 Paranoid schizophrenia (principal)
CPT/HCPCS: 80048; 80159; 85025

== ENCOUNTER → 2025-02-17 13:23 | Outpatient (BNVA) | payer MEDICARE, MEDICAID, SELFPAY | PROVIDERS: PCP Nurse Practitioner Family; Referring Provider Nurse Practitioner Family; Visit Provider Podiatrist | DX: I73.89 Other specified peripheral vascular diseases (principal); G60.9 Hereditary and idiopathic neuropathy, unspecified | CPT/HCPCS: 93922 ==